=== PATIENT | female | born 1965 | race Caucasian/White ===

== ENCOUNTER 2021-09-20 12:16 | Inpatient (IN) ==
[2021-09-20] MEDS ORDERED: ALBUT/IPRATROP 3MG/0.5MG NEB 3 ML VIAL NEB STA (12:28)
[2021-09-20] MEDS ORDERED: methylPREDNISolone 125 MG/2 ML VIAL IV STA (12:28)
[2021-09-20 13:14] LABS: Appearance Urine Clear (Clear); Bilirubin Urine Negative (Negative); Blood Urine Negative (Negative); Color Urine Yellow; Glucose Urine UA Negative (Negative); Ketones Urine Negative (Negative); Leukocyte Esterase Urine Negative (Negative); Nitrite Urine Negative (Negative); Protein Urine Negative (Negative); Specific Gravity Urine 1.007 (1.000-1.030); Urobilinogen Urine Negative (Negative); pH Urine 7.5 (4.5-7.5)
[2021-09-20 13:27] LABS: Partial Thromboplastin Ratio 1.1; Partial Thromboplastin Time 29.4 Seconds (21.0-31.0); Prothrombin Time 10.7 Seconds (9.0-12.0)
--- NOTE | 2021-09-20 13:27 | Emergency Department Note ---
Impression & Plan Acute exacerbation of chronic obstructive pulmonary disease, Tobacco abuse, Bronchitis, Acute respiratory acidosis, Hypoxia ED Provider Note NAME: LUX VERAS AGE: 56 SEX: F : 1965 ARRIVES VIA: Walk-In INFORMANT: Patient, ED PROVIDER(S): Roge Nash DO CHIEF COMPLAINT: Shortness of breath HPI: The patient is a 56-year-old female who presented to the emergency department for an evaluation of difficulty breathing. The patient has a history of COPD. She is supposed to wear CPAP at night but she is not. She is not currently on antibiotics steroids or home oxygen. The patient states that she has been having problems over the course of the weekend with cough and difficulty breathing. She denies having any fever. She denies having any hemoptysis. She has had no chest pain or lower extremity swelling. She has been using her home medications without relief. She denies having any recent trauma. She has been compliant with her usual outpatient medications. The patient states her symptoms are moderate to severe. They worsen with any exertion. ROS: See above HPI for pertinent positives & negatives. A total of 10 systems reviewed and were otherwise negative. PAST MEDICAL HISTORY: See Below PAST SURGICAL HISTORY: See Below FAMILY HISTORY: See Below SOCIAL HISTORY: See Below HOME MEDICATIONS: See Below ALLERGIES: See Below VITALS: See Below PHYSICAL EXAMINATION: GENERAL: The patient is awake and alert. Patient is anxious appearing. EYES: The conjunctivae are clear. The pupils are round and reactive. EARS, NOSE, MOUTH AND THROAT: The nose is without any evidence of any deformity. NECK: The neck is nontender and supple. RESPIRATORY: Diminished breath sounds are noted throughout. Expiratory wheezes were noted both upper lung griggs. Conversational dyspnea is appreciated. CARDIOVASCULAR: Regular rate and rhythm noted there no murmurs rubs or gallops normal S1 normal S2. GASTROINTESTINAL: The abdomen is soft. Abdomen is nontender. MUSCULOSKELETAL/EXTREMITIES: There is no evidence of gross deformity full range of motion is noted in the hips and shoulders. SKIN: There is no obvious evidence of any rash. There are no petechiae, pallor or cyanosis noted. NEUROLOGIC: Patient is awake alert and oriented x3 MEDICAL DECISION MAKING: The patient is a 56-year-old female who presented to the emergency department for an evaluation of difficulty breathing. The patient was found to have hypoxia and a physical exam consistent with COPD. She was treated with bronchodilator therapy and IV antibiotics in the emergency department she was also given IV steroids. I discussed the patient's laboratory and radiographic studies with her. Because of her symptoms I also discussed her case with the on-call [facility] group. They have agreed to evaluate the patient in the emergency department for further management and disposition. Triage Nursing notes reviewed. Prior medical records reviewed Vital Signs: reviewed and remarkable for hypoxia. Differential diagnosis: Reactive airway disease, pneumonia, pneumothorax, COPD, CHF, infections, cardiac ischemia, pulmonary embolism, musculoskeletal, gastrointestinal, as well as other pathologies. ER treatment provided: See below Diagnostics interpreted by me: ECG: EKG was obtained in the emergency department. My interpretation is normal sinus rhythm at 69 bpm. There is no ectopy. There is no acute ST segment abnormalities noted. LVH was suggested by voltage criteria. This was compared to a tracing from October 21, 2003. No changes were noted. Cardiac Monitoring: An order was placed for continuous cardiac monitoring. The monitor shows a rate of 70 bpm with sinus rhythm. Laboratory studies: As stated above and show below. Imaging studies: See below Consultation(s): I discussed this case with Leonila who is on-call for the [facility]. Past Med/Surg History Medical History Bipolar disorder CAD (coronary artery disease) Chronic respiratory failure with hypercapnia COPD (chronic obstructive pulmonary disease) GERD (gastroesophageal reflux disease) HLD (hyperlipidemia) HTN (hypertension) Hypothyroidism BLAINE (obstructive sleep apnea) Pseudotumor cerebri T2DM (type 2 diabetes mellitus) TIA (transient ischemic attack) Tobacco abuse Tobacco use Surgical History History of History of cholecystectomy History of colonoscopy 2018 adenomatous polyps removed History of coronary artery stent placement History of esophagogastroduodenoscopy (EGD) 2018 normal History of lithotripsy History of tubal ligation Family History Father , 48 Myocardial infarction Mother , 58 Diabetes COPD (chronic obstructive pulmonary disease) Social History Smoking Status: Current every day smoker Tobacco Type: Cigarettes packs per day: 0.25; Years Smoked: 40; Cigarettes Per Day: 5; Second Hand Exposure: Yes; Tobacco Cessation Education Requested by Patient: No (Geovanny does not want to quit at this time.) Hx Alcohol Use: No Hx Substance Use: No Preferred Language: Guatemalan 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 Beliefs That Will Affect Care: None Current Living Situation: Family Feels Safe at Home: Yes Safety Concerns: Feels Safe At This Time Assistive Devices: Denture - Upper, Glasses and Walker Assistive Devices Comment: dentures present/ glasses are not Allergies Allergies Allergy/AdvReac Type Severity Reaction Status Date / Time ethinyl estradiol Allergy Mild RUNNY Verified 09/20/21 16:10 NOSE, ACHES, CONGESTION levonorgestrel Allergy Mild RUNNY Verified 09/20/21 16:10 NOSE, ACHES, CONGESTION strawberry Allergy Mild RASH Verified 09/20/21 16:10 bupropion Allergy Unknown memory loss Verified 09/20/21 16:10 latex Allergy Unknown rash Verified 09/20/21 16:10 [place] [facility] Allergy Mild RUNNY Uncoded 09/20/21 16:10 NOSE, ACHES, CONGESTION Home Meds Home Medications Medication Instructions Recorded Confirmed acetazolamide 250 mg tablet 1,000 mg PO BID 09/20/21 09/20/21 albuterol sulfate 90 mcg/actuation 2 puff INHALATION QID 09/20/21 09/20/21 aerosol inhaler amlodipine 5 mg tablet 5 mg PO QAM 09/20/21 09/20/21 aspirin 81 mg chewable tablet 81 mg PO DAILY 09/20/21 09/20/21 atorvastatin 40 mg tablet 40 mg PO QPM 09/20/21 09/20/21 cariprazine 3 mg capsule (Vraylar) 3 mg PO HS 09/20/21 09/20/21 clobetasol 0.05 % topical cream 1 applic TOPICAL BID 09/20/21 09/20/21 famotidine 10 mg tablet (Acid 10 mg PO BID 09/20/21 09/20/21 Medical Oncology Physician (famotidine)) fluticasone 250 mcg-salmeterol 50 1 inh INHALATION BID 09/20/21 09/20/21 mcg/dose blistr powdr for inhalation (Advair Diskus) gabapentin 100 mg capsule 100 mg PO TID 09/20/21 09/20/21 hydroxyzine pamoate 25 mg capsule 25 mg PO BID 09/20/21 09/20/21 levothyroxine 75 mcg tablet 75 mcg PO DAILYBB 09/20/21 09/20/21 lithium carbonate 300 mg 600 mg PO HS 09/20/21 09/20/21 tablet,extended release metformin 500 mg tablet 500 mg PO BIDM 09/20/21 09/20/21 metoprolol succinate 25 mg 25 mg PO DAILY 09/20/21 09/20/21 tablet,extended release 24 hr nitroglycerin 0.4 mg sublingual 0.4 mg SUBLINGUAL .PRN/UD 09/20/21 09/20/21 tablet nystatin 100,000 unit/gram topical 1 applic TOPICAL TID 09/20/21 09/20/21 powder omeprazole 20 mg capsule,delayed 20 mg PO QAM 09/20/21 09/20/21 release Results & Data (ED) Vital Signs Vital Signs - 24 hr 09/20/21 12:18 09/20/21 12:29 09/20/21 12:55 Temperature 36.8 C Temperature Source Temporal Artery Scan Pulse Rate 78 70 Pulse Rate [Apical] Pulse Rhythm Regular Pulse Strength Normal Respiratory Rate 22 19 Respiratory Effort / Characteristics Non-Labored Spontaneous Respiratory Depth Normal Respiratory Pattern Regular Blood Pressure 163/89 H Blood Pressure [Right Arm] Blood Pressure Mean 113 Blood Pressure Mean [Right Arm] Blood Pressure Position Sitting Blood Pressure Position [Right Arm] Pulse Oximetry 85 L 95 97 Oxygen Delivery Method Room Air Nasal Cannula Nasal Cannula Oxygen Flow Rate 3 3 Sepsis Recent Fever Within 48 Hours No Sepsis New/Unexplained Change in Mental Status No Sepsis Action Taken by Nursing No Action Required 09/20/21 13:01 09/20/21 15:00 Temperature 36.8 C Temperature Source Oral Pulse Rate Pulse Rate [Apical] 70 70 Pulse Rhythm Pulse Strength Respiratory Rate 19 18 Respiratory Effort / Characteristics Non-Labored Spontaneous Respiratory Depth Normal Respiratory Pattern Blood Pressure Blood Pressure [Right Arm] 151/108 H 127/56 L Blood Pressure Mean Blood Pressure Mean [Right Arm] 122 79 Blood Pressure Position Blood Pressure Position [Right Arm] Semi-fowlers Pulse Oximetry 91 93 Oxygen Delivery Method Nasal Cannula Nasal Cannula Oxygen Flow Rate 3 2 Sepsis Recent Fever Within 48 Hours Sepsis New/Unexplained Change in Mental Status Sepsis Action Taken by Longterm Medications Current Medication List: was personally reviewed by me Laboratory Data Attestation: I reviewed the patient's lab results. Result diagrams: 09/21/21 06:45 09/21/21 06:45 Lab Results 09/20/21 09/20/21 09/20/21 Range/Units 12:45 12:45 12:45 WBC 18.08 H (4.8-10.8) K/uL RBC 4.91 (4.2-5.4) M/uL Hgb 14.9 (12.0-16.0) g/dL Hct 49.8 H (37-47) % MCV 101.4 H (80-100) fL MCH 30.3 (25-34) pg MCHC 29.9 L (32-36) g/dL RDW Std Deviation 59.1 H (36.4-46.3) fL RDW Coeff of Bruno 15.7 H (11.5-14.5) % Plt Count 368 (130-400) K/uL MPV 10.3 (7.4-10.4) fL Absolute Nucleated RBC 0.03 H (0-0) K/uL Nucleated RBC % (auto) 0.2 % Neutrophils % (Manual) 88.4 % Lymphocytes % (Manual) 7.1 % Monocytes % (Manual) 0.9 % Eosinophils % (Manual) 1.8 % Metamyelocytes % (Man) 0.9 % Myelocytes % (Man) 0.9 % Neutrophils # (Manual) 15.98 H (1.4-6.5) K/uL Total Absolute Neuts 15.98 H (1.4-6.5) K/uL Lymphocytes # (Manual) 1.28 (1.2-3.4) K/uL Total Abs Lymphocytes 1.28 (1.2-3.4) K/uL Monocytes # (Manual) 0.16 (0.11-0.59) K/uL Eosinophils # (Manual) 0.33 (0-0.5) K/uL Metamyelocytes # (Man) 0.16 H (0-0) K/uL Myelocytes # (Manual) 0.16 H (0-0) K/uL PT 10.7 (9.0-12.0) Seconds INR 1.0 (0.9-1.1) APTT 29.4 (21.0-31.0) Seconds PTT Ratio 1.1 D-Dimer (0-500) ug/L FEU VBG pH (7.36-7.41) VBG pCO2 (38-50) mmHg VBG pO2 mmHg VBG HCO3 mmol/L VBG O2 Saturation % VBG Base Excess mEq/L Barometric Pressure mm/Hg Sodium (136-145) mmol/L Potassium (3.5-5.1) mmol/L Chloride (98-107) mmol/L Carbon Dioxide (21-32) mmol/L Anion Gap (3-11) BUN (6-23) mg/dl Creatinine (0.6-1.2) mg/dl Est Cr Clr Drug Dosing ml/min Est GFR ( Amer) ml/min Est GFR (Non-Af Amer) ml/min BUN/Creatinine Ratio (10-20) Glucose (70-99(Fasting)) mg/dl Calcium (8.5-10.1) mg/dl Magnesium (1.7-2.4) mg/dl Total Bilirubin (0.2-1.0) mg/dl AST (13-39) U/L ALT (7-52) U/L Alkaline Phosphatase (34-104) U/L Troponin I High Sens 8.7 (0-14) pg/ml Total Protein (6.0-8.3) gm/dl Albumin (3.4-5.0) gm/dl Globulin (2.5-4.0) gm/dl Albumin/Globulin Ratio (0.9-2) Procalcitonin (0-0.5) ng/ml Urine Color Urine Appearance (Clear) Urine pH (4.5-7.5) Ur Specific [place] (1.000-1.030) Urine Protein (Negative) Urine Glucose (UA) (Negative) Urine Ketones (Negative) Urine Blood (Negative) Urine Nitrite (Negative) Urine Bilirubin (Negative) Urine Urobilinogen (Negative) Ur Leukocyte Esterase (Negative) [place] (0.6-1.2) mmol/L Influ A Molecular Assay (Negative) Influ B Molecular Assay (Negative) 09/20/21 09/20/21 09/20/21 Range/Units 12:45 12:45 12:45 WBC (4.8-10.8) K/uL RBC (4.2-5.4) M/uL Hgb (12.0-16.0) g/dL Hct (37-47) % MCV (80-100) fL MCH (25-34) pg MCHC (32-36) g/dL RDW Std Deviation (36.4-46.3) fL RDW Coeff of Bruno (11.5-14.5) % Plt Count (130-400) K/uL MPV (7.4-10.4) fL Absolute Nucleated RBC (0-0) K/uL Nucleated RBC % (auto) % Neutrophils % (Manual) % Lymphocytes % (Manual) % Monocytes % (Manual) % Eosinophils % (Manual) % Metamyelocytes % (Man) % Myelocytes % (Man) % Neutrophils # (Manual) (1.4-6.5) K/uL Total Absolute Neuts (1.4-6.5) K/uL Lymphocytes # (Manual) (1.2-3.4) K/uL Total Abs Lymphocytes (1.2-3.4) K/uL Monocytes # (Manual) (0.11-0.59) K/uL Eosinophils # (Manual) (0-0.5) K/uL Metamyelocytes # (Man) (0-0) K/uL Myelocytes # (Manual) (0-0) K/uL PT (9.0-12.0) Seconds INR (0.9-1.1) APTT (21.0-31.0) Seconds PTT Ratio D-Dimer 410 (0-500) ug/L FEU VBG pH (7.36-7.41) VBG pCO2 (38-50) mmHg VBG pO2 mmHg VBG HCO3 mmol/L VBG O2 Saturation % VBG Base Excess mEq/L Barometric Pressure mm/Hg Sodium 141 (136-145) mmol/L Potassium 3.8 (3.5-5.1) mmol/L Chloride 107 (98-107) mmol/L Carbon Dioxide 28 (21-32) mmol/L Anion Gap 6 (3-11) BUN 13 (6-23) mg/dl Creatinine 0.71 (0.6-1.2) mg/dl Est Cr Clr Drug Dosing 120.7 ml/min Est GFR ( Amer) 110.4 ml/min Est GFR (Non-Af Amer) 95.2 ml/min BUN/Creatinine Ratio 18.3 (10-20) Glucose 138 H (70-99(Fasting)) mg/dl Calcium 9.1 (8.5-10.1) mg/dl Magnesium 2.1 (1.7-2.4) mg/dl Total Bilirubin 0.3 (0.2-1.0) mg/dl AST 7 L (13-39) U/L ALT 5 L (7-52) U/L Alkaline Phosphatase 126 H (34-104) U/L Troponin I High Sens (0-14) pg/ml Total Protein 7.6 (6.0-8.3) gm/dl Albumin 3.8 (3.4-5.0) gm/dl Globulin 3.8 (2.5-4.0) gm/dl Albumin/Globulin Ratio 1.0 (0.9-2) Procalcitonin (0-0.5) ng/ml Urine Color Yellow Urine Appearance Clear (Clear) Urine pH 7.5 (4.5-7.5) Ur Specific [place] 1.007 (1.000-1.030) Urine Protein Negative (Negative) Urine Glucose (UA) Negative (Negative) Urine Ketones Negative (Negative) Urine Blood Negative (Negative) Urine Nitrite Negative (Negative) Urine Bilirubin Negative (Negative) Urine Urobilinogen Negative (Negative) Ur Leukocyte Esterase Negative (Negative) [place] (0.6-1.2) mmol/L Influ A Molecular Assay (Negative) Influ B Molecular Assay (Negative) 09/20/21 09/20/21 09/20/21 Range/Units 13:25 13:49 13:49 WBC (4.8-10.8) K/uL RBC (4.2-5.4) M/uL Hgb (12.0-16.0) g/dL Hct (37-47) % MCV (80-100) fL MCH (25-34) pg MCHC (32-36) g/dL RDW Std Deviation (36.4-46.3) fL RDW Coeff of Bruno (11.5-14.5) % Plt Count (130-400) K/uL MPV (7.4-10.4) fL Absolute Nucleated RBC (0-0) K/uL Nucleated RBC % (auto) % Neutrophils % (Manual) % Lymphocytes % (Manual) % Monocytes % (Manual) % Eosinophils % (Manual) % Metamyelocytes % (Man) % Myelocytes % (Man) % Neutrophils # (Manual) (1.4-6.5) K/uL Total Absolute Neuts (1.4-6.5) K/uL Lymphocytes # (Manual) (1.2-3.4) K/uL Total Abs Lymphocytes (1.2-3.4) K/uL Monocytes # (Manual) (0.11-0.59) K/uL Eosinophils # (Manual) (0-0.5) K/uL Metamyelocytes # (Man) (0-0) K/uL Myelocytes # (Manual) (0-0) K/uL PT (9.0-12.0) Seconds INR (0.9-1.1) APTT (21.0-31.0) Seconds PTT Ratio D-Dimer (0-500) ug/L FEU VBG pH 7.25 L (7.36-7.41) VBG pCO2 67 H (38-50) mmHg VBG pO2 51 mmHg VBG HCO3 29 mmol/L VBG O2 Saturation 83.1 % VBG Base Excess -0.2 mEq/L Barometric Pressure 733.5 mm/Hg Sodium (136-145) mmol/L Potassium (3.5-5.1) mmol/L Chloride (98-107) mmol/L Carbon Dioxide (21-32) mmol/L Anion Gap (3-11) BUN (6-23) mg/dl Creatinine (0.6-1.2) mg/dl Est Cr Clr Drug Dosing ml/min Est GFR ( Amer) ml/min Est GFR (Non-Af Amer) ml/min BUN/Creatinine Ratio (10-20) Glucose (70-99(Fasting)) mg/dl Calcium (8.5-10.1) mg/dl Magnesium (1.7-2.4) mg/dl Total Bilirubin (0.2-1.0) mg/dl AST (13-39) U/L ALT (7-52) U/L Alkaline Phosphatase (34-104) U/L Troponin I High Sens (0-14) pg/ml Total Protein (6.0-8.3) gm/dl Albumin (3.4-5.0) gm/dl Globulin (2.5-4.0) gm/dl Albumin/Globulin Ratio (0.9-2) Procalcitonin (0-0.5) ng/ml Urine Color Urine Appearance (Clear) Urine pH (4.5-7.5) Ur Specific [place] (1.000-1.030) Urine Protein (Negative) Urine Glucose (UA) (Negative) Urine Ketones (Negative) Urine Blood (Negative) Urine Nitrite (Negative) Urine Bilirubin (Negative) Urine Urobilinogen (Negative) Ur Leukocyte Esterase (Negative) [place] 0.3 L (0.6-1.2) mmol/L Influ A Molecular Assay Negative (Negative) Influ B Molecular Assay Negative (Negative) 09/20/21 Range/Units 15:15 WBC (4.8-10.8) K/uL RBC (4.2-5.4) M/uL Hgb (12.0-16.0) g/dL Hct (37-47) % MCV (80-100) fL MCH (25-34) pg MCHC (32-36) g/dL RDW Std Deviation (36.4-46.3) fL RDW Coeff of Bruno (11.5-14.5) % Plt Count (130-400) K/uL MPV (7.4-10.4) fL Absolute Nucleated RBC (0-0) K/uL Nucleated RBC % (auto) % Neutrophils % (Manual) % Lymphocytes % (Manual) % Monocytes % (Manual) % Eosinophils % (Manual) % Metamyelocytes % (Man) % Myelocytes % (Man) % Neutrophils # (Manual) (1.4-6.5) K/uL Total Absolute Neuts (1.4-6.5) K/uL Lymphocytes # (Manual) (1.2-3.4) K/uL Total Abs Lymphocytes (1.2-3.4) K/uL Monocytes # (Manual) (0.11-0.59) K/uL Eosinophils # (Manual) (0-0.5) K/uL Metamyelocytes # (Man) (0-0) K/uL Myelocytes # (Manual) (0-0) K/uL PT (9.0-12.0) Seconds INR (0.9-1.1) APTT (21.0-31.0) Seconds PTT Ratio D-Dimer (0-500) ug/L FEU VBG pH (7.36-7.41) VBG pCO2 (38-50) mmHg VBG pO2 mmHg VBG HCO3 mmol/L VBG O2 Saturation % VBG Base Excess mEq/L Barometric Pressure mm/Hg Sodium (136-145) mmol/L Potassium (3.5-5.1) mmol/L Chloride (98-107) mmol/L Carbon Dioxide (21-32) mmol/L Anion Gap (3-11) BUN (6-23) mg/dl Creatinine (0.6-1.2) mg/dl Est Cr Clr Drug Dosing ml/min Est GFR ( Amer) ml/min Est GFR (Non-Af Amer) ml/min BUN/Creatinine Ratio (10-20) Glucose (70-99(Fasting)) mg/dl Calcium (8.5-10.1) mg/dl Magnesium (1.7-2.4) mg/dl Total Bilirubin (0.2-1.0) mg/dl AST (13-39) U/L ALT (7-52) U/L Alkaline Phosphatase (34-104) U/L Troponin I High Sens (0-14) pg/ml Total Protein (6.0-8.3) gm/dl Albumin (3.4-5.0) gm/dl Globulin (2.5-4.0) gm/dl Albumin/Globulin Ratio (0.9-2) Procalcitonin 0.12 (0-0.5) ng/ml Urine Color Urine Appearance (Clear) Urine pH (4.5-7.5) Ur Specific [place] (1.000-1.030) Urine Protein (Negative) Urine Glucose (UA) (Negative) Urine Ketones (Negative) Urine Blood (Negative) Urine Nitrite (Negative) Urine Bilirubin (Negative) Urine Urobilinogen (Negative) Ur Leukocyte Esterase (Negative) [place] (0.6-1.2) mmol/L Influ A Molecular Assay (Negative) Influ B Molecular Assay (Negative) Administered Medications Albuterol (Albut/Ipratrop 3mg/0.5mg Neb 3 Ml Vial) 3 ml NEB QIDR [facility]; Protocol Stop: 10/20/21 18:59 Last Admin: 09/21/21 07:09 Dose: 3 ml Documented by: [id number] Admin: 09/20/21 19:22 Dose: 3 ml Documented by: [id number] Amlodipine Besylate (Amlodipine Besylate 5 Mg Tab) 5 mg PO QAM KOFI Stop: 10/21/21 08:59 Last Admin: 09/21/21 07:44 Dose: 5 mg Documented by: [id number] Aspirin (Aspirin 81 Mg Ectab) 81 mg PO DAILY KOFI Stop: 10/21/21 08:59 Last Admin: 09/21/21 07:44 Dose: 81 mg Documented by: [id number] Atorvastatin Calcium (Atorvastatin 40 Mg Tab) 40 mg PO QPM KOFI Stop: 10/20/21 20:59 Last Admin: 09/20/21 21:24 Dose: 40 mg Documented by: [id number] Enoxaparin Sodium (Enoxaparin Inj 40 Mg/0.4 Ml Syr) 40 mg SQ Q12H KOFI Stop: 10/20/21 21:59 Last Admin: 09/20/21 21:21 Dose: Not Given Documented by: [id number] Famotidine (Famotidine 10 Mg Tablet) 10 mg PO BID KOFI Stop: 10/20/21 20:59 Last Admin: 09/21/21 07:43 Dose: 10 mg Documented by: [id number] Admin: 09/20/21 21:24 Dose: 10 mg Documented by: [id number] Fluticasone/Vilanterol (Fluticasone/Vilanterol 100/25mcg 14 Puffs/Inhaler) 1 puffs INH DAILY KOFI Stop: 10/21/21 08:59 Last Admin: 09/21/21 07:46 Dose: Not Given Documented by: [id number] Gabapentin (Gabapentin 100 Mg Cap) 100 mg PO TID KOFI Stop: 10/20/21 20:59 Last Admin: 09/21/21 07:45 Dose: 100 mg Documented by: [id number] Admin: 09/20/21 21:22 Dose: 100 mg Documented by: [id number] Insulin Aspart (Insulin Aspart Per Unit) 0 units SC Q6 KOFI Stop: 10/20/21 17:59 Last Admin: 09/21/21 06:07 Dose: Not Given Documented by: [id number] Admin: 09/21/21 00:09 Dose: Not Given Documented by: [id number] Admin: 09/20/21 18:28 Dose: Not Given Documented by: [id number] Cosigned by: [id number] Insulin Glargine (Insulin Glargine Solostar 100 Units/Ml 3 Ml Pen) 20 units SC BID KOFI Stop: 10/20/21 20:59 Last Admin: 09/21/21 07:46 Dose: Not Given Documented by: [id number] Admin: 09/20/21 21:27 Dose: Not Given Documented by: [id number] Levothyroxine Sodium (Levothyroxine Sodium 75 Mcg Tablet) 75 mcg PO DAILYBB [facility] Stop: 10/21/21 06:29 Last Admin: 09/21/21 07:43 Dose: 75 mcg Documented by: [id number] [place] Carbonate ([place] Carbonate Slow Rel 300 Mg Tab) 600 mg PO HS [facility] Stop: 10/20/21 20:59 Last Admin: 09/20/21 21:24 Dose: 600 mg Documented by: [id number] Metoprolol Succinate (Metoprolol Succ 25mg Ext Rel Tab) 25 mg PO DAILY [facility] Stop: 10/21/21 08:59 Last Admin: 09/21/21 07:43 Dose: 25 mg Documented by: [id number] Miscellaneous (Vrylar~Order Awaiting Action) 1 ea N/A QS [facility] Stop: 10/20/21 17:29 Last Admin: 09/21/21 07:45 Dose: Not Given Documented by: [id number] Admin: 09/21/21 00:10 Dose: Not Given Documented by: [id number] Admin: 09/20/21 18:03 Dose: Not Given Documented by: [id number] Miscellaneous (Clobetasol~Order Awaiting Action) 1 ea N/A QS [facility] Stop: 10/20/21 17:29 Last Admin: 09/21/21 07:45 Dose: Not Given Documented by: [id number] Admin: 09/21/21 00:09 Dose: Not Given Documented by: [id number] Admin: 09/20/21 18:03 Dose: Not Given Documented by: [id number] Pantoprazole Sodium (Pantoprazole 40 Mg Tab) 40 mg PO QAM [facility] Stop: 10/21/21 08:59 Last Admin: 09/21/21 07:44 Dose: 40 mg Documented by: [id number] Discontinued Medications Albuterol (Albut/Ipratrop 3mg/0.5mg Neb 3 Ml Vial) 3 ml NEB NOW STA; Protocol Stop: 09/20/21 12:29 Last Admin: 09/20/21 13:16 Dose: 3 ml Documented by: [id number] Ceftriaxone Sodium (Rocephin) 1,000 mg in 50 mls @ 100 mls/hr IV NOW STA Stop: 09/20/21 15:22 Last Infusion: 09/20/21 15:46 Dose: 0 mls/hr Documented by: [id number] Admin: 09/20/21 15:17 Dose: 100 mls/hr Documented by: [id number] Methylprednisolone 40 mg/ (Syringe) 0.64 mls @ 1.5 mls/min IV TID KOFI Stop: 10/21/21 06:59 Last Admin: 09/21/21 07:45 Dose: 1.5 mls/min Documented by: [id number] Levofloxacin (Levofloxacin 750 Mg Tab) 750 mg PO Q24H KOFI Stop: 09/27/21 16:59 Last Admin: 09/20/21 18:03 Dose: 750 mg Documented by: [id number] Methylprednisolone (Methylprednisolone 125 Mg/2 Ml Vial) 125 mg IV NOW STA Stop: 09/20/21 12:29 Last Admin: 09/20/21 13:16 Dose: 125 mg Documented by: [id number] Imaging Data Radiologist's Impression: Chest X-Ray 09/20/21 12:28 XR chest 1V portable CLINICAL HISTORY: Dyspnea COMPARISON STUDY: No previous studies for comparison. FINDINGS: Lung volumes are normal. Lungs are clear. There is no pneumothorax or pleural effusion. Cardiac size is at the upper limits of normal. Mediastinal contours are normal. There is no evidence for pulmonary edema. IMPRESSION: No acute cardiopulmonary findings. ACT 112: Negative or not required by law. Electronically signed by: Shawn Moran M.D. 09/20/2021 1:36 PM Discharge Plan Visit Data Chief Complaint: Respiratory Problems Stated Complaint: LOW 02 ED Provider: Roge Nash Discharge Problem: Acute exacerbation of chronic obstructive pulmonary disease, Tobacco abuse, Bronchitis, Acute respiratory acidosis, Hypoxia Patient Disposition: Admitted As Inpatient Discharge Instructions Interventions: ED Discharge Assessment Last Done: 09/20/21 16:35
[2021-09-20 13:29] LABS: Hematocrit (blood only) 49.8 % (37-47); Hemoglobin 14.9 g/dL (12.0-16.0); Mean Corpuscular Hemoglobin 30.3 pg (25-34); Mean Corpuscular Hgb Conc 29.9 g/dL (32-36); Mean Corpuscular Volume 101.4 fL (80-100); Mean Platelet Volume 10.3 fL (7.4-10.4); Nucleated RBC # (auto) 0.03 K/uL (0-0); Nucleated RBC % (auto) 0.2 %; Platelet Count 368 K/uL (130-400); RDW Coefficient of Variation 15.7 % (11.5-14.5); RDW Standard Deviation 59.1 fL (36.4-46.3); Red Blood Count 4.91 M/uL (4.2-5.4); White Blood Count 18.08 K/uL (4.8-10.8)
[2021-09-20 13:32] LABS: ALC (manual) 1.28 K/uL (1.2-3.4); ANC (manual) 15.98 K/uL (1.4-6.5); Eosinophils # (manual) 0.33 K/uL (0-0.5); Eosinophils % (manual) 1.8 %; Lymphocytes # (manual) 1.28 K/uL (1.2-3.4); Lymphocytes % (manual) 7.1 %; Metamyelocytes # (manual) 0.16 K/uL (0-0); Metamyelocytes % (manual) 0.9 %; Monocytes # (manual) 0.16 K/uL (0.11-0.59); Monocytes % (manual) 0.9 %; Myelocytes # (manual) 0.16 K/uL (0-0); Myelocytes % (manual) 0.9 %; Neutrophils # (manual) 15.98 K/uL (1.4-6.5); Neutrophils % (manual) 88.4 %
--- NOTE | 2021-09-20 13:37 | XRay Report ---
XR chest 1V portable CLINICAL HISTORY: Dyspnea COMPARISON STUDY: No previous studies for comparison. FINDINGS: Lung volumes are normal. Lungs are clear. There is no pneumothorax or pleural effusion. Car diac size is at the upper limits of normal. Mediastinal contours are normal. There is no evidence for pulmonary edema. IMPRESSION: No acute cardiopulmonary findings. ACT 112: Negative or not required by law. Electronically signed by: Shawn Moran M.D. 09/20/2021 1:36 PM
[2021-09-20 14:01] LABS: Albumin Level 3.8 gm/dl (3.4-5.0); BUN Creatinine Ratio 18.3 (10-20); Bilirubin,Total 0.3 mg/dl (0.2-1.0); Calcium 9.1 mg/dl (8.5-10.1); Creatinine Clr Calc Pharmacy 120.7 ml/min; Est GFR (African American) 110.4 ml/min; Est GFR (Non-African American) 95.2 ml/min; Globulin 3.8 gm/dl (2.5-4.0); Magnesium 2.1 mg/dl (1.7-2.4); Potassium 3.8 mmol/L (3.5-5.1); Total Protein 7.6 gm/dl (6.0-8.3)
[2021-09-20 14:06] LABS: Influenza A virus by PCR Negative (Negative); Influenza B virus by PCR Negative (Negative)
[2021-09-20 14:11] LABS: Base Excess VBG -0.2 mEq/L; Oxygen Saturation VBG 83.1 %; pH VBG 7.25 (7.36-7.41)
[2021-09-20] MEDS ORDERED: cefTRIAXone SODIUM 1,000 MG/50 ML BAG IV STA (14:53)
[2021-09-20 15:15] LABS: D Dimer 410 ug/L FEU (0-500)
--- NOTE | 2021-09-20 15:50 | Electrocardiogram Report ---
Test Reason : Blood Pressure : / mmHG Vent. Rate : 069 BPM Atrial Rate : 069 BPM P-R Int : 178 ms QRS Dur : 090 ms QT Int : 432 ms P-R-T Axes : 063 -34 019 degrees QTc Int : 462 ms Normal sinus rhythm Left axis deviation Minimal voltage criteria for LVH, may be normal variant Abnormal ECG When compared with ECG of 21-OCT-2003 23:33, QRS axis Shifted left Confirmed by Roge Bhatt ([id number]) on 09/20/2021 3:49:40 PM Referred By: Confirmed By:Roge Bhatt
--- NOTE | 2021-09-20 15:57 | History & Physical Report ---
Date of Service September 20, 2021 Assessment & Plan (1) Acute respiratory failure with hypoxia and hypercarbia: (2) Acute respiratory acidosis: (3) Acute exacerbation of chronic obstructive pulmonary disease: (4) CAD (coronary artery disease): (5) HTN (hypertension): (6) BLAINE (obstructive sleep apnea): (7) Bipolar disorder: (8) T2DM (type 2 diabetes mellitus): Plan: This is a 56-year-old female who has significant past medical history of chronic hypoxic respiratory failure with hypercapnia on 2 L of O2 with exertion, COPD, BLAINE unable to use CPAP due to lack of supplies, HTN, HLD, hypothyroidism, CAD, pseudotumor cerebri, TIA, GERD, bipolar disorder, tobacco abuse who presents to ED secondary to shortness of breath x1 day. Acute respiratory failure with hypoxia hypercarbia Acute respiratory acidosis Acute exacerbation of COPD BLAINE noncompliant with CPAP due to lack of supplies Admit to PCU BiPAP therapy initiated, repeat ABG later this evening Keep n.p.o. while on BiPAP therapy to avoid aspiration DuoNeb 4 times daily, incentive spirometry Levaquin 750 mg daily Solu-Medrol IV 40 mg daily starting on 09/21 CAD with history of coronary stent Continue ASA, statin, metoprolol No chest pain or shortness of breath HTN Blood pressure stable Continue amlodipine, metoprolol T2DM A1c 6.5 on 07/16/2021 Hold metformin Lantus/novolog per protocol Bipolar continue lithium and Vraylar mood stable Tobacco abuse Encourage smoking cessation Patient declines nicotine patch DVT prophylaxis: Lovenox twice daily Dispo: PCU PCP: Dr. Gordon FULL CODE Pt was seen and examined in collaboration with Dr. Martinez, please see addendum History of Present Illness Chief Complaint: Shortness of breath x1 day. Primary Care Provider: Shelton Gordon MD This is a 56-year-old female who has significant past medical history of chronic hypoxic respiratory failure with hypercapnia on 2 L of O2 with exertion, COPD, BLAINE unable to use CPAP due to lack of supplies, HTN, HLD, hypothyroidism, CAD, pseudotumor cerebri, TIA, GERD, bipolar disorder, tobacco abuse who presents to ED secondary to shortness of breath x1 day. Her symptoms started yesterday when she began to feel more shortness of breath at rest. She does have GRANT and a chronic cough at baseline. When checking her oxygen yesterday it was low. This morning when she woke up her oxygen was 55% and when she rechecked it later on it was 75%. She called her daughter to bring her to ER. She has history of COPD exacerbation in the past and states this feels similar. She also admits to further wheezing. She denies any sick contacts. She denies fever, chills, sweats, lightheadedness, dizziness, syncope, chest pain, hemoptysis, nausea, vomiting, abdominal pain, change in her bowel or urinary habits. In ED patient was hypoxic requiring 2 to 3 L of O2 to maintain normal oxygen supplementation. Lab work was notable for to BC 18.08, H&H 14.9 and 49.8, elevated metamyelocytes, respiratory acidosis with pH 7.25 and CO2 of 68. Her CMP was generally unremarkable except for hyperglycemia. Her urinalysis was negative and her lithium level was low at 0.3. SARS-CoV-2 and influenza A&B was negative. Chest x-ray was negative for acute abnormality. Allergies Allergy/AdvReac Type Severity Reaction Status Date / Time ethinyl estradiol Allergy Mild RUNNY Verified 09/20/21 16:10 NOSE, ACHES, CONGESTION levonorgestrel Allergy Mild RUNNY Verified 09/20/21 16:10 NOSE, ACHES, CONGESTION strawberry Allergy Mild RASH Verified 09/20/21 16:10 bupropion Allergy Unknown memory loss Verified 09/20/21 16:10 latex Allergy Unknown rash Verified 09/20/21 16:10 Echo Blue FCF Allergy Mild RUNNY Uncoded 09/20/21 16:10 NOSE, ACHES, CONGESTION Home Medications Medication Instructions Recorded Confirmed Type acetazolamide 250 mg tablet 1,000 mg PO BID 09/20/21 09/20/21 History albuterol sulfate 90 mcg/actuation 2 puff INHALATION QID 09/20/21 09/20/21 History aerosol inhaler amlodipine 5 mg tablet 5 mg PO QAM 09/20/21 09/20/21 History aspirin 81 mg chewable tablet 81 mg PO DAILY 09/20/21 09/20/21 History atorvastatin 40 mg tablet 40 mg PO QPM 09/20/21 09/20/21 History cariprazine 3 mg capsule (Vraylar) 3 mg PO HS 09/20/21 09/20/21 History clobetasol 0.05 % topical cream 1 applic TOPICAL BID 09/20/21 09/20/21 History famotidine 10 mg tablet (Acid 10 mg PO BID 09/20/21 09/20/21 History Motion Picture Printer (famotidine)) fluticasone 250 mcg-salmeterol 50 1 inh INHALATION BID 09/20/21 09/20/21 History mcg/dose blistr powdr for inhalation (Advair Diskus) gabapentin 100 mg capsule 100 mg PO TID 09/20/21 09/20/21 History hydroxyzine pamoate 25 mg capsule 25 mg PO BID 09/20/21 09/20/21 History levothyroxine 75 mcg tablet 75 mcg PO DAILYBB 09/20/21 09/20/21 History lithium carbonate 300 mg 600 mg PO HS 09/20/21 09/20/21 History tablet,extended release metformin 500 mg tablet 500 mg PO BIDM 09/20/21 09/20/21 History metoprolol succinate 25 mg 25 mg PO DAILY 09/20/21 09/20/21 History tablet,extended release 24 hr nitroglycerin 0.4 mg sublingual 0.4 mg SUBLINGUAL .PRN/UD 09/20/21 09/20/21 History tablet nystatin 100,000 unit/gram topical 1 applic TOPICAL TID 09/20/21 09/20/21 History powder omeprazole 20 mg capsule,delayed 20 mg PO QAM 09/20/21 09/20/21 History release Past Med/Surg History Medical History Bipolar disorder CAD (coronary artery disease) Chronic respiratory failure with hypercapnia COPD (chronic obstructive pulmonary disease) GERD (gastroesophageal reflux disease) HLD (hyperlipidemia) HTN (hypertension) Hypothyroidism BLAINE (obstructive sleep apnea) Pseudotumor cerebri T2DM (type 2 diabetes mellitus) TIA (transient ischemic attack) Tobacco abuse Tobacco use Surgical History History of History of cholecystectomy History of colonoscopy 2018 adenomatous polyps removed History of coronary artery stent placement History of esophagogastroduodenoscopy (EGD) 2018 normal History of lithotripsy History of tubal ligation Family History Father , 48 Myocardial infarction Mother , 58 Diabetes COPD (chronic obstructive pulmonary disease) Social History Smoking Status: Current every day smoker Tobacco Type: Cigarettes packs per day: 0.25; Years Smoked: 40; Cigarettes Per Day: 5; Second Hand Exposure: Yes; Tobacco Cessation Education Requested by Patient: No (Geovanny does not want to quit at this time.) Hx Alcohol Use: No Hx Substance Use: No Preferred Language: Swiss Communication Ability: Effective Brass Finisher Required: No Beliefs That Will Affect Care: None marital status: Single Current Living Situation: Family Feels Safe at Home: Yes Safety Concerns: Feels Safe At This Time Assistive Devices: Cane and Walker Assistive Devices Comment: dentures present/ glasses are not Review of Systems Review of Systems: All systems reviewed & are unremarkable except as noted in HPI & below Physical Exam Physical Exam: Constitutional: WD/WN, vitals as above, NAD, sitting up in bed, pleasant, conversing easily Head: Normocephalic, Atraumatic Eyes: PERRL, conjunctivae normal, anicteric sclerae ENMT: external ear and nose normal, oropharynx normal Neck: trachea midline, no thyromegaly normal visual inspection Respiratory: normal respiratory effort, coarse breath sounds throughout with bilateral expiratory wheezing, no rales or rhonchi. Normal insp/exp effort, no accessory muscle use Cardiovascular: RRR, no murmur, lower extremity nonpitting edema, no erythema, negative Homans' sign Vessels: no JVD or carotid bruit Chest: normal inspection of chest Abdomen: normal bowel sounds, soft, nontender, no hepatosplenomegaly Musculoskeletal: no cyanosis or clubbing, extremities motor strength 5/5 Skin: no rashes, warm and dry normal turgor Neurologic: PERRL, EOMI, accommodation nl, no face palsy, no dysarthria CN's II-XI intact bilaterally and moves all extremities Psychiatric: A+Ox3, euthymic affect Lymphatic: no cervical or axillary lymphadenopathy : deferred Results & Data Results & Data ([facility]) Vital Signs (Past 12 Hours) Vital Signs Temp Pulse Pulse Resp BP BP Pulse Ox 09/20/21 15:00 36.8 C 70 18 127/56 L 93 09/20/21 13:01 70 19 151/108 H 91 09/20/21 12:55 97 09/20/21 12:29 70 19 95 09/20/21 12:18 36.8 C 78 22 163/89 H 85 L Diagnostic Findings Chest X-Ray 09/20/21 12:28 XR chest 1V portable CLINICAL HISTORY: Dyspnea COMPARISON STUDY: No previous studies for comparison. FINDINGS: Lung volumes are normal. Lungs are clear. There is no pneumothorax or pleural effusion. Cardiac size is at the upper limits of normal. Mediastinal contours are normal. There is no evidence for pulmonary edema. IMPRESSION: No acute cardiopulmonary findings. ACT 112: Negative or not required by law. Electronically signed by: Shawn Moran M.D. 09/20/2021 1:36 PM Medications Administered Medication List Discontinued Medications Albuterol (Albut/Ipratrop 3mg/0.5mg Neb 3 Ml Vial) 3 ml NEB NOW STA; Protocol Stop: 09/20/21 12:29 Last Admin: 09/20/21 13:16 Dose: 3 ml Documented by: [id number] Ceftriaxone Sodium (Rocephin) 1,000 mg in 50 mls @ 100 mls/hr IV NOW STA Stop: 09/20/21 15:22 Last Infusion: 09/20/21 15:46 Dose: 0 mls/hr Documented by: [id number] Admin: 09/20/21 15:17 Dose: 100 mls/hr Documented by: [id number] Methylprednisolone (Methylprednisolone 125 Mg/2 Ml Vial) 125 mg IV NOW STA Stop: 09/20/21 12:29 Last Admin: 09/20/21 13:16 Dose: 125 mg Documented by: [id number] ECG Rate (beats per minute): 69 Rhythm: normal sinus Additional Comments: when compared to ecg in 209 qrs axis has shifted COVID-19 Results Results COVID-19 Adm Lab Results: RBC 4.64 M/uL (4.2-5.4) 09/21/21 WBC 14.90 K/uL (4.8-10.8) H 09/21/21 Hgb 13.8 g/dL (12.0-16.0) 09/21/21 Hct 46.2 % (37-47) 09/21/21 Plt Count 343 K/uL (130-400) 09/21/21 Neutrophils (%) (Auto) 84.6 % 09/21/21 Lymphocytes (%) (Auto) 10.3 % 09/21/21 Monocytes # (Auto) 0.67 K/uL (0.11-0.59) H 09/21/21 Eosinophils # (Auto) 0.00 K/uL (0-0.5) 09/21/21 Immature Granulocyte % (Auto) 0.5 % 09/21/21 Neutrophils # (Auto) 12.61 K/uL (1.4-6.5) H 09/21/21 Lymphocytes # (Auto) 1.54 K/uL (1.2-3.4) 09/21/21 Monocytes # (Auto) 0.67 K/uL (0.11-0.59) H 09/21/21 Eosinophils # (Auto) 0.00 K/uL (0-0.5) 09/21/21 Basophils # (Auto) 0.01 K/uL (0-0.2) 09/21/21 Immature Granulocyte # (Auto) 0.07 K/uL (0.00-0.02) H 09/21/21 ANC 15.98 K/uL (1.4-6.5) H 09/20/21 ALC 1.28 K/uL (1.2-3.4) 09/20/21 Neutrophils % (Manual) 88.4 % 09/20/21 Lymphocytes % (Manual) 7.1 % 09/20/21 Monocytes % (Manual) 0.9 % 09/20/21 Eosinophils % (Manual) 1.8 % 09/20/21 Metamyelocytes % (manual) 0.9 % 09/20/21 Myelocytes % (Manual) 0.9 % 09/20/21 Neutrophils # (Manual) 15.98 K/uL (1.4-6.5) H 09/20/21 Lymphocytes # (Manual) 1.28 K/uL (1.2-3.4) 09/20/21 Monocytes # (Manual) 0.16 K/uL (0.11-0.59) 09/20/21 Eosinophils # (Manual) 0.33 K/uL (0-0.5) 09/20/21 Metamyelocytes # (Manual) 0.16 K/uL (0-0) H 09/20/21 Myelocytes # (Manual) 0.16 K/uL (0-0) H 09/20/21 Na 139 mmol/L (136-145) 09/21/21 K 4.1 mmol/L (3.5-5.1) 09/21/21 Cl 106 mmol/L (98-107) 09/21/21 CO2 28 mmol/L (21-32) 09/21/21 Anion Gap 5 (3-11) 09/21/21 BUN 14 mg/dl (6-23) 09/21/21 Creatinine 0.60 mg/dl (0.6-1.2) 09/21/21 BUN/Creatinine Ratio 23.3 (10-20) H 09/21/21 Glucose Level 124 mg/dl (70-99(Fasting)) H 09/21/21 Ca 9.3 mg/dl (8.5-10.1) 09/21/21 Total Bilirubin 0.3 mg/dl (0.2-1.0) 09/21/21 AST/SGOT 6 U/L (13-39) L 09/21/21 ALT/SGPT 4 U/L (7-52) L 09/21/21 Alkaline Phosphatase 105 U/L (34-104) H 09/21/21 Total Protein 6.7 gm/dl (6.0-8.3) 09/21/21 Albumin 3.4 gm/dl (3.4-5.0) 09/21/21 Globulin 3.3 gm/dl (2.5-4.0) 09/21/21 Albumin/Globulin Ratio 1.0 (0.9-2) 09/21/21 Procalcitonin 0.12 ng/ml (0-0.5) 09/20/21 D-Dimer 410 ug/L FEU (0-500) 09/20/21 PTT 29.4 Seconds (21.0-31.0) 09/20/21 INR 1.0 (0.9-1.1) 09/20/21 SARS-CoV-2, RNA, NAAT NEGATIVE (NEGATIVE) 09/20/21 ABG pH 7.31 (7.35-7.45) L 09/21/21 ABG pCO2 57 mmHg (35-46) H 09/21/21 ABG pO2 67 mmHg (80-95) L 09/21/21 ABG HCO3 28 mmol/L (19-24) H 09/21/21 ABG O2 Saturation 93.4 % (90-95) 09/21/21 ABG Base Excess 0.7 mEq/L (-9-1.8) 09/21/21 Chest X-Ray 09/20/21 Code Status & VTE Plan Code Status FULL CODE VTE Prophylaxis Plan VTE Prophylaxis will be ordered: Yes Supervising Physician Co-Signing Physician Notes 56-year-old female with known history of COPD presents with 2 days of shortness of breath. Denies cough or changes in sputum, denies fevers or chills. Shortness of breath has been progressive since yesterday and she is now requiring oxygen which is not typical for her. Work-up in the ER reveals a white blood cell count of 18 with a left shift, hemoglobin 15 hematocrit 50, D- dimer negative. Arterial blood gas reveals a pH 7.25, PCO2 68, PO2 72. BMP is normal with no evidence of metabolic acidosis. Procalcitonin is negative at 0.12. Urinalysis shows no signs of infection. Flu and COVID screens are negative. Chest x-ray is clear. Blood cultures are pending and EKG reveals normal sinus rhythm with a rate of 69 and no evidence of ST changes to indicate ischemia. On physical exam she is not struggling to breathe, looking comfortable on 3 L nasal cannula. She is oxygenating in the low 90s. Pulmonary auscultation reveals wheezing and diminished breath sounds throughout all lung griggs. Cardiac assessment reveals S1/S2 with no evidence of murmurs gallops or rubs and a regular rate and rhythm. Abdomen is protuberant but soft, nontender and nondistended. Extremities are well perfused and warm with no evidence of edema. There is no evidence of cyanosis and no evidence of gross focal neurologic deficits. This is a 56-year-old female smoker with known COPD presenting with acute hypercarbic respiratory failure with respiratory acidosis and hypoxia. Agree with continued steroids started in the ER, antibiotics, scheduled DuoNebs. Will place on temporary BiPAP to help fix the acid-base disorder. Although chest x- ray is clear her D-dimer is negative so will not pursue a CTA looking for PE at this time. Monitor closely on PCU and consider repeat blood gas later this evening after a few hours on BiPAP. While patient is on BiPAP we will keep her n.p.o. to decrease her risk of aspiration from nausea or vomiting. DO Juan (1) Bipolar disorder Active/Remission status: currently active Current bipolar episode type: depressed Current episode severity: severe Psychotic features: without psychotic features Qualified Code(s): F31.4 - Bipolar disorder, current episode depressed, severe, without psychotic features
[2021-09-20 16:18] LABS: Base Excess ABG -0.1 mEq/L (-9-1.8); HCO3 ABG 29 mmol/L (19-24); Oxygen Saturation ABG 93.6 % (90-95); PCO2 ABG 68 mmHg (35-46); PO2 ABG 72 mmHg (80-95); pH ABG 7.25 (7.35-7.45)
[2021-09-20 16:28] LABS: Allen Test POS (Pos)
[2021-09-20] MEDS ORDERED: ALUMINUM/MAGNESIUM SUSP 30 ML UDC PO PRN (16:35)
[2021-09-20] MEDS ORDERED: MAGNESIUM HYDROXIDE SUSP 30 ML UDC PO PRN (16:35)
[2021-09-20] MEDS ORDERED: ONDANSETRON INJ 2 MG/ML 2 ML VIAL IV PRN (16:35)
[2021-09-20] MEDS ORDERED: POLYETHYLENE (MIRALAX) 17 GM PACK PO PRN (16:35)
[2021-09-20] MEDS ORDERED: ACETAMINOPHEN 325 MG TAB PO PRN (16:35)
[2021-09-20] MEDS ORDERED: CARBOHYDRATES FOR HYPOGLYCEMIA PO PRN (16:39)
[2021-09-20] MEDS ORDERED: GLUCAGON FOR INJ 1 MG VIAL SQ PRN (16:39)
[2021-09-20] MEDS ORDERED: DEXTROSE 50% 50 ML SYRINGE IV PRN (16:39)
[2021-09-20] MEDS ORDERED: GLUCOSE 10 TABS/TUBE PO PRN (16:39)
[2021-09-20] MEDS ORDERED: GLUCOSE 40% GEL 15 GM TUBE PO PRN (16:39)
--- NOTE | 2021-09-20 16:48 | Communication Note ---
Date of Service: September 20, 2021 56-year-old female with known history of COPD presents with 2 days of shortness of breath. Denies cough or changes in sputum, denies fevers or chills. Sh ortness of breath has been progressive since yesterday and she is now requiring oxygen which is not typical for her. Work-up in the ER reveals a white blood cell count of 18 with a left shift, hemoglobin 15 hematocrit 50, D-dimer negative. Arterial blood gas reveals a pH 7.25, PCO2 68, PO2 72. BMP is normal with no evidence of metabolic acidosis. Procalcitonin is negative at 0.12. Urinalysis shows no signs of infection. Flu and COVID screens are negative. Chest x-ray is clear. Blood cultures are pending and EKG reveals normal sinus rhythm with a rate of 69 and no evidence of ST changes to indicate ischemia. On physical exam she is not struggling to breathe, looking comfortable on 3 L nasal cannula. She is oxygenating in the low 90s. Pulmonary auscultation reveals wheezing and diminished breath sounds throughout all lung griggs. Cardiac assessment reveals S1/S2 with no evidence of murmurs gallops or rubs and a regular rate and rhythm. Abdomen is protuberant but soft, nontender and nondistended. Extremities are well perfused and warm with no evidence of edema. There is no evidence of cyanosis and no evidence of gross focal neurologic deficits. This is a 56-year-old female smoker with known COPD presenting with acute hypercarbic respiratory failure with respiratory acidosis and hypoxia. Agree with continued steroids started in the ER, antibiotics, scheduled DuoNebs. Will place on temporary BiPAP to help fix the acid-base disorder. Although chest x- ray is clear her D-dimer is negative so will not pursue a CTA looking for PE at this time. Monitor closely on PCU and consider repeat blood gas later this evening after a few hours on BiPAP. While patient is on BiPAP we will keep her n.p.o. to decrease her risk of aspiration from nausea or vomiting. DO Juan
[2021-09-20] MEDS ORDERED: levoFLOXacin 750 MG TAB PO SCH (17:00)
[2021-09-20] MEDS ORDERED: hydrOXYzine HCl 25 MG TAB PO PRN (17:00)
[2021-09-20] MEDS ORDERED: BENZONATATE 100 MG CAPSULE PO PRN (17:04)
[2021-09-20] MEDS: INSULIN ASPART PER UNIT SC SCH (18:28)
[2021-09-20] MEDS: ALBUT/IPRATROP 3MG/0.5MG NEB 3 ML VIAL NEB SCH (19:22)
[2021-09-20] MEDS: ENOXAPARIN INJ 40 MG/0.4 ML SYR SQ SCH (21:21)
[2021-09-20] MEDS: GABAPENTIN 100 MG CAP PO SCH (21:22)
[2021-09-20] MEDS: ATORVASTATIN 40 MG TAB PO SCH (21:24)
[2021-09-20] MEDS: LITHIUM CARBONATE SLOW REL 300 MG TAB PO SCH (21:24)
[2021-09-20] MEDS: FAMOTIDINE 10 MG TABLET PO SCH (21:24)
[2021-09-20] MEDS: INSULIN GLARGINE SOLOSTAR 100 UNITS/ML 3 ML PEN SC SCH (21:27)
[2021-09-21] MEDS: INSULIN ASPART PER UNIT SC SCH ×5 (00:09→23:16)
[2021-09-21 00:17] LABS: Base Excess ABG 0.7 mEq/L (-9-1.8); HCO3 ABG 28 mmol/L (19-24); Oxygen Saturation ABG 93.4 % (90-95); PCO2 ABG 57 mmHg (35-46); PO2 ABG 67 mmHg (80-95); pH ABG 7.31 (7.35-7.45)
[2021-09-21 00:22] LABS: Allen Test Pos (Pos)
[2021-09-21] MEDS ORDERED: methylPREDNISolone 40 MG in SYRINGE 0 ML IV SCH (07:00)
[2021-09-21 07:07] LABS: Basophils # (auto) 0.01 K/uL (0-0.2); Basophils % (auto) 0.1 %; Hematocrit (blood only) 46.2 % (37-47); Hemoglobin 13.8 g/dL (12.0-16.0); Immature Granulocytes # (auto) 0.07 K/uL (0.00-0.02); Immature Granulocytes % (auto) 0.5 %; Lymphocytes # (auto) 1.54 K/uL (1.2-3.4); Lymphocytes % (auto) 10.3 %; Mean Corpuscular Hemoglobin 29.7 pg (25-34); Mean Corpuscular Hgb Conc 29.9 g/dL (32-36); Mean Corpuscular Volume 99.6 fL (80-100); Mean Platelet Volume 9.9 fL (7.4-10.4); Monocytes # (auto) 0.67 K/uL (0.11-0.59); Monocytes % (auto) 4.5 %; Neutrophils # (auto) 12.61 K/uL (1.4-6.5); Neutrophils % (auto) 84.6 %; Platelet Count 343 K/uL (130-400); RDW Coefficient of Variation 15.4 % (11.5-14.5); RDW Standard Deviation 56.2 fL (36.4-46.3); Red Blood Count 4.64 M/uL (4.2-5.4)
[2021-09-21] MEDS: ALBUT/IPRATROP 3MG/0.5MG NEB 3 ML VIAL NEB SCH ×4 (07:09→19:51)
[2021-09-21 07:28] LABS: Albumin Level 3.4 gm/dl (3.4-5.0); BUN Creatinine Ratio 23.3 (10-20); Bilirubin,Total 0.3 mg/dl (0.2-1.0); Calcium 9.3 mg/dl (8.5-10.1); Creatinine Clr Calc Pharmacy 142.4 ml/min; Est GFR (African American) 118.1 ml/min; Est GFR (Non-African American) 101.9 ml/min; Globulin 3.3 gm/dl (2.5-4.0); Magnesium 2.1 mg/dl (1.7-2.4); Potassium 4.1 mmol/L (3.5-5.1); Total Protein 6.7 gm/dl (6.0-8.3)
[2021-09-21] MEDS: METOPROLOL SUCC 25MG EXT REL TAB PO SCH (07:43)
[2021-09-21] MEDS: LEVOTHYROXINE SODIUM 75 MCG TABLET PO SCH (07:43)
[2021-09-21] MEDS: FAMOTIDINE 10 MG TABLET PO SCH ×2 (07:43→21:27)
[2021-09-21] MEDS: ASPIRIN 81 MG ECTAB PO SCH (07:44)
[2021-09-21] MEDS: amLODIPine BESYLATE 5 MG TAB PO SCH (07:44)
[2021-09-21] MEDS: PANTOprazole 40 MG TAB PO SCH (07:44)
[2021-09-21] MEDS: GABAPENTIN 100 MG CAP PO SCH ×3 (07:45→21:26)
[2021-09-21] MEDS: FLUTICASONE/VILANTEROL 100/25MCG 14 PUFFS/INHALER INH SCH (07:46)
[2021-09-21] MEDS: INSULIN GLARGINE SOLOSTAR 100 UNITS/ML 3 ML PEN SC SCH ×2 (07:46→21:22)
[2021-09-21 08:03] LABS: Estimated Average Glucose 137 mg/dl; Hemoglobin A1C 6.4 % (4.5-5.6)
[2021-09-21] MEDS: levoFLOXacin 500 MG TAB PO SCH (10:23)
[2021-09-21] MEDS: ENOXAPARIN INJ 40 MG/0.4 ML SYR SQ SCH ×2 (10:23→21:22)
[2021-09-21] MEDS: methylPREDNISolone 40 MG in SYRINGE 0 ML IV SCH (16:06)
--- NOTE | 2021-09-21 16:43 | Hospitalist Progress Note ---
Date of Service September 21, 2021 Assessment & Plan (1) Acute respiratory failure with hypoxia and hypercarbia: (2) Acute respiratory acidosis: (3) Acute exacerbation of chronic obstructive pulmonary disease: (4) CAD (coronary artery disease): (5) HTN (hypertension): (6) BLAINE (obstructive sleep apnea): (7) Bipolar disorder: (8) T2DM (type 2 diabetes mellitus): Plan: Patient is a 56 yr female with H/O Chronic hypoxic respiratory failure with hypercapnia on 2 L of O2 with exertion, COPD, BLAINE unable to use CPAP due to lack of supplies, HTN, HLD, hypothyroidism, CAD, pseudotumor cerebri, TIA, GERD, bipolar disorder, tobacco abuse who presents to ED secondary to shortness of breath x1 day. Acute respiratory failure with hypoxia hypercarbia Acute respiratory acidosis Acute exacerbation of COPD BLAINE noncompliant with CPAP due to lack of supplies --CXR:No acute cardiopulmonary findings. Weaned off of BiPAP Aspiration precautions Continue nebs, Levaquin, steroids Wean off of supplemental oxygen as able Target oxygen saturations 88 to 92% CAD S/P stent Continue ASA, statin, metoprolol Denies chest pain HTN stable Continue amlodipine, metoprolol DM II A1c 6.5 on 07/16/2021 Hold metformin Lantus/novolog per protocol Bipolar continue lithium and Vraylar stable Tobacco abuse Call Center Support Consultant to quit smoking Declined nicotine patch DVT Px: Lovenox SQ Code Status FULL CODE Admission and Anticipated Discharge Date Admission Date: September 20, 2021 Subjective Patient is seen and examined at bedside Less cough, dyspnea today Denies any chest pain, dizziness, nausea, abdominal pain Currently off BiPAP On 4 L supplemental oxygen Review of Systems Review of Systems: All systems reviewed & are unremarkable except as noted in Subjective Physical Exam Physical Exam: Physical Exam: Vitals signs as noted above General Appearance:Morbidly Obese, no apparent distress Head: normocephalic, Atraumatic Eyes: normal inspection, EOMI Neck: supple, Trachea midline Respiratory/Chest: Decreased breath sounds, CTA, No accessory muscle use Cardiovascular: S1, S2, No murmur Abdomen/GI:Soft, Non tender, Bowel sounds present Extremities/Musculoskeletal:normal inspection, Trace edema Neurologic/Psych:AAOX3, grossly no focal neurological deficits Skin: normal color, warm Results & Data Results & Data ([facility]) Vital Signs (Past 12 Hours) Vital Signs Temp Pulse Pulse Resp BP Pulse Ox Pulse Ox 09/21/21 16:35 94 09/21/21 15:45 36.5 C 63 16 116/53 L 94 09/21/21 15:22 63 09/21/21 15:08 62 22 94 09/21/21 11:15 36.5 C 67 20 127/69 95 09/21/21 10:51 67 20 94 09/21/21 07:41 36.6 C 68 17 127/79 96 09/21/21 07:23 55 L 09/21/21 07:10 85 20 93 Laboratory Results Short CBC 09/21/21 Range/Units 06:45 WBC 14.90 H (4.8-10.8) K/uL Hgb 13.8 (12.0-16.0) g/dL Hct 46.2 (37-47) % Plt Count 343 (130-400) K/uL BMP 09/21/21 06:45 Sodium 139 Potassium 4.1 Chloride 106 Carbon Dioxide 28 BUN 14 Creatinine 0.60 Glucose 124 H Calcium 9.3 Liver Function 09/21/21 Range/Units 06:45 Total Bilirubin 0.3 (0.2-1.0) mg/dl AST 6 L (13-39) U/L ALT 4 L (7-52) U/L Alkaline Phosphatase 105 H (34-104) U/L Albumin 3.4 (3.4-5.0) gm/dl (1) Bipolar disorder Active/Remission status: currently active Current bipolar episode type: depressed Current episode severity: severe Psychotic features: without psychotic features Qualified Code(s): F31.4 - Bipolar disorder, current episode depressed, severe, without psychotic features
[2021-09-21] MEDS: ATORVASTATIN 40 MG TAB PO SCH (21:27)
[2021-09-21] MEDS: LITHIUM CARBONATE SLOW REL 300 MG TAB PO SCH (21:27)
[2021-09-22] MEDS: INSULIN ASPART PER UNIT SC SCH ×4 (05:27→23:25)
[2021-09-22] MEDS: LEVOTHYROXINE SODIUM 75 MCG TABLET PO SCH (05:31)
[2021-09-22] MEDS: methylPREDNISolone 40 MG in SYRINGE 0 ML IV SCH ×2 (05:31→16:41)
[2021-09-22] MEDS: ALBUT/IPRATROP 3MG/0.5MG NEB 3 ML VIAL NEB SCH ×4 (07:17→19:49)
[2021-09-22] MEDS: ASPIRIN 81 MG ECTAB PO SCH (07:46)
[2021-09-22] MEDS: GABAPENTIN 100 MG CAP PO SCH ×3 (07:46→20:26)
[2021-09-22] MEDS: PANTOprazole 40 MG TAB PO SCH (07:47)
[2021-09-22] MEDS: METOPROLOL SUCC 25MG EXT REL TAB PO SCH (07:47)
[2021-09-22] MEDS: amLODIPine BESYLATE 5 MG TAB PO SCH (07:47)
[2021-09-22] MEDS: FLUTICASONE/VILANTEROL 100/25MCG 14 PUFFS/INHALER INH SCH (07:48)
[2021-09-22] MEDS: FAMOTIDINE 10 MG TABLET PO SCH ×2 (07:48→20:26)
[2021-09-22] MEDS: INSULIN GLARGINE SOLOSTAR 100 UNITS/ML 3 ML PEN SC SCH ×2 (07:48→20:25)
[2021-09-22] MEDS: ENOXAPARIN INJ 40 MG/0.4 ML SYR SQ SCH ×2 (07:48→20:24)
[2021-09-22 08:18] LABS: BUN Creatinine Ratio 31.1 (10-20); Calcium 9.3 mg/dl (8.5-10.1); Creatinine Clr Calc Pharmacy 139.1 ml/min; Est GFR (African American) 117.5 ml/min; Est GFR (Non-African American) 101.3 ml/min; Magnesium 2.2 mg/dl (1.7-2.4); Potassium 4.3 mmol/L (3.5-5.1)
[2021-09-22 08:20] LABS: Hematocrit (blood only) 46.9 % (37-47); Mean Corpuscular Hemoglobin 29.1 pg (25-34); Mean Corpuscular Hgb Conc 29.9 g/dL (32-36); Mean Corpuscular Volume 97.5 fL (80-100); Mean Platelet Volume 10.1 fL (7.4-10.4); Platelet Count 310 K/uL (130-400); RDW Coefficient of Variation 15.3 % (11.5-14.5); RDW Standard Deviation 54.6 fL (36.4-46.3); Red Blood Count 4.81 M/uL (4.2-5.4); White Blood Count 16.65 K/uL (4.8-10.8)
[2021-09-22] MEDS: levoFLOXacin 500 MG TAB PO SCH (10:45)
[2021-09-22 14:42] LABS: Base Excess VBG 4.6 mEq/L; HCO3 VBG 32 mmol/L; Oxygen Saturation VBG 92.3 %; PCO2 VBG 61 mmHg (38-50); PO2 VBG 61 mmHg; pH VBG 7.34 (7.36-7.41)
--- NOTE | 2021-09-22 18:45 | Hospitalist Progress Note ---
Date of Service September 22, 2021 Assessment & Plan (1) Acute respiratory failure with hypoxia and hypercarbia: (2) Acute respiratory acidosis: (3) Acute exacerbation of chronic obstructive pulmonary disease: (4) CAD (coronary artery disease): (5) HTN (hypertension): (6) BLAINE (obstructive sleep apnea): (7) Bipolar disorder: (8) T2DM (type 2 diabetes mellitus): Plan: This is a 56-year-old female who has significant past medical history of chronic hypoxic respiratory failure with hypercapnia on 2 L of O2 with exertion, COPD, BLAINE unable to use CPAP due to lack of supplies, HTN, HLD, hypothyroidism, CAD, pseudotumor cerebri, TIA, GERD, bipolar disorder, tobacco abuse who presents to ED secondary to shortness of breath x1 day. Acute respiratory failure with hypoxia hypercarbia Acute respiratory acidosis Acute exacerbation of COPD BLAINE noncompliant with CPAP due to lack of supplies Admit to PCU BiPAP therapy initiated, repeat ABG later this evening Keep n.p.o. while on BiPAP therapy to avoid aspiration DuoNeb 4 times daily, incentive spirometry Levaquin 750 mg daily Solu-Medrol IV 40 mg daily starting on 09/21 CAD with history of coronary stent Continue ASA, statin, metoprolol No chest pain or shortness of breath HTN Blood pressure stable Continue amlodipine, metoprolol T2DM A1c 6.5 on 07/16/2021 Hold metformin Lantus/novolog per protocol Bipolar continue lithium and Vraylar mood stable Tobacco abuse Encourage smoking cessation Patient declines nicotine patch DVT prophylaxis: Lovenox twice daily Dispo: PCU PCP: Dr. Gordon FULL CODE Pt was seen and examined in collaboration with Dr. Martinez, please see addendum Admission and Anticipated Discharge Date Admission Date: September 20, 2021 Results & Data Results & Data ([facility]) Vital Signs (Past 12 Hours) Vital Signs Temp Pulse Pulse Resp BP Pulse Ox Pulse Ox 09/22/21 16:10 46 L 09/22/21 16:00 97 09/22/21 15:23 64 18 98 09/22/21 15:10 36.6 C 55 L 16 145/84 H 97 09/22/21 13:00 95 09/22/21 11:22 64 20 95 09/22/21 10:44 36.6 C 62 17 148/77 H 95 09/22/21 07:18 78 18 91 09/22/21 07:08 36.7 C 68 20 170/91 H 95 09/22/21 07:00 53 L (1) Bipolar disorder Active/Remission status: currently active Current bipolar episode type: depressed Current episode severity: severe Psychotic features: without psychotic features Qualified Code(s): F31.4 - Bipolar disorder, current episode depressed, severe, without psychotic features
[2021-09-22] MEDS: LITHIUM CARBONATE SLOW REL 300 MG TAB PO SCH (20:26)
[2021-09-22] MEDS: ATORVASTATIN 40 MG TAB PO SCH (20:26)
[2021-09-23] MEDS: INSULIN ASPART PER UNIT SC SCH ×3 (05:44→17:26)
[2021-09-23] MEDS: LEVOTHYROXINE SODIUM 75 MCG TABLET PO SCH (05:45)
[2021-09-23] MEDS: ALBUT/IPRATROP 3MG/0.5MG NEB 3 ML VIAL NEB SCH ×4 (07:21→19:23)
[2021-09-23] MEDS: amLODIPine BESYLATE 5 MG TAB PO SCH (08:06)
[2021-09-23] MEDS: FAMOTIDINE 10 MG TABLET PO SCH ×2 (08:07→20:29)
[2021-09-23] MEDS: FLUTICASONE/VILANTEROL 100/25MCG 14 PUFFS/INHALER INH SCH (08:07)
[2021-09-23] MEDS: GABAPENTIN 100 MG CAP PO SCH ×3 (08:07→20:29)
[2021-09-23] MEDS: ASPIRIN 81 MG ECTAB PO SCH (08:07)
[2021-09-23] MEDS: PANTOprazole 40 MG TAB PO SCH (08:08)
[2021-09-23] MEDS: METOPROLOL SUCC 25MG EXT REL TAB PO SCH (08:08)
[2021-09-23] MEDS: INSULIN GLARGINE SOLOSTAR 100 UNITS/ML 3 ML PEN SC SCH ×2 (08:08→20:18)
[2021-09-23] MEDS: predniSONE 20 MG TAB PO SCH (09:53)
[2021-09-23] MEDS: ENOXAPARIN INJ 40 MG/0.4 ML SYR SQ SCH ×2 (09:57→20:33)
[2021-09-23] MEDS: levoFLOXacin 500 MG TAB PO SCH (11:35)
--- NOTE | 2021-09-23 13:16 | Hospitalist Progress Note ---
Date of Service September 23, 2021 Assessment & Plan (1) Acute respiratory failure with hypoxia and hypercarbia: (2) Acute respiratory acidosis: (3) Acute exacerbation of chronic obstructive pulmonary disease: (4) CAD (coronary artery disease): (5) HTN (hypertension): (6) BLAINE (obstructive sleep apnea): (7) Bipolar disorder: (8) T2DM (type 2 diabetes mellitus): Plan: per Dr. Voss's notes with addendum: This is a 56-year-old female who has significant past medical history of chronic hypoxic respiratory failure with hypercapnia on 2 L of O2 with exertion, COPD, BLAINE unable to use CPAP due to lack of supplies, HTN, HLD, hypothyroidism, CAD, pseudotumor cerebri, TIA, GERD, bipolar disorder, tobacco abuse who presents to ED secondary to shortness of breath x1 day. Acute respiratory failure with hypoxia hypercarbia Acute respiratory acidosis Acute exacerbation of COPD BLAINE noncompliant with CPAP due to lack of supplies Admit to PCU BiPAP therapy initiated, repeat ABG later this evening Keep n.p.o. while on BiPAP therapy to avoid aspiration DuoNeb 4 times daily, incentive spirometry Levaquin 750 mg daily Solu-Medrol IV 40 mg daily starting on 09/21 09/23 continues to improve transition to Prednisone continue Levaquin, Nebs, inhaler 2 step tomorrow CAD with history of coronary stent Continue ASA, statin, metoprolol No chest pain or shortness of breath HTN stable Continue amlodipine, metoprolol T2DM A1c 6.5 on 07/16/2021 Hold metformin Lantus/novolog per protocol Bipolar continue lithium and Vraylar mood stable Tobacco abuse Encourage smoking cessation Patient declines nicotine patch DVT prophylaxis: Lovenox twice daily Dispo: PCU PCP: Dr. Gordon FULL CODE plan of care discussed with patient in detail and at length all questions answered she is understanding, agreeable, comfortable with the plan of care Admission and Anticipated Discharge Date Admission Date: September 20, 2021 Subjective ff up for COPD exacerbation, etc seen resting in bed, comfortable on 1.5 L NC states she continues to feel improved breathing improving less cough no chest pain, fever/chills no other symptoms Review of Systems Review of Systems: all noted and negative except for above Physical Exam Physical Exam: General- oriented x 3, not in distress, speaks in sentences with no effort or accessory muscle use Eyes- anicteric Neck- no JVD Lungs- diminished but clear breath sounds bilaterally, no rales/wheezes Heart- normal rate, regular rhythm; no murmurs Abdomen- normal bowel sounds, nondistended, soft, nontender Extremities- no pretibial edema, no calf tenderness Neuro- alert, oriented x 3; no gross focal neurologic deficits Skin- warm & dry Results & Data Results & Data ([facility]) Vital Signs (Past 12 Hours) Vital Signs Temp Pulse Pulse Resp BP Pulse Ox 09/23/21 11:12 68 18 97 09/23/21 11:06 36.6 C 52 L 19 141/62 H 95 09/23/21 07:21 67 18 98 09/23/21 06:12 60 09/23/21 04:56 36.6 C 64 20 160/89 H 99 09/23/21 02:22 54 L 23 92 all noted and reviewed including below (1) Bipolar disorder Active/Remission status: currently active Current bipolar episode type: depressed Current episode severity: severe Psychotic features: without psychotic features Qualified Code(s): F31.4 - Bipolar disorder, current episode depressed, severe, without psychotic features
[2021-09-23] MEDS: ATORVASTATIN 40 MG TAB PO SCH (20:29)
[2021-09-23] MEDS: LITHIUM CARBONATE SLOW REL 300 MG TAB PO SCH (20:29)
[2021-09-24] MEDS: INSULIN ASPART PER UNIT SC SCH ×3 (01:08→11:41)
[2021-09-24] MEDS: LEVOTHYROXINE SODIUM 75 MCG TABLET PO SCH (06:20)
[2021-09-24] MEDS: ALBUT/IPRATROP 3MG/0.5MG NEB 3 ML VIAL NEB SCH ×2 (07:26→10:07)
[2021-09-24] MEDS: amLODIPine BESYLATE 5 MG TAB PO SCH (08:25)
[2021-09-24] MEDS: ASPIRIN 81 MG ECTAB PO SCH (08:25)
[2021-09-24] MEDS: FAMOTIDINE 10 MG TABLET PO SCH (08:25)
[2021-09-24] MEDS: FLUTICASONE/VILANTEROL 100/25MCG 14 PUFFS/INHALER INH SCH (08:26)
[2021-09-24] MEDS: INSULIN GLARGINE SOLOSTAR 100 UNITS/ML 3 ML PEN SC SCH (08:26)
[2021-09-24] MEDS: GABAPENTIN 100 MG CAP PO SCH ×2 (08:26→13:01)
[2021-09-24] MEDS: METOPROLOL SUCC 25MG EXT REL TAB PO SCH (08:27)
[2021-09-24] MEDS: predniSONE 20 MG TAB PO SCH (08:28)
[2021-09-24] MEDS: ENOXAPARIN INJ 40 MG/0.4 ML SYR SQ SCH (09:34)
[2021-09-24] MEDS: PANTOprazole 40 MG TAB PO SCH (09:49)
[2021-09-24] MEDS: levoFLOXacin 500 MG TAB PO SCH (11:10)
--- NOTE | 2021-09-24 16:40 | Hospitalist Progress Note ---
Date of Service September 24, 2021 Assessment & Plan (1) Acute respiratory failure with hypoxia and hypercarbia: (2) Acute respiratory acidosis: (3) Acute exacerbation of chronic obstructive pulmonary disease: (4) CAD (coronary artery disease): (5) HTN (hypertension): (6) BLAINE (obstructive sleep apnea): (7) Bipolar disorder: (8) T2DM (type 2 diabetes mellitus): Plan: per Dr. Voss's notes with addendum: This is a 56-year-old female who has significant past medical history of chronic hypoxic respiratory failure with hypercapnia on 2 L of O2 with exertion, COPD, BLAINE unable to use CPAP due to lack of supplies, HTN, HLD, hypothyroidism, CAD, pseudotumor cerebri, TIA, GERD, bipolar disorder, tobacco abuse who presents to ED secondary to shortness of breath x1 day. Acute respiratory failure with hypoxia hypercarbia Acute respiratory acidosis Acute exacerbation of COPD BLAINE noncompliant with CPAP due to lack of supplies Admit to PCU BiPAP therapy initiated, repeat ABG later this evening Keep n.p.o. while on BiPAP therapy to avoid aspiration DuoNeb 4 times daily, incentive spirometry Levaquin 750 mg daily Solu-Medrol IV 40 mg daily starting on 09/21 09/24 transitioned to Prednisone improved overall discharge plan: Doxycycline x 2 more days to complete 7 days abx course Prednisone taper Nebs usual Advair 2 L of O2 at all times wean off accordingly on ff up with PCP CAD with history of coronary stent Continue ASA, statin, metoprolol No chest pain or shortness of breath HTN stable Continue amlodipine, metoprolol T2DM A1c 6.5 on 07/16/2021 continue metformin Bipolar continue lithium and Vraylar mood stable Tobacco abuse Encourage smoking cessation Patient declines nicotine patch DVT prophylaxis: Lovenox twice daily given Dispo: d/c home ff up with PCP in 1 week PCP: Dr. Gordon FULL CODE plan of care discussed with patient in detail and at length all questions answered she is understanding, agreeable, comfortable with the plan of care Admission and Anticipated Discharge Date Admission Date: September 20, 2021 Subjective ff up for COPD exacerbation, etc seen resting in bed, comfortable sitting up on 2 L NC states she feels fine overall breathing is better, minimal occasional cough no chest pain, dyspnea, palpitations, dizziness no other symptoms states she is ready and would like to be discharged today Review of Systems Review of Systems: all noted and negative except for above Physical Exam Physical Exam: General- oriented x 2, not in distress, speaks in sentences with no effort or accessory muscle use Eyes- anicteric Neck- no JVD Lungs- clear BS bilaterally, no rales/wheezes Heart- normal rate, regular rhythm; no murmurs Abdomen- normal bowel sounds, nondistended, soft, no tenderness Extremities- no pretibial edema, no calf tenderness Neuro- alert, oriented x 3; no gross focal neurologic deficits Skin- warm & dry Results & Data Results & Data ([facility]) Vital Signs (Past 12 Hours) Vital Signs Temp Pulse Pulse Pulse Pulse Pulse Pulse 09/24/21 13:19 36.8 C 84 09/24/21 12:49 36.8 C 84 09/24/21 10:41 51 L 09/24/21 10:08 96 H 09/24/21 10:04 99 H 102 H 93 H 91 H 09/24/21 08:11 36.8 C 74 09/24/21 07:26 78 09/24/21 05:42 36.8 C 61 Resp Resp Resp Resp Resp BP Pulse Ox 09/24/21 13:19 18 152/82 H 94 09/24/21 12:49 18 152/82 H 94 09/24/21 10:41 09/24/21 10:08 18 91 09/24/21 10:04 18 20 18 18 09/24/21 08:11 18 133/65 94 09/24/21 07:26 18 92 09/24/21 05:42 18 142/83 H 95 Pulse Ox Pulse Ox Pulse Ox Pulse Ox 09/24/21 13:19 09/24/21 12:49 09/24/21 10:41 09/24/21 10:08 09/24/21 10:04 94 86 L 90 91 09/24/21 08:11 09/24/21 07:26 09/24/21 05:42 all noted and reviewed including below (1) Bipolar disorder Active/Remission status: currently active Current bipolar episode type: depressed Current episode severity: severe Psychotic features: without psych otic features Qualified Code(s): F31.4 - Bipolar disorder, current episode depressed, severe, without psychotic features
--- NOTE | 2021-09-24 16:41 | Discharge Summary ---
Date of Service September 24, 2021 Admission HPI Per Admitting Provider This is a 56-year-old female who has significant past medical history of chronic hypoxic respiratory failure with hypercapnia on 2 L of O2 with exertion, COPD, BLAINE unable to use CPAP due to lack of supplies, HTN, HLD, hypothyroidism, CAD, pseudotumor cerebri, TIA, GERD, bipolar disorder, tobacco abuse who presents to ED secondary to shortness of breath x1 day. Her symptoms started yesterday when she began to feel more shortness of breath at rest. She does have GRANT and a chronic cough at baseline. When checking her oxygen yesterday it was low. This morning when she woke up her oxygen was 55% and when she rechecked it later on it was 75%. She called her daughter to bring her to ER. She has history of COPD exacerbation in the past and states this feels similar. She also admits to further wheezing. She denies any sick contacts. She denies fever, chills, sweats, lightheadedness, dizziness, syncope, chest pain, hemoptysis, nausea, vomiting, abdominal pain, change in her bowel or urinary habits. In ED patient was hypoxic requiring 2 to 3 L of O2 to maintain normal oxygen supplementation. Lab work was notable for to BC 18.08, H&H 14.9 and 49.8, elevated metamyelocytes, respiratory acidosis with pH 7.25 and CO2 of 68. Her CMP was generally unremarkable except for hyperglycemia. Her urinalysis was negative and her lithium level was low at 0.3. SARS-CoV-2 and influenza A&B was negative. Chest x-ray was negative for acute abnormality. Admission Exam Per Admitting Provider Constitutional: WD/WN, vitals as above, NAD, sitting up in bed, pleasant, conversing easily Head: Normocephalic, Atraumatic Eyes: PERRL, conjunctivae normal, anicteric sclerae ENMT: external ear and nose normal, oropharynx normal Neck: trachea midline, no thyromegaly normal visual inspection Respiratory: normal respiratory effort, coarse breath sounds throughout with bilateral expiratory wheezing, no rales or rhonchi. Normal insp/exp effort, no accessory muscle use Cardiovascular: RRR, no murmur, lower extremity nonpitting edema, no erythema, negative Homans' sign Vessels: no JVD or carotid bruit Chest: normal inspection of chest Abdomen: normal bowel sounds, soft, nontender, no hepatosplenomegaly Musculoskeletal: no cyanosis or clubbing, extremities motor strength 5/5 Skin: no rashes, warm and dry normal turgor Neurologic: PERRL, EOMI, accommodation nl, no face palsy, no dysarthria CN's II-XI intact bilaterally and moves all extremities Psychiatric: A+Ox3, euthymic affect Lymphatic: no cervical or axillary lymphadenopathy : deferred Principal Diagnosis COPD EXACERBATION LIKELY SECONDARY TO ACUTE BRONCHITIS Discharge Exam General- oriented x 2, not in distress, speaks in sentences with no effort or accessory muscle use Eyes- anicteric Neck- no JVD Lungs- clear BS bilaterally, no rales/wheezes Heart- normal rate, regular rhythm; no murmurs Abdomen- normal bowel sounds, nondistended, soft, no tenderness Extremities- no pretibial edema, no calf tenderness Neuro- alert, oriented x 3; no gross focal neurologic deficits Skin- warm & dry Discharge Data Allergies Allergy/AdvReac Type Severity Reaction Status Date / Time ethinyl estradiol Allergy Mild RUNNY Verified 09/20/21 16:10 NOSE, ACHES, CONGESTION levonorgestrel Allergy Mild RUNNY Verified 09/20/21 16:10 NOSE, ACHES, CONGESTION strawberry Allergy Mild RASH Verified 09/20/21 16:10 bupropion Allergy Unknown memory loss Verified 09/20/21 16:10 latex Allergy Unknown rash Verified 09/20/21 16:10 [place] [facility] Allergy Mild RUNNY Uncoded 09/20/21 16:10 NOSE, ACHES, CONGESTION Consultations 09/20/21 15:08 ED Decision to Admit Stat Procedures Performed XR chest 1V portable CLINICAL HISTORY: Dyspnea COMPARISON STUDY: No previous studies for comparison. FINDINGS: Lung volumes are normal. Lungs are clear. There is no pneumothorax or pleural effusion. Cardiac size is at the upper limits of normal. Mediastinal contours are normal. There is no evidence for pulmonary edema. IMPRESSION: No acute cardiopulmonary findings. ACT 112: Negative or not required by law. Electronically signed by: Shawn Moran M.D. 09/20/2021 1:36 PM Hospital Course (1) Acute respiratory failure with hypoxia and hypercarbia: (2) Acute respiratory acidosis: (3) Acute exacerbation of chronic obstructive pulmonary disease: (4) CAD (coronary artery disease): (5) HTN (hypertension): (6) BLAINE (obstructive sleep apnea): (7) Bipolar disorder: (8) T2DM (type 2 diabetes mellitus): per Dr. Voss's notes with addendum: This is a 56-year-old female who has significant past medical history of chronic hypoxic respiratory failure with hypercapnia on 2 L of O2 with exertion, COPD, BLAINE unable to use CPAP due to lack of supplies, HTN, HLD, hypothyroidism, CAD, pseudotumor cerebri, TIA, GERD, bipolar disorder, tobacco abuse who presents to ED secondary to shortness of breath x1 day. Acute respiratory failure with hypoxia hypercarbia Acute respiratory acidosis Acute exacerbation of COPD BLAINE noncompliant with CPAP due to lack of supplies BiPAP therapy initiateD DuoNeb 4 times daily, incentive spirometry Levaquin 750 mg daily Solu-Medrol IV 40 mg daily starting on 09/21 09/24 transitioned to Prednisone improved overall discharge plan: Doxycycline x 2 more days to complete 7 days abx course Prednisone taper Nebs usual Advair 2 L of O2 at all times wean off accordingly on ff up with PCP CAD with history of coronary stent Continue ASA, statin, metoprolol No chest pain or shortness of breath HTN stable Continue amlodipine, metoprolol T2DM A1c 6.5 on 07/16/2021 continue metformin Bipolar continue lithium and Vraylar mood stable Tobacco abuse Encourage smoking cessation Patient declines nicotine patch DVT prophylaxis: Lovenox twice daily given Dispo: d/c home ff up with PCP in 1 week PCP: Dr. Gordon FULL CODE plan of care discussed with patient in detail and at length all questions answered she is understanding, agreeable, comfortable with the plan of care Total Time Total Time Spent Total Time Spent (In Minutes): >30 MINUTES Discharge Plan Discharge Items Patient Disposition: Home - Self-Care Reason For Visit: COPD, EXAC, HYPOXIA Discharge Diagnosis: COPD EXACERBATION WITH HYPOXIA ACUTE BRONCHITIS Activity: As commented below Activity Comment: INCREASE ACTIVITY GRADUALLY TOLERATED Lifting: Wait until after follow-up appointment Sexual Activity: Wait until after follow-up appointment Driving/Machine Use: NO DRIVING UNTIL RE-EVALUATED AND ALLOWED BY PRIMARY CARE PHYSICIAN Non-emergency contact: Primary Care Provider Call non-emergency contact if: you have any medication questions, your symptoms worsen, your pain is not controlled, your pain is worsening, your pain is unusual for you, your pain is concerning for you and you have a fever Follow-up/Referrals: Alberto Molina DO [Physician] - 09/29/21 3:15 pm ([facility], located in [place]. Hospital follow up appointment, and also to become established as a new patient. This is the closest primary care office to your new location in [place].) Diet: Carb Consistent or DM2 and Heart Healthy Addtl Attending Provider Instructions: PLEASE REFER TO YOUR NEW MEDICATION LIST AND FOLLOW INSTRUCTIONS CAREFULLY. YOUR NEW MEDICATIONS INCLUDE: PREDNISONE TAPER 30MG DAILY X 2 DAYS, THEN 20MG DAILY X 2 DAYS, THEN 10MG DAILY X 2 DAYS, THEN STOP DOXYCYCLINE- ANTIBIOTIC ALBUTEROL NEBULES- NEEDED FOR SHORTNESS OF BREATH/WHEEZING ALWAYS USE 2 LITERS OF OXYGEN VIA NASAL CANNULA. PLEASE CALL YOUR PRIMARY CARE PHYSICIAN OR RETURN TO THE ER IF WITH WORSENING OF SYMPTOMS, INCLUDING SHORTNESS OF BREATH, COUGH, CHEST PAIN, FEVER/CHILLS. FOLLOW UP WITH PRIMARY CARE PHYSICIAN OUTLINED ABOVE. Pending Studies at Discharge: No Stand-Alone Forms: My [facility], Smoking Cessation Medications and DC Order Prescriptions: New ipratropium-albuterol 0.5 mg-3 mg(2.5 mg base)/3 mL Solution For Nebulization 3 ml NEB QIDR PRN (Reason: shortness of breath or wheezing) Qty: 90 RF: 1 doxycycline hyclate 100 mg capsule 100 mg PO BID 2 Days Qty: 4 RF: 0 prednisone 10 mg tablet 10 mg PO UD Qty: 12 RF: 0 Continued atorvastatin 40 mg tablet 40 mg PO QPM RF: 0 amlodipine 5 mg tablet 5 mg PO QAM RF: 0 levothyroxine 75 mcg tablet 75 mcg PO DAILYBB RF: 0 omeprazole 20 mg capsule,delayed release(DR/EC) 20 mg PO QAM RF: 0 metoprolol succinate 25 mg tablet extended release 24 hr 25 mg PO DAILY RF: 0 famotidine [Acid Health Aide (famotidine)] 10 mg tablet 10 mg PO BID RF: 0 nitroglycerin 0.4 mg tablet, sublingual 0.4 mg sublingual .PRN/UD RF: 0 aspirin 81 mg Tablet,Chewable 81 mg PO DAILY RF: 0 clobetasol 0.05 % cream 1 applic TOPICAL BID RF: 0 hydroxyzine pamoate 25 mg capsule 25 mg PO BID RF: 0 lithium carbonate 300 mg tablet extended release 600 mg PO HS RF: 0 acetazolamide 250 mg tablet 1,000 mg PO BID RF: 0 metformin 500 mg tablet 500 mg PO BIDM RF: 0 Vraylar 3 mg capsule 3 mg PO HS RF: 0 nystatin 100,000 unit/gram Powder 1 applic TOPICAL TID RF: 0 gabapentin 100 mg capsule 100 mg PO TID RF: 0 fluticasone propion-salmeterol [Advair Diskus] 250-50 mcg/dose Blister With Device 1 inh INHALATION BID RF: 0 Changed albuterol sulfate 90 mcg/actuation Hfa Aerosol Inhaler 2 puff INHALATION QID PRN (Reason: SHORTNESS OF BREATH/WHEEZING) Qty: 0 RF: 0 Discharge Orders: Discharge Order (Routine); Ordered 09/24/21 Ordered By: Cliff Nash/Other Patient Handouts: Managing Type 2 Diabetes Admission Data Admit Date/Time: 09/20/21 15:20 Attending Provider: Cliff [place] Admit Provider: Nicole Martinez Primary Care Provider: Shelton Gordon Other Providers: Nicole Martinez ; Alejandro Voss ; [facility] ; [facility] Other Interventions: Discharge Summary Assessment (RN) Last Done: 09/24/21 13:19
== END 2021-09-24 14:51 | disposition home or self-care (01) | DRG 190 ==
LOC: ED 12:16 → 2E 15:20 → SUATTDRO 15:20 → 2E 16:35

== ENCOUNTER 2022-03-21 17:09 | Inpatient (IN) ==
[2022-03-21] MEDS ORDERED: ALBUT/IPRATROP 3MG/0.5MG NEB 3 ML VIAL NEB STA (19:26)
[2022-03-21 19:36] LABS: Basophils # (auto) 0.04 K/uL (0-0.2); Basophils % (auto) 0.3 %; Eosinophils # (auto) 0.33 K/uL (0-0.50); Eosinophils % (auto) 2.5 %; Hematocrit (blood only) 48.1 % (34.1-44.9); Hemoglobin 14.4 g/dl (12.0-16.0); Immature Granulocytes # (auto) 0.07 K/uL (0.00-0.02); Immature Granulocytes % (auto) 0.5 %; Lymphocytes # (auto) 2.68 K/uL (1.2-3.4); Lymphocytes % (auto) 20.6 %; Mean Corpuscular Hemoglobin 30.1 pg (25.0-34.0); Mean Corpuscular Hgb Conc 29.9 g/dL (32.0-36.0); Mean Corpuscular Volume 100.4 fL (80.0-100.0); Mean Platelet Volume 10.1 fL (9.4-12.3); Monocytes # (auto) 0.73 K/uL (0.24-0.82); Monocytes % (auto) 5.6 %; Neutrophils # (auto) 9.14 K/uL (1.4-6.5); Neutrophils % (auto) 70.5 %; Platelet Count 292 K/uL (130-400); RDW Coefficient of Variation 14.5 % (11.5-14.5); RDW Standard Deviation 53.9 fL (36.4-46.3); Red Blood Count 4.79 M/uL (3.93-5.22); White Blood Count 12.99 K/ul (4.8-10.8)
[2022-03-21 19:53] LABS: Influenza A virus by PCR Negative (Neg); Influenza B virus by PCR Negative (Neg); RSV by PCR Negative (Neg)
[2022-03-21 20:01] LABS: Troponin I High Sensitivity 4.2 pg/ml (0-14)
[2022-03-21 20:08] LABS: Albumin Level 3.6 gm/dl (3.4-5.0); BUN Creatinine Ratio 15.9 (10-20); Bilirubin Direct 0.1 mg/dl (0-0.2); Bilirubin,Total 0.4 mg/dl (0.2-1.0); Calcium 9.6 mg/dl (8.5-10.1); Creatinine Clr Calc Pharmacy 118.1 ml/min; Est GFR (Non-African American) 96.6 ml/min; Magnesium 2.1 mg/dl (1.7-2.4); Potassium 3.5 mmol/L (3.5-5.1); Total Protein 7.3 gm/dl (6.0-8.3)
--- NOTE | 2022-03-21 20:16 | Emergency Department Note ---
Impression & Plan Acute dyspnea, Acute respiratory failure with hypoxia and hypercarbia ED Provider Note HISTORY OF PRESENT ILLNESS: Patient is a 57-year-old female presenting with shortness of breath and cough. Patient states that she and her family tested positive for COVID 14 days ago. She states that over the last week she has had a significant decline in her respiratory status. She normally wears 2 L nasal cannula at nighttime only. Reports that in the last week, she has been having significant more short of breath and a cough productive of a green-yellow phlegm. Reports intermittent fevers. Denies any DVT or PE history. She is on an 81 mg of aspirin daily. Denies any abdominal pain, nausea or vomiting. Denies any significant chest pain with the shortness of breath. Patient reports that she has been using her rescue inhaler more frequently over the last few days ROS: Constitutional: No fever, chills, or weakness Skin: No rash or diaphoresis HENT: No headaches or congestion Eyes: No vision changes Cardio: No chest pain, palpitations or leg swelling Respiratory: +cough; +shortness of breath GI: No nausea, vomiting, diarrhea, constipation : No dysuria, polyuria MSK: No joint or back pain Neuro: No loss of sensation, confusion, focal deficits, numbness, tingling Psychiatric: No mood changes PHYSICAL EXAM: Constitutional: Patient appears in no acute distress. HENT: Head: Normocephalic and atraumatic. Eyes: EOMI, PERRL Mouth/Throat: Mucous membranes moist. Neck: Trachea midline. Neck supple. Cardiovascular: RRR, No murmurs, rubs or gallops. Intact distal pulses. Pulmonary/Chest: Diffuse wheezes in bilateral lung griggs. No significant increased work of breathing. On 2L NC. Abdominal: BS +. Abdomen soft, no tenderness, rebound or guarding. Back: No midline spinal tenderness, no paraspinal tenderness, no CVA tenderness. Musculoskeletal: No edema, tenderness or deformity noted. Skin: Warm and dry. No rash, erythema, pallor or cyanosis Psychiatric: Appropriate mood and affect for situation. Neurological: Alert and keenly responsive. CN II-XII grossly intact, moving all extremities equally and fully. MDM: - Vitals signs showed hypoxia. - On arrival to the ER, patient noted to be significantly hypoxic. She was brought back to an ER examination bay and placed on 2L NC with improvement in oxygenation. Patient reports feeling improved on NC. - ABG showed respiratory acidosis. Patient transitioned to BiPAP. - EKG negative for acute ischemic changes. - Laboratory workup showed leukocytosis (WBC 12.99); normal troponin; stable electrolytes; normal lactate; normal procalcitonin - COVID positive. - CXR negative for acute pathology. - CT PE obtained given hypoxia. Showed no PE. - Hospitalist, Dr. Hernandez, consulted for admission - Repeat ABGs show worsening acidosis. Patient's BiPAP settings were adjusted. To be admitted to ICU for close monitoring. - Patient admitted to [facility] for further evaluation and management. ASSESSMENT AND PLAN: Diagnosis: dyspnea; acute hypoxic and hypercarbic respiratory failure; COVID-19 infection Plan: admit Past Med/Surg History Medical History Bipolar disorder CAD (coronary artery disease) Chronic respiratory failure with hypercapnia COPD (chronic obstructive pulmonary disease) GERD (gastroesophageal reflux disease) HLD (hyperlipidemia) HTN (hypertension) Hypothyroidism BLAINE (obstructive sleep apnea) Pseudotumor cerebri T2DM (type 2 diabetes mellitus) TIA (transient ischemic attack) Tobacco abuse Tobacco use Surgical History History of History of cholecystectomy History of colonoscopy 2018 adenomatous polyps removed History of coronary artery stent placement History of esophagogastroduodenoscopy (EGD) 2018 normal History of lithotripsy History of tubal ligation Family History Father Myocardial infarction Mother Diabetes COPD (chronic obstructive pulmonary disease) Sister Ovarian cancer Denies family history of Prostate cancer Breast cancer Colorectal cancer Social History (Updated 12/31/21 @ 11:28 by Era Izquierdo LPN) Smoking Status: Current every day smoker Tobacco Type: Cigarettes Age Started Using Tobacco: 9; packs per day: 0.25; Years Smoked: 40; Cigarettes Per Day: 3; Second Hand Exposure: No; Hx Alcohol Use: No Hx Substance Use: No Preferred Language: Afghan Communication Ability: Effective Domestic Freight Forwarder Required: No Beliefs That Will Affect Care: None marital status: Single Current Living Situation: Family current occupational status: disabled How many Children do You have: 2 Feels Safe at Home: Yes Childhood Exposure to Second-Hand Smoke: Yes caffeine: Yes Dental Care, Regularly: No Physical Activity Frequency: Daily Seatbelt Use: sometimes Sunscreen Use: Yes (sometimes) Assistive Devices: Cane and Walker Allergies Allergies Allergy/AdvReac Type Severity Reaction Status Date / Time ethinyl estradiol Allergy Mild RUNNY Verified 03/21/22 22:21 NOSE, ACHES, CONGESTION levonorgestrel Allergy Mild RUNNY Verified 03/21/22 22:21 NOSE, ACHES, CONGESTION strawberry Allergy Mild RASH Verified 03/21/22 22:21 bupropion Allergy Unknown memory loss Verified 03/21/22 22:21 latex Allergy Unknown rash Verified 03/21/22 22:21 [place] [employer] [facility] Allergy Mild RUNNY Uncoded 03/21/22 22:21 NOSE, ACHES, CONGESTION Home Meds Home Medications Medication Instructions Recorded Confirmed aspirin 81 mg chewable tablet 81 mg PO DAILY 09/20/21 12/31/21 Previous Rx's Medication Instructions Recorded ipratropium 0.5 mg-albuterol 3 mg 3 ml NEB QIDR PRN shortness of 09/24/21 (2.5 mg base)/3 mL nebulization breath or wheezing #90 mL soln acetazolamide 250 mg tablet 1,000 mg PO BID 30 days #240 tabs 12/31/21 albuterol sulfate 90 mcg/actuation 2 puff inhalation QID PRN 12/31/21 aerosol inhaler SHORTNESS OF BREATH/WHEEZING #8.5 grams atorvastatin 40 mg tablet 40 mg PO QPM #90 tabs 12/31/21 cariprazine 3 mg capsule (Vraylar) 3 mg PO HS #90 caps 12/31/21 clobetasol 0.05 % topical cream 1 applic topical BID #45 grams 12/31/21 famotidine 10 mg tablet (Acid 10 mg PO BID #180 tabs 12/31/21 Senior [employer] Methods Specialist (famotidine)) fluticasone 250 mcg-salmeterol 50 1 inh inhalation BID #180 ea 12/31/21 mcg/dose blistr powdr for inhalation (Advair Diskus) gabapentin 100 mg capsule 100 mg PO TID #270 caps 12/31/21 hydroxyzine pamoate 25 mg capsule 25 mg PO BID #180 caps 12/31/21 levothyroxine 75 mcg tablet 75 mcg PO DAILYBB #90 tabs 08/05/22 lithium carbonate 300 mg 600 mg PO HS 90 days #180 tabs 12/31/21 tablet,extended release metoprolol succinate 25 mg 25 mg PO DAILY #90 tabs 12/31/21 tablet,extended release 24 hr nitroglycerin 0.4 mg sublingual 0.4 mg sublingual .PRN/UD #30 tabs 12/31/21 tablet nystatin 100,000 unit/gram topical 1 applic topical TID #60 grams 12/31/21 powder omeprazole 20 mg capsule,delayed 20 mg PO QAM #90 caps 12/31/21 release amlodipine 5 mg tablet 5 mg PO HS #90 tabs 01/03/22 blood-glucose meter #1 ea 01/03/22 Results & Data (ED) Vital Signs Vital Signs - 24 hr 03/21/22 18:08 03/21/22 19:57 03/21/22 20:00 Temperature 36.9 C Temperature Source Temporal Artery Scan Pulse Rate 65 69 Respiratory Rate 20 20 Respiratory Effort / Characteristics Short of Breath Respiratory Depth Respiratory Pattern Blood Pressure 162/85 H 130/48 L Blood Pressure Mean 110 75 Blood Pressure Position Sitting Pulse Oximetry 84 L 99 99 Oxygen Delivery Method Room Air Nasal Cannula Nasal Cannula Oxygen Flow Rate 4 2 Fraction of Inspired Oxygen Sepsis Recent Fever Within 48 Hours No Sepsis New/Unexplained Change in Mental Status N/A Sepsis Action Taken by Nursing No Action Required 03/21/22 19:45 03/21/22 21:00 03/21/22 22:00 Temperature Temperature Source Pulse Rate 63 58 L 63 Respiratory Rate 25 H 20 20 Respiratory Effort / Characteristics Spontaneous Accessory Muscle Use Respiratory Depth Normal Respiratory Pattern Tachypnea Blood Pressure 135/59 L 125/70 Blood Pressure Mean 84 88 Blood Pressure Position Pulse Oximetry 97 98 96 Oxygen Delivery Method Oxygen Flow Rate Fraction of Inspired Oxygen 40 Sepsis Recent Fever Within 48 Hours Sepsis New/Unexplained Change in Mental Status Sepsis Action Taken by Nursing 03/21/22 22:30 03/21/22 22:20 Temperature Temperature Source Pulse Rate 61 Respiratory Rate 20 21 Respiratory Effort / Characteristics Respiratory Depth Respiratory Pattern Blood Pressure 142/77 H Blood Pressure Mean 98 Blood Pressure Position Pulse Oximetry 97 Oxygen Delivery Method Oxygen Flow Rate Fraction of Inspired Oxygen 40 Sepsis Recent Fever Within 48 Hours Sepsis New/Unexplained Change in Mental Status Sepsis Action Taken by Nursing Laboratory Data Result diagrams: 03/21/22 19:15 03/21/22 19:15 Lab Results 03/21/22 03/21/22 03/21/22 Range/Units 19:05 19:15 19:15 WBC 12.99 H (4.8-10.8) K/ul RBC 4.79 (3.93-5.22) M/uL Hgb 14.4 (12.0-16.0) g/dl Hct 48.1 H (34.1-44.9) % MCV 100.4 H (80.0-100.0) fL MCH 30.1 (25.0-34.0) pg MCHC 29.9 L (32.0-36.0) g/dL RDW Std Deviation 53.9 H (36.4-46.3) fL RDW Coeff of Bruno 14.5 (11.5-14.5) % Plt Count 292 (130-400) K/uL MPV 10.1 (9.4-12.3) fL Immature Gran % (Auto) 0.5 % Neut % (Auto) 70.5 % Lymph % (Auto) 20.6 % [place] % (Auto) 5.6 % Eos % (Auto) 2.5 % Baso % (Auto) 0.3 % Neut # (Auto) 9.14 H (1.4-6.5) K/uL Lymph # (Auto) 2.68 (1.2-3.4) K/uL [place] # (Auto) 0.73 (0.24-0.82) K/uL Eos # (Auto) 0.33 (0-0.50) K/uL Baso # (Auto) 0.04 (0-0.2) K/uL Immature Gran # (Auto) 0.07 H (0.00-0.02) K/uL POC pH (7.35-7.45) POC pCO2 (35-46) mmHg POC pO2 (80-95) mmHg POC HCO3 (19-24) jrodin/L POC Total CO2 (24-31) mmol/L POC Base Excess (-9-1.8) jordin/L POC ABG O2 Sat (90-95) % Sodium 142 (136-145) mmol/L Potassium 3.5 (3.5-5.1) mmol/L Chloride 106 (98-107) mmol/L Carbon Dioxide 32 (21-32) mmol/L Anion Gap 4 (3-11) BUN 11 (6-23) mg/dl Creatinine 0.69 (0.6-1.2) mg/dl Est Cr Clr Drug Dosing 118.1 ml/min Est GFR ( Amer) 112.0 ml/min Est GFR (Non-Af Amer) 96.6 ml/min BUN/Creatinine Ratio 15.9 (10-20) Glucose 121 H (70-99(Fasting)) mg/dl Lactate (0.4-2.0) mmol/L Calcium 9.6 (8.5-10.1) mg/dl Magnesium 2.1 (1.7-2.4) mg/dl Total Bilirubin 0.4 (0.2-1.0) mg/dl Direct Bilirubin 0.1 (0-0.2) mg/dl AST 8 L (13-39) U/L ALT 6 L (7-52) U/L Alkaline Phosphatase 116 H (34-104) U/L Troponin I High Sens 4.2 (0-14) pg/ml Total Protein 7.3 (6.0-8.3) gm/dl Albumin 3.6 (3.4-5.0) gm/dl Procalcitonin (0-0.5) ng/ml Urine Color Urine Appearance (Clear) Urine pH (4.5-7.5) Ur Specific [place] (1.000-1.030) Urine Protein (Negative) Urine Glucose (UA) (Negative) Urine Ketones (Negative) Urine Blood (Negative) Urine Nitrite (Negative) Urine Bilirubin (Negative) Urine Urobilinogen (Negative) Ur Leukocyte Esterase (Negative) SARS-CoV-2 (PCR) POSITIVE A* (Negative) Influenza Type A (PCR) Negative (Neg) Influenza Type B (PCR) Negative (Neg) RSV (RT-PCR) Negative (Neg) 03/21/22 03/21/22 03/21/22 Range/Units 19:15 19:20 19:32 WBC (4.8-10.8) K/ul RBC (3.93-5.22) M/uL Hgb (12.0-16.0) g/dl Hct (34.1-44.9) % MCV (80.0-100.0) fL MCH (25.0-34.0) pg MCHC (32.0-36.0) g/dL RDW Std Deviation (36.4-46.3) fL RDW Coeff of Bruno (11.5-14.5) % Plt Count (130-400) K/uL MPV (9.4-12.3) fL Immature Gran % (Auto) % Neut % (Auto) % Lymph % (Auto) % [place] % (Auto) % Eos % (Auto) % Baso % (Auto) % Neut # (Auto) (1.4-6.5) K/uL Lymph # (Auto) (1.2-3.4) K/uL [place] # (Auto) (0.24-0.82) K/uL Eos # (Auto) (0-0.50) K/uL Baso # (Auto) (0-0.2) K/uL Immature Gran # (Auto) (0.00-0.02) K/uL POC pH (7.35-7.45) POC pCO2 (35-46) mmHg POC pO2 (80-95) mmHg POC HCO3 (19-24) joridn/L POC Total CO2 (24-31) mmol/L POC Base Excess (-9-1.8) jordin/L POC ABG O2 Sat (90-95) % Sodium (136-145) mmol/L Potassium (3.5-5.1) mmol/L Chloride (98-107) mmol/L Carbon Dioxide (21-32) mmol/L Anion Gap (3-11) BUN (6-23) mg/dl Creatinine (0.6-1.2) mg/dl Est Cr Clr Drug Dosing ml/min Est GFR ( Amer) ml/min Est GFR (Non-Af Amer) ml/min BUN/Creatinine Ratio (10-20) Glucose (70-99(Fasting)) mg/dl Lactate 0.7 (0.4-2.0) mmol/L Calcium (8.5-10.1) mg/dl Magnesium (1.7-2.4) mg/dl Total Bilirubin (0.2-1.0) mg/dl Direct Bilirubin (0-0.2) mg/dl AST (13-39) U/L ALT (7-52) U/L Alkaline Phosphatase (34-104) U/L Troponin I High Sens (0-14) pg/ml Total Protein (6.0-8.3) gm/dl Albumin (3.4-5.0) gm/dl Procalcitonin < 0.05 (0-0.5) ng/ml Urine Color Yellow Urine Appearance Clear (Clear) Urine pH 7.0 (4.5-7.5) Ur Specific [place] 1.013 (1.000-1.030) Urine Protein Negative (Negative) Urine Glucose (UA) Negative (Negative) Urine Ketones Negative (Negative) Urine Blood Negative (Negative) Urine Nitrite Negative (Negative) Urine Bilirubin Negative (Negative) Urine Urobilinogen Negative (Negative) Ur Leukocyte Esterase Negative (Negative) SARS-CoV-2 (PCR) (Negative) Influenza Type A (PCR) (Neg) Influenza Type B (PCR) (Neg) RSV (RT-PCR) (Neg) 03/21/22 03/21/22 03/21/22 Range/Units 20:26 21:30 22:15 WBC (4.8-10.8) K/ul RBC (3.93-5.22) M/uL Hgb (12.0-16.0) g/dl Hct (34.1-44.9) % MCV (80.0-100.0) fL MCH (25.0-34.0) pg MCHC (32.0-36.0) g/dL RDW Std Deviation (36.4-46.3) fL RDW Coeff of Bruno (11.5-14.5) % Plt Count (130-400) K/uL MPV (9.4-12.3) fL Immature Gran % (Auto) % Neut % (Auto) % Lymph % (Auto) % [place] % (Auto) % Eos % (Auto) % Baso % (Auto) % Neut # (Auto) (1.4-6.5) K/uL Lymph # (Auto) (1.2-3.4) K/uL [place] # (Auto) (0.24-0.82) K/uL Eos # (Auto) (0-0.50) K/uL Baso # (Auto) (0-0.2) K/uL Immature Gran # (Auto) (0.00-0.02) K/uL POC pH 7.22 L 7.22 L 7.19 L* (7.35-7.45) POC pCO2 70 H 70 H 78 H (35-46) mmHg POC pO2 64 L 107 H 87 (80-95) mmHg POC HCO3 29 H 29 H 30 H (19-24) jordin/L POC Total CO2 31 31 33 H (24-31) mmol/L POC Base Excess 1.0 1.0 2.0 H (-9-1.8) jordin/L POC ABG O2 Sat 86.0 L 97.0 H 93.0 (90-95) % Sodium (136-145) mmol/L Potassium (3.5-5.1) mmol/L Chloride (98-107) mmol/L Carbon Dioxide (21-32) mmol/L Anion Gap (3-11) BUN (6-23) mg/dl Creatinine (0.6-1.2) mg/dl Est Cr Clr Drug Dosing ml/min Est GFR ( Amer) ml/min Est GFR (Non-Af Amer) ml/min BUN/Creatinine Ratio (10-20) Glucose (70-99(Fasting)) mg/dl Lactate (0.4-2.0) mmol/L Calcium (8.5-10.1) mg/dl Magnesium (1.7-2.4) mg/dl Total Bilirubin (0.2-1.0) mg/dl Direct Bilirubin (0-0.2) mg/dl AST (13-39) U/L ALT (7-52) U/L Alkaline Phosphatase (34-104) U/L Troponin I High Sens (0-14) pg/ml Total Protein (6.0-8.3) gm/dl Albumin (3.4-5.0) gm/dl Procalcitonin (0-0.5) ng/ml Urine Color Urine Appearance (Clear) Urine pH (4.5-7.5) Ur Specific [place]ot (1.000-1.030) Urine Protein (Negative) Urine Glucose (UA) (Negative) Urine Ketones (Negative) Urine Blood (Negative) Urine Nitrite (Negative) Urine Bilirubin (Negative) Urine Urobilinogen (Negative) Ur Leukocyte Esterase (Negative) SARS-CoV-2 (PCR) (Negative) Influenza Type A (PCR) (Neg) Influenza Type B (PCR) (Neg) RSV (RT-PCR) (Neg) Administered Medications Discontinued Medications Albuterol (Albut/Ipratrop 3mg/0.5mg Neb 3 Ml Vial) 3 ml NEB NOW STA; Protocol Stop: 03/21/22 19:27 Last Admin: 03/21/22 19:52 Dose: 3 ml Documented By: ANA Imaging Data Radiologist's Impression: Chest X-Ray 03/21/22 18:18 XR chest 1V portable CLINICAL HISTORY: Sepsis COMPARISON STUDY: Chest radiograph September 20, 2021. FINDINGS: Lung volumes are normal. Minimal left basilar opacity is present. There is no pneumothorax or pleural effusion. Cardiac size is normal. M ediastinal contours are normal. There is no evidence for pulmonary edema. IMPRESSION: Minimal left basilar opacity. This likely reflects atelectasis or epicardial fat pad. However, a small focus of pneumonia could appear similar. ACT 112: Negative or not required by law. Electronically signed by: Shawn Moran M.D. 03/21/2022 8:47 PM Chest CTA 03/21/22 19:53 CT ANGIOGRAPHY OF THE CHEST, PULMONARY EMBOLUS PROTOCOL CLINICAL HISTORY: Hypoxia, cough and chest pain. Evaluate for pulmonary embolus. COMPARISON STUDY: Chest radiograph September 20, 2021 and March 21, 2022. TECHNIQUE: Following IV administration of 112 mL of Optiray, helical axial images of the chest were obtained utilizing the pulmonary embolus protocol. Maximal intensity projections and sagittal and coronal reformats were viewed on an independent 3D workstation. IV contrast was administered without complication. Automated exposure control was utilized for the study. A dose lowering technique was utilized adhering to the principles of ALARA. CT DOSE: 569.48 mGycm FINDINGS: No pulmonary emboli are identified although the segmental and subsegmental pulmonary arteries are suboptimally assessed due to respiratory motion. There is no thoracic aortic dissection. Size of the heart is normal. There is no pericardial effusion. No enlarged thoracic lymph nodes are present. There is no consolidation to suggest pneumonia. There is no pneumothorax or pleural effusion. Central airways are patent. No acute fracture or suspicious lesion is identified within the visualized bony thorax. IMPRESSION: 1. No pulmonary emboli identified although segmental and subsegmental pulmonary arteries suboptimally assessed due to respiratory motion. 2. No consolidation to suggest pneumonia. ACT 112: Negative or not required by law. Electronically signed by: Shawn Moran M.D. 03/21/2022 9:47 PM Discharge Plan Visit Data Chief Complaint: Flu Like Symptoms Stated Complaint: BAD COUGH, CHEST PAIN,HEADACHE ED Provider: Loulou Navarro Discharge Problem: Acute dyspnea, Acute respiratory failure with hypoxia and hypercarbia Patient Disposition: Admitted As Inpatient Forms Stand Alone Forms: [facility] Prescriptions Prescriptions: No Action (DME) blood-glucose meter Kit See Rx Instructions .Route Qty: 1 0RF Rx Instructions: AC and HS and prn amlodipine 5 mg tablet 5 mg PO HS Qty: 90 3RF acetazolamide 250 mg tablet 1,000 mg PO BID 30 Days Qty: 240 5RF albuterol sulfate 90 mcg/actuation HFA aerosol inhaler 2 puff INHALATION QID PRN (Reason: SHORTNESS OF BREATH/WHEEZING) Qty: 8.5 5RF atorvastatin 40 mg tablet 40 mg PO QPM Qty: 90 3RF Vraylar 3 mg capsule 3 mg PO HS Qty: 90 1RF clobetasol 0.05 % cream 1 applic TOPICAL BID Qty: 45 3RF Rx Instructions: APPLY TO RIGHT HAND TWICE DAILY famotidine [Acid Senior [employer] Specialist (famotidine)] 10 mg tablet 10 mg PO BID Qty: 180 3RF fluticasone propion-salmeterol [Advair Diskus] 250-50 mcg/dose blister with device 1 inh INHALATION BID Qty: 180 3RF gabapentin 100 mg capsule 100 mg PO TID Qty: 270 3RF hydroxyzine pamoate 25 mg capsule 25 mg PO BID Qty: 180 3RF levothyroxine 75 mcg tablet 75 mcg PO DAILYBB Qty: 90 3RF lithium carbonate 300 mg tablet extended release 600 mg PO HS 90 Days Qty: 180 3RF metoprolol succinate 25 mg tablet extended release 24 hr 25 mg PO DAILY Qty: 90 3RF nitroglycerin 0.4 mg tablet, sublingual 0.4 mg sublingual .PRN/UD Qty: 30 5RF Rx Instructions: NEEDED FOR CHEST PAIN : ONE TABLET UNDER THE TONGUE EVERY 5 MINUTES UP TO THREE DOSES. nystatin 100,000 unit/gram powder 1 applic TOPICAL TID Qty: 60 5RF Rx Instructions: APPLY TO SKIN FOLDS omeprazole 20 mg capsule,delayed release(DR/EC) 20 mg PO QAM Qty: 90 3RF aspirin 81 mg Tablet,Chewable 81 mg PO DAILY ipratropium-albuterol 0.5 mg-3 mg(2.5 mg base)/3 mL Solution For Nebulization 3 ml NEB QIDR PRN (Reason: shortness of breath or wheezing) Qty: 90 1RF Referrals Referrals: Alberto Molina DO [Primary Care Provider] -
[2022-03-21 20:21] LABS: Appearance Urine Clear (Clear); Bilirubin Urine Negative (Negative); Blood Urine Negative (Negative); Color Urine Yellow; Glucose Urine UA Negative (Negative); Ketones Urine Negative (Negative); Leukocyte Esterase Urine Negative (Negative); Nitrite Urine Negative (Negative); Protein Urine Negative (Negative); Specific Gravity Urine 1.013 (1.000-1.030); Urobilinogen Urine Negative (Negative)
[2022-03-21 20:40] LABS: iSTAT Arterial Blood Gas HCO3 29 meg/L (19-24); iSTAT Arterial Blood Gas pCO2 70 mmHg (35-46); iSTAT Arterial Blood Gas pH 7.22 (7.35-7.45); iSTAT Arterial Blood Gas pO2 64 mmHg (80-95); iSTAT Carbon Dioxide 31 mmol/L (24-31)
--- NOTE | 2022-03-21 20:48 | XRay Report ---
XR chest 1V portable CLINICAL HISTORY: Sepsis COMPARISON STUDY: Chest radiograph September 20, 2021. FINDINGS: Lung volumes are normal. Minimal left basilar opacity is present. There is no pneumothorax or pleural effusion. Cardiac size is normal. Mediastinal contours are normal. There is no evidence fo r pulmonary edema. IMPRESSION: Minimal left basilar opacity. This likely reflects atelectasis or epicardial fat pad. Ho wever, a small focus of pneumonia could appear similar. ACT 112: Negative or not required by law. Electronically signed by: Shawn Moran M.D. 03/21/2022 8:47 PM
[2022-03-21] MEDS ORDERED: OPTIRAY 320 500ml IV ONE (20:52)
[2022-03-21 21:25] LABS: SARS CoV2 RNA(COVID-19) InHosp POSITIVE (Negative)
[2022-03-21 21:44] LABS: iSTAT Arterial Blood Gas HCO3 29 meg/L (19-24); iSTAT Arterial Blood Gas pCO2 70 mmHg (35-46); iSTAT Arterial Blood Gas pH 7.22 (7.35-7.45); iSTAT Arterial Blood Gas pO2 107 mmHg (80-95); iSTAT Carbon Dioxide 31 mmol/L (24-31)
--- NOTE | 2022-03-21 21:50 | CT Scan Report ---
CT ANGIOGRAPHY OF THE CHEST, PULMONARY EMBOLUS PROTOCOL CLINICAL HISTORY: Hypoxia, cough and chest pain. Evaluate for pulmonary embolus. COMPARISON STUDY: Chest radiograph September 20, 2021 and March 21, 2022. TECHNIQUE: Following IV administration of 112 mL of Optiray, helical axial images of the chest were o btained utilizing the pulmonary embolus protocol. Maximal intensity projections and sagittal and cor onal reformats were viewed on an independent 3D workstation. IV contrast was administered without co mplication. Automated exposure control was utilized for the study. A dose lowering technique was ut ilized adhering to the principles of ALARA. CT DOSE: 569.48 mGycm FINDINGS: No pulmonary emboli are identified although the segmental and subsegmental pulmonary arter ies are suboptimally assessed due to respiratory motion. There is no thoracic aortic dissection. Size of the heart is normal. There is no pericardial effusion. No enlarged thoracic lymph nodes are prese nt. There is no consolidation to suggest pneumonia. There is no pneumothorax or pleural effusion. Delmi tral airways are patent. No acute fracture or suspicious lesion is identified within the visualized b gregorio thorax. IMPRESSION: 1. No pulmonary emboli identified although segmental and subsegmental pulmonary arteries suboptimally assessed due to respiratory motion. 2. No consolidation to suggest pneumonia. ACT 112: Negative or not required by law. Electronically signed by: Shawn Moran M.D. 03/21/2022 9:47 PM
[2022-03-21 22:41] LABS: iSTAT Arterial Blood Gas HCO3 30 meg/L (19-24); iSTAT Arterial Blood Gas pCO2 78 mmHg (35-46); iSTAT Arterial Blood Gas pH 7.19 (7.35-7.45); iSTAT Arterial Blood Gas pO2 87 mmHg (80-95); iSTAT Carbon Dioxide 33 mmol/L (24-31)
[2022-03-21] MEDS ORDERED: ALBUTEROL 0.083% NEBU SOLN 3 ML VIAL NEB STA (23:11)
[2022-03-21] MEDS ORDERED: ALBUTEROL 0.083% NEBU SOLN 3 ML VIAL ONE (23:18)
--- NOTE | 2022-03-21 23:39 | History & Physical Report ---
Date of Service March 21, 2022 Assessment & Plan (1) Acute on chronic respiratory failure with hypoxia and hypercapnia: Plan: Likely combination of COPD exacerbation, COVID-19 infection and secondary bacterial pneumonia Due to persistent worsening of arterial blood gas with increasing respiratory acidosis, patient was intubated in the emergency department and then admitted to the ICU (2) Admitted to intensive care unit: Plan: Consult loft worker Dr. Smith and loft worker staff (3) COVID-19: Plan: Placed on dexamethasone 10 mg IV today, then 6 mg IV daily Not a candidate for remdesivir due to time of infection (4) Secondary bacterial pneumonia: Plan: Patient had production of yellowish-green sputum on the day of admission. Placed on ceftriaxone 2 g IV daily and azithromycin 5 mg IV daily Duonebs every 4 hours while awake and every 2 hours when necessary. (5) Pseudotumor cerebri: Plan: On acetazolamide. If remains intubated for extended interval, convert oral to IV (6) BLAINE on CPAP: Plan: Intubated (7) T2DM (type 2 diabetes mellitus): Plan: Placed on ICU hyperglycemic protocol (8) Tobacco abuse: (9) Hypothyroidism: (10) CAD (coronary artery disease): (11) HLD (hyperlipidemia): (12) HTN (hypertension): (13) Bipolar disorder: Plan: Medications on hold while intubated (14) COPD (chronic obstructive pulmonary disease): History of Present Illness Chief Complaint: The patient presented to the emergency department with worsening shortness of breath and cough over the past week, and in particular over the past 24 hours began to have worsening of her symptoms along with yellowish sputum production. She had been exposed to her daughter who had COVID-19 infection about 14 days ago. She denies any other sick exposures. Primary Care Provider: Alberto Molina DO The patient is a 57-year-old female with a past medical history including pseudotumor cerebri, psoriasis, BLAINE on CPAP, vitamin D deficiency, respiratory acidosis, diabetes mellitus type 2, acute respiratory failure with hypoxia and hypercarbia,Tobacco abuse, hypothyroidism, CAD, hyperlipidemia, hypertension, COPD, BLAINE on CPAP and bipolar disorder. Patient presents to the emergency department with the development of yellowish sputum today, a worsening of shortness of breath and dyspnea on exertion symptoms that began over the previous week. Significant abnormal laboratories: WBC 12.99, potassium 3.5, glucose 121. COVID-19 positive Chest x-ray and CT angiography of chest were negative. Arterial blood gas on BiPAP: pH 7.19, PCO2 78, PO2 87 ABG continued to worsened despite being on BiPAP, and decision was made to intubate patient for her planned admission to the ICU. This intubation was performed by emergency department physician Dr. Navarro. The patient was then transferred to the ICU for ongoing care with consult to loft worker and ICU team Allergies Allergy/AdvReac Type Severity Reaction Status Date / Time ethinyl estradiol Allergy Mild RUNNY Verified 03/21/22 22:21 NOSE, ACHES, CONGESTION levonorgestrel Allergy Mild RUNNY Verified 03/21/22 22:21 NOSE, ACHES, CONGESTION strawberry Allergy Mild RASH Verified 03/21/22 22:21 bupropion Allergy Unknown memory loss Verified 03/21/22 22:21 latex Allergy Unknown rash Verified 03/21/22 22:21 [place] [facility] Allergy Mild RUNNY Uncoded 03/21/22 22:21 NOSE, ACHES, CONGESTION Home Medications Medication Instructions Recorded Confirmed Type aspirin 81 mg chewable tablet 81 mg PO DAILY 09/20/21 03/21/22 History acetazolamide 250 mg tablet 1,000 mg PO BID 30 days #240 tabs 12/31/21 03/21/22 Rx albuterol sulfate 90 mcg/actuation 2 puff inhalation QID PRN 12/31/21 03/21/22 Rx aerosol inhaler SHORTNESS OF BREATH/WHEEZING #8.5 grams atorvastatin 40 mg tablet 40 mg PO QPM #90 tabs 12/31/21 03/21/22 Rx clobetasol 0.05 % topical cream 1 applic topical BID #45 grams 12/31/21 03/21/22 Rx famotidine 10 mg tablet (Acid 10 mg PO BID #180 tabs 12/31/21 03/21/22 Rx Spar [employer] (famotidine)) fluticasone 250 mcg-salmeterol 50 1 inh inhalation BID #180 ea 12/31/21 03/21/22 Rx mcg/dose blistr powdr for inhalation (Advair Diskus) gabapentin 100 mg capsule 100 mg PO TID #270 caps 12/31/21 03/21/22 Rx hydroxyzine pamoate 25 mg capsule 25 mg PO BID #180 caps 12/31/21 03/21/22 Rx levothyroxine 75 mcg tablet 75 mcg PO DAILYBB #90 tabs 12/31/21 03/21/22 Rx lithium carbonate 300 mg 600 mg PO HS 90 days #180 tabs 12/31/21 03/21/22 Rx tablet,extended release metoprolol succinate 25 mg 25 mg PO DAILY #90 tabs 12/31/21 03/21/22 Rx tablet,extended release 24 hr nitroglycerin 0.4 mg sublingual 0.4 mg sublingual .PRN/UD #30 tabs 12/31/21 03/21/22 Rx tablet nystatin 100,000 unit/gram topical 1 applic topical TID #60 grams 12/31/21 03/21/22 Rx powder omeprazole 20 mg capsule,delayed 20 mg PO QAM #90 caps 12/31/21 03/21/22 Rx release amlodipine 5 mg tablet 5 mg PO HS #90 tabs 01/03/22 03/21/22 Rx blood-glucose meter #1 ea 01/03/22 Rx cariprazine 3 mg capsule (Vraylar) 3 mg PO HS 03/21/22 03/21/22 History Past Med/Surg History Medical History Bipolar disorder CAD (coronary artery disease) Chronic respiratory failure with hypercapnia COPD (chronic obstructive pulmonary disease) GERD (gastroesophageal reflux disease) HLD (hyperlipidemia) HTN (hypertension) Hypothyroidism BLAINE (obstructive sleep apnea) Pseudotumor cerebri T2DM (type 2 diabetes mellitus) TIA (transient ischemic attack) Tobacco abuse Tobacco use Surgical History History of History of cholecystectomy History of colonoscopy 2018 adenomatous polyps removed History of coronary artery stent placement History of esophagogastroduodenoscopy (EGD) 2018 normal History of lithotripsy History of tubal ligation Family History Father Myocardial infarction Mother Diabetes COPD (chronic obstructive pulmonary disease) Sister Ovarian cancer Denies family history of Prostate cancer Breast cancer Colorectal cancer Social History (Updated 12/31/21 @ 11:28 by Era Izquierdo LPN) Smoking Status: Current every day smoker Tobacco Type: Cigarettes Age Started Using Tobacco: 9; packs per day: 0.25; Years Smoked: 40; Cigarettes Per Day: 3; Second Hand Exposure: No; Hx Alcohol Use: No Hx Substance Use: No Preferred Language: Uzbek Communication Ability: Effective Associate Pathologist Required: No Beliefs That Will Affect Care: None marital status: Single Current Living Situation: Family current occupational status: disabled How many Children do You have: 2 Feels Safe at Home: Yes Childhood Exposure to Second-Hand Smoke: Yes caffeine: Yes Dental Care, Regularly: No Physical Activity Frequency: Daily Seatbelt Use: sometimes Sunscreen Use: Yes (sometimes) Assistive Devices: Cane and Walker Review of Systems Review of Systems: The patient denies chest pain, palpitations, lower extremity swelling, sore throat, fevers, chills, sweats, nausea, vomiting, diarrhea , constipation, abdominal pain, pelvic pain, blood in urine or stool, dysuria, urinary frequency or urgency, lightheadedness, dizziness, headache, memory loss, loss of consciousness, rash, abnormal bruising or bleeding, imbalance, focal or generalized weakness, numbness or tingling in arms or legs, generalized arthralgias or myalgias, back or neck pain, or night sweats. The review of systems is otherwise negative other than for that already noted above, and at least 10 systems have been reviewed. Physical Exam Physical Exam: The patient is awake, alert and oriented 3, well developed and well nourished, normocephalic and atraumatic, lying in bed and in mild acute respiratory distress on BiPAP HEENT--PERRL, EOMI, mucous membranes and oropharynx dry. Neck--supple. No JVD. No bruits. Thyroid normal, trachea midline, no adenopathy. Heart--normal S1 and S2. No murmurs, rubs or gallops. Lungs--coarse bilaterally. mild respiratory distress,. No accessory muscle use. Abdomen--normal bowel sounds and soft. Nontender. Nondistended, no hernias or masses, no organomegaly. Extremities--no cyanosis or clubbing. No edema. There are good distal pulses b/l. Dermatologic--normal skin turgor, normal color, no abnormal lymph nodes, no rash. Neurologic--cranial nerves II through XII grossly intact. Rheumatologic--normal range of motion. Psychiatric--normal affect. Results & Data Results & Data ([facility]) Vital Signs (Past 12 Hours) Vital Signs Temp Pulse Resp BP Pulse Ox O2 Del Method O2 Flow Rate 03/21/22 22:20 21 03/21/22 22:30 61 20 142/77 H 97 03/21/22 22:00 63 20 125/70 96 03/21/22 21:00 58 L 20 135/59 L 98 03/21/22 19:45 63 25 H 97 03/21/22 20:00 69 20 130/48 L 99 Nasal Cannula 2 03/21/22 19:57 99 Nasal Cannula 4 03/21/22 18:08 36.9 C 65 20 162/85 H 84 L Room Air FiO2 03/21/22 22:20 40 03/21/22 22:30 03/21/22 22:00 03/21/22 21:00 03/21/22 19:45 40 03/21/22 20:00 03/21/22 19:57 03/21/22 18:08 Laboratory Results Laboratory Results WBC 12.99 K/ul (4.8-10.8) H 03/21/22 19:15 RBC 4.79 M/uL (3.93-5.22) 03/21/22 19:15 Hgb 14.4 g/dl (12.0-16.0) 03/21/22 19:15 POC Hgb 14.6 g/dl (12.0-16.0) 03/22/22 01:57 Hct 48.1 % (34.1-44.9) H 03/21/22 19:15 POC Hct 43 % (37-47) 03/22/22 01:57 MCV 100.4 fL (80.0-100.0) H 03/21/22 19:15 MCH 30.1 pg (25.0-34.0) 03/21/22 19:15 MCHC 29.9 g/dL (32.0-36.0) L 03/21/22 19:15 RDW Std Deviation 53.9 fL (36.4-46.3) H 03/21/22 19:15 RDW Coeff of Bruno 14.5 % (11.5-14.5) 03/21/22 19:15 Plt Count 292 K/uL (130-400) 03/21/22 19:15 MPV 10.1 fL (9.4-12.3) 03/21/22 19:15 Immature Gran % (Auto) 0.5 % 03/21/22 19:15 Neut % (Auto) 70.5 % 03/21/22 19:15 Lymph % (Auto) 20.6 % 03/21/22 19:15 [place] % (Auto) 5.6 % 03/21/22 19:15 Eos % (Auto) 2.5 % 03/21/22 19:15 Baso % (Auto) 0.3 % 03/21/22 19:15 Neut # (Auto) 9.14 K/uL (1.4-6.5) H 03/21/22 19:15 Lymph # (Auto) 2.68 K/uL (1.2-3.4) 03/21/22 19:15 [place] # (Auto) 0.73 K/uL (0.24-0.82) 03/21/22 19:15 Eos # (Auto) 0.33 K/uL (0-0.50) 03/21/22 19:15 Baso # (Auto) 0.04 K/uL (0-0.2) 03/21/22 19:15 Immature Gran # (Auto) 0.07 K/uL (0.00-0.02) H 03/21/22 19:15 Sample Site R Radial 03/22/22 01:57 POC pH 7.29 (7.35-7.45) L 03/22/22 01:57 POC pCO2 61 mmHg (35-46) H 03/22/22 01:57 POC pO2 83 mmHg (80-95) 03/22/22 01:57 POC HCO3 29 jordin/L (19-24) H 03/22/22 01:57 POC Total CO2 31 mmol/L (24-31) 03/22/22 01:57 POC Base Excess 3.0 jordin/L (-9-1.8) H 03/22/22 01:57 ABG pH (Temp Correct) 7.288 (7.35-7.45) L 03/22/22 01:57 ABG pCO2 (Temp Corrct 61 mmHg (35-46) H 03/22/22 01:57 POC ABG pO2 at Pt Temp 83 03/22/22 01:57 POC ABG O2 Sat 94.0 % (90-95) 03/22/22 01:57 Ivan Test Pass 03/22/22 01:57 O2 Delivery Device Ventilator 03/22/22 01:57 POC O2 Rate 26 03/22/22 01:57 Minute Ventilation 8.6 03/22/22 01:57 POC FiO2 50 % 03/22/22 01:57 Tidal Volume 330 03/22/22 01:57 PEEP 8 03/22/22 01:57 POC Sodium 142 mmol/L (135-144) 03/22/22 01:57 Sodium 142 mmol/L (136-145) 03/21/22 19:15 POC Potassium 3.6 mmol/L (3.3-5.0) 03/22/22 01:57 Potassium 3.5 mmol/L (3.5-5.1) 03/21/22 19:15 Chloride 106 mmol/L (98-107) 03/21/22 19:15 Carbon Dioxide 32 mmol/L (21-32) 03/21/22 19:15 Anion Gap 4 (3-11) 03/21/22 19:15 BUN 11 mg/dl (6-23) 03/21/22 19:15 Creatinine 0.69 mg/dl (0.6-1.2) 03/21/22 19:15 Est Cr Clr Drug Dosing 118.1 ml/min 03/21/22 19:15 Est GFR ( Amer) 112.0 ml/min 03/21/22 19:15 Est GFR (Non-Af Amer) 96.6 ml/min 03/21/22 19:15 BUN/Creatinine Ratio 15.9 (10-20) 03/21/22 19:15 Glucose 121 mg/dl (70-99(Fasting)) H 03/21/22 19:15 Lactate 0.7 mmol/L (0.4-2.0) 03/21/22 19:32 Calcium 9.6 mg/dl (8.5-10.1) 03/21/22 19:15 Magnesium 2.1 mg/dl (1.7-2.4) 03/21/22 19:15 Total Bilirubin 0.4 mg/dl (0.2-1.0) 03/21/22 19:15 Direct Bilirubin 0.1 mg/dl (0-0.2) 03/21/22 19:15 AST 8 U/L (13-39) L 03/21/22 19:15 ALT 6 U/L (7-52) L 03/21/22 19:15 Alkaline Phosphatase 116 U/L (34-104) H 03/21/22 19:15 Troponin I High Sens 4.2 pg/ml (0-14) 03/21/22 19:15 Total Protein 7.3 gm/dl (6.0-8.3) 03/21/22 19:15 Albumin 3.6 gm/dl (3.4-5.0) 03/21/22 19:15 Procalcitonin < 0.05 ng/ml (0-0.5) 03/21/22 19:15 Urine Color Yellow 03/21/22 19:20 Urine Appearance Clear (Clear) 03/21/22 19:20 Urine pH 7.0 (4.5-7.5) 03/21/22 19:20 Ur Specific [place] 1.013 (1.000-1.030) 03/21/22 19:20 Urine Protein Negative (Negative) 03/21/22 19:20 Urine Glucose (UA) Negative (Negative) 03/21/22 19:20 Urine Ketones Negative (Negative) 03/21/22 19:20 Urine Blood Negative (Negative) 03/21/22 19:20 Urine Nitrite Negative (Negative) 03/21/22 19:20 Urine Bilirubin Negative (Negative) 03/21/22 19:20 Urine Urobilinogen Negative (Negative) 03/21/22 19:20 Ur Leukocyte Esterase Negative (Negative) 03/21/22 19:20 SARS-CoV-2 (PCR) POSITIVE (Negative) A* 03/21/22 19:05 Influenza Type A (PCR) Negative (Neg) 03/21/22 19:05 Influenza Type B (PCR) Negative (Neg) 03/21/22 19:05 RSV (RT-PCR) Negative (Neg) 03/21/22 19:05 Impressions Chest CTA 03/21/22 19:53 CT ANGIOGRAPHY OF THE CHEST, PULMONARY EMBOLUS PROTOCOL CLINICAL HISTORY: Hypoxia, cough and chest pain. Evaluate for pulmonary embolus. COMPARISON STUDY: Chest radiograph September 20, 2021 and March 21, 2022. TECHNIQUE: Following IV administration of 112 mL of Optiray, helical axial images of the chest were obtained utilizing the pulmonary embolus protocol. Maximal intensity projections and sagittal and coronal reformats were viewed on an independent 3D workstation. IV contrast was administered without complicati on. Automated exposure control was utilized for the study. A dose lowering technique was utilized adhering to the principles of ALARA. CT DOSE: 569.48 mGycm FINDINGS: No pulmonary emboli are identified although the segmental and subsegmental pulmonary arteries are suboptimally assessed due to respiratory motion. There is no thoracic aortic dissection. Size of the heart is normal. There is no pericardial effusion. No enlarged thoracic lymph nodes are present. There is no consolidation to suggest pneumonia. There is no pneumothorax or pleural effusion. Central airways are patent. No acute fracture or suspicious lesion is identified within the visualized bony thorax. IMPRESSION: 1. No pulmonary emboli identified although segmental and subsegmental pulmonary arteries suboptimally assessed due to respiratory motion. 2. No consolidation to suggest pneumonia. ACT 112: Negative or not required by law. Electronically signed by: Shawn Moran M.D. 03/21/2022 9:47 PM Code Status & VTE Plan Code Status full code VTE Prophylaxis Plan VTE Prophylaxis will be ordered: Yes PG Care Time/CCT Total # of Minutes Spent Total Time Spent with Patient: Total time spent is greater than 50% in coordination of care (as documented) at patient's floor/unit and/or counseling patient: Coding Level of Care Code 12906 Initial Inpt Care Lvl 3 Diagnoses Acute on chronic respiratory failure with hypoxia and hypercapnia J96.21; J96.22 Admitted to intensive care unit Z78.9 COVID-19 U07.1 Secondary bacterial pneumonia J15.9 Pseudotumor cerebri G93.2 BLAINE on CPAP G47.33; Z99.89 T2DM (type 2 diabetes mellitus) E11.9 Tobacco abuse Z72.0 Hypothyroidism E03.9 CAD (coronary artery disease) I25.10 HLD (hyperlipidemia) E78.5 HTN (hypertension) I10 Bipolar disorder F31.4 Active/Remission status: currently active Current bipolar episode type: depressed Current episode severity: severe Psychotic features: without psychotic features COPD (chronic obstructive pulmonary disease) J44.9 (1) Bipolar disorder Active/Remission status: currently active Current bipolar episode type: depressed Current episode severity: severe Psychotic features: without psychot ic features Qualified Code(s): F31.4 - Bipolar disorder, current episode depressed, severe, without psychotic features
[2022-03-22] MEDS ORDERED: RAPID SEQUENCE INDUCTION BAG ONE (00:37)
[2022-03-22] MEDS ORDERED: PROPOFOL IV EMULSION 10 MG/ML 100 ML VIAL IV ONE (00:55)
[2022-03-22] MEDS: propofoL 1,000 MG/100 ML VIAL IV SCH ×4 (01:05→08:44)
[2022-03-22] MEDS ORDERED: STAT IV Infusion **Titration per Protocol STA (01:07)
[2022-03-22] MEDS ORDERED: PROPOFOL BOLUS FROM BAG IV PRN (01:09)
[2022-03-22] MEDS: PROPOFOL BOLUS FROM BAG IV PRN ×2 (01:10→01:21)
--- NOTE | 2022-03-22 01:27 | Critical Care Consultation ---
Date of Consultation March 22, 2022 Assessment & Plan (1) Acute respiratory failure with hypoxia and hypercarbia: Reason Critically Ill: 57-year-old female with past medical history significant for severe COPD presents to the ICU following COPD exacerbation and positive COVID-19, failed BiPAP trial and required intubation now mechanically ventilated. Neuro - Sedation: Propofol Bipolar disordercontinue home meds Cardiac - HTN/CAD/HLDcurrently hemodynamically stable. -Continue statin, ASA, MTP. Holding amlodipine for now -Troponin unremarkable -Continuous monitor on telemetry Respiratory - Acute respiratory failure with hypercapnia and hypoxiapatient with history of severe COPD. Normally follows with [facility] pulmonology. Patient does wear CPAP at night and home oxygen intermittently. -Patient was maintaining oxygen saturations on 2 L nasal cannula but respiratory acidosis continued to worsen despite BiPAP and nebs. Was ultimately intubated -Current vent settings 26/350/5/40 percent, post intubation ABG shows improvement in acidosis. Repeat ABG this a.m. -Follow-up morning chest x-ray -CTA negative for PEs, unremarkable for evidence of pneumonia or infiltrates -Patient did receive 1 dose dexamethasone in the ED after having positive COVID-19 test. Question whether this is active infection contributing to COPD exacerbation. Will transition to IV Solu-Medrol -Continue with scheduled DuoNeb -Continuous end-tidal CO2 and pulse ox. Wean vent as tolerated GI - N.p.o. Pantoprazole RENAL/LYTES - Creatinine within normal limits, monitor routine BMPs and replete electrolytes as indicated Normosol at 80 mL/h, maintenance fluids - Foleystrict I's and O's ENDO - DM type II?No medications on home med list. Hemoglobin A1c 6.4. Currently euglycemic. ICU hyperglycemic protocol HEME - H&H stable, monitor routine CBCs ID - No clear indication for infectious process. CT and chest x-ray unremarkable. No leukocytosis or fevers and Pro-Eh within normal limits We will continue with empiric azithromycin and ceftriaxone given respiratory failure and cannot rule out community-acquired bacterial pneumonia at this time COVID-19 positiveas stated above imaging unremarkable. LDH and CRP pending. Patient did get 1 dose of dexamethasone in the ED LINES/IV ACCESS - Peripheral IVs, ET tube DVT PROPHYLAXIS - SCDs I have personally spent 45 minutes of critical care time in the direct management of this patient. This is a life/limb threatening event. This includes time spent evaluating patient, direct bedside care, chart review, placing orders, interpretation of diagnostic studies, discussion with consultants, patient, and family members, as well as other required patient management activities. This time is exclusive of all separately billable procedures, and teaching time and separate from and in addition to any other critical care service time. Thank you for allowing us to participate in the care of this patient. Please refer to my attending physician's documentation for any further recommendations. (2) Acute exacerbation of chronic obstructive pulmonary disease: (3) T2DM (type 2 diabetes mellitus): (4) Psoriasis: (5) Hypothyroidism: (6) CAD (coronary artery disease): (7) HLD (hyperlipidemia): (8) HTN (hypertension): (9) COVID-19: Supervising Physician Co-Signing Physician Notes Dr. Corrigan was resident physician during care of patient. I separately evaluated patient for corea portions of the history and the exam. I was present during the critical portion of medical decision making, and I discussed the case with the resident. I generally agree with the findings and plan. Patient on minimal vent settings, RSBI 41 greater than 1 L VC nif -40 stable to proceed with extubation. History of Present Illness Attending Physician: Kayden Aranda MD History of Present Illness Patient is a 57-year-old female with past medical history of severe COPD, HTN, HLD, CAD, cigarette smoker, DM type II, bipolar disorder, neuropathy, GERD, hypothyroid, TIA who presented to the emergency department earlier this evening with shortness of breath and cough. Patient states that she and her family tested positive for COVID-19 2 weeks ago and that over the last week she has become increasingly short of breath and more hypoxic. Patient reports more frequent use of home oxygen which she normally just wears at night but she has had significantly more shortness of breath and cough with productive sputum and occasional fever. In the emergency department she was found to be hypoxic and ABG revealed hypercapnia. She went for CTA chest which was negative for PE. She was placed on BiPAP and given DuoNeb which showed worsening respiratory acidosis. She was given an hour-long neb at that point and BiPAP settings were increased, however she continued to show worsening respiratory acidosis on her next ABG and decision was made to intubate. Patient was intubated in the ED and now transferred to ICU for further management at this time. Allergies Allergy/AdvReac Type Severity Reaction Status Date / Time ethinyl estradiol Allergy Mild RUNNY Verified 03/21/22 22:21 NOSE, ACHES, CONGESTION levonorgestrel Allergy Mild RUNNY Verified 03/21/22 22:21 NOSE, ACHES, CONGESTION strawberry Allergy Mild RASH Verified 03/21/22 22:21 bupropion Allergy Unknown memory loss Verified 03/21/22 22:21 latex Allergy Unknown rash Verified 03/21/22 22:21 blue dye Allergy Verified 03/22/22 10:43 [place] [facility] Allergy Mild RUNNY Uncoded 03/21/22 22:21 NOSE, ACHES, CONGESTION Home Medications Medication Instructions Recorded Confirmed Type aspirin 81 mg chewable tablet 81 mg PO DAILY 09/20/21 03/21/22 History acetazolamide 250 mg tablet 1,000 mg PO BID 30 days #240 tabs 12/31/21 03/21/22 Rx albuterol sulfate 90 mcg/actuation 2 puff inhalation QID PRN 12/31/21 03/21/22 Rx aerosol inhaler SHORTNESS OF BREATH/WHEEZING #8.5 grams atorvastatin 40 mg tablet 40 mg PO QPM #90 tabs 12/31/21 03/21/22 Rx clobetasol 0.05 % topical cream 1 applic topical BID #45 grams 12/31/21 03/21/22 Rx famotidine 10 mg tablet (Acid 10 mg PO BID #180 tabs 12/31/21 03/21/22 Rx Gasoline Pump Installer (famotidine)) fluticasone 250 mcg-salmeterol 50 1 inh inhalation BID #180 ea 12/31/21 03/21/22 Rx mcg/dose blistr powdr for inhalation (Advair Diskus) gabapentin 100 mg capsule 100 mg PO TID #270 caps 12/31/21 03/21/22 Rx hydroxyzine pamoate 25 mg capsule 25 mg PO BID #180 caps 12/31/21 03/21/22 Rx levothyroxine 75 mcg tablet 75 mcg PO DAILYBB #90 tabs 12/31/21 03/21/22 Rx lithium carbonate 300 mg 600 mg PO HS 90 days #180 tabs 12/31/21 03/21/22 Rx tablet,extended release metoprolol succinate 25 mg 25 mg PO DAILY #90 tabs 12/31/21 03/21/22 Rx tablet,extended release 24 hr nitroglycerin 0.4 mg sublingual 0.4 mg sublingual .PRN/UD #30 tabs 12/31/21 03/21/22 Rx tablet nystatin 100,000 unit/gram topical 1 applic topical TID #60 grams 12/31/21 03/21/22 Rx powder omeprazole 20 mg capsule,delayed 20 mg PO QAM #90 caps 12/31/21 03/21/22 Rx release amlodipine 5 mg tablet 5 mg PO HS #90 tabs 01/03/22 03/21/22 Rx blood-glucose meter #1 ea 01/03/22 Rx cariprazine 3 mg capsule (Vraylar) 3 mg PO HS 03/21/22 03/21/22 History Patient History Medical History Bipolar disorder CAD (coronary artery disease) Chronic respiratory failure with hypercapnia COPD (chronic obstructive pulmonary disease) GERD (gastroesophageal reflux disease) HLD (hyperlipidemia) HTN (hypertension) Hypothyroidism BLAINE (obstructive sleep apnea) Pseudotumor cerebri T2DM (type 2 diabetes mellitus) TIA (transient ischemic attack) Tobacco abuse Tobacco use Surgical History History of History of cholecystectomy History of colonoscopy 2018 adenomatous polyps removed History of coronary artery stent placement History of esophagogastroduodenoscopy (EGD) 2018 normal History of lithotripsy History of tubal ligation Family History Father Myocardial infarction Mother Diabetes COPD (chronic obstructive pulmonary disease) Sister Ovarian cancer Denies family history of Prostate cancer Breast cancer Colorectal cancer Social History Smoking Status: Current every day smoker Tobacco Type: Cigarettes Age Started Using Tobacco: 9; packs per day: 0.25; Years Smoked: 40; Cigarettes Per Day: 3; Second Hand Exposure: No; Hx Alcohol Use: No Hx Substance Use: No Preferred Language: [place] Communication Ability: Effective Geriatric Physical Therapist Required: No Beliefs That Will Affect Care: None marital status: Single Current Living Situation: Family current occupational status: disabled How many Children do You have: 2 Feels Safe at Home: Yes Childhood Exposure to Second-Hand Smoke: Yes caffeine: Yes Dental Care, Regularly: No Physical Activity Frequency: Daily Seatbelt Use: sometimes Sunscreen Use: Yes (sometimes) Assistive Devices: Cane and Walker Review of Systems Review of Systems: Unobtainable due to cognitive status and Unobtainable due to endotracheal tube Physical Exam Constitutional: + obese and + mechanically ventilated Eyes: PERRL, conjunctivae normal, anicteric sclerae ENMT: external ear and nose normal, oropharynx normal Neck: trachea midline, no thyromegaly Respiratory: Symmetrical chest wall movement, mechanically ventilated, ET tube 7.5 cm 22 cm at the lip, bilateral breath sounds with rhonchi Cardiovascular: RRR, no murmur, no edema Vessels: no JVD Extremities: no edema Gastrointestinal (Abdomen): Abdomen obese, soft, nontender, bowel sounds auscultated all 4 quadrants Skin: no rashes, warm and dry Neurologic: Sedated, PERRLA Psychiatric: Unable to assess Genitourinary: Indwelling Lira catheter Results & Data Results & Data ([facility]) Vital Signs (Past 12 Hours) Vital Signs Temp Pulse Resp BP Pulse Ox O2 Del Method O2 Flow Rate 03/22/22 00:15 50 L 99 03/22/22 00:00 61 97 03/22/22 00:00 160/92 H 03/21/22 23:45 60 99 03/21/22 23:31 54 L 99 03/21/22 23:31 139/74 03/21/22 23:30 61 98 03/21/22 23:15 52 L 97 03/21/22 23:00 87 13 97 03/21/22 23:00 165/88 H 03/21/22 22:45 68 16 95 03/21/22 22:20 21 03/21/22 22:30 61 20 142/77 H 97 03/21/22 22:00 63 20 125/70 96 03/21/22 21:00 58 L 20 135/59 L 98 03/21/22 19:45 63 25 H 97 03/21/22 20:00 69 20 130/48 L 99 Nasal Cannula 2 03/21/22 19:57 99 Nasal Cannula 4 03/21/22 18:08 36.9 C 65 20 162/85 H 84 L Room Air FiO2 03/22/22 00:15 03/22/22 00:00 03/22/22 00:00 03/21/22 23:45 03/21/22 23:31 03/21/22 23:31 03/21/22 23:30 03/21/22 23:15 03/21/22 23:00 03/21/22 23:00 03/21/22 22:45 03/21/22 22:20 40 03/21/22 22:30 03/21/22 22:00 03/21/22 21:00 03/21/22 19:45 40 03/21/22 20:00 03/21/22 19:57 03/21/22 18:08 Coding Level of Care Code Critical Care 1st 30-74 mins Diagnoses Acute respiratory failure with hypoxia and hypercarbia J96.01; J96.02 Acute exacerbation of chronic obstructive pulmonary disease J44.1 T2DM (type 2 diabetes mellitus) E11.9 Psoriasis L40.9 Hypothyroidism E03.9 CAD (coronary artery disease) I25.10 HLD (hyperlipidemia) E78.5 HTN (hypertension) I10 COVID-19 U07.1
[2022-03-22] MEDS ORDERED: ICU PROTOCOL FOR HYPERGLYCEMIA PRN (01:50)
[2022-03-22] MEDS ORDERED: dexAMETHasone 10 MG in SYRINGE 0 ML IV ONE (02:10)
[2022-03-22 02:11] LABS: iSTAT Allen Test Pass; iSTAT Art Bld Gas pCO2 Correct 61 mmHg (35-46); iSTAT Art Bld Gas pH Corrected 7.288 (7.35-7.45); iSTAT Arterial Blood Gas HCO3 29 meg/L (19-24); iSTAT Arterial Blood Gas pCO2 61 mmHg (35-46); iSTAT Arterial Blood Gas pH 7.29 (7.35-7.45); iSTAT Arterial Blood Gas pO2 83 mmHg (80-95); iSTAT Arterial Blood Gas pO2 C 83; iSTAT Carbon Dioxide 31 mmol/L (24-31); iSTAT FiO2 50 %; iSTAT Hematocrit 43 % (37-47); iSTAT Hemoglobin 14.6 g/dl (12.0-16.0); iSTAT Potassium 3.6 mmol/L (3.3-5.0); iSTAT Site R Radial; iSTAT Sodium 142 mmol/L (135-144)
[2022-03-22] MEDS: NORMOSOL-R 1,000 ML IV SCH ×2 (02:30→14:59)
[2022-03-22] MEDS ORDERED: cefTRIAXone SODIUM 2,000 MG in DEXTROSE 5% 50 ML IV SCH (03:00)
--- NOTE | 2022-03-22 03:47 | Billing Data ---
Date of Service March 22, 2022 Coding Level of Care Code Critical Care 1st - mins
[2022-03-22] MEDS: AZITHROMYCIN 500 MG in DEXTROSE 5% 250 ML IV SCH (04:09)
[2022-03-22 05:20] LABS: iSTAT Allen Test Pass; iSTAT Art Bld Gas pCO2 Correct 45 mmHg (35-46); iSTAT Art Bld Gas pH Corrected 7.391 (7.35-7.45); iSTAT Arterial Blood Gas HCO3 27 meg/L (19-24); iSTAT Arterial Blood Gas pCO2 45 mmHg (35-46); iSTAT Arterial Blood Gas pO2 83 mmHg (80-95); iSTAT Arterial Blood Gas pO2 C 86; iSTAT Carbon Dioxide 29 mmol/L (24-31); iSTAT FiO2 40 %; iSTAT Hematocrit 38 % (37-47); iSTAT Hemoglobin 12.9 g/dl (12.0-16.0); iSTAT Potassium 3.4 mmol/L (3.3-5.0); iSTAT Site L Radial; iSTAT Sodium 139 mmol/L (135-144)
[2022-03-22] MEDS: acetaZOLAMIDE 250 MG TAB PO SCH ×3 (06:54→17:21)
[2022-03-22] MEDS: LEVOTHYROXINE SODIUM 75 MCG TABLET PO SCH (06:54)
[2022-03-22 06:56] LABS: Albumin Globulin Ratio 1.1 (0.9-2); Albumin Level 3.5 gm/dl (3.4-5.0); BUN Creatinine Ratio 15.3 (10-20); Bilirubin,Total 0.4 mg/dl (0.2-1.0); C Reactive Protein 2.09 mg/dl (0-0.5); Calcium 9.4 mg/dl (8.5-10.1); Creatinine Clr Calc Pharmacy 113.1 ml/min; Est GFR (African American) 107.7 ml/min; Globulin 3.1 gm/dl (2.5-4.0); Magnesium 2.1 mg/dl (1.7-2.4); Phosphorus 3.2 mg/dl (2.5-4.9); Potassium 4.2 mmol/L (3.5-5.1); Total Protein 6.6 gm/dl (6.0-8.3)
[2022-03-22 07:09] LABS: Basophils # (auto) 0.03 K/uL (0-0.2); Basophils % (auto) 0.3 %; Eosinophils # (auto) 0.21 K/uL (0-0.50); Eosinophils % (auto) 1.8 %; Hematocrit (blood only) 43.5 % (34.1-44.9); Hemoglobin 13.4 g/dl (12.0-16.0); Immature Granulocytes # (auto) 0.05 K/uL (0.00-0.02); Immature Granulocytes % (auto) 0.4 %; Lymphocytes # (auto) 1.85 K/uL (1.2-3.4); Mean Corpuscular Hgb Conc 30.8 g/dL (32.0-36.0); Mean Corpuscular Volume 97.5 fL (80.0-100.0); Mean Platelet Volume 10.9 fL (9.4-12.3); Monocytes # (auto) 0.74 K/uL (0.24-0.82); Monocytes % (auto) 6.2 %; Neutrophils # (auto) 9.01 K/uL (1.4-6.5); Platelet Count 264 K/uL (130-400); Platelet Estimate Normal (Normal); RDW Coefficient of Variation 14.4 % (11.5-14.5); RDW Standard Deviation 51.8 fL (36.4-46.3); Red Blood Count 4.46 M/uL (3.93-5.22); White Blood Count 11.89 K/ul (4.8-10.8)
[2022-03-22 07:20] LABS: Lymphocytes % (auto) 15.6 %; Neutrophils % (auto) 75.7 %
--- NOTE | 2022-03-22 07:24 | XRay Report ---
SINGLE VIEW CHEST CLINICAL HISTORY: Respiratory failure. Intubation. FINDINGS: An AP, portable, upright chest radiograph is compared to chest x-ray and chest CT dated . The examination is degraded by portable technique and patient rotation. An endotracheal tube has been placed. The tip projects over the right mainstem bronchus. The cardiomediastinal silhouette is unremarkable. The lungs and pleural spaces are clear noting mild bibasilar atelectasis. No pneumo thorax is seen. The skeletal structures are osteopenic. The bony thorax is grossly intact. IMPRESSION: 1. An endotracheal tube has been placed. The tip projects over the right mainstem bronchus. A subsequ ent chest x-ray shows that this has been repositioned. 2. The lungs are clear. ACT 112: Negative or not required by law. Electronically signed by: Rony Novak M.D. 03/22/2022 7:23 AM
[2022-03-22] MEDS: ALBUT/IPRATROP 3MG/0.5MG NEB 3 ML VIAL INH SCH ×4 (07:36→19:35)
--- NOTE | 2022-03-22 08:04 | XRay Report ---
SINGLE VIEW CHEST CLINICAL HISTORY: Respiratory failure. Enteric tube placement. FINDINGS: 2 AP, portable, upright chest radiographs are compared to study performed earlier the same day 03/22/2022. The examination is degraded by portable technique and patient rotation. An endotrache al tube has been repositioned. The tip now projects 5 cm above the keshav. An enteric tube has been p laced. The tip projects below the diaphragm over the mid to distal stomach. The cardiomediastinal alejo houette is unremarkable. The lungs and pleural spaces are clear. No pneumothorax is seen. The bony th orax is grossly intact. Cholecystectomy clips are noted. IMPRESSION: 1. Lines and tubes as above. 2. The lungs are clear. ACT 112: Negative or not required by law. Electronically signed by: Rony Novak M.D. 03/22/2022 8:03 AM
[2022-03-22] MEDS: methylPREDNISolone 60 MG in SYRINGE 0 ML IV SCH ×2 (08:45→17:20)
[2022-03-22] MEDS: ASPIRIN 81 MG CHEW PO SCH (08:45)
[2022-03-22] MEDS: FAMOTIDINE 10 MG TABLET PO SCH ×2 (08:46→21:22)
[2022-03-22] MEDS: GABAPENTIN 100 MG CAP PO SCH ×3 (08:47→21:22)
[2022-03-22] MEDS: LANSOPRAZOLE 30 MG SOLTAB PO SCH (08:48)
[2022-03-22] MEDS: hydrOXYzine HCl 25 MG TAB PO SCH ×2 (08:48→21:21)
[2022-03-22] MEDS ORDERED: METOPROLOL SUCC 25MG EXT REL TAB PO SCH (09:00)
[2022-03-22] MEDS ORDERED: dexAMETHasone 6 MG in SYRINGE 0 ML IV SCH (09:00)
[2022-03-22] MEDS ORDERED: PEPTAMEN INTENSE VHP 1.0 CAL 1,000 ML BAG OG SCH (11:15)
[2022-03-22] MEDS ORDERED: TUBE FEEDING WATER FLUSH OG SCH (11:15)
[2022-03-22] MEDS: ENOXAPARIN INJ 40 MG/0.4 ML SYR SQ SCH ×2 (11:56→12:00)
[2022-03-22] MEDS ORDERED: ETOMIDATE 2 MG/ML 20 ML VIAL IV ONE (13:23)
[2022-03-22] MEDS ORDERED: SUCCINYLCHOLINE CHLORIDE 20 MG/ML 10 ML VIAL IV ONE (13:23)
--- NOTE | 2022-03-22 16:19 | Critical Care Progress Note ---
Date of Service March 22, 2022 Assessment & Plan (1) Acute on chronic respiratory failure with hypoxia and hypercapnia: Plan: Reason Critically Ill: 57-year-old female here with a PMHx significant for type 2 diabetes, BLAINE, hypothyroidism, hypertension, hyperlipidemia, who presented with progressing shortness of breath and cough, who was admitted for acute on chronic respiratory failure/COPD in the setting of COVID-19 pneumonia. Neuro - [facility] ICU: NEGATIVE Sedation: Propofol Analgesia: -Pseudotumor cerebri: Continue acetazolamide -BPD: Continue lithium Cardiac -hyperlipidemia/CAD * Atorvastatin Respiratory -COVID-19 pneumonia/secondary bacterial pneumonia/COPD exacerbation * IV methylprednisolone, azithromycin * Attempt trial of extubation later today as patient is requiring minimal ventilatory support. GI * N.p.o. Will advance diet if patient tolerates extubation. Patient is on tube feeds. Please see communication order regarding administering p.o. meds. * Famotidine, lansoprazole RENAL/LYTES - * No significant electrolyte derangement. * Replace lytes as needed. - * No concerns at this time. ENDO -T2DM/hypothyroidism * ICU glycemic protocol * Continue home levothyroxine HEME - * Stable H&H. * Will monitor for any drops in the setting of Heparin gtt ID -pneumonia * IV methylprednisolone, azithromycin. Patient is not a candidate for remdesivir due to timing/course of infection. * Monitor fever curve. LINES/IV ACCESS - PIVs intact. DVT PROPHYLAXIS - * Heparin gtt. Thank you for allowing us to be part of this patient's care. Please refer to Dr. Smith's documentation for any further recommendations. (2) COVID-19: (3) Pseudotumor cerebri: (4) T2DM (type 2 diabetes mellitus): (5) Hypothyroidism: (6) CAD (coronary artery disease): (7) HLD (hyperlipidemia): (8) HTN (hypertension): (9) COPD (chronic obstructive pulmonary disease): (10) BLAINE (obstructive sleep apnea): (11) Bipolar disorder: Admission and Anticipated Discharge Date Admission Date: March 21, 2022 Supervising Physician Co-Signing Physician Notes Dr. Corrigan was resident physician during care of patient. I separately evaluated patient for corea portions of the history and the exam. I was present during the critical portion of medical decision making, and I discussed the case with the resident. I generally agree with the findings and plan. Patient on minimal vent settings, RSBI 41 greater than 1 L VC nif -40 stable to proceed with extubation. Subjective No acute events overnight. Pt sedated on ventilation. Notably bradycardic overnight. He denies acute concerns when awakening. Review of Systems Review of Systems: All systems reviewed & are unremarkable except as noted in HPI & below Physical Exam Physical Exam: General: On mechanical ventilation. In NAD. HEENT: Normocephalic, atraumatic. PERRLA. Nares patent. Moist mucosal membranes. Neck: Supple. No lymphadenopathy. Normal ROM. CV: Regular rate and rhythm. Normal S1 and S2. No murmurs gallops or rubs. Respiratory: Normal respiratory effort. Lungs clear to auscultation bilaterally. No crackles, rhonchi, or wheezes. Abdomen: Soft, large but nondistended abdomen. No bruits heard on auscultation. No tenderness to deep palpation. Extremities: Capillary refill <2 sec. 2+ dp equal bilaterally. No pedal edema. Neuro: Under sedation. Unable to assess. Results & Data Results & Data ([facility]) Vital Signs (Past 12 Hours) Vital Signs Temp Pulse Pulse Resp BP BP Pulse Ox 03/22/22 07:35 50 L 23 100 03/22/22 06:00 37.4 C 44 L 22 102/56 L 100 03/22/22 05:00 37.4 C 53 L 26 H 93/60 L 100 03/22/22 04:00 37.3 C 55 L 26 H 99/65 L 99 03/22/22 03:00 37.2 C 75 26 H 115/63 97 03/22/22 02:00 36.8 C 67 26 H 109/76 91 03/22/22 01:35 77 18 162/99 H 03/22/22 01:35 03/22/22 01:35 37.4 C 80 17 162/99 H 100 03/22/22 04:00 03/22/22 01:50 03/22/22 01:50 53 L 03/22/22 05:10 22 03/22/22 03:44 56 L 26 H 99 03/22/22 02:00 69 29 H 96 03/22/22 00:15 50 L 99 03/22/22 00:00 61 97 03/22/22 00:00 160/92 H 03/21/22 23:45 60 99 03/21/22 23:31 54 L 99 03/21/22 23:31 139/74 03/21/22 23:30 61 98 03/21/22 23:15 52 L 97 03/21/22 23:00 87 13 97 03/21/22 23:00 165/88 H 03/21/22 22:45 68 16 95 03/21/22 22:20 21 03/21/22 22:30 61 20 142/77 H 97 03/21/22 22:00 63 20 125/70 96 03/21/22 21:00 58 L 20 135/59 L 98 O2 Del Method FiO2 03/22/22 07:35 40 03/22/22 06:00 03/22/22 05:00 03/22/22 04:00 03/22/22 03:00 03/22/22 02:00 03/22/22 01:35 03/22/22 01:35 Mechanical Vent 40 03/22/22 01:35 Mechanical Vent 03/22/22 04:00 40 03/22/22 01:50 40 03/22/22 01:50 03/22/22 05:10 40 03/22/22 03:44 40 03/22/22 02:00 50 03/22/22 00:15 03/22/22 00:00 03/22/22 00:00 03/21/22 23:45 03/21/22 23:31 03/21/22 23:31 03/21/22 23:30 03/21/22 23:15 03/21/22 23:00 03/21/22 23:00 03/21/22 22:45 03/21/22 22:20 40 03/21/22 22:30 03/21/22 22:00 03/21/22 21:00 Resident Activity Tracking Resident Involvement: Resident Care Provided Care Provided: Adult Hospital Medicine (1) Bipolar disorder Active/Remission status: currently active Current bipolar episode type: depressed Current episode severity: severe Psychotic features: without psy chotic features Qualified Code(s): F31.4 - Bipolar disorder, current episode depressed, severe, without psychotic features
[2022-03-22] MEDS ORDERED: LITHIUM CARBONATE SLOW REL 300 MG TAB PO SCH (21:00)
[2022-03-22] MEDS ORDERED: amLODIPine BESYLATE 5 MG TAB PO SCH (21:00)
[2022-03-22] MEDS: LITHIUM CARBONATE 300 MG TAB PO SCH (21:21)
[2022-03-22] MEDS: ATORVASTATIN 40 MG TAB PO SCH (21:23)
--- NOTE | 2022-03-22 22:00 | Hospitalist Progress Note ---
Date of Service March 22, 2022 Assessment & Plan (1) Acute on chronic respiratory failure with hypoxia and hypercapnia: Plan: Likely combination of COPD exacerbation, COVID-19 infection and secondary bacterial pneumonia Due to persistent worsening of arterial blood gas with increasing respiratory acidosis, patient was intubated in the emergency department and then admitted to the ICU Patient remains intubated during time of rounding Will try to wean off on 03/22, will continue azithromycin ordered ceftriaxone dexamethasone (2) Admitted to intensive care unit: Plan: Consult aluminum boats assembler Dr. Smith and aluminum boats assembler staff (3) COVID-19: Plan: Placed on dexamethasone 10 mg IV today, then 6 mg IV daily Not a candidate for remdesivir due to time of infection (4) Secondary bacterial pneumonia: Plan: Patient had production of yellowish-green sputum on the day of admission. Placed on ceftriaxone 2 g IV daily and azithromycin 5 mg IV daily Duonebs every 4 hours while awake and every 2 hours when necessary. (5) Pseudotumor cerebri: Plan: On acetazolamide. If remains intubated for extended interval, convert oral to IV (6) BLAINE on CPAP: Plan: Intubated (7) T2DM (type 2 diabetes mellitus): Plan: Placed on ICU hyperglycemic protocol (8) Tobacco abuse: (9) Hypothyroidism: (10) CAD (coronary artery disease): (11) HLD (hyperlipidemia): (12) HTN (hypertension): (13) Bipolar disorder: Plan: Medications on hold while intubated (14) COPD (chronic obstructive pulmonary disease): Admission and Anticipated Discharge Date Admission Date: March 21, 2022 Subjective Patient is intubated. Review of Systems Review of Systems: Unobtainable due to endotracheal tube Physical Exam Physical Exam: The patient is sedated and intubated HEENT--PERRL, EOMI, mucous membranes and oropharynx dry. Neck--supple. No JVD. No bruits. Thyroid normal, trachea midline, no adenopathy. Heart--normal S1 and S2. No murmurs, rubs or gallops. Lungs--coarse bilaterally. mild respiratory distress,. No accessory muscle use. Abdomen--normal bowel sounds and soft. Nontender. Nondistended, no hernias or masses, no organomegaly. Extremities--no cyanosis or clubbing. No edema. There are good distal pulses b/l. Dermatologic--normal skin turgor, normal color, no abnormal lymph nodes, no rash. Neurologic--cranial nerves II through XII grossly intact. Rheumatologic--normal range of motion. Psychiatric--normal affect. Results & Data Results & Data ([facility]) Vital Signs (Past 12 Hours) Vital Signs Temp Pulse Pulse Resp BP Pulse Ox O2 Del Method 03/22/22 21:01 37.3 C 64 19 92 03/22/22 21:01 146/66 H 03/22/22 20:01 37.4 C 72 20 97 03/22/22 20:01 134/61 03/22/22 19:01 37.3 C 76 17 93 03/22/22 19:01 125/58 L 03/22/22 20:00 Nasal Cannula 03/22/22 19:38 67 16 94 Nasal Cannula 03/22/22 18:01 130/58 L 03/22/22 18:01 37.3 C 67 18 95 Nasal Cannula 03/22/22 18:00 37.3 C 67 15 95 03/22/22 17:01 37.5 C 75 16 93 03/22/22 17:01 142/74 H 03/22/22 17:00 37.5 C 81 19 91 Nasal Cannula 03/22/22 16:01 37.5 C 75 19 94 03/22/22 16:01 132/75 03/22/22 16:00 37.5 C 77 20 93 03/22/22 15:27 64 18 93 Nasal Cannula 03/22/22 15:30 37.4 C 54 L 13 95 Nasal Cannula 03/22/22 15:00 37.5 C 65 17 91 03/22/22 14:31 37.6 C H 74 18 94 03/22/22 14:31 129/67 03/22/22 14:30 37.6 C H 78 22 94 03/22/22 14:01 37.6 C H 65 18 96 03/22/22 14:01 134/55 L 03/22/22 14:00 37.6 C H 65 17 94 Nasal Cannula 03/22/22 13:31 37.5 C 72 20 96 03/22/22 13:31 136/69 03/22/22 13:30 37.5 C 71 20 96 03/22/22 13:01 37.4 C 79 24 93 Nasal Cannula 03/22/22 13:01 135/77 03/22/22 13:00 37.4 C 77 17 93 03/22/22 12:45 37.4 C 75 21 96 03/22/22 12:31 37.3 C 90 21 93 03/22/22 12:31 143/60 H 03/22/22 12:30 37.3 C 85 22 91 03/22/22 12:15 37.2 C 90 95 03/22/22 12:01 37.2 C 81 20 98 03/22/22 12:01 137/76 03/22/22 12:00 37.2 C 77 19 97 03/22/22 11:45 37.3 C 83 21 95 03/22/22 11:31 133/58 L 03/22/22 11:31 37.4 C 70 21 93 03/22/22 11:30 37.4 C 66 31 H 93 03/22/22 11:15 37.5 C 55 L 22 91 03/22/22 11:01 106/54 L 03/22/22 11:01 37.5 C 54 L 22 91 03/22/22 11:00 37.5 C 51 L 22 90 03/22/22 10:45 37.4 C 51 L 22 94 03/22/22 10:31 37.4 C 55 L 22 96 03/22/22 10:31 105/57 L 03/22/22 10:30 37.4 C 55 L 22 97 03/22/22 10:15 37.4 C 61 22 93 03/22/22 10:01 37.4 C 63 22 95 03/22/22 10:01 108/57 L 03/22/22 10:00 37.4 C 65 22 95 03/22/22 11:37 67 23 94 O2 Flow Rate FiO2 03/22/22 21:01 03/22/22 21:01 03/22/22 20:01 03/22/22 20:01 03/22/22 19:01 03/22/22 19:01 03/22/22 20:00 3 03/22/22 19:38 3 03/22/22 18:01 03/22/22 18:01 3 03/22/22 18:00 03/22/22 17:01 03/22/22 17:01 03/22/22 17:00 3 03/22/22 16:01 03/22/22 16:01 03/22/22 16:00 03/22/22 15:27 3 03/22/22 15:30 3 03/22/22 15:00 03/22/22 14:31 03/22/22 14:31 03/22/22 14:30 03/22/22 14:01 03/22/22 14:01 03/22/22 14:00 3 03/22/22 13:31 03/22/22 13:31 03/22/22 13:30 03/22/22 13:01 3 03/22/22 13:01 03/22/22 13:00 03/22/22 12:45 03/22/22 12:31 03/22/22 12:31 03/22/22 12:30 03/22/22 12:15 03/22/22 12:01 03/22/22 12:01 03/22/22 12:00 03/22/22 11:45 03/22/22 11:31 03/22/22 11:31 03/22/22 11:30 03/22/22 11:15 03/22/22 11:01 03/22/22 11:01 03/22/22 11:00 03/22/22 10:45 03/22/22 10:31 03/22/22 10:31 03/22/22 10:30 03/22/22 10:15 03/22/22 10:01 03/22/22 10:01 03/22/22 10:00 03/22/22 11:37 35 PG Care Time/CCT Total # of Minutes Spent Total Time Spent with Patient: Total time spent is greater than 50% in coordination of care (as documented) at patient's floor/unit and/or counseling patient: Coding Level of Care Code 21146 Subseq Hosp Care Lvl 3 Diagnoses Acute on chronic respiratory failure with hypoxia and hypercapnia J96.21; J96.22 Admitted to intensive care unit Z78.9 COVID-19 U07.1 Secondary bacterial pneumonia J15.9 Pseudotumor cerebri G93.2 BLAINE on CPAP G47.33; Z99.89 T2DM (type 2 diabetes mellitus) E11.9 Tobacco abuse Z72.0 Hypothyroidism E03.9 CAD (coronary artery disease) I25.10 HLD (hyperlipidemia) E78.5 HTN (hypertension) I10 Bipolar disorder F31.4 Active/Remission status: currently active Current bipolar episode type: depressed Current episode severity: severe Psychotic features: without psychotic features COPD (chronic obstructive pulmonary disease) J44.9 (1) Bipolar disorder Active/Remission status: currently active Current bipolar episode type: depressed Current episode severity: severe Psychotic features: without psychotic features Qualified Code(s): F31.4 - Bipolar disorder, current episode depressed, severe, without psychotic features
[2022-03-23] MEDS: methylPREDNISolone 60 MG in SYRINGE 0 ML IV SCH ×2 (00:23→08:55)
[2022-03-23] MEDS: NORMOSOL-R 1,000 ML IV SCH ×2 (03:33→16:22)
[2022-03-23 05:56] LABS: Hematocrit (blood only) 42.6 % (34.1-44.9); Mean Corpuscular Hemoglobin 29.6 pg (25.0-34.0); Mean Corpuscular Hgb Conc 30.5 g/dL (32.0-36.0); Mean Platelet Volume 10.2 fL (9.4-12.3); Platelet Count 266 K/uL (130-400); RDW Coefficient of Variation 14.2 % (11.5-14.5); RDW Standard Deviation 50.9 fL (36.4-46.3); Red Blood Count 4.39 M/uL (3.93-5.22); White Blood Count 15.65 K/ul (4.8-10.8)
--- NOTE | 2022-03-23 05:56 | Electrocardiogram Report ---
Test Reason : Blood Pressure : / mmHG Vent. Rate : 060 BPM Atrial Rate : 060 BPM P-R Int : 194 ms QRS Dur : 100 ms QT Int : 448 ms P-R-T Axes : 071 -29 032 degrees QTc Int : 448 ms Normal sinus rhythm Normal ECG When compared with ECG of 20-SEP-2021 13:01, No significant change was found Confirmed by Dean Medina ([id number]) on 03/23/2022 5:56:08 AM Referred By: REFERRED SELF Confirmed By:Dean Medina
[2022-03-23] MEDS: LEVOTHYROXINE SODIUM 75 MCG TABLET PO SCH (06:07)
[2022-03-23 06:20] LABS: Basophils # (auto) 0.01 K/uL (0-0.2); Basophils % (auto) 0.1 %; Immature Granulocytes # (auto) 0.11 K/uL (0.00-0.02); Immature Granulocytes % (auto) 0.7 %; Lymphocytes # (auto) 0.84 K/uL (1.2-3.4); Lymphocytes % (auto) 5.4 %; Monocytes # (auto) 0.17 K/uL (0.24-0.82); Monocytes % (auto) 1.1 %; Neutrophils # (auto) 14.52 K/uL (1.4-6.5); Neutrophils % (auto) 92.7 %; RBC Morphology Unremarkable
[2022-03-23 06:31] LABS: Albumin Globulin Ratio 1.1 (0.9-2); Albumin Level 3.4 gm/dl (3.4-5.0); BUN Creatinine Ratio 18.3 (10-20); Bilirubin,Total 0.4 mg/dl (0.2-1.0); Calcium 9.1 mg/dl (8.5-10.1); Est GFR (African American) 117.3 ml/min; Est GFR (Non-African American) 101.2 ml/min; Magnesium 2.2 mg/dl (1.7-2.4); Phosphorus 3.3 mg/dl (2.5-4.9); Potassium 3.9 mmol/L (3.5-5.1); Total Protein 6.4 gm/dl (6.0-8.3)
--- NOTE | 2022-03-23 07:48 | Critical Care Progress Note ---
Date of Service March 23, 2022 Assessment & Plan (1) Acute on chronic respiratory failure with hypoxia and hypercapnia: Plan: Reason Critically Ill: 57-year-old female here with a PMHx significant for type 2 diabetes, BLAINE, hypothyroidism, hypertension, hyperlipidemia, who presented with progressing shortness of breath and cough, who was admitted for acute on chronic respiratory failure/COPD in the setting of COVID-19 pneumonia. Now extubated, stable and awaiting downgrade to medical unit without telemetry. CAM ICU: NEGATIVE Sedation: Propofol Analgesia: Neuro -Pseudotumor cerebri: Home acetazolamide -BPD: Home lithium Cardiac Hyperlipidemia/CAD * Home atorvastatin, metoprolol Respiratory -COVID-19 pneumonia/secondary bacterial pneumonia/COPD exacerbation: Resolved. Patient tolerated extubation well and continues to do so. Now awaiting downgrade to medicine unit without telemetry. * IV methylprednisolone, azithromycin. Methylprednisolone to be converted to prednisone taper (40 mg, 30 mg, 20 mg, 3 times daily respectively) x3 days. GI * N.p.o. Will advance diet if patient tolerates extubation. Patient is on tube feeds. Please see communication order regarding administering p.o. meds. * Famotidine, lansoprazole RENAL/LYTES * No significant electrolyte derangement. * Replace lytes as needed. * No concerns at this time. ENDO T2DM/hypothyroidism * ICU glycemic protocol * Continue home levothyroxine HEME - * Stable H&H. * Will monitor for any drops in the setting of Heparin gtt ID Pneumonia * IV methylprednisolone, azithromycin. Patient is not a candidate for remdesivir due to timing/course of infection. * Monitor fever curve. LINES/IV ACCESS PIVs intact. DVT PROPHYLAXIS * Heparin gtt. Thank you for allowing us to be part of this patient's care. Please refer to Dr. Smith's documentation for any further recommendations. (2) COVID-19: (3) Pseudotumor cerebri: (4) T2DM (type 2 diabetes mellitus): (5) Hypothyroidism: (6) CAD (coronary artery disease): (7) HLD (hyperlipidemia): (8) HTN (hypertension): (9) COPD (chronic obstructive pulmonary disease): (10) BLAINE (obstructive sleep apnea): (11) Bipolar disorder: Admission and Anticipated Discharge Date Admission Date: March 21, 2022 Supervising Physician Co-Signing Physician Notes Dr. Corrigan was resident physician during care of patient. I separately evaluated patient for corea portions of the history and the exam. I was present d uring the critical portion of medical decision making, and I discussed the case with the resident. I generally agree with the findings and plan. Successfully liberated from ventilator. Zithromax for COPD exacerbation. Convert from Solu-Medrol to prednisone oral taper. Stable for downgrade out of ICU. Subjective No acute events overnight. Patient remains extubated, which he continues to tolerate well. He denies shortness of breath or pain. Review of Systems Review of Systems: All systems reviewed & are unremarkable except as noted in HPI & below Physical Exam Physical Exam: General: On mechanical ventilation. In NAD. HEENT: Normocephalic, atraumatic. PERRLA. Nares patent. Moist mucosal membranes. Neck: Supple. No lymphadenopathy. Normal ROM. CV: Regular rate and rhythm. Normal S1 and S2. No murmurs gallops or rubs. Respiratory: Normal respiratory effort. Lungs clear to auscultation bilaterally. No crackles, rhonchi, or wheezes. Abdomen: Soft, large but nondistended abdomen. No bruits heard on auscultation. No tenderness to deep palpation. Extremities: Capillary refill <2 sec. 2+ dp equal bilaterally. No pedal edema. Neuro: Under sedation. Unable to assess. Results & Data Results & Data ([facility]) Vital Signs (Past 12 Hours) Vital Signs Temp Pulse Resp BP Pulse Ox O2 Del Method O2 Flow Rate 03/23/22 05:01 37.1 C 58 L 16 94 03/23/22 05:01 120/69 03/23/22 04:01 37.1 C 47 L 17 94 03/23/22 04:01 123/59 L 03/23/22 03:01 37.2 C 62 17 94 03/23/22 03:01 128/54 L 03/23/22 02:01 129/79 03/23/22 02:01 37.2 C 66 17 93 03/23/22 01:01 37.2 C 54 L 18 95 03/23/22 01:01 136/64 03/23/22 01:50 65 03/23/22 00:01 37.2 C 58 L 21 94 03/23/22 00:01 137/71 03/22/22 23:01 125/57 L 03/22/22 23:01 37.3 C 52 L 19 94 03/22/22 22:01 138/66 03/22/22 22:01 37.2 C 63 18 93 03/22/22 21:01 37.3 C 64 19 92 03/22/22 21:01 146/66 H 03/22/22 20:01 37.4 C 72 20 97 03/22/22 20:01 134/61 03/22/22 20:00 Nasal Cannula 3 Resident Activity Tracking Resident Involvement: Resident Care Provided Care Provided: Adult Hospital Medicine (1) Bipolar disorder Active/Remission status: currently active Current bipolar episode type: depressed Current episode severity: severe Psychotic features: without psychotic features Qualified Code(s): F31.4 - Bipolar disorder, current episode depressed, severe, without psychotic features
[2022-03-23] MEDS ORDERED: Flu Vaccine (Fluarix) 0.5mL SYR (Standard Dose) IM ONE (08:00)
[2022-03-23] MEDS: ALBUT/IPRATROP 3MG/0.5MG NEB 3 ML VIAL INH SCH ×3 (08:17→15:20)
[2022-03-23] MEDS: LITHIUM CARBONATE 300 MG TAB PO SCH ×2 (08:55→21:35)
[2022-03-23] MEDS: GABAPENTIN 100 MG CAP PO SCH ×3 (08:55→21:36)
[2022-03-23] MEDS: CEROVITE ADV FORMULA TAB PO SCH (08:55)
[2022-03-23] MEDS: METOPROLOL SUCC 25MG EXT REL TAB PO SCH (08:56)
[2022-03-23] MEDS: acetaZOLAMIDE 250 MG TAB PO SCH ×2 (08:56→17:48)
[2022-03-23] MEDS: LANSOPRAZOLE 30 MG SOLTAB PO SCH (08:56)
[2022-03-23] MEDS: AZITHROMYCIN 500 MG in DEXTROSE 5% 250 ML IV SCH (08:56)
[2022-03-23] MEDS: ASPIRIN 81 MG CHEW PO SCH (08:56)
[2022-03-23] MEDS: FAMOTIDINE 10 MG TABLET PO SCH ×2 (08:56→21:37)
[2022-03-23] MEDS: hydrOXYzine HCl 25 MG TAB PO SCH ×2 (08:56→21:37)
[2022-03-23] MEDS ORDERED: METOPROLOL TARTRATE 25 MG TAB PO SCH (09:00)
[2022-03-23] MEDS ORDERED: MULTI VIT W/MINERALS LIQUID 15 ML UDP NG SCH (09:00)
--- NOTE | 2022-03-23 09:32 | Billing Data ---
Date of Service March 23, 2022 Coding Level of Care Code 76300 Subseq Hosp Care Lvl 3
[2022-03-23] MEDS: predniSONE 20 MG TAB PO SCH (12:17)
[2022-03-23] MEDS: ENOXAPARIN INJ 40 MG/0.4 ML SYR SQ SCH (12:19)
[2022-03-23] MEDS ORDERED: ALBUT/IPRATROP 3MG/0.5MG NEB 3 ML VIAL NEB PRN (15:18)
--- NOTE | 2022-03-23 16:17 | Hospitalist Progress Note ---
Date of Service March 23, 2022 Assessment & Plan (1) Acute on chronic respiratory failure with hypoxia and hypercapnia: Plan: Likely combination of COPD exacerbation, COVID-19 infection and secondary bacterial pneumonia Clinically improving after extubation Patient currently on nasal canula oxygen Will waen as tiolerated Continue Duonebs scheduled and PRN, steroids, Azithromycin (2) COVID-19: Plan: Placed on dexamethasone 10 mg IV today, then 6 mg IV daily Not a candidate for remdesivir due to time of infection (3) Secondary bacterial pneumonia: Plan: Patient had production of yellowish-green sputum on the day of admission. Placed on ceftriaxone 2 g IV daily and azithromycin 5 mg IV daily Duonebs every 4 hours while awake and every 2 hours when necessary. (4) T2DM (type 2 diabetes mellitus): Plan: Placed on hyperglycemic protocol (5) Pseudotumor cerebri: Plan: On acetazolamide, continue (6) BLAINE on CPAP: (7) Tobacco abuse: (8) Admitted to intensive care unit: Plan: Downgraded (9) Hypothyroidism: (10) CAD (coronary artery disease): (11) HLD (hyperlipidemia): (12) HTN (hypertension): (13) Bipolar disorder: Plan: Medications on hold while intubated (14) COPD (chronic obstructive pulmonary disease): Plan continue hospitalization Admission and Anticipated Discharge Date Admission Date: March 21, 2022 Subjective patient seen and examined, has been extubated, currently on nasal oxygen, says SOB is better Review of Systems Review of Systems: All systems reviewed are negative, apart from the ones contained in the history. Physical Exam Physical Exam: The patient is awake, alert and oriented 3, well developed and well nourished, normocephalic and atraumatic, lying in bed and in no acute distress. HEENT--PERRL, EOMI, mucous membranes and oropharynx mildly dry Neck--supple. No JVD. No bruits. Thyroid normal, trachea midline, no adenopathy. Heart--normal S1 and S2. No murmurs, rubs or gallops. Lungs--reduced air entry on ausculataion Abdomen--normal bowel sounds and soft. Mild epigastric and left sided abdominal pain Extremities--no cyanosis or clubbing. No edema. Dermatologic--normal skin turgor, normal color, no abnormal lymph nodes, no rash. Neurologic--cranial nerves II through XII grossly intact. Rheumatologic--normal range of motion. Psychiatric--normal affect. Results & Data Results & Data ([facility]) Vital Signs (Past 12 Hours) Vital Signs Temp Pulse Pulse Resp BP BP Pulse Ox 03/23/22 11:32 61 03/23/22 11:14 03/23/22 11:07 62 18 95 03/23/22 10:54 98.6 F 62 18 132/65 95 03/23/22 10:00 97.9 F 61 19 125/58 L 96 03/23/22 09:01 125/57 L 03/23/22 09:01 98.2 F 54 L 16 94 03/23/22 09:00 98.2 F 62 19 03/23/22 08:01 98.4 F 42 L 15 94 03/23/22 08:01 128/53 L 03/23/22 08:00 98.4 F 60 21 03/23/22 07:01 98.6 F 49 L 18 95 03/23/22 07:01 144/66 H 03/23/22 07:00 98.4 F 54 L 19 94 03/23/22 06:01 98.4 F 59 L 18 94 03/23/22 06:01 134/60 03/23/22 06:00 98.4 F 59 L 14 94 03/23/22 09:00 03/23/22 08:17 60 16 95 03/23/22 05:01 98.8 F 58 L 16 94 03/23/22 05:01 120/69 O2 Del Method O2 Flow Rate 03/23/22 11:32 03/23/22 11:14 Nasal Cannula 3 03/23/22 11:07 Nasal Cannula 3 03/23/22 10:54 Nasal Cannula 3 03/23/22 10:00 Nasal Cannula 3 03/23/22 09:01 03/23/22 09:01 03/23/22 09:00 03/23/22 08:01 03/23/22 08:01 03/23/22 08:00 03/23/22 07:01 03/23/22 07:01 03/23/22 07:00 03/23/22 06:01 03/23/22 06:01 03/23/22 06:00 03/23/22 09:00 Nasal Cannula 3 03/23/22 08:17 Nasal Cannula 3 03/23/22 05:01 03/23/22 05:01 PG Care Time/CCT Total # of Minutes Spent Total Time Spent with Patient: Total time spent is greater than 50% in coordination of care (as documented) at patient's floor/unit and/or counseling patient: Coding Level of Care Code 53033 Subseq Hosp Care Lvl 2 Diagnoses Acute on chronic respiratory failure with hypoxia and hypercapnia J96.21; J96.22 COVID-19 U07.1 Secondary bacterial pneumonia J15.9 T2DM (type 2 diabetes mellitus) E11.9 Pseudotumor cerebri G93.2 BLAINE on CPAP G47.33; Z99.89 Tobacco abuse Z72.0 Admitted to intensive care unit Z78.9 Hypothyroidism E03.9 CAD (coronary artery disease) I25.10 HLD (hyperlipidemia) E78.5 HTN (hypertension) I10 Bipolar disorder F31.4 Active/Remission status: currently active Current bipolar episode type: depressed Current episode severity: severe Psychotic features: without psychotic features COPD (chronic obstructive pulmonary disease) J44.9 Time Spent (min) 35 (1) Bipolar disorder Active/Remission status: currently active Current bipolar episode type: depressed Current episode severity: severe Psychotic features: without psychotic features Qualified Code(s): F31.4 - Bipolar disorder, current episode depressed, severe, without psychotic features
[2022-03-23] MEDS: ATORVASTATIN 40 MG TAB PO SCH (21:35)
[2022-03-24] MEDS: NORMOSOL-R 1,000 ML IV SCH ×2 (04:24→17:18)
[2022-03-24] MEDS: LEVOTHYROXINE SODIUM 75 MCG TABLET PO SCH (05:36)
[2022-03-24 08:07] LABS: Basophils # (auto) 0.02 K/uL (0-0.2); Basophils % (auto) 0.1 %; Hematocrit (blood only) 41.2 % (34.1-44.9); Hemoglobin 12.9 g/dl (12.0-16.0); Immature Granulocytes # (auto) 0.08 K/uL (0.00-0.02); Immature Granulocytes % (auto) 0.5 %; Lymphocytes # (auto) 1.98 K/uL (1.2-3.4); Mean Corpuscular Hemoglobin 30.4 pg (25.0-34.0); Mean Corpuscular Hgb Conc 31.3 g/dL (32.0-36.0); Mean Corpuscular Volume 97.2 fL (80.0-100.0); Mean Platelet Volume 10.2 fL (9.4-12.3); Monocytes # (auto) 0.96 K/uL (0.24-0.82); Monocytes % (auto) 5.8 %; Neutrophils % (auto) 81.6 %; Platelet Count 245 K/uL (130-400); RDW Coefficient of Variation 14.3 % (11.5-14.5); RDW Standard Deviation 51.3 fL (36.4-46.3); Red Blood Count 4.24 M/uL (3.93-5.22); White Blood Count 16.54 K/ul (4.8-10.8)
[2022-03-24 08:41] LABS: Albumin Level 3.1 gm/dl (3.4-5.0); BUN Creatinine Ratio 33.8 (10-20); Bilirubin,Total 0.3 mg/dl (0.2-1.0); Calcium 9.1 mg/dl (8.5-10.1); Creatinine Clr Calc Pharmacy 126.5 ml/min; Est GFR (African American) 114.2 ml/min; Est GFR (Non-African American) 98.6 ml/min; Magnesium 2.3 mg/dl (1.7-2.4); Phosphorus 2.9 mg/dl (2.5-4.9); Potassium 3.8 mmol/L (3.5-5.1); Total Protein 6.1 gm/dl (6.0-8.3)
[2022-03-24] MEDS: acetaZOLAMIDE 250 MG TAB PO SCH ×2 (09:14→17:18)
[2022-03-24] MEDS: GABAPENTIN 100 MG CAP PO SCH ×3 (09:15→21:34)
[2022-03-24] MEDS: FAMOTIDINE 10 MG TABLET PO SCH ×2 (09:15→21:33)
[2022-03-24] MEDS: ASPIRIN 81 MG CHEW PO SCH (09:15)
[2022-03-24] MEDS: hydrOXYzine HCl 25 MG TAB PO SCH ×2 (09:16→21:32)
[2022-03-24] MEDS: LANSOPRAZOLE 30 MG SOLTAB PO SCH (09:18)
[2022-03-24] MEDS: LITHIUM CARBONATE 300 MG TAB PO SCH ×2 (09:18→21:34)
[2022-03-24] MEDS: CEROVITE ADV FORMULA TAB PO SCH (09:21)
[2022-03-24] MEDS: METOPROLOL SUCC 25MG EXT REL TAB PO SCH (09:21)
[2022-03-24] MEDS: predniSONE 20 MG TAB PO SCH (09:21)
[2022-03-24] MEDS: AZITHROMYCIN 500 MG in DEXTROSE 5% 250 ML IV SCH (09:22)
[2022-03-24] MEDS: ENOXAPARIN INJ 40 MG/0.4 ML SYR SQ SCH (13:18)
--- NOTE | 2022-03-24 14:16 | Hospitalist Progress Note ---
Date of Service March 24, 2022 Assessment & Plan (1) Acute on chronic respiratory failure with hypoxia and hypercapnia: Plan: Likely combination of COPD exacerbation, COVID-19 infection and secondary bacterial pneumonia Clinically much improved Patient currently on nasal canula oxygen Will wean as tolerated Continue Duonebs scheduled and PRN, steroids taper, Azithromycin Incentive spirometry PT/OT (2) COVID-19: Plan: Placed on dexamethasone 10 mg IV today, then 6 mg IV daily, currently on steroid taper Not a candidate for remdesivir due to time of infection (3) Secondary bacterial pneumonia: Plan: Patient had production of yellowish-green sputum on the day of admission. Placed on ceftriaxone 2 g IV daily and azithromycin 5 mg IV daily initially currently on Azithromycin Duonebs every 4 hours while awake and every 2 hours when necessary. (4) T2DM (type 2 diabetes mellitus): Plan: Placed on hyperglycemic protocol (5) Pseudotumor cerebri: Plan: On acetazolamide, continue (6) BLAINE on CPAP: (7) Tobacco abuse: (8) Admitted to intensive care unit: Plan: Downgraded (9) Hypothyroidism: (10) CAD (coronary artery disease): (11) HLD (hyperlipidemia): (12) HTN (hypertension): (13) Bipolar disorder: Plan: Medications on hold while intubated (14) COPD (chronic obstructive pulmonary disease): Plan continue hospitalization, patient may need SNF. Awaiting PT/OT assessment Admission and Anticipated Discharge Date Admission Date: March 21, 2022 Subjective patient seen and examined, feels overall better, SOB is better Review of Systems Review of Systems: All systems reviewed are negative, apart from the ones contained in the history. Physical Exam Physical Exam: The patient is awake, alert and oriented 3, well developed and well nourished, normocephalic and atraumatic, lying in bed and in no acute distress. HEENT--PERRL, EOMI, mucous membranes and oropharynx mildly dry Neck--supple. No JVD. No bruits. Thyroid normal, trachea midline, no adenopathy. Heart--normal S1 and S2. No murmurs, rubs or gallops. Lungs--reduced air entry on ausculataion Abdomen--normal bowel sounds and soft. Mild epigastric and left sided abdominal pain Extremities--no cyanosis or clubbing. No edema. Dermatologic--normal skin turgor, normal color, no abnormal lymph nodes, no rash. Neurologic--cranial nerves II through XII grossly intact. Rheumatologic--normal range of motion. Psychiatric--normal affect. Results & Data Results & Data ([facility]) Vital Signs (Past 12 Hours) Vital Signs Temp Pulse Resp BP Pulse Ox O2 Del Method O2 Flow Rate 03/24/22 08:00 Nasal Cannula 03/24/22 11:10 97.7 F 57 L 18 124/76 97 Nasal Cannula 3 03/24/22 08:08 97.7 F 56 L 18 131/69 95 03/24/22 03:00 97.9 F 58 L 18 121/69 95 Nasal Cannula 3 PG Care Time/CCT Total # of Minutes Spent Total Time Spent with Patient: Total time spent is greater than 50% in coordination of care (as documented) at patient's floor/unit and/or counseling patient: Coding Level of Care Code 60873 Subseq Hosp Care Lvl 2 Diagnoses Acute on chronic respiratory failure with hypoxia and hypercapnia J96.21; J96.22 COVID-19 U07.1 Secondary bacterial pneumonia J15.9 T2DM (type 2 diabetes mellitus) E11.9 Pseudotumor cerebri G93.2 BLAINE on CPAP G47.33; Z99.89 Tobacco abuse Z72.0 Admitted to intensive care unit Z78.9 Hypothyroidism E03.9 CAD (coronary artery disease) I25.10 HLD (hyperlipidemia) E78.5 HTN (hypertension) I10 Bipolar disorder F31.4 Active/Remission status: currently active Current bipolar episode type: depressed Current episode severity: severe Psychotic features: without psychotic features COPD (chronic obstructive pulmonary disease) J44.9 Time Spent (min) 35 (1) Bipolar disorder Active/Remission status: currently active Current bipolar episode type: depressed Current episode severity: severe Psychotic features: without psychotic features Qualified Code(s): F31.4 - Bipolar disorder, current episode depressed, severe, without psychotic features
[2022-03-24] MEDS: ATORVASTATIN 40 MG TAB PO SCH (21:32)
[2022-03-24] MEDS ORDERED: POLYETHYLENE (MIRALAX) 17 GM PACK PO ONE (23:28)
[2022-03-24] MEDS ORDERED: bisacodyL 10 MG SUPP PR STA (23:29)
[2022-03-25] MEDS: NORMOSOL-R 1,000 ML IV SCH (06:04)
[2022-03-25] MEDS: LEVOTHYROXINE SODIUM 75 MCG TABLET PO SCH (06:05)
[2022-03-25 07:43] LABS: Hematocrit (blood only) 42.4 % (34.1-44.9); Mean Corpuscular Hemoglobin 29.8 pg (25.0-34.0); Mean Corpuscular Hgb Conc 30.7 g/dL (32.0-36.0); Mean Corpuscular Volume 97.2 fL (80.0-100.0); Mean Platelet Volume 10.2 fL (9.4-12.3); Platelet Count 244 K/uL (130-400); RDW Coefficient of Variation 14.3 % (11.5-14.5); Red Blood Count 4.36 M/uL (3.93-5.22); White Blood Count 13.77 K/ul (4.8-10.8)
[2022-03-25 08:05] LABS: BUN Creatinine Ratio 29.7 (10-20); Calcium 8.5 mg/dl (8.5-10.1); Creatinine Clr Calc Pharmacy 110.1 ml/min; Est GFR (African American) 104.2 ml/min; Est GFR (Non-African American) 89.9 ml/min; Potassium 3.4 mmol/L (3.5-5.1)
[2022-03-25] MEDS: acetaZOLAMIDE 250 MG TAB PO SCH ×2 (09:37→17:39)
[2022-03-25] MEDS: CEROVITE ADV FORMULA TAB PO SCH (09:38)
[2022-03-25] MEDS: ASPIRIN 81 MG CHEW PO SCH (09:38)
[2022-03-25] MEDS: METOPROLOL SUCC 25MG EXT REL TAB PO SCH (09:39)
[2022-03-25] MEDS: FAMOTIDINE 10 MG TABLET PO SCH ×2 (09:39→20:01)
[2022-03-25] MEDS: hydrOXYzine HCl 25 MG TAB PO SCH ×2 (09:40→20:00)
[2022-03-25] MEDS: GABAPENTIN 100 MG CAP PO SCH ×3 (09:40→20:00)
[2022-03-25] MEDS: POLYETHYLENE (MIRALAX) 17 GM PACK PO SCH ×2 (09:41→20:03)
[2022-03-25] MEDS: LITHIUM CARBONATE 300 MG TAB PO SCH ×2 (09:41→20:02)
[2022-03-25] MEDS: predniSONE 20 MG TAB PO SCH (09:42)
[2022-03-25] MEDS: LANSOPRAZOLE 30 MG SOLTAB PO SCH (10:40)
[2022-03-25] MEDS: ENOXAPARIN INJ 40 MG/0.4 ML SYR SQ SCH (11:59)
--- NOTE | 2022-03-25 15:12 | Hospitalist Progress Note ---
Date of Service March 25, 2022 Assessment & Plan (1) Acute on chronic respiratory failure with hypoxia and hypercapnia: Plan: Likely combination of COPD exacerbation, COVID-19 infection, secondary bacterial pneumonia was ruled out with negative procalcitonin Clinically much improved Patient currently on nasal canula oxygen Will wean as tolerated Continue Duonebs scheduled and PRN, steroids taper Incentive spirometry PT/OT (2) COVID-19: Plan: Placed on dexamethasone 10 mg IV today, then 6 mg IV daily, currently on steroid taper Not a candidate for remdesivir due to time of infection (3) Secondary bacterial pneumonia: Plan: Patient had production of yellowish-green sputum on the day of admission. Placed on ceftriaxone 2 g IV daily and azithromycin 5 mg IV daily initially However, due to normal procalcitonin, antibiotics were discontinued (4) T2DM (type 2 diabetes mellitus): Plan: Placed on hyperglycemic protocol (5) Pseudotumor cerebri: Plan: On acetazolamide, continue (6) BLAINE on CPAP: (7) Tobacco abuse: (8) Admitted to intensive care unit: Plan: Downgraded (9) Hypothyroidism: (10) CAD (coronary artery disease): (11) HLD (hyperlipidemia): (12) HTN (hypertension): (13) Bipolar disorder: Plan: Medications on hold while intubated (14) COPD (chronic obstructive pulmonary disease): Plan continue hospitalization, patient may need SNF. Awaiting PT/OT assessment Admission and Anticipated Discharge Date Admission Date: March 21, 2022 Subjective patient seen and examined, feels overall better, SOB is better Review of Systems Review of Systems: All systems reviewed are negative, apart from the ones contained in the history. Physical Exam Physical Exam: The patient is awake, alert and oriented 3, well developed and well nourished, normocephalic and atraumatic, lying in bed and in no acute distress. HEENT--PERRL, EOMI, mucous membranes and oropharynx mildly dry Neck--supple. No JVD. No bruits. Thyroid normal, trachea midline, no adenopathy. Heart--normal S1 and S2. No murmurs, rubs or gallops. Lungs--reduced air entry on ausculataion Abdomen--normal bowel sounds and soft. Mild epigastric and left sided abdominal pain Extremities--no cyanosis or clubbing. No edema. Dermatologic--normal skin turgor, normal color, no abnormal lymph nodes, no rash. Neurologic--cranial nerves II through XII grossly intact. Rheumatologic--normal range of motion. Psychiatric--normal affect. Results & Data Results & Data ([facility]) Vital Signs (Past 12 Hours) Vital Signs Temp Pulse Resp BP Pulse Ox Pulse Ox Pulse Ox 03/25/22 11:22 96 96 03/25/22 08:00 03/25/22 11:48 97.5 F L 59 L 20 98/52 L 96 03/25/22 08:21 97.7 F 55 L 18 115/72 96 O2 Del Method O2 Flow Rate O2 Flow Rate O2 Flow Rate 03/25/22 11:22 3 3 03/25/22 08:00 Nasal Cannula 3 03/25/22 11:48 Nasal Cannula 3 03/25/22 08:21 Room Air PG Care Time/CCT Total # of Minutes Spent Total Time Spent with Patient: Total time spent is greater than 50% in coordination of care (as documented) at patient's floor/unit and/or counseling patient: Coding Level of Care Code 39346 Subseq Hosp Care Lvl 2 Diagnoses Acute on chronic respiratory failure with hypoxia and hypercapnia J96.21; J96.22 COVID-19 U07.1 Secondary bacterial pneumonia J15.9 T2DM (type 2 diabetes mellitus) E11.9 Pseudotumor cerebri G93.2 BLAINE on CPAP G47.33; Z99.89 Tobacco abuse Z72.0 Admitted to intensive care unit Z78.9 Hypothyroidism E03.9 CAD (coronary artery disease) I25.10 HLD (hyperlipidemia) E78.5 HTN (hypertension) I10 Bipolar disorder F31.4 Active/Remission status: currently active Current bipolar episode type: depressed Current episode severity: severe Psychotic features: without psychotic features COPD (chronic obstructive pulmonary disease) J44.9 Time Spent (min) 35 (1) Bipolar disorder Active/Remission status: currently active Current bipolar episode type: depressed Current episode severity: severe Psychotic features: without psychotic features Qualified Code(s): F31.4 - Bipolar disorder, current episode depressed, severe, without psychotic features
[2022-03-25] MEDS: ATORVASTATIN 40 MG TAB PO SCH (20:03)
[2022-03-26] MEDS: LEVOTHYROXINE SODIUM 75 MCG TABLET PO SCH (06:29)
[2022-03-26 07:42] LABS: Hematocrit (blood only) 42.7 % (34.1-44.9); Hemoglobin 13.3 g/dl (12.0-16.0); Mean Corpuscular Hemoglobin 29.6 pg (25.0-34.0); Mean Corpuscular Hgb Conc 31.1 g/dL (32.0-36.0); Mean Corpuscular Volume 94.9 fL (80.0-100.0); Mean Platelet Volume 10.2 fL (9.4-12.3); Platelet Count 223 K/uL (130-400); RDW Coefficient of Variation 14.1 % (11.5-14.5); RDW Standard Deviation 49.7 fL (36.4-46.3)
[2022-03-26 08:10] LABS: C Reactive Protein 1.19 mg/dl (0-0.5); Calcium 8.9 mg/dl (8.5-10.1); Creatinine Clr Calc Pharmacy 117.8 ml/min; Est GFR (Non-African American) 96.6 ml/min; Potassium 3.7 mmol/L (3.5-5.1)
[2022-03-26] MEDS: METOPROLOL SUCC 25MG EXT REL TAB PO SCH (08:20)
[2022-03-26] MEDS: ASPIRIN 81 MG CHEW PO SCH (08:20)
[2022-03-26] MEDS: LANSOPRAZOLE 30 MG SOLTAB PO SCH (08:20)
[2022-03-26] MEDS: LITHIUM CARBONATE 300 MG TAB PO SCH (08:21)
[2022-03-26] MEDS: FAMOTIDINE 10 MG TABLET PO SCH (08:21)
[2022-03-26] MEDS: hydrOXYzine HCl 25 MG TAB PO SCH (08:21)
[2022-03-26] MEDS: acetaZOLAMIDE 250 MG TAB PO SCH (08:21)
[2022-03-26] MEDS: GABAPENTIN 100 MG CAP PO SCH ×2 (08:21→14:16)
[2022-03-26] MEDS: CEROVITE ADV FORMULA TAB PO SCH (08:22)
[2022-03-26] MEDS: POLYETHYLENE (MIRALAX) 17 GM PACK PO SCH (08:23)
[2022-03-26] MEDS ORDERED: predniSONE 10 MG TABLET PO SCH (09:00)
[2022-03-26] MEDS: ENOXAPARIN INJ 40 MG/0.4 ML SYR SQ SCH (11:42)
--- NOTE | 2022-03-26 14:47 | Discharge Summary ---
Date of Service March 26, 2022 Admission HPI Per Admitting Provider The patient is a 57-year-old female with a past medical history including pseudotumor cerebri, psoriasis, BLAINE on CPAP, vitamin D deficiency, respiratory acidosis, diabetes mellitus type 2, acute respiratory failure with hypoxia and hypercarbia,Tobacco abuse, hypothyroidism, CAD, hyperlipidemia, hypertension, COPD, BLAINE on CPAP and bipolar disorder. Patient presents to the emergency department with the development of yellowish sputum today, a worsening of shortness of breath and dyspnea on exertion symptoms that began over the previous week. Significant abnormal laboratories: WBC 12.99, potassium 3.5, glucose 121. COVID-19 positive Chest x-ray and CT angiography of chest were negative. Arterial blood gas on BiPAP: pH 7.19, PCO2 78, PO2 87 ABG continued to worsened despite being on BiPAP, and decision was made to intubate patient for her planned admission to the ICU. This intubation was performed by emergency department physician Dr. Navarro. The patient was then transferred to the ICU for ongoing care with consult to wholesale account executive and ICU team Principal Diagnosis Acute on chronic hypoxic respiratory failure with hypoxia and hypercapnia Discharge Exam The patient is awake, alert and oriented 3, well developed and well nourished, normocephalic and atraumatic, lying in bed and in no acute distress. HEENT--PERRL, EOMI, mucous membranes and oropharynx mildly dry Neck--supple. No JVD. No bruits. Thyroid normal, trachea midline, no adenopathy. Heart--normal S1 and S2. No murmurs, rubs or gallops. Lungs--reduced air entry on ausculataion Abdomen--normal bowel sounds and soft. Mild epigastric and left sided abdominal pain Extremities--no cyanosis or clubbing. No edema. Dermatologic--normal skin turgor, normal color, no abnormal lymph nodes, no rash. Neurologic--cranial nerves II through XII grossly intact. Rheumatologic--normal range of motion. Psychiatric--normal affect. Discharge Data Allergies Allergy/AdvReac Type Severity Reaction Status Date / Time ethinyl estradiol Allergy Mild RUNNY Verified 03/21/22 22:21 NOSE, ACHES, CONGESTION levonorgestrel Allergy Mild RUNNY Verified 03/21/22 22:21 NOSE, ACHES, CONGESTION strawberry Allergy Mild RASH Verified 03/21/22 22:21 bupropion Allergy Unknown memory loss Verified 03/21/22 22:21 latex Allergy Unknown rash Verified 03/21/22 22:21 blue dye Allergy Verified 03/22/22 10:43 [place] [facility] Allergy Mild RUNNY Uncoded 03/21/22 22:21 NOSE, ACHES, CONGESTION Ordered Studies 03/21/22 19:53 CT angio chest PE protocol Stat Hospital Course (1) Acute on chronic respiratory failure with hypoxia and hypercapnia: Likely combination of COPD exacerbation, COVID-19 infection, secondary bacterial pneumonia was ruled out with negative procalcitonin Clinically much improved Patient currently on nasal canula oxygen Will wean as tolerated Continue Duonebs scheduled and PRN, steroids taper Incentive spirometry PT/OT (2) COVID-19: Placed on dexamethasone 10 mg IV today, then 6 mg IV daily, currently on steroid taper Not a candidate for remdesivir due to time of infection (3) Secondary bacterial pneumonia: Patient had production of yellowish-green sputum on the day of admission. Placed on ceftriaxone 2 g IV daily and azithromycin 5 mg IV daily initially However, due to normal procalcitonin, antibiotics were discontinued (4) T2DM (type 2 diabetes mellitus): Placed on hyperglycemic protocol (5) Pseudotumor cerebri: On acetazolamide, continue (6) BLAINE on CPAP: (7) Tobacco abuse: (8) Admitted to intensive care unit: Downgraded (9) Hypothyroidism: (10) CAD (coronary artery disease): (11) HLD (hyperlipidemia): (12) HTN (hypertension): (13) Bipolar disorder: Medications on hold while intubated (14) COPD (chronic obstructive pulmonary disease): Plan d/c home with home health, home PT Total Time Total Time Spent Total Time Spent (In Minutes): 35 Discharge Plan Discharge Items Patient Disposition: Home - Home Health Services Reason For Visit: ACUTE ON CHRONIC RESP FAIL W/ HYPOXIA, HYPERCAPNEA Discharge Diagnosis: acute on chronic respiratory failure with hypoxia Activity: Resume your previous activity Non-emergency contact: Primary Care Provider and Guest Associate Call non-emergency contact if: you have any medication questions Follow-up/Referrals: Alberto Molina DO [Primary Care Provider] - Diet: Regular Addtl Attending Provider Instructions: please make appointment to follow up with your manager estate Pending Studies at Discharge: No Stand-Alone Forms: My [facility], Smoking Cessation Medications and DC Order Prescriptions: New prednisone 10 mg Tablet 30 mg PO DAILY 2 Days Qty: 6 0RF prednisone 10 mg Tablet 10 mg PO DAILY 1 Days Qty: 1 0RF prednisone 20 mg Tablet 20 mg PO DAILY 3 Days Qty: 3 0RF Continued (DME) blood-glucose meter Kit See Rx Instructions .Route Qty: 1 0RF Rx Instructions: AC and HS and prn amlodipine 5 mg tablet 5 mg PO HS Qty: 90 3RF acetazolamide 250 mg tablet 1,000 mg PO BID 30 Days Qty: 240 5RF albuterol sulfate 90 mcg/actuation HFA aerosol inhaler 2 puff INHALATION QID PRN (Reason: SHORTNESS OF BREATH/WHEEZING) Qty: 8.5 5RF atorvastatin 40 mg tablet 40 mg PO QPM Qty: 90 3RF clobetasol 0.05 % cream 1 applic TOPICAL BID Qty: 45 3RF Rx Instructions: APPLY TO RIGHT HAND TWICE DAILY famotidine [Acid Coat Agent (famotidine)] 10 mg tablet 10 mg PO BID Qty: 180 3RF fluticasone propion-salmeterol [Advair Diskus] 250-50 mcg/dose blister with device 1 inh INHALATION BID Qty: 180 3RF gabapentin 100 mg capsule 100 mg PO TID Qty: 270 3RF hydroxyzine pamoate 25 mg capsule 25 mg PO BID Qty: 180 3RF levothyroxine 75 mcg tablet 75 mcg PO DAILYBB Qty: 90 3RF lithium carbonate 300 mg tablet extended release 600 mg PO HS 90 Days Qty: 180 3RF metoprolol succinate 25 mg tablet extended release 24 hr 25 mg PO DAILY Qty: 90 3RF nitroglycerin 0.4 mg tablet, sublingual 0.4 mg sublingual .PRN/UD Qty: 30 5RF Rx Instructions: NEEDED FOR CHEST PAIN : ONE TABLET UNDER THE TONGUE EVERY 5 MINUTES UP TO THREE DOSES. nystatin 100,000 unit/gram powder 1 applic TOPICAL TID Qty: 60 5RF Rx Instructions: APPLY TO SKIN FOLDS omeprazole 20 mg capsule,delayed release(DR/EC) 20 mg PO QAM Qty: 90 3RF aspirin 81 mg Tablet,Chewable 81 mg PO DAILY Vraylar 3 mg Capsule 3 mg PO HS Discharge Orders: Discharge Order (Routine); Ordered 03/26/22 Ordered By: Dhaval Schwarz Admission Data Admit Date/Time: 03/21/22 23:39 Attending Provider: Dhaval Schwarz Admit Provider: Kayden Aranda Primary Care Provider: Alberto Molina Other Providers: [facility],Home Care Coding Level of Care Code D/C DAY MANAGEMENT >30 MINS Diagnoses Acute on chronic respiratory failure with hypoxia and hypercapnia J96.21; J96.22 COVID-19 U07.1 Secondary bacterial pneumonia J15.9 T2DM (type 2 diabetes mellitus) E11.9 Pseudotumor cerebri G93.2 BLAINE on CPAP G47.33; Z99.89 Tobacco abuse Z72.0 Admitted to intensive care unit Z78.9 Hypothyroidism E03.9 CAD (coronary artery disease) I25.10 HLD (hyperlipidemia) E78.5 HTN (hypertension) I10 Bipolar disorder F31.4 Active/Remission status: currently active Current bipolar episode type: depressed Current episode severity: severe Psychotic features: without psychotic features COPD (chronic obstructive pulmonary disease) J44.9 Time Spent (min) 35
[2022-03-29] MEDS ORDERED: predniSONE 20 MG TAB PO SCH (09:00)
[2022-04-01] MEDS ORDERED: predniSONE 10 MG TABLET PO SCH (09:00)
== END 2022-03-26 16:10 | disposition home health service (06) | DRG 208 ==
LOC: ED 17:09 → SUATTDRO 23:39 → 1E 23:39 → 2S 03-23 10:57

== ENCOUNTER 2023-01-14 03:59 | Observation (INO) ==
[2023-01-14] MEDS ORDERED: NITROGLYCERIN 2% OINTMENT 30GM TUBE EXT STA (04:19)
[2023-01-14] MEDS ORDERED: MoRPHine SULFATE 4 MG/ML 1 ML CARP\\VIAL IV STA (04:19)
--- NOTE | 2023-01-14 04:51 | Emergency Department Note ---
Impression & Plan Chest pain, CAD (coronary artery disease), Hypoxia, COPD (chronic obstructive pulmonary disease) ED Provider Note INFORMANT: Patient ED PROVIDER(S): Byron Mendez MD CHIEF COMPLAINT: Chest pain PLAN: Disposition: Admitted Condition: Good Outpatient prescription management: none Referral: None MEDICAL DECISION MAKING: Chronic conditions and history affecting care: CAD, hypertension, COPD, [place] Patient presented to emergency department with chest pain. Pain did improve with nitroglycerin. Chest x-ray was unremarkable. Patient was off her nightly oxygen and was 83% on room air. She responded well to supplemental nasal cannula oxygen. Patient had Nitropaste applied. Patient CBC shows a mild leukocytosis but this seems to be chronic for her on record review. Her chemistry panel was unremarkable. First cardiac troponin was negative. Given the patient's history further management in the hospital will be necessary. CT imaging was ordered and is pending at this time. Consultation was made with Dr. Kayden Aranda of the [facility] service. Patient was evaluated in the ER for further management. Discussed with corporate traffic manager After review of the information above and other included data, I feel the patient requires admission. Triage Nursing notes reviewed and agree them. Vital Signs: reviewed and remarkable for hypoxia Prior /Outside records reviewed: Primary care record reviewed. Differential diagnosis: Cardiac ischemia, aortic dissection, pulmonary embolism, pneumothorax, pneumonia, pericarditis, myocarditis, esophageal rupture, GERD, cholecystitis, pancreatitis, musculoskeletal, as well as other pathologies. Diagnostics, as interpreted by me: ECG: Twelve-lead ECG reveals normal sinus rhythm at 91 bpm. Left axis deviation. Moderate voltage good here for LVH. No ST elevation or depression. No TWI. Cardiac Monitoring: Cardiac monitoring ordered by me: The patient was placed on continuous cardiac monitoring and observed. It revealed a normal sinus rhythm at 82 beats per minute without ectopy or evidence of dysrhythmia. Medical decision rules: Patient is moderate risk by HEART SCORE. Imaging studies: Chest x-ray. Findings: A chest x-ray was performed and revealed no pneumothorax, effusion, infiltrate, pulmonary edema, free air under the diaphragm, or wide mediastinum. Impression: No acute disease. HPI: The patient is a 57year old female who presents to the Emergency Room with complaints of chest pain. This started this evening and is midsternal. There was some pain in the right chest and down the right arm as well. The patient also notes the following associated symptoms, mild shortness of breath and diaphoresis. EMS was summoned. The patient has been given aspirin and 3 nitroglycerin relieving factors. Current pain is rated as 4/10. Patient notes pain was a 10 out of 10. On EMS arrival pain was a 7. She was given the aspirin and nitroglycerin and pain decreased to a 4. Patient states this feels like prior [place]. Patient notes she has home O2 use at night. She was not wearing her oxygen tonight. Nursing noted her room air saturation was 83%. Pt denies LOC, headache, fevers, chills, visual changes, neck pain, nausea, vomiting, abdominal pain, back pain, melena, hematochezia, urinary symptoms, numbness, weakness, lymphadenopathy, rash, or other complaints. PAST MEDICAL HISTORY: See Below, CAD, COPD, BLAINE, diabetes PAST SURGICAL HISTORY: See Below, SOCIAL HISTORY: See Below, smoker HOME MEDICATIONS: See Below ALLERGIES: See Below VITALS: See Below PHYSICAL EXAMINATION: GENERAL: Awake, alert, nontoxic-appearing, in no distress HENT: Normocephalic, atraumatic. Oropharynx unremarkable. EYES: Normal conjunctiva. Sclera non-icteric. NECK: Inspection normal. Non-tender. Supple. No nuchal rigidity. FROM. No masses. RESPIRATORY: Clear to auscultation. No wheezes. No rales. Normal respiratory effort. CARDIAC: Normal rate. Normal rhythm. No murmurs. No rubs. Extremities warm and well perfused. Pulses equal. No JVD. GI: Soft, non-distended. No tenderness to palpation. No rebound or guarding. No masses. RECTAL: Deferred. MUSCULOSKELETAL: Atraumatic. Chest examination reveals no tenderness. The back is symmetrical on inspection without obvious abnormality. There is no CVA tenderness to palpation. No joint edema. LOWER EXTREMITIES: Calves are equal size bilaterally and non-tender. 1+ bilater al edema. No discoloration. NEURO: Normal sensorium. No sensory or motor deficits noted. SKIN: No rash or jaundice noted. Past Med/Surg History Medical History (Updated 01/14/23 @ 04:50 by Byron Mendez MD) Acute on chronic respiratory failure with hypoxia and hypercapnia COVID-19 GERD (gastroesophageal reflux disease) Influenza Pseudotumor cerebri TIA (transient ischemic attack) Surgical History History of History of cholecystectomy History of colonoscopy 2018 adenomatous polyps removed History of coronary artery stent placement History of esophagogastroduodenoscopy (EGD) 2018 normal History of lithotripsy History of tubal ligation Family History Father Myocardial infarction Mother Diabetes COPD (chronic obstructive pulmonary disease) Sister Ovarian cancer Denies family history of Prostate cancer Breast cancer Colorectal cancer Social History Smoking Status: Current every day smoker Tobacco Type: Cigarettes Age Started Using Tobacco: 9; packs per day: 0.25; Cigarettes Per Day: 3; Second Hand Exposure: No; Do You Dip or Chew Tobacco: No; Hx Alcohol Use: No Hx Substance Use: No Preferred Language: Slovak Communication Ability: Effective Kier Boiler Required: No Beliefs That Will Affect Care: None marital status: Single Current Living Situation: Family current occupational status: disabled How many Children do You have: 2 Feels Safe at Home: Yes Childhood Exposure to Second-Hand Smoke: Yes Diet: regular caffeine: Yes Dental Care, Regularly: No Physical Activity Frequency: Daily Seatbelt Use: sometimes Sunscreen Use: Yes (sometimes) Assistive Devices: Cane, CPAP, Nebulizer, Oxygen - at Night and Wheelchair Allergies Allergies Allergy/AdvReac Type Severity Reaction Status Date / Time ethinyl estradiol Allergy Mild RUNNY Verified 08/11/22 12:27 NOSE, ACHES, CONGESTION levonorgestrel Allergy Mild RUNNY Verified 08/11/22 12:27 NOSE, ACHES, CONGESTION strawberry Allergy Mild RASH Verified 08/11/22 12:27 bupropion Allergy Unknown memory loss Verified 08/11/22 12:27 latex Allergy Unknown rash Verified 08/11/22 12:27 blue dye Allergy Verified 08/11/22 12:27 Sage Blue [facility] Allergy Mild RUNNY Uncoded 08/11/22 12:27 NOSE, ACHES, CONGESTION Home Meds Home Medications Medication Instructions Recorded Confirmed aspirin 81 mg chewable tablet 81 mg PO DAILY 09/20/21 08/11/22 guaifenesin 100 mg/5 mL oral liquid 200 mg PO Q4H PRN 06/17/22 08/11/22 Previous Rx's Medication Instructions Recorded albuterol sulfate 90 mcg/actuation 2 puff inhalation QID PRN 12/31/21 aerosol inhaler SHORTNESS OF BREATH/WHEEZING #8.5 grams clobetasol 0.05 % topical cream 1 applic topical BID #45 grams 12/31/21 fluticasone 250 mcg-salmeterol 50 1 inh inhalation BID #180 ea 12/31/21 mcg/dose blistr powdr for inhalation (Advair Diskus) nitroglycerin 0.4 mg sublingual 0.4 mg sublingual .PRN/UD #30 tabs 12/31/21 tablet nystatin 100,000 unit/gram topical 1 applic topical TID #60 grams 12/31/21 powder blood-glucose meter #1 ea 01/03/22 albuterol sulfate 2.5 mg/3 mL 2.5 mg (3 mL) inhalation Q4H PRN 03/29/22 (0.083 %) solution for nebulization shortness of breath or wheezing #180 mL benzonatate 200 mg capsule 200 mg PO TID PRN cough #60 caps 04/08/22 cariprazine 3 mg capsule (Vraylar) 3 mg PO HS #30 caps 08/04/22 amoxicillin 875 mg-potassium 1 tab PO BID #14 tabs 08/11/22 clavulanate 125 mg tablet acetazolamide 250 mg tablet 1,000 mg PO BID 30 days #240 tabs 12/23/22 atorvastatin 40 mg tablet 40 mg PO QPM #90 tabs 12/23/22 famotidine 10 mg tablet (Acid 10 mg PO BID #180 tabs 12/23/22 Cooker Chip (famotidine)) gabapentin 100 mg capsule 100 mg PO TID #270 caps 12/23/22 hydroxyzine pamoate 25 mg capsule 25 mg PO BID #180 caps 12/23/22 levothyroxine 75 mcg tablet 75 mcg PO DAILYBB #90 tabs 12/23/22 lithium carbonate 300 mg 600 mg PO HS 90 days #180 tabs 12/23/22 tablet,extended release metoprolol succinate 25 mg 25 mg PO DAILY #90 tabs 12/23/22 tablet,extended release 24 hr omeprazole 20 mg capsule,delayed 20 mg PO QAM #90 caps 12/23/22 release amlodipine 5 mg tablet 5 mg PO HS #90 tabs 01/11/23 Results & Data (ED) Vital Signs Vital Signs - 24 hr 01/14/23 03:56 01/14/23 04:06 01/14/23 04:06 Temperature 36.6 C 36.5 C Temperature Source Axillary Oral Pulse Rate 95 H Pulse Rate [Apical] 96 H Pulse Rate from SpO2 Sensor Pulse Rhythm Regular Pulse Strength Normal Respiratory Rate 24 20 Respiratory Effort / Characteristics Non-Labored Spontaneous Non-Labored Spontaneous Respiratory Depth Normal Normal Respiratory Pattern Regular Blood Pressure 136/83 Blood Pressure [Right Arm] 136/83 Blood Pressure Mean 100 Blood Pressure Mean [Right Arm] 100 Blood Pressure Position Semi-fowlers Pulse Oximetry 83 L 83 L Oxygen Delivery Method Room Air Room Air Nasal Cannula Oxygen Flow Rate Sepsis Recent Fever Within 48 Hours No Sepsis New/Unexplained Change in Mental Status No Sepsis Action Taken by Nursing No Action Required 01/14/23 03:56 01/14/23 04:20 01/14/23 04:16 Temperature Temperature Source Pulse Rate 96 H Pulse Rate [Apical] Pulse Rate from SpO2 Sensor 91 H Pulse Rhythm Pulse Strength Respiratory Rate 15 Respiratory Effort / Characteristics Respiratory Depth Respiratory Pattern Blood Pressure Blood Pressure [Right Arm] Blood Pressure Mean Blood Pressure Mean [Right Arm] Blood Pressure Position Pulse Oximetry 94 94 Oxygen Delivery Method Room Air Nasal Cannula Nasal Cannula Oxygen Flow Rate 83 6 6 Sepsis Recent Fever Within 48 Hours Sepsis New/Unexplained Change in Mental Status Sepsis Action Taken by Nursing 01/14/23 04:19 01/14/23 04:30 01/14/23 05:00 Temperature Temperature Source Pulse Rate 90 89 78 Pulse Rate [Apical] Pulse Rate from SpO2 Sensor 89 77 Pulse Rhythm Pulse Strength Respiratory Rate 16 19 Respiratory Effort / Characteristics Respiratory Depth Respiratory Pattern Blood Pressure 161/79 H 144/74 H Blood Pressure [Right Arm] Blood Pressure Mean 106 97 Blood Pressure Mean [Right Arm] Blood Pressure Position Pulse Oximetry 93 97 Oxygen Delivery Method Nasal Cannula Nasal Cannula Oxygen Flow Rate 6 6 Sepsis Recent Fever Within 48 Hours Sepsis New/Unexplained Change in Mental Status Sepsis Action Taken by Nursing 01/14/23 05:30 01/14/23 05:56 01/14/23 06:00 Temperature Temperature Source Pulse Rate 73 72 Pulse Rate [Apical] Pulse Rate from SpO2 Sensor 73 73 Pulse Rhythm Pulse Strength Respiratory Rate 17 16 Respiratory Effort / Characteristics Non-Labored Respiratory Depth Normal Respiratory Pattern Regular Blood Pressure 137/71 128/68 Blood Pressure [Right Arm] Blood Pressure Mean 93 88 Blood Pressure Mean [Right Arm] Blood Pressure Position Pulse Oximetry 97 96 Oxygen Delivery Method Nasal Cannula Nasal Cannula Nasal Cannula Oxygen Flow Rate 6 4 4 Sepsis Recent Fever Within 48 Hours Sepsis New/Unexplained Change in Mental Status Sepsis Action Taken by Nursing Laboratory Data 01/14/23 03:10 01/14/23 05:50 Lab Results 01/14/23 01/14/23 01/14/23 Range/Units 03:10 03:10 03:10 WBC 12.80 H (4.8-10.8) K/ul RBC 5.11 (4.20-5.40) M/uL Hgb 15.2 (12.0-16.0) g/dl Hct 51.5 H (37.0-47.0) % MCV 100.8 H (80.0-100.0) fL MCH 29.7 (25.0-34.0) pg MCHC 29.5 L (32.0-36.0) g/dL RDW Std Deviation 52.4 H (36.4-46.3) fL RDW Coeff of Bruno 14.2 (11.5-14.5) % Plt Count 320 (130-400) K/uL MPV 10.2 (9.4-12.4) fL Immature Gran % (Auto) 0.7 % Neut % (Auto) 70.6 % Lymph % (Auto) 21.8 % [place] % (Auto) 4.0 % Eos % (Auto) 2.5 % Baso % (Auto) 0.4 % Neut # (Auto) 9.04 H (1.40-6.50) K/uL Lymph # (Auto) 2.79 (1.2-3.4) K/uL [place] # (Auto) 0.51 (0.11-0.59) K/uL Eos # (Auto) 0.32 (0-0.50) K/uL Baso # (Auto) 0.05 (0-0.2) K/uL Immature Gran # (Auto) 0.09 (0.01-0.20) K/uL Absolute Nucleated RBC 0.02 (0-0.12) K/uL Nucleated RBC % (auto) 0.2 % PT 10.4 (9.0-12.0) Seconds INR 0.9 (0.9-1.1) APTT 30.1 (21.0-31.0) Seconds PTT Ratio 1.1 Sodium 140 (136-145) mmol/L Potassium TNP Chloride 103 (98-107) mmol/L Carbon Dioxide 30 (21-32) mmol/L Anion Gap 7 (3-11) BUN 13 (6-23) mg/dl Creatinine 0.70 (0.6-1.2) mg/dl Est Cr Clr Drug Dosing 120.8 ml/min Est GFR ( Amer) 111.5 ml/min Est GFR (Non-Af Amer) 96.2 ml/min BUN/Creatinine Ratio 18.6 (10-20) Glucose 192 H (70-99(Fasting)) mg/dl Calcium 8.8 (8.6-10.3) mg/dl Total Bilirubin 0.3 (0.2-1.0) mg/dl AST TNP ALT 7 (7-52) U/L Alkaline Phosphatase 123 H (34-104) U/L Troponin I High Sens 10.8 (0-14) pg/ml Total Protein 7.0 (6.0-8.3) gm/dl Albumin 3.6 (3.4-5.0) gm/dl Globulin 3.4 (2.5-4.0) gm/dl Albumin/Globulin Ratio 1.1 (0.9-2) Lipase 42 (11-82) U/L 01/14/23 Range/Units 05:50 WBC (4.8-10.8) K/ul RBC (4.20-5.40) M/uL Hgb (12.0-16.0) g/dl Hct (37.0-47.0) % MCV (80.0-100.0) fL MCH (25.0-34.0) pg MCHC (32.0-36.0) g/dL RDW Std Deviation (36.4-46.3) fL RDW Coeff of Bruno (11.5-14.5) % Plt Count (130-400) K/uL MPV (9.4-12.4) fL Immature Gran % (Auto) % Neut % (Auto) % Lymph % (Auto) % [place] % (Auto) % Eos % (Auto) % Baso % (Auto) % Neut # (Auto) (1.40-6.50) K/uL Lymph # (Auto) (1.2-3.4) K/uL [place] # (Auto) (0.11-0.59) K/uL Eos # (Auto) (0-0.50) K/uL Baso # (Auto) (0-0.2) K/uL Immature Gran # (Auto) (0.01-0.20) K/uL Absolute Nucleated RBC (0-0.12) K/uL Nucleated RBC % (auto) % PT (9.0-12.0) Seconds INR (0.9-1.1) APTT (21.0-31.0) Seconds PTT Ratio Sodium (136-145) mmol/L Potassium 3.9 Chloride (98-107) mmol/L Carbon Dioxide (21-32) mmol/L Anion Gap (3-11) BUN (6-23) mg/dl Creatinine (0.6-1.2) mg/dl Est Cr Clr Drug Dosing ml/min Est GFR ( Amer) ml/min Est GFR (Non-Af Amer) ml/min BUN/Creatinine Ratio (10-20) Glucose (70-99(Fasting)) mg/dl Calcium (8.6-10.3) mg/dl Total Bilirubin (0.2-1.0) mg/dl AST 18 ALT (7-52) U/L Alkaline Phosphatase (34-104) U/L Troponin I High Sens (0-14) pg/ml Total Protein (6.0-8.3) gm/dl Albumin (3.4-5.0) gm/dl Globulin (2.5-4.0) gm/dl Albumin/Globulin Ratio (0.9-2) Lipase (11-82) U/L Administered Medications Discontinued Medications Ioversol (Ioversol 350 Mg 125ml Prefilled Syringe) 118 ml IV ONCE ONE Stop: 01/14/23 06:37 Last Admin: 01/14/23 06:36 Dose: 118 ml Documented By: KSF Morphine Sulfate (Morphine Sulfate 4 Mg/Ml 1 Ml Carp\Vial) 2 mg IV NOW STA Stop: 01/14/23 04:20 Last Admin: 01/14/23 04:31 Dose: 2 mg Documented By: SAB Nitroglycerin (Nitroglycerin 2% Ointment 30gm Tube) 0.5 inch EXT NOW STA Stop: 01/14/23 04:20 Last Admin: 01/14/23 04:31 Dose: 0.5 inch Documented By: SJ Discharge Plan Visit Data Chief Complaint: Chest Pain Stated Complaint: CHEST PAIN ED Provider: Byron Mendez Discharge Problem: Chest pain, CAD (coronary artery disease), Hypoxia, COPD (chronic obstructive pulmonary disease) Forms Stand Alone Forms: [facility] [employer] Prescriptions Prescriptions: No Action (DME) blood-glucose meter Kit See Rx Instructions .Route Qty: 1 0RF Rx Instructions: AC and HS and prn benzonatate 200 mg capsule 200 mg PO TID PRN (Reason: cough) Qty: 60 5RF Vraylar 3 mg capsule 3 mg PO HS Qty: 30 5RF atorvastatin 40 mg tablet 40 mg PO QPM Qty: 90 3RF famotidine [Acid Cooker Chip (famotidine)] 10 mg tablet 10 mg PO BID Qty: 180 3RF gabapentin 100 mg capsule 100 mg PO TID Qty: 270 3RF hydroxyzine pamoate 25 mg capsule 25 mg PO BID Qty: 180 3RF omeprazole 20 mg capsule,delayed release(DR/EC) 20 mg PO QAM Qty: 90 3RF metoprolol succinate 25 mg tablet extended release 24 hr 25 mg PO DAILY Qty: 90 3RF levothyroxine 75 mcg tablet 75 mcg PO DAILYBB Qty: 90 3RF lithium carbonate 300 mg tablet extended release 600 mg PO HS 90 Days Qty: 180 3RF acetazolamide 250 mg tablet 1,000 mg PO BID 30 Days Qty: 240 5RF amlodipine 5 mg tablet 5 mg PO HS Qty: 90 3RF guaifenesin 100 mg/5 mL liquid 200 mg PO Q4H PRN albuterol sulfate 90 mcg/actuation HFA aerosol inhaler 2 puff INHALATION QID PRN (Reason: SHORTNESS OF BREATH/WHEEZING) Qty: 8.5 5RF clobetasol 0.05 % cream 1 applic TOPICAL BID Qty: 45 3RF Rx Instructions: APPLY TO RIGHT HAND TWICE DAILY fluticasone propion-salmeterol [Advair Diskus] 250-50 mcg/dose blister with device 1 inh INHALATION BID Qty: 180 3RF nitroglycerin 0.4 mg tablet, sublingual 0.4 mg sublingual .PRN/UD Qty: 30 5RF Rx Instructions: NEEDED FOR CHEST PAIN : ONE TABLET UNDER THE TONGUE EVERY 5 MINUTES UP TO THREE DOSES. nystatin 100,000 unit/gram powder 1 applic TOPICAL TID Qty: 60 5RF Rx Instructions: APPLY TO SKIN FOLDS albuterol sulfate 2.5 mg /3 mL (0.083 %) solution for nebulization 2.5 mg inhalation Q4H PRN (Reason: shortness of breath or wheezing) Qty: 180 11RF amoxicillin-pot clavulanate 875-125 mg tablet 1 tab PO BID Qty: 14 0RF aspirin 81 mg Tablet,Chewable 81 mg PO DAILY Referrals Referrals: Alberto Molina DO [Primary Care Provider] -
[2023-01-14 05:26] LABS: Basophils # (auto) 0.05 K/uL (0-0.2); Basophils % (auto) 0.4 %; Eosinophils # (auto) 0.32 K/uL (0-0.50); Eosinophils % (auto) 2.5 %; Hematocrit (blood only) 51.5 % (37.0-47.0); Hemoglobin 15.2 g/dl (12.0-16.0); Immature Granulocytes # (auto) 0.09 K/uL (0.01-0.20); Immature Granulocytes % (auto) 0.7 %; Lymphocytes # (auto) 2.79 K/uL (1.2-3.4); Lymphocytes % (auto) 21.8 %; Mean Corpuscular Hemoglobin 29.7 pg (25.0-34.0); Mean Corpuscular Hgb Conc 29.5 g/dL (32.0-36.0); Mean Corpuscular Volume 100.8 fL (80.0-100.0); Mean Platelet Volume 10.2 fL (9.4-12.4); Monocytes # (auto) 0.51 K/uL (0.11-0.59); Neutrophils # (auto) 9.04 K/uL (1.40-6.50); Neutrophils % (auto) 70.6 %; Nucleated RBC # (auto) 0.02 K/uL (0-0.12); Nucleated RBC % (auto) 0.2 %; Platelet Count 320 K/uL (130-400); RDW Coefficient of Variation 14.2 % (11.5-14.5); RDW Standard Deviation 52.4 fL (36.4-46.3); Red Blood Count 5.11 M/uL (4.20-5.40)
[2023-01-14 05:40] LABS: Alanine Aminotransferase 7 U/L (7-52); Albumin Globulin Ratio 1.1 (0.9-2); Albumin Level 3.6 gm/dl (3.4-5.0); Alkaline Phosphatase 123 U/L (34-104); Anion Gap 7 (3-11); BUN Creatinine Ratio 18.6 (10-20); Bilirubin,Total 0.3 mg/dl (0.2-1.0); Blood Urea Nitrogen 13 mg/dl (6-23); Calcium 8.8 mg/dl (8.6-10.3); Carbon Dioxide 30 mmol/L (21-32); Chloride 103 mmol/L (98-107); Creatinine Clr Calc Pharmacy 120.8 ml/min; Est GFR (African American) 111.5 ml/min; Est GFR (Non-African American) 96.2 ml/min; Globulin 3.4 gm/dl (2.5-4.0); Glucose 192 mg/dl (70-99(Fasting)); Lipase 42 U/L (11-82); Sodium 140 mmol/L (136-145); Troponin I High Sensitivity 10.8 pg/ml (0-14)
[2023-01-14 05:59] LABS: INR 0.9 (0.9-1.1); Partial Thromboplastin Ratio 1.1; Partial Thromboplastin Time 30.1 Seconds (21.0-31.0); Prothrombin Time 10.4 Seconds (9.0-12.0)
[2023-01-14 06:31] LABS: Potassium 3.9 mmol/L (3.5-5.1)
[2023-01-14] MEDS ORDERED: IOVERSOL 350 MG 125mL Prefilled Syringe IV ONE (06:36)
--- NOTE | 2023-01-14 07:24 | History & Physical Report ---
Date of Service January 14, 2023 Assessment & Plan (1) Chest pain: Plan: Pt presented with CP, no relief with nitro, reportedly was off oxygen and Hypoxic, no changes on ECG, CXR and normal labs. will trend troponin, check echo, reinforce compliance, will give GI cocktail as this may be reflux given her late meal, patient remains on PPI for history of GERD reportedly had endoscopy in the past without evidence of ulcer or significant reflux issues aspirin, atorvastatin, metoprolol, amlodipine (2) COPD (chronic obstructive pulmonary disease): Plan: continue LABA/Steroid Patient is expiratory wheezes in the emergency department patient recently began smoking. Patient given DuoNeb urgently and then as needed (3) T2DM (type 2 diabetes mellitus): Plan: check aic, not typically on meds (4) Bipolar disorder: Plan: continue lithium and cariprazine History of Present Illness Primary Care Provider: Alberto Molina, 57 F presents with chest pain, not relieved after 3 SL nitro, normal Hstroponin and no acute changes on ECG. SHe has a history of Chronic respiratory failure on chornic oxygen, BLAINE not compliant with CPAP. She did have FLU and Covid June 20. she has history of CAD with Stent, DM, Bipolar. pain is not reproducible CP is unrelieved, she has exp wheezing, did have funnel cake before bed and took her medicines late and went back to bed. Did restart smoking about 2 months ago, currently with pain but does not appear to be in distress Allergies Allergy/AdvReac Type Severity Reaction Status Date / Time ethinyl estradiol Allergy Mild RUNNY Verified 01/14/23 08:15 NOSE, ACHES, CONGESTION levonorgestrel Allergy Mild RUNNY Verified 01/14/23 08:15 NOSE, ACHES, CONGESTION strawberry Allergy Mild RASH Verified 01/14/23 08:15 bupropion Allergy Unknown memory loss Verified 01/14/23 08:15 latex Allergy Unknown rash Verified 01/14/23 08:15 blue dye Allergy Verified 01/14/23 08:15 [place] Blue FCF Allergy Mild RUNNY Uncoded 01/14/23 08:15 NOSE, ACHES, CONGESTION Home Medications Medication Instructions Recorded Confirmed Type aspirin 81 mg chewable tablet 81 mg PO QAM 09/20/21 01/14/23 History albuterol sulfate 90 mcg/actuation 2 puff inhalation QID PRN 12/31/21 01/14/23 Rx aerosol inhaler SHORTNESS OF BREATH/WHEEZING #8.5 grams clobetasol 0.05 % topical cream 1 applic topical BID #45 grams 12/31/21 01/14/23 Rx fluticasone 250 mcg-salmeterol 50 1 inh inhalation BID #180 ea 12/31/21 01/14/23 Rx mcg/dose blistr powdr for inhalation (Advair Diskus) nitroglycerin 0.4 mg sublingual 0.4 mg sublingual .PRN/UD #30 tabs 12/31/21 01/14/23 Rx tablet nystatin 100,000 unit/gram topical 1 applic topical TID #60 grams 12/31/21 01/14/23 Rx powder blood-glucose meter #1 ea 01/03/22 08/11/22 Rx albuterol sulfate 2.5 mg/3 mL 2.5 mg (3 mL) inhalation Q4H PRN 03/29/22 01/14/23 Rx (0.083 %) solution for nebulization shortness of breath or wheezing #180 mL benzonatate 200 mg capsule 200 mg PO TID PRN cough #60 caps 04/08/22 01/14/23 Rx guaifenesin 100 mg/5 mL oral liquid 200 mg PO Q4H PRN CHEST CONGESTION 06/17/22 01/14/23 History cariprazine 3 mg capsule (Vraylar) 3 mg PO HS #30 caps 08/04/22 01/14/23 Rx acetazolamide 250 mg tablet 1,000 mg PO BID 30 days #240 tabs 12/23/22 01/14/23 Rx atorvastatin 40 mg tablet 40 mg PO QPM #90 tabs 12/23/22 01/14/23 Rx famotidine 10 mg tablet (Acid 10 mg PO BID #180 tabs 12/23/22 01/14/23 Rx [employer]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 (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)) gabapentin 100 mg capsule 100 mg PO TID #270 caps 12/23/22 01/14/23 Rx hydroxyzine pamoate 25 mg capsule 25 mg PO BID #180 caps 12/23/22 01/14/23 Rx levothyroxine 75 mcg tablet 75 mcg PO DAILYBB #90 tabs 12/23/22 01/14/23 Rx lithium carbonate 300 mg 600 mg PO HS 90 days #180 tabs 12/23/22 01/14/23 Rx tablet,extended release metoprolol succinate 25 mg 25 mg PO DAILY #90 tabs 12/23/22 01/14/23 Rx tablet,extended release 24 hr omeprazole 20 mg capsule,delayed 20 mg PO QAM #90 caps 12/23/22 01/14/23 Rx release amlodipine 5 mg tablet 5 mg PO HS #90 tabs 01/11/23 01/14/23 Rx Past Med/Surg History Medical History (Updated 01/14/23 @ 04:50 by Byron Mendez MD) Acute on chronic respiratory failure with hypoxia and hypercapnia COVID-19 GERD (gastroesophageal reflux disease) Influenza Pseudotumor cerebri TIA (transient ischemic attack) Surgical History History of History of cholecystectomy History of colonoscopy 2018 adenomatous polyps removed History of coronary artery stent placement History of esophagogastroduodenoscopy (EGD) 2018 normal History of lithotripsy History of tubal ligation Family History Father Myocardial infarction Mother Diabetes COPD (chronic obstructive pulmonary disease) Sister Ovarian cancer Denies family history of Prostate cancer Breast cancer Colorectal cancer Social History Smoking Status: Current every day smoker Tobacco Type: Cigarettes Age Started Using Tobacco: 9; packs per day: 0.25; Cigarettes Per Day: 3; Second Hand Exposure: No; Do You Dip or Chew Tobacco: No; Hx Alcohol Use: No Hx Substance Use: No Preferred Language: Divehi Communication Ability: Effective Whipped Topping Mixer Required: No Beliefs That Will Affect Care: None marital status: Single Current Living Situation: Family current occupational status: disabled How many Children do You have: 2 Feels Safe at Home: Yes Childhood Exposure to Second-Hand Smoke: Yes Diet: regular caffeine: Yes Dental Care, Regularly: No Physical Activity Frequency: Daily Seatbelt Use: sometimes Sunscreen Use: Yes (sometimes) Assistive Devices: Cane, CPAP, Nebulizer, Oxygen - at Night and Wheelchair Review of Systems Review of Systems: Mild distress and fatigue no headache, no visual changes no speech or swallowing issues Pleuritic chest pain unrelieved no sensation of pressure or squeezing no shortness of breath, patient is expiratory wheezes no abdominal pain, nausea or vomiting, diarrhea or constipation no dysuria, hematuria or frequency no focal joint pain or swelling no back pain, CVA tenderness or radicular pain no bruising, bleeding or rashes no focal signs of weakness or numbness or altered sensation no complaints of anxiety or depression.. Physical Exam Physical Exam: The patient appeared well nourished and normally developed. Her BMI is 50 Vital signs as documented. Slightly hypertensive Head exam is normocephalic atraumatic Neck is without JVD, thyromegaly, or carotid bruits. Lungs are expiratory wheezes and prolonged expiratory phase of respiration Cardiac exam, Rhythm is regular.. No murmurs, rubs or gallops. No reproducible chest wall pain to exam Abdominal exam reveals normal bowel sounds, soft non tender, no masses Extremities are nonedematous and both pedal pulses are present Neurologic exam is alert and oriented, no focal loss of strength or sensation Skin is without bruises or rashes Psychologically is without concerns for anxiety or depression.. Results & Data Results & Data Vital Signs (Past 12 Hours) Vital Signs Temp Pulse Pulse Resp BP BP Pulse Ox 01/14/23 07:00 71 18 144/71 H 98 01/14/23 06:44 83 16 93 01/14/23 06:40 88 15 89 L 01/14/23 06:39 90 26 H 88 L 01/14/23 06:36 88 18 149/68 H 91 01/14/23 06:00 72 16 128/68 96 01/14/23 05:56 01/14/23 05:30 73 17 137/71 97 01/14/23 05:00 78 19 144/74 H 97 01/14/23 04:30 89 16 161/79 H 93 01/14/23 04:19 90 01/14/23 04:16 96 H 15 94 01/14/23 04:20 94 01/14/23 03:56 01/14/23 04:06 01/14/23 04:06 97.7 F 95 H 20 136/83 83 L 01/14/23 03:56 98 F 96 H 24 136/83 83 L O2 Del Method O2 Flow Rate 01/14/23 07:00 Nasal Cannula 6 01/14/23 06:44 Nasal Cannula 6 01/14/23 06:40 Nasal Cannula 4 01/14/23 06:39 Nasal Cannula 4 01/14/23 06:36 Nasal Cannula 4 01/14/23 06:00 Nasal Cannula 4 01/14/23 05:56 Nasal Cannula 4 01/14/23 05:30 Nasal Cannula 6 01/14/23 05:00 Nasal Cannula 6 01/14/23 04:30 Nasal Cannula 6 01/14/23 04:19 01/14/23 04:16 Nasal Cannula 6 01/14/23 04:20 Nasal Cannula 6 01/14/23 03:56 Room Air 83 01/14/23 04:06 Nasal Cannula 01/14/23 04:06 Room Air 01/14/23 03:56 Room Air Laboratory Results Reviewed CBC reviewed chemistry reviewed troponin Diagnostic Findings Reviewed chest x-ray and CT angiography of chest ECG Additional Comments: NSR no acute changes Code Status & VTE Plan VTE Prophylaxis Plan VTE Prophylaxis will be ordered: Yes PG Care Time/CCT Total # of Minutes Spent Total Time Spent with Patient: Total time spent is greater than 50% in coordination of care (as documented) at patient's floor/unit and/or counseling patient: Coding Level of Care Code 08518 INT INP/OBS CARE 2MIN Diagnoses Chest pain R07.9 COPD (chronic obstructive pulmonary disease) J44.9 T2DM (type 2 diabetes mellitus) E11.9 Bipolar disorder F31.4 Active/Remission status: currently active Current bipolar episode type: depressed Current episode severity: severe Psychotic features: without psychotic features (4) Bipolar disorder Active/Remission status: currently active Current bipolar episode type: depressed Current episode severity: severe Psychotic features: without psychotic features Qualified Code(s): F31.4 - Bipolar disorder, current episode depressed, severe, without psychotic features
--- NOTE | 2023-01-14 07:29 | CT Scan Report ---
CT angio chest PE protocol CT DOSE: 834.28 mGy.cm HISTORY: 57 years-old Female with chest pain, hypoxia. Acute chest pain with hypoxia TECHNIQUE: Multiple CTA images of the chest were obtained after the intravenous administration of 118 ml Optiray. Coronal and sagittal MIPS were obtained from the axial data set and were submitted for review. All measurements were obtained according to NASCET criteria. A dose lowering technique was u tilized adhering to the principles of ALARA. COMPARISON: 03/21/2022 FINDINGS: CTA: Heart is mildly enlarged. No pericardial effusion. Moderate coronary artery calcifications. No thorac ic aortic aneurysm or dissection. No pulmonary emboli identified. CT CHEST: Unremarkable thyroid. Nonspecific borderline enlarged mediastinal and hilar lymph nodes measuring up to 10 mm, similar to prior. No pneumothorax, pleural effusion or overt pulmonary edema. Mild dependen t subsegmental bibasilar consolidation with bronchial wall thickening. No suspicious pulmonary nodule s or masses. Central airways are patent. No acute process in the imaged upper abdomen. Unremarkable s oft tissues. No acute fracture. IMPRESSION: 1. No pulmonary emboli identified. 2. Mild dependent bibasilar opacities suggestive of atelectasis. 3. Mild mediastinal and hilar lymphadenopathy, likely benign. ACT 112: Negative or not required by law. The above report was generated using voice recognition software. It may contain grammatical, syntax o r spelling errors. Electronically signed by: Marcio Hurt M.D. 01/14/2023 7:27 AM
--- NOTE | 2023-01-14 07:52 | XRay Report ---
XR chest 1V portable HISTORY: 57 years-old Female Chest pain, nonspecific COMPARISON: CTA chest of same day TECHNIQUE: AP view of the chest FINDINGS: Cardiac mediastinal and hilar silhouettes are within normal limits. No pneumothorax, pleural effusion , airspace consolidation or overt pulmonary edema. Degenerative changes of the shoulders and spine. IMPRESSION: No acute process. ACT 112: Negative or not required by law. The above report was generated using voice recognition software. It may contain grammatical, syntax o r spelling errors. Electronically signed by: Marcio Hurt M.D. 01/14/2023 7:51 AM
[2023-01-14] MEDS ORDERED: ALBUT/IPRATROP 3MG/0.5MG NEB 3 ML VIAL NEB PRN (09:03)
[2023-01-14] MEDS ORDERED: ALBUT/IPRATROP 3MG/0.5MG NEB 3 ML VIAL NEB STA (09:03)
[2023-01-14] MEDS ORDERED: POLYETHYLENE (MIRALAX) 17 GM PACK PO PRN (09:03)
[2023-01-14] MEDS ORDERED: ACETAMINOPHEN 325 MG TAB PO PRN (09:03)
[2023-01-14] MEDS ORDERED: ALBUTEROL HFA 8 GM INHALER INH PRN (09:03)
[2023-01-14] MEDS ORDERED: ALUMINUM/MAGNESIUM SUSP 30 ML UDC PO STA (09:03)
[2023-01-14] MEDS ORDERED: ONDANSETRON INJ 2 MG/ML 2 ML VIAL IV PRN (09:03)
[2023-01-14 09:40] LABS: Appearance Urine Clear (Clear); Bilirubin Urine Negative (Negative); Blood Urine Negative (Negative); Color Urine Yellow; Glucose Urine UA Negative (Negative); Ketones Urine Negative (Negative); Leukocyte Esterase Urine Negative (Negative); Nitrite Urine Negative (Negative); Protein Urine Negative (Negative); Specific Gravity Urine 1.045 (1.000-1.030); Urobilinogen Urine Negative (Negative)
[2023-01-14] MEDS: FLUTICASONE/VILANTEROL 100/25MCG 14 PUFFS/INHALER INH SCH (10:30)
[2023-01-14] MEDS: acetaZOLAMIDE 250 MG TAB PO SCH ×2 (10:31→21:57)
[2023-01-14] MEDS: ASPIRIN 81 MG CHEW PO SCH (10:31)
[2023-01-14] MEDS: FAMOTIDINE 10 MG TABLET PO SCH ×2 (10:31→21:56)
[2023-01-14] MEDS: METOPROLOL SUCC 25MG EXT REL TAB PO SCH (10:31)
[2023-01-14] MEDS: hydrOXYzine HCl 25 MG TAB PO SCH ×2 (10:31→21:55)
[2023-01-14] MEDS: GABAPENTIN 100 MG CAP PO SCH ×3 (10:31→21:56)
[2023-01-14] MEDS: PANTOprazole 40 MG TAB PO SCH (10:31)
--- NOTE | 2023-01-14 15:55 | XCELERA ---
[id number]
[2023-01-14] MEDS ORDERED: ATORVASTATIN 40 MG TAB PO SCH (21:00)
[2023-01-14] MEDS ORDERED: LITHIUM CARBONATE SLOW REL 300 MG TAB PO SCH (21:00)
[2023-01-14] MEDS ORDERED: amLODIPine BESYLATE 5 MG TAB PO SCH (21:00)
[2023-01-15] MEDS ORDERED: LEVOTHYROXINE SODIUM 75 MCG TABLET PO SCH (06:30)
[2023-01-15 07:23] LABS: Hematocrit (blood only) 47.6 % (37.0-47.0); Hemoglobin 13.9 g/dl (12.0-16.0); Mean Corpuscular Hemoglobin 30.1 pg (25.0-34.0); Mean Corpuscular Hgb Conc 29.2 g/dL (32.0-36.0); Mean Platelet Volume 9.7 fL (9.4-12.4); Platelet Count 269 K/uL (130-400); RDW Coefficient of Variation 14.1 % (11.5-14.5); RDW Standard Deviation 53.5 fL (36.4-46.3); Red Blood Count 4.62 M/uL (4.20-5.40); White Blood Count 11.68 K/ul (4.8-10.8)
[2023-01-15 07:29] LABS: BUN Creatinine Ratio 16.4 (10-20); Calcium 9.2 mg/dl (8.6-10.3); Creatinine Clr Calc Pharmacy 117.1 ml/min; Est GFR (African American) 113.1 ml/min; Est GFR (Non-African American) 97.6 ml/min; Magnesium 2.1 mg/dl (1.7-2.4); Potassium 4.1 mmol/L (3.5-5.1)
[2023-01-15] MEDS: FLUTICASONE/VILANTEROL 100/25MCG 14 PUFFS/INHALER INH SCH (08:53)
[2023-01-15] MEDS: GABAPENTIN 100 MG CAP PO SCH ×2 (08:53→13:24)
[2023-01-15] MEDS: acetaZOLAMIDE 250 MG TAB PO SCH (08:53)
[2023-01-15] MEDS: hydrOXYzine HCl 25 MG TAB PO SCH (08:54)
[2023-01-15] MEDS: METOPROLOL SUCC 25MG EXT REL TAB PO SCH (08:54)
[2023-01-15] MEDS: PANTOprazole 40 MG TAB PO SCH (08:54)
[2023-01-15] MEDS: ASPIRIN 81 MG CHEW PO SCH (08:54)
[2023-01-15] MEDS: FAMOTIDINE 10 MG TABLET PO SCH (08:54)
[2023-01-15] MEDS ORDERED: ALPRAZolam 0.25 MG TABLET PO ONE (12:09)
--- NOTE | 2023-01-15 17:14 | Discharge Summary ---
Date of Service January 15, 2023 Admission HPI Per Admitting Provider 57 F presents with chest pain, not relieved after 3 SL nitro, normal Hstroponin and no acute changes on ECG. SHe has a history of Chronic respiratory failure on chornic oxygen, BLAINE not compliant with CPAP. She did have FLU and Covid June 20. she has history of CAD with Stent, DM, Bipolar. pain is not reproducible CP is unrelieved, she has exp wheezing, did have funnel cake before bed and took her medicines late and went back to bed. Did restart smoking about 2 months ago, currently with pain but does not appear to be in distress Principal Diagnosis atypical chest pain abnormal twitching Discharge Exam patient does have intermittent twitching of her head this seems to be able to be extinguished when distracted remainder of her neurological exam is intact her card exam is distant but regular lungs are diminished but clear extremities are with trace to 1+ edema Discharge Data Allergies Allergy/AdvReac Type Severity Reaction Status Date / Time ethinyl estradiol Allergy Mild RUNNY Verified 01/14/23 08:15 NOSE, ACHES, CONGESTION levonorgestrel Allergy Mild RUNNY Verified 01/14/23 08:15 NOSE, ACHES, CONGESTION strawberry Allergy Mild RASH Verified 01/14/23 08:15 bupropion Allergy Unknown memory loss Verified 01/14/23 08:15 latex Allergy Unknown rash Verified 01/14/23 08:15 blue dye Allergy Verified 01/14/23 08:15 [place] Blue FCF Allergy Mild RUNNY Uncoded 01/14/23 08:15 NOSE, ACHES, CONGESTION Consultations 01/14/23 06:17 ED Decision to Admit Stat Ordered Studies 01/14/23 06:07 CT for pulmonary embolism PE [CT angio chest PE protocol] Stat Hospital Course (1) Chest pain: Pt presented with CP, no relief with nitro, reportedly was off oxygen and Hypoxic, no changes on ECG, CXR and normal labs. negative trend of troponin, echo reveals normal left systolic function mild concentric LVH left ventricular wall motion normal grade 1 diastolic dysfunction reinforce compliance, with lifestyle modification to treat her risk factors such as obesity diabetes and compliance with CPAP more probable is that her late meal of a final cake which is likely a high fat load exacerbated some gastric reflux and possible esophageal spasm aspirin, atorvastatin, metoprolol, amlodipine (2) COPD (chronic obstructive pulmonary disease): continue LABA/Steroid Patient is expiratory wheezes in the emergency department patient recently began smoking. Patient given DuoNeb urgently and then as needed (3) T2DM (type 2 diabetes mellitus): check aic, not typically on meds (4) Bipolar disorder: continue lithium and cariprazine patient complained of some twitching. Take cariprazine does have some side effects that may be associate with this however the patient is on many medications that affect her RECORD CHANGER and it was recommended that she talks with her primary care or prescriber of these medications do a medication reconciliation see if any can be deleted or reduced Total Time Total Time Spent Total Time Spent (In Minutes): it required greater than 30 minutes to prepare this patient for discharge Discharge Plan Discharge Items Patient Disposition: Home - Self-Care Reason For Visit: CHEST PAIN Discharge Diagnosis: non cardiac chest pain Activity: Resume your previous activity Non-emergency contact: Primary Care Provider Call non-emergency contact if: your symptoms worsen Follow-up/Referrals: Alberto Molina DO [Primary Care Provider] - 01/23/23 12:00 pm Diet: Carb Consistent or DM2 Addtl Attending Provider Instructions: It is GOOD NEWS that you have all normal cardiac testing It is unfortunate that you are experiencing some twitching, this maybe associated with some of your medications such as the cariprazine, but you are also on other medications that affect your nerves and brain such as [place], gabapentin, hydroxyzine, guaifenesin, and benzonatate. Your primary care may review these and can consider a pharmacy consult to help reduce drug to drug interactions to try to limit or reduce any side affects Pending Studies at Discharge: No Stand-Alone Forms: My [facility], Smoking Cessation Medications and DC Order Prescriptions: Continued (DME) blood-glucose meter Kit See Rx Instructions .Route Qty: 1 0RF Rx Instructions: AC and HS and prn Vraylar 3 mg capsule 3 mg PO HS Qty: 30 5RF atorvastatin 40 mg tablet 40 mg PO QPM Qty: 90 3RF famotidine [Acid Clinic Physician (famotidine)] 10 mg tablet 10 mg PO BID Qty: 180 3RF gabapentin 100 mg capsule 100 mg PO TID Qty: 270 3RF hydroxyzine pamoate 25 mg capsule 25 mg PO BID Qty: 180 3RF omeprazole 20 mg capsule,delayed release(DR/EC) 20 mg PO QAM Qty: 90 3RF metoprolol succinate 25 mg tablet extended release 24 hr 25 mg PO DAILY Qty: 90 3RF levothyroxine 75 mcg tablet 75 mcg PO DAILYBB Qty: 90 3RF lithium carbonate 300 mg tablet extended release 600 mg PO HS 90 Days Qty: 180 3RF acetazolamide 250 mg tablet 1,000 mg PO BID 30 Days Qty: 240 5RF amlodipine 5 mg tablet 5 mg PO HS Qty: 90 3RF albuterol sulfate 90 mcg/actuation HFA aerosol inhaler 2 puff INHALATION QID PRN (Reason: SHORTNESS OF BREATH/WHEEZING) Qty: 8.5 5RF clobetasol 0.05 % cream 1 applic TOPICAL BID Qty: 45 3RF Rx Instructions: APPLY TO RIGHT HAND TWICE DAILY fluticasone propion-salmeterol [Advair Diskus] 250-50 mcg/dose blister with device 1 inh INHALATION BID Qty: 180 3RF nitroglycerin 0.4 mg tablet, sublingual 0.4 mg sublingual .PRN/UD Qty: 30 5RF Rx Instructions: NEEDED FOR CHEST PAIN : ONE TABLET UNDER THE TONGUE EVERY 5 MINUTES UP TO THREE DOSES. nystatin 100,000 unit/gram powder 1 applic TOPICAL TID Qty: 60 5RF Rx Instructions: APPLY TO SKIN FOLDS albuterol sulfate 2.5 mg /3 mL (0.083 %) solution for nebulization 2.5 mg inhalation Q4H PRN (Reason: shortness of breath or wheezing) Qty: 180 11RF aspirin 81 mg Tablet,Chewable 81 mg PO QAM Discontinued benzonatate 200 mg capsule 200 mg PO TID PRN (Reason: cough) Qty: 60 5RF guaifenesin 100 mg/5 mL liquid 200 mg PO Q4H PRN (Reason: CHEST CONGESTION) Discharge Orders: Discharge Order (Routine); Ordered 01/15/23 Ordered By: Justus Miller Admission Data Admit Date/Time: 01/14/23 07:16 Attending Provider: Jusuts Miller Admit Provider: Justus Miller Primary Care Provider: Alberto Molina Other Providers: Kayden Aranda Other Interventions: Discharge Summary Assessment (RN) Last Done: 01/15/23 16:06 Coding Level of Care Code 86626 INP/OBS DISCH >30 MIN Diagnoses Chest pain R07.9 COPD (chronic obstructive pulmonary disease) J44.9 T2DM (type 2 diabetes mellitus) E11.9 Bipolar disorder F31.4 Active/Remission status: currently active Current bipolar episode type: depressed Current episode severity: severe Psychotic features: without psychotic features
--- NOTE | 2023-01-16 09:02 | Electrocardiogram Report ---
Test Reason : Blood Pressure : / mmHG Vent. Rate : 091 BPM Atrial Rate : 091 BPM P-R Int : 178 ms QRS Dur : 086 ms QT Int : 362 ms P-R-T Axes : 079 -54 066 degrees QTc Int : 445 ms Normal sinus rhythm Left axis deviation Moderate voltage criteria for LVH, may be normal variant ( R in aVL , Rohan product ) Abnormal ECG When compared with ECG of 21-MAR-2022 19:05, Vent. rate has increased BY 31 BPM Inverted T waves have replaced nonspecific T wave abnormality in Lateral leads Confirmed by Joe Arnold ([id number]) on 01/16/2023 9:02:29 AM Referred By: REFERRED SELF Confirmed By:Joe Arnold
== END 2023-01-15 16:22 | disposition home or self-care (01) ==
LOC: 2N 03:59 → ED 03:59 → 2N 08:45

== ENCOUNTER 2024-02-01 11:45 | Observation (INO) ==
--- NOTE | 2024-02-01 12:26 | Emergency Department Note ---
Impression & Plan Acute exacerbation of chronic obstructive pulmonary disease ED Provider Note NAME: LUX VERAS AGE: 58 SEX: F : 1965 ARRIVES VIA: Walk-In INFORMANT: Patient, ED PROVIDER(S): Merissa Robison MD CHIEF COMPLAINT: Shortness of breath HPI: This is a 58-year-old female presenting for shortness of breath. Patient notes that over the past few days she has had increasing shortness of breath. She notes that she has exertional dyspnea. She has have COPD and continues to smoke. She notes a new cough. She reports no fevers, chest pain, pleurisy. She notes occasional wheezing. She notes no sick contacts. No significant leg swelling. ROS: See above HPI for pertinent positives & negatives. A total of 10 systems reviewed and were otherwise negative. PAST MEDICAL HISTORY: See Below PAST SURGICAL HISTORY: See Below FAMILY HISTORY: See Below SOCIAL HISTORY: See Below HOME MEDICATIONS: See Below ALLERGIES: See Below VITALS: See Below PHYSICAL EXAMINATION: General: resting comfortably in no acute distress Head: Normocephalic and atraumatic Eyes: Normal inspection, extraocular muscles intact Ear, nose, throat: Normal external exam Neck: Normal range of motion Respiratory: Faint wheezes upper lobes with rhonchi at the bases Cardiovascular: Regular rate/rhythm, no murmur GI: soft, nontender, no guarding or rebound Extremities: nontender, moves all extremities Neuro: The patient awake and alert, appropriately conversive, no focal deficits, symmetric faces Skin: Warm, dry, and intact MEDICAL DECISION MAKING: This is a 58-year-old female presenting for shortness of breath. Patient is have COPD, consider COPD exacerbation, pneumonia, ACS, PE, upper respiratory infection. -Vital signs are reviewed showing hypoxia to 88%. Patient is now on 2 L nasal cannula. Patient does note she wears oxygen at night but has been wearing this more often during the day as well. -Chest Xray independently interpreted by me showing no pneumothorax, focal opacity, or pleural effusions. -Blood work reveals mild leukocytosis of 13.30, otherwise electrodes within normal limits. Urinalysis revealed no signs of UTI -Patient is have some slight wheezing on exam, this likely could represent COPD observation. Will give albuterol here. Will admit for further COPD management. Will give IV methylprednisolone 125. -Discussed care with Dr. Calzada, hospitalist for admission Differential diagnosis: ACS, PE, COPD, pneumonia, upper respiratory infection ER treatment provided: See below Independent History obtained from: Daughter Diagnostics interpreted by me: ECG: ECG independently interpreted by me with sinus bradycardia, rate of 59, left axis deviation, normal MI, normal QRS, normal QTc, no ST segment elevations consistent with STEMI criteria Cardiac Monitoring: An order was placed for continuous cardiac monitoring. The monitor shows a rate of 66 with sinus rhythm. Laboratory studies: As stated above and show below. Imaging studies: See below. Past Med/Surg History Problem List (Updated 02/01/24 @ 19:13 by Merissa Robison MD) Acute exacerbation of chronic obstructive pulmonary disease (Acute) Acute conjunctivitis, right eye Ambulatory dysfunction Hypertrophic toenail Fall Right knee pain Chest pain (Acute) Hypoxia (Acute) Psoriasis Pseudotumor cerebri BLAINE on CPAP Vitamin D deficiency Bronchitis (Acute) Tobacco abuse (Acute) Hypothyroidism CAD (coronary artery disease) (Acute) HLD (hyperlipidemia) HTN (hypertension) Chronic respiratory failure with hypercapnia COPD (chronic obstructive pulmonary disease) (Acute) Bipolar disorder (Acute) Medical History Acute respiratory acidosis T2DM (type 2 diabetes mellitus) Acute exacerbation of chronic obstructive pulmonary disease BLAINE (obstructive sleep apnea) Influenza Acute on chronic respiratory failure with hypoxia and hypercapnia COVID-19 GERD (gastroesophageal reflux disease) TIA (transient ischemic attack) Surgical History History of lithotripsy History of cholecystectomy History of tubal ligation History of esophagogastroduodenoscopy (EGD) 2018 normal History of colonoscopy 2018 adenomatous polyps removed History of History of coronary artery stent placement Family History Father , 48 Myocardial infarction Mother , 58 Diabetes COPD (chronic obstructive pulmonary disease) Sister Ovarian cancer Denies family history of Prostate cancer Breast cancer Colorectal cancer Social History Smoking Status: Current every day smoker Tobacco Type: Cigarettes Age Started Using Tobacco: 9; packs per day: 0.25; Cigarettes Per Day: 7; Second Hand Exposure: No; Do You Dip or Chew Tobacco: No; Tobacco Cessation Education Requested by Patient: No Hx Alcohol Use: No Hx Substance Use: No Preferred Language: Surinamese Communication Ability: Effective Visual Impairment: Limited Hearing Ability: Normal Miter Sawyer Required: No Beliefs That Will Affect Care: None marital status: Single Current Living Situation: Family current occupational status: disabled How many Children do You have: 2 Feels Safe at Home: Yes Safety Concerns: Feels Safe At This Time Childhood Exposure to Second-Hand Smoke: Yes Diet: regular caffeine: Yes during the past year weight has: remained stable Dental Care, Regularly: No Physical Activity Frequency: Daily Seatbelt Use: sometimes Sunscreen Use: Yes (sometimes) Do you think of yourself as: straight/heterosexual Sexual Activity: has been sexually active, but not for at least 12 months Gender Identity: Female Assistive Devices: Denture - Upper, Glasses, Hospital Bed and Oxygen - Continuous Allergies Allergies Allergy/AdvReac Type Severity Reaction Status Date / Time ethinyl estradiol Allergy Mild RUNNY Verified 02/01/24 18:01 NOSE, ACHES, CONGESTION levonorgestrel Allergy Mild RUNNY Verified 02/01/24 18:01 NOSE, ACHES, CONGESTION strawberry Allergy Mild RASH Verified 01/09/24 11:18 bupropion Allergy Unknown memory loss Verified 01/09/24 11:18 latex Allergy Unknown rash Verified 01/09/24 11:18 blue dye Allergy Verified 01/09/24 11:18 [place] [facility] Allergy Mild RUNNY Uncoded 01/09/24 11:18 NOSE, ACHES, CONGESTION Home Meds Home Medications Medication Instructions Recorded Confirmed aspirin 81 mg chewable tablet 81 mg PO QAM 09/20/21 02/01/24 clobetasol 0.05 % topical cream 1 applic topical BID 07/21/23 02/01/24 Previous Rx's Medication Instructions Recorded nystatin 100,000 unit/gram topical 1 applic topical TID #60 grams 12/31/21 powder blood-glucose meter #1 ea 01/03/22 hydroxyzine pamoate 25 mg capsule 25 mg PO BID #180 caps 12/23/22 lithium carbonate 300 mg 600 mg (2 x 300 mg) PO HS 90 days 12/23/22 tablet,extended release #180 tabs nitroglycerin 0.4 mg sublingual 0.4 mg sublingual .PRN/UD #30 tabs 01/23/23 tablet meloxicam 15 mg tablet 15 mg PO DAILY #30 tabs 03/07/23 humidifiers #1 ea 03/20/23 albuterol sulfate 2.5 mg/3 mL 2.5 mg (3 mL) inhalation Q4H PRN 06/01/23 (0.083 %) solution for nebulization shortness of breath or wheezing #180 mL albuterol sulfate 90 mcg/actuation 2 puff inhalation QID PRN 06/22/23 aerosol inhaler SHORTNESS OF BREATH/WHEEZING #8.5 grams levothyroxine 88 mcg tablet 88 mcg PO DAILY #90 tabs 06/22/23 fluticasone fur. 100 mcg-umeclid 1 inh inhalation DAILY #28 ea 06/26/23 62.5 mcg-vilant 25 mcg inhalat.powder (Trelegy Ellipta) betamethasone valerate 0.1 % 1 applic topical DAILY #45 grams 08/03/23 topical ointment ketoconazole 2 % shampoo 1 applic topical .COMPLEX #120 mL 08/16/23 cariprazine 3 mg capsule (Vraylar) 3 mg PO HS #30 caps 08/24/23 acetazolamide 250 mg tablet 1,000 mg (4 x 250 mg) PO BID 30 12/22/23 days #240 tabs amlodipine 5 mg tablet 5 mg PO HS #90 tabs 12/22/23 atorvastatin 40 mg tablet 40 mg PO QPM #90 tabs 12/22/23 famotidine 10 mg tablet (Acid 10 mg PO BID #180 tabs 12/22/23 Conservation Science Officer (famotidine)) gabapentin 100 mg capsule 100 mg PO TID #270 caps 12/22/23 metoprolol succinate 25 mg 25 mg PO DAILY #90 tabs 12/22/23 tablet,extended release 24 hr omeprazole 20 mg capsule,delayed 20 mg PO QAM #90 caps 12/22/23 release Hospital Bed Home[facility] (Hospital #1 ea 01/11/24 Bed) Results & Data (ED) Vital Signs Vital Signs - 24 hr 02/01/24 11:47 02/01/24 12:11 02/01/24 12:28 Temperature 36.3 C L Temperature Source Skin Pulse Rate 66 Pulse Rate [Right Finger] Pulse Rhythm Regular Pulse Strength Normal Respiratory Rate 22 Respiratory Effort / Characteristics Non-Labored Non-Labored Spontaneous Respiratory Depth Normal Respiratory Pattern Regular Blood Pressure 132/68 Blood Pressure [Left Arm] Blood Pressure Mean 89 Blood Pressure Mean [Left Arm] Blood Pressure Position [Left Arm] Pulse Oximetry 88 L 96 Oxygen Delivery Method Room Air Room Air Nasal Cannula Oxygen Flow Rate 1 Sepsis Recent Fever Within 48 Hours No Sepsis New/Unexplained Change in Mental Status No Sepsis Action Taken by Nursing No Action Required Oxygen Flow Rate - Titration Pulse Oximetry Post Tiitration 02/01/24 12:32 02/01/24 12:33 02/01/24 13:10 Temperature Temperature Source Pulse Rate 60 59 L Pulse Rate [Right Finger] 60 Pulse Rhythm Pulse Strength Respiratory Rate 22 22 Respiratory Effort / Characteristics Non-Labored Spontaneous Respiratory Depth Respiratory Pattern Blood Pressure Blood Pressure [Left Arm] 168/89 H Blood Pressure Mean Blood Pressure Mean [Left Arm] 115 Blood Pressure Position [Left Arm] Lying Pulse Oximetry 95 95 Oxygen Delivery Method Nasal Cannula Nasal Cannula Oxygen Flow Rate 1 1 Sepsis Recent Fever Within 48 Hours Sepsis New/Unexplained Change in Mental Status Sepsis Action Taken by Nursing Oxygen Flow Rate - Titration Pulse Oximetry Post Tiitration 02/01/24 14:09 02/01/24 14:09 Temperature Temperature Source Pulse Rate Pulse Rate [Right Finger] 67 Pulse Rhythm Pulse Strength Respiratory Rate 18 Respiratory Effort / Characteristics Non-Labored Spontaneous Respiratory Depth Respiratory Pattern Blood Pressure Blood Pressure [Left Arm] 120/71 Blood Pressure Mean Blood Pressure Mean [Left Arm] 87 Blood Pressure Position [Left Arm] Lying Pulse Oximetry 87 L 96 Oxygen Delivery Method Nasal Cannula Nasal Cannula Oxygen Flow Rate 0 3 Sepsis Recent Fever Within 48 Hours Sepsis New/Unexplained Change in Mental Status Sepsis Action Taken by Nursing Oxygen Flow Rate - Titration 3 Pulse Oximetry Post Tiitration 97 Laboratory Data 02/01/24 12:24 02/01/24 12:24 Lab Results 02/01/24 Range/Units 12:24 WBC 13.30 H (4.8-10.8) K/ul RBC 4.95 (4.20-5.40) M/uL Hgb 14.5 (12.0-16.0) g/dl Hct 49.5 H (37.0-47.0) % MCV 100.0 (80.0-100.0) fL MCH 29.3 (25.0-34.0) pg MCHC 29.3 L (32.0-36.0) g/dL RDW Std Deviation 51.6 H (36.4-46.3) fL RDW Coeff of Bruno 14.3 (11.5-14.5) % Plt Count 270 (130-400) K/uL MPV 10.0 (9.4-12.4) fL Immature Gran % (Auto) 0.4 % Neut % (Auto) 79.7 % Lymph % (Auto) 14.7 % [place] % (Auto) 4.1 % Eos % (Auto) 1.1 % Neut # (Auto) 10.60 H (1.40-6.50) K/uL Lymph # (Auto) 1.95 (1.20-3.40) K/uL [place] # (Auto) 0.55 (0.11-0.59) K/uL Eos # (Auto) 0.15 (0.00-0.50) K/uL Immature Gran # (Auto) 0.05 (0.01-0.20) K/uL Sodium 140 (136-145) mmol/L Potassium 3.8 (3.5-5.1) mmol/L Chloride 103 (98-107) mmol/L Carbon Dioxide 33 H (21-32) mmol/L Anion Gap 4 (3-11) BUN 10 (6-23) mg/dl Creatinine 0.75 (0.6-1.2) mg/dl Est Cr Clr Drug Dosing Not Reportable Est GFR ( Amer) 101.8 ml/min Est GFR (Non-Af Amer) 87.9 ml/min BUN/Creatinine Ratio 13.3 (10-20) Glucose 140 H (70-99(Fasting)) mg/dl Calcium 9.5 (8.6-10.3) mg/dl Total Bilirubin 0.4 (0.2-1.0) mg/dl AST 8 L (13-39) U/L ALT 7 (7-52) U/L Alkaline Phosphatase 127 H (34-104) U/L Troponin I High Sens 3.2 (0-14) pg/ml B-Natriuretic Peptide 30 (0-100) pg/ml Total Protein 7.4 (6.0-8.3) gm/dl Albumin 4.1 (3.4-5.0) gm/dl Globulin 3.3 (2.5-4.0) gm/dl Albumin/Globulin Ratio 1.2 (0.9-2) Procalcitonin < 0.02 (0-0.5) ng/ml Adenovirus (PCR) Not Detected (NotDetected) B. pertussis DNA (PCR) Not Detected (NotDetected) B.parapertussis DNA PCR Not Detected (NotDetected) C. pneumoniae DNA (PCR) Not Detected (NotDetected) Coronavirus OC43 (PCR) Not Detected (NotDetected) Coronavirus HKU1 (PCR) Not Detected (NotDetected) Coronavirus 229E (PCR) Not Detected (NotDetected) SARS-CoV-2 (PCR) Not Detected (NotDetected) Coronavirus NL63 (PCR) Not Detected (NotDetected) Human Metapneumovir PCR Not Detected (NotDetected) Influenza Type A (PCR) Not Detected (NotDetected) Influenza Type B (PCR) Not Detected (NotDetected) M. pneumoniae (PCR) Not Detected (NotDetected) Parainfluenza 1 (PCR) Not Detected (NotDetected) Parainfluenza 2 (PCR) Not Detected (NotDetected) Parainfluenza 3 (PCR) Not Detected (NotDetected) Parainfluenza 4 (PCR) Not Detected (NotDetected) RSV (PCR) Not Detected (NotDetected) Entero/Rhino (PCR) Not Detected (NotDetected) Administered Medications Discontinued Medications Albuterol (Albut/Ipratrop 3mg/0.5mg Neb 3 Ml Vial) 3 ml NEB NOW STA; Protocol Stop: 02/01/24 13:34 Last Admin: 02/01/24 13:41 Dose: 3 ml Documented By: MARISEL Azithromycin (Azithromycin 250 Mg Tab) 500 mg PO NOW ONE Stop: 02/01/24 14:57 Last Admin: 02/01/24 15:02 Dose: 500 mg Documented By: ZENOBIA Methylprednisolone (Methylprednisolone 125 Mg/2 Ml Vial) 125 mg IV NOW STA Stop: 02/01/24 13:34 Last Admin: 02/01/24 13:41 Dose: 125 mg Documented By: MARISEL Imaging Data Radiologist's Impression: Chest X-Ray 02/01/24 11:55 XR chest 1V portable CLINICAL HISTORY: Dyspnea TECHNIQUE: Single frontal radiograph of the chest was obtained. Comparison: Comparison is made to chest radiograph 01/14/2023 FINDINGS: No lines and tubes are seen. The cardiomediastinal silhouette is normal. The lungs are clear. No evidence of pleural effusion or pneumothorax. IMPRESSION: No acute abnormalities and in particular no radiographic evidence of pneumonia. ACT 112: Negative or not required by law. Electronically signed by: Edgar Thompson M.D. 02/01/2024 12:55 PM Discharge Plan Visit Data Chief Complaint: Shortness of Breath/Dyspnea ED Provider: Merissa Robison Discharge Problem: Acute exacerbation of chronic obstructive pulmonary disease Patient Disposition: Admitted As Inpatient Discharge Instructions Interventions: ED Discharge Assessment Last Done: 02/01/24 16:44
[2024-02-01 12:49] LABS: Appearance Urine Clear (Clear); Bilirubin Urine Negative (Negative); Blood Urine Negative (Negative); Color Urine Yellow; Glucose Urine UA Negative (Negative); Ketones Urine Negative (Negative); Leukocyte Esterase Urine Negative (Negative); Nitrite Urine Negative (Negative); Protein Urine Negative (Negative); Specific Gravity Urine 1.007 (1.000-1.030); Urobilinogen Urine Negative (Negative)
--- NOTE | 2024-02-01 12:57 | XRay Report ---
XR chest 1V portable CLINICAL HISTORY: Dyspnea TECHNIQUE: Single frontal radiograph of the chest was obtained. Comparison: Comparison is made to chest radiograph 01/14/2023 FINDINGS: No lines and tubes are seen. The cardiomediastinal silhouette is normal. The lungs are clear. No evid ence of pleural effusion or pneumothorax. IMPRESSION: No acute abnormalities and in particular no radiographic evidence of pneumonia. ACT 112: Negative or not required by law. Electronically signed by: Edgar Thompson M.D. 02/01/2024 12:55 PM
[2024-02-01 13:04] LABS: Albumin Level 4.1 gm/dl (3.4-5.0); Anion Gap 4 (3-11); Bilirubin,Total 0.4 mg/dl (0.2-1.0); Calcium 9.5 mg/dl (8.6-10.3); Carbon Dioxide 33 mmol/L (21-32); Chloride 103 mmol/L (98-107); Potassium 3.8 mmol/L (3.5-5.1); Sodium 140 mmol/L (136-145)
[2024-02-01 13:10] LABS: Alanine Aminotransferase 7 U/L (7-52); Albumin Globulin Ratio 1.2 (0.9-2); Alkaline Phosphatase 127 U/L (34-104); Aspartate Aminotransferase 8 U/L (13-39); BUN Creatinine Ratio 13.3 (10-20); Blood Urea Nitrogen 10 mg/dl (6-23); Est GFR (African American) 101.8 ml/min; Est GFR (Non-African American) 87.9 ml/min; Globulin 3.3 gm/dl (2.5-4.0); Glucose 140 mg/dl (70-99(Fasting)); Total Protein 7.4 gm/dl (6.0-8.3)
[2024-02-01 13:14] LABS: Troponin I High Sensitivity 3.2 pg/ml (0-14)
[2024-02-01 13:33] LABS: Adenovirus PCR Not Detected (NotDetected); Bordetella parapertussis PCR Not Detected (NotDetected); Bordetella pertussis PCR Not Detected (NotDetected); Chlamydia pneumoniae PCR Not Detected (NotDetected); Coronavirus 229E PCR Not Detected (NotDetected); Coronavirus CoV-2 (COVID19)PCR Not Detected (NotDetected); Coronavirus HKU1 PCR Not Detected (NotDetected); Coronavirus NL63 PCR Not Detected (NotDetected); Coronavirus OC43PCR Not Detected (NotDetected); Human Metapneumovirus PCR Not Detected (NotDetected); Influenza A PCR Not Detected (NotDetected); Influenza B PCR Not Detected (NotDetected); Mycoplasma pneumoniae PCR Not Detected (NotDetected); Parainfluenza Virus 1 PCR Not Detected (NotDetected); Parainfluenza Virus 2 PCR Not Detected (NotDetected); Parainfluenza Virus 3 PCR Not Detected (NotDetected); Parainfluenza Virus 4 PCR Not Detected (NotDetected); Respiratory Syncytial VirusPCR Not Detected (NotDetected); Rhinovirus/Enterovirus PCR Not Detected (NotDetected)
[2024-02-01] MEDS: methylPREDNISolone 125 MG/2 ML VIAL IV STA (13:41)
[2024-02-01] MEDS: ALBUT/IPRATROP 3MG/0.5MG NEB 3 ML VIAL NEB STA (13:41)
[2024-02-01 14:02] LABS: Hematocrit (blood only) 49.5 % (37.0-47.0); Hemoglobin 14.5 g/dl (12.0-16.0); Mean Corpuscular Hemoglobin 29.3 pg (25.0-34.0); Mean Corpuscular Hgb Conc 29.3 g/dL (32.0-36.0); Platelet Count 270 K/uL (130-400); RDW Coefficient of Variation 14.3 % (11.5-14.5); RDW Standard Deviation 51.6 fL (36.4-46.3); Red Blood Count 4.95 M/uL (4.20-5.40)
[2024-02-01 14:09] LABS: Eosinophils % (auto) 1.1 %; Immature Granulocytes % (auto) 0.4 %; Lymphocytes % (auto) 14.7 %; Monocytes % (auto) 4.1 %; Neutrophils % (auto) 79.7 %
[2024-02-01 14:10] LABS: Eosinophils # (auto) 0.15 K/uL (0.00-0.50); Immature Granulocytes # (auto) 0.05 K/uL (0.01-0.20); Lymphocytes # (auto) 1.95 K/uL (1.20-3.40); Monocytes # (auto) 0.55 K/uL (0.11-0.59)
--- NOTE | 2024-02-01 14:23 | History & Physical Report ---
Date of Service February 01, 2024 Assessment & Plan (1) Acute exacerbation of chronic obstructive pulmonary disease: Plan: - Worsening shortness of breath, cough, and dizziness for the past 3 days - likely due to increase in cigarette use; previously 7-8/day to now 10-15/day - patient not on daily inhaler at home - Hypoxic on admission, currently stable on 3L nasal cannula - Duoneb and 125 mg IV solu-medrol given in ED - CXR negative - troponin and BNP WNL - EKG on admission showed sinus bradycardia - Viral panel negative - WBC 13.3 on admission - Azithromycin 500 mg p.o. x 3 days, budesonide nebulizer BID, Scheduled DuoNebs, IV solu-medrol 40 mg daily ordered - procal and sputum culture ordered (2) CAD (coronary artery disease): Plan: - history of DC with stent placement in 2018 - continue home aspirin and statin (3) BLAINE on CPAP: Plan: - patient has history of BLAINE with prescribed CPAP for past few years - patient has not consistently used CPAP at home - ordered as needed (4) Hypothyroidism: Plan: - patient has not been taking home levothyroxine due to it not being in her med pack - TSH pending (5) Hypoxia: Plan VTE ppx: SCDs Diet: Heart healthy Code status: FULL CODE Chronic stable diagnoses: HTN - stable, continue home amlodipine and metoprolol Bipolar disorder - continue home Vraylar and lithium Pseudotumor cerebri - continue home acetazolamide Neuropathy - continue home gabapentin DMT2 - recent A1C 5.9%, patient denies history of, on no home medications Admit: Med surg Admission and Anticipated Discharge Date Admission Date: 02/01/24 History of Present Illness Chief Complaint: Shortness of breath Primary Care Provider: Alberto Molina DO Patient is a 58-year-old female with a past medical history of COPD, hypertension, hyperlipidemia, bipolar disorder, coronary artery disease, DC with stent placement in 2018, hypothyroidism, pseudotumor cerebri, and neuropathy. She presents today with worsening shortness of breath, dizziness, and dry cough. She stated that the shortness of breath is all of the time and not situational. She has been using 2 L of oxygen via nasal cannula for 30-minute increments off and on over the past 2 days due to ongoing shortness of breath. The dizziness occurs when both sitting and standing. She denies sputum production. She stated that she has smoked for the past 49 years, she previously only smoked 7 to 8 cigarettes a day and recently increased her tobacco use to 10 to 15 cigarettes a day, due to having visitors who also smoked. She stated that she has not used her Trelegy inhaler since it was prescribed in May because she does not like the way that it tastes. She also has not been using her albuterol inhaler due to the prescription running out. Her appetite has been stable, she has tried to lose weight recently. On examination patient was on 1 L of oxygen via nasal cannula. Patient stated that she is doing better and denies current shortness of breath. She has a history of BLAINE with CPAP use. She reports she does not use her cpap because she doesn't like how it fits. She has and prescribed to use CPAP for a few years now but has not consistently used it. She uses alcohol socially. She denies a past medical history of cancer, clotting disorders, CHF, DM, and edema. She denies lightheadedness, vision changes, rhinorrhea, sore throat, chest pain, active shortness of breath, abdominal pain, nausea, diarrhea, constipation, dysuria, numbness, tingling, edema. She wishes to be full code at this time. Allergies Allergy/AdvReac Type Severity Reaction Status Date / Time ethinyl estradiol Allergy Mild RUNNY Verified 02/01/24 18:01 NOSE, ACHES, CONGESTION levonorgestrel Allergy Mild RUNNY Verified 02/01/24 18:01 NOSE, ACHES, CONGESTION strawberry Allergy Mild RASH Verified 01/09/24 11:18 bupropion Allergy Unknown memory loss Verified 01/09/24 11:18 latex Allergy Unknown rash Verified 01/09/24 11:18 blue dye Allergy runny Verified 02/01/24 19:17 nose, aches, congestion Home Medications Medication Instructions Recorded Confirmed Type aspirin 81 mg chewable tablet 81 mg PO QAM 09/20/21 02/01/24 History nystatin 100,000 unit/gram topical 1 applic topical TID #60 grams 12/31/21 02/01/24 Rx powder blood-glucose meter #1 ea 01/03/22 02/01/24 Rx hydroxyzine pamoate 25 mg capsule 25 mg PO BID #180 caps 12/23/22 02/01/24 Rx lithium carbonate 300 mg 600 mg (2 x 300 mg) PO HS 90 days 12/23/22 02/01/24 Rx tablet,extended release #180 tabs nitroglycerin 0.4 mg sublingual 0.4 mg sublingual .PRN/UD #30 tabs 01/23/23 02/01/24 Rx tablet meloxicam 15 mg tablet 15 mg PO DAILY #30 tabs 03/07/23 02/01/24 Rx humidifiers #1 ea 03/20/23 02/01/24 Rx albuterol sulfate 2.5 mg/3 mL 2.5 mg (3 mL) inhalation Q4H PRN 06/01/23 02/01/24 Rx (0.083 %) solution for nebulization shortness of breath or wheezing #180 mL albuterol sulfate 90 mcg/actuation 2 puff inhalation QID PRN 06/22/23 02/01/24 Rx aerosol inhaler SHORTNESS OF BREATH/WHEEZING #8.5 grams levothyroxine 88 mcg tablet 88 mcg PO DAILY #90 tabs 06/22/23 02/01/24 Rx fluticasone fur. 100 mcg-umeclid 1 inh inhalation DAILY #28 ea 06/26/23 02/01/24 Rx 62.5 mcg-vilant 25 mcg inhalat.powder (Trelegy Ellipta) clobetasol 0.05 % topical cream 1 applic topical BID 07/21/23 02/01/24 History betamethasone valerate 0.1 % 1 applic topical DAILY #45 grams 08/03/23 02/01/24 Rx topical ointment ketoconazole 2 % shampoo 1 applic topical .COMPLEX #120 mL 08/16/23 02/01/24 Rx cariprazine 3 mg capsule (Vraylar) 3 mg PO HS #30 caps 08/24/23 02/01/24 Rx acetazolamide 250 mg tablet 1,000 mg (4 x 250 mg) PO BID 30 12/22/23 02/01/24 Rx days #240 tabs amlodipine 5 mg tablet 5 mg PO HS #90 tabs 12/22/23 02/01/24 Rx atorvastatin 40 mg tablet 40 mg PO QPM #90 tabs 12/22/23 02/01/24 Rx famotidine 10 mg tablet (Acid 10 mg PO BID #180 tabs 12/22/23 02/01/24 Rx Presidential Support Specialist (famotidine)) gabapentin 100 mg capsule 100 mg PO TID #270 caps 12/22/23 02/01/24 Rx metoprolol succinate 25 mg 25 mg PO DAILY #90 tabs 12/22/23 02/01/24 Rx tablet,extended release 24 hr omeprazole 20 mg capsule,delayed 20 mg PO QAM #90 caps 12/22/23 02/01/24 Rx release Hospital [facility] Home[facility] (Hospital [facility]1 ea 01/11/24 02/01/24 Rx Bed) Past Med/Surg History Problem List (Updated 02/01/24 @ 19:13 by Merissa Robison MD) Acute exacerbation of chronic obstructive pulmonary disease (Acute) Acute conjunctivitis, right eye Ambulatory dysfunction Hypertrophic toenail Fall Right knee pain Chest pain (Acute) Hypoxia (Acute) Psoriasis Pseudotumor cerebri BLAINE on CPAP Vitamin D deficiency Bronchitis (Acute) Tobacco abuse (Acute) Hypothyroidism CAD (coronary artery disease) (Acute) HLD (hyperlipidemia) HTN (hypertension) Chronic respiratory failure with hypercapnia COPD (chronic obstructive pulmonary disease) (Acute) Bipolar disorder (Acute) Medical History Acute respiratory acidosis T2DM (type 2 diabetes mellitus) Acute exacerbation of chronic obstructive pulmonary disease BLAINE (obstructive sleep apnea) Influenza Acute on chronic respiratory failure with hypoxia and hypercapnia COVID-19 GERD (gastroesophageal reflux disease) TIA (transient ischemic attack) Surgical History History of lithotripsy History of cholecystectomy History of tubal ligation History of esophagogastroduodenoscopy (EGD) 2018 normal History of colonoscopy 2018 adenomatous polyps removed History of History of coronary artery stent placement Family History Father , 48 Myocardial infarction Mother , 58 Diabetes COPD (chronic obstructive pulmonary disease) Sister Ovarian cancer Denies family history of Prostate cancer Breast cancer Colorectal cancer Social History Smoking Status: Current every day smoker Tobacco Type: Cigarettes Age Started Using Tobacco: 9; packs per day: 0.25; Cigarettes Per Day: 7; Second Hand Exposure: No; Do You Dip or Chew Tobacco: No; Tobacco Cessation Education Requested by Patient: No Hx Alcohol Use: No Hx Substance Use: No Preferred Language: B[place]udian Communication Ability: Effective Visual Impairment: Limited Hearing Ability: Normal 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 Station 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: No Beliefs That Will Affect Care: None marital status: Single Current Living Situation: Family current occupational status: disabled How many Children do You have: 2 Feels Safe at Home: Yes Safety Concerns: Feels Safe At This Time Childhood Exposure to Second-Hand Smoke: Yes Diet: regular caffeine: Yes during the past year weight has: remained stable Dental Care, Regularly: No Physical Activity Frequency: Daily Seatbelt Use: sometimes Sunscreen Use: Yes (sometimes) Do you think of yourself as: straight/heterosexual Sexual Activity: has been sexually active, but not for at least 12 months Gender Identity: Female Assistive Devices: Denture - Upper, Glasses, Hospital Bed and Oxygen - Continuous Review of Systems Review of Systems: See HPI Physical Exam Physical Exam: The patient is awake, alert and oriented 3, obese, normocephalic and atraumatic, in no acute distress. Non-toxic appearing. HEENT- EOMI, mucous membranes moist. Hearing grossly intact. Heart-normal S1 and S2. No murmurs, rubs or gallops. Lungs- decreased bilaterally, no respiratory distress, no accessory muscle use. No crackles or wheezes noted. Abdomen-normal bowel sounds and soft. No ascites noted. Non-tender. Extremities- no clubbing, cyanosis, or edema. Psychiatric-normal affect. Results & Data Results & Data Vital Signs (Past 12 Hours) Vital Signs Temp Pulse Pulse Resp BP BP Pulse Ox 02/01/24 14:09 67 18 120/71 96 02/01/24 14:09 87 L 02/01/24 13:10 59 L 02/01/24 12:33 60 22 168/89 H 95 02/01/24 12:32 60 22 95 02/01/24 12:28 96 02/01/24 12:11 02/01/24 11:47 36.3 C L 66 22 132/68 88 L O2 Del Method O2 Flow Rate 02/01/24 14:09 Nasal Cannula 3 02/01/24 14:09 Nasal Cannula 0 02/01/24 13:10 02/01/24 12:33 Nasal Cannula 1 02/01/24 12:32 Nasal Cannula 1 02/01/24 12:28 Nasal Cannula 1 02/01/24 12:11 Room Air 02/01/24 11:47 Room Air Laboratory Results Abnormal lab results 02/01/24 02/01/24 Range/Units 12:24 Unknown WBC 13.30 H (4.8-10.8) K/ul Hct 49.5 H (37.0-47.0) % MCHC 29.3 L (32.0-36.0) g/dL RDW Std Deviation 51.6 H (36.4-46.3) fL Neut # (Auto) 10.60 H (1.40-6.50) K/uL Carbon Dioxide 33 H (21-32) mmol/L Glucose 140 H (70-99(Fasting)) mg/dl AST 8 L (13-39) U/L Alkaline Phosphatase 127 H (34-104) U/L Urine pH 8.0 H (4.5-7.5) Code Status & VTE Plan Code Status Full Code VTE Prophylaxis Plan VTE Prophylaxis will be ordered: Yes Supervising Physician Co-Signing Physician Notes I personally saw and examined the patient. I independently reviewed the labs, EKG, imaging, problem list, medication list, past medical history and family history. I verified all corea points and agree with Elizabeth Hardin PA-C with the following exceptions and/or additions: 58 year old female with known COPD not taking her prescribed routine Trelegy Ellipta presents to the ER with shortness of breath progressively worse since she started smoking again over the weekend. O/E HS RRR, no murmurs, Chest expiratory wheezing throughout, no crackles, Abdo SNT A/P COPD exacerbation - Solu-medrol 40mg IV daily (likely only needs a short course), duonebs, formoterol/budesonide nebs BID, azithromycin 500mg PO daily for 3 days. However main treatment is stop smoking and getting her back on a daily preventative inhaler Hypoxia - no respiratory distress, aim O2 sats > 88% Leucocytosis - this is chronically elevated with neutrophilia in diff. suspect related to her smoking/obesity but appears currently at her baseline PG Care Time/CCT Total # of Minutes Spent Total Time Spent with Patient: Total time spent is greater than 50% in coordination of care (as documented) at patient's floor/unit and/or counseling patient: Coding Level of Care Code None Diagnoses Acute exacerbation of chronic obstructive pulmonary disease J44.1 CAD (coronary artery disease) I25.10 BLAINE on CPAP G47.33; Z99.89 Hypothyroidism E03.9 Hypoxia R09.02
[2024-02-01] MEDS: AZITHROMYCIN 250 MG TAB PO ONE (15:02)
--- NOTE | 2024-02-01 15:43 | Electrocardiogram Report ---
Test Reason : Blood Pressure : */* mmHG Vent. Rate : 59 BPM Atrial Rate : 59 BPM P-R Int : 174 ms QRS Dur : 98 ms QT Int : 452 ms P-R-T Axes : 59 -44 54 degrees QTcB Int : 447 ms Sinus bradycardia Left axis deviation Moderate voltage criteria for LVH, may be normal variant Poor R wave progression, consider anterior WI vs. lead placement vs. LVH Abnormal ECG When compared with ECG of 14-Jan-2023 04:03, Vent. rate has decreased by 32 bpm Confirmed by Bjorn Green ([id number]) on 02/01/2024 3:42:38 PM Referred By: REFERRED SELF Confirmed By: Bjorn Green
[2024-02-01] MEDS: ALBUT/IPRATROP 3MG/0.5MG NEB 3 ML VIAL NEB SCH (19:34)
[2024-02-01] MEDS: BUDESONIDE 0.5 MG/2 ML VIAL (PULMICORT) NEB SCH (19:34)
[2024-02-01] MEDS: acetaZOLAMIDE 250 MG TAB PO SCH (20:22)
[2024-02-01] MEDS: FAMOTIDINE 10 MG TABLET PO SCH (20:22)
[2024-02-01] MEDS: ATORVASTATIN 40 MG TAB PO SCH (20:23)
[2024-02-01] MEDS: LITHIUM CARBONATE SLOW REL 300 MG TAB PO SCH (20:23)
[2024-02-01] MEDS: hydrOXYzine HCl 25 MG TAB PO SCH (20:24)
[2024-02-01] MEDS: GABAPENTIN 100 MG CAP PO SCH (20:24)
[2024-02-01] MEDS: amLODIPine BESYLATE 5 MG TAB PO SCH (20:24)
[2024-02-02] MEDS: LEVOTHYROXINE SODIUM 88 MCG TABLET PO SCH (05:34)
--- NOTE | 2024-02-02 07:00 | Billing Data ---
Date of Service February 01, 2024 Coding Level of Care Code 81047 INT INP/OBS CARE
[2024-02-02] MEDS: FORMOTEROL 20 MCG/2 ML VIAL NEB SCH (07:27)
--- NOTE | 2024-02-02 07:46 | Hospitalist Progress Note ---
Date of Service February 02, 2024 Assessment & Plan (1) Acute exacerbation of chronic obstructive pulmonary disease: Plan: Worsening shortness of breath, cough, and dizziness for the past 3 days - likely due to increase in cigarette use; previously 7-8/day to now 10-15/day. Not on any daily inhaler at home (although apparently to be on Trelegy Ellipta but NOT taking) Also NOT been using her CPAP at night as supposed to be using due to not liking her mask PCP note from August "Recommend use of OTC allergy antihistamine such as Zyrtec/Claritin/Rita and encouraged hydration with good supportive care. Continue with Trelegy and albuterol as needed" Hypoxic at 87% on room air on admission, improvement with 3L NC supplementation WBC 13k on admission. Procal <0.02 CXR negative for acute pneumonia/pulmonary congestion. Trop/BNP wnl. EKG w/ sinus kelly on admission Viral panel negative s/p Duoneb and Solu-medrol 125mg IV in ER Continues on Solu-medrol 40mg IV daily - INCREASE to 40mg Q8H per supervising provider Budesonide BID, formoterol BID. Continue Azithromycin 500mg PO x 3 days Duoneb q6h scheduled Mag checked, wnl Added mucinex BID Continue pulmonary toilet with incentive spirometer, flutter valve -- asked nursing to provide to patient as DID NOT have in room with patient Continue supplemental O2 to maintain sats, plan for 2 step prior to discharge Consideration for zyrtec daily however is on hydroxyzine TID and will monitor - was prior rec by PCP appt in August SHOULD CONTINUE TO ENCOURAGE SMOKING CESSATION WELL COMPLIANCE W TRELEGY INHALER/ALBUTEROL HFA PRN HAS BOTH AT HOME BUT NOT BEE USING Noting frequent w/ elevated ALP as well. Prior CT chest imaging w/ hilar lymphadenopathy. Ca appears normal. Check Vit D for completeness, consider JOSELITO level w/ AM labs Patient hopeful for discharge today but w/ ongoing O2 needs/wheezing discussed will monitor with adjustments and hopefully able to discharge 9/ 2step prior to dc planned (2) CAD (coronary artery disease): Plan: History of [place] with stent placement in 2018 Continue BB, aspirin, statin. EKG on admission w/ sinus kelly but rates in 70s today. Trop neg. Denies CP - monitor for any issues HTN - stable, continue home amlodipine and metoprolol DMT2 - recent A1C 5.9%, patient denies history of, on no home medications will add BSG checks AC/HS and add sliding scale insulin if needed w/ increased IV steroids (3) BLAINE on CPAP: Plan: Patient has history of BLAINE with prescribed CPAP for past few years however reported issues w/ mask and has nasal pillows but head piece not fitting uses [employer] -- asked CM to see about having them refit w/ mask Changed CPAP prn to HS and will have RT call to place for tonight (4) Hypothyroidism: Plan: TSH 1.7, noting patient has not been taking recently due to not being in her med pack. Continue current dose synthroid and will plan to have refill of rx at dc if needed. Will check T4 w/ AM labs for completeness (5) Hypoxia: Plan: Improved w/ supplemental O2. 2nd to smoking/not using her inhalers as prescribed Tx as outlined above, supplemental O2 to maintain sats and titrate off as able Plan for 2 step at dc, smoking cessation encouraged Plan VTE ppx: SCDs for now, ambulation encouraged Chronic stable diagnoses: Bipolar disorder - continue home Vraylar and lithium lithium level pending Pseudotumor cerebri - continue home acetazolamide Neuropathy - continue home gabapentin , check B12 w/ AM labs Dispo: continued inpatient stay but hopefully able to dc in AM on prednisone taper/azithromycin and resumption of home inhalers. smoking cessation to be continued to be encouraged Admission and Anticipated Discharge Date Admission Date: February 01, 2024 Supervising Physician Co-Signing Physician Notes The patient was not seen by me. The chart was reviewed. Case discussed with MIKE Coelho. Agree with assessment and plan Subjective Eval this morning. Feels a little better today, wanting to go home. Was on room air but desat and placed back on NC, currently on 1L. Remains diminished with some wheezing and discussed increased IV steroids and asked nursing to provide incentive spirometer/flutter valve. She has been smoking more cigarettes, cessation encouraged. She does have trelegy inhaler at home but reports she had been forgetting to use this but also does have rescue albuterol inhaler which hasn't been using either. CPAP at night but mask not fitting. Has had multiple changes and currently now w/ nasal pillows but head strap not fitting. [facility] - will see if CM can notify to see if able to come refit w/ new strap for improved compliance but otherwise is/has been using 2L at night. Does not have O2 during the day and will need 2 step prior to dc if adamant about going home today. No fever/chills or sputum production reported. Questions/concerns addressed and patient is hopeful to dc on prednisone taper/resume home inhlaers and azithromycin. Physical Exam Physical Exam: General: 58yo female, appears older than stated age, sitting up in bed, NAD but hopeful to go home today, remains on NC HEENT: head atraumatic, normocephalic, mmm, trachea midline, +facial hair Resp: diminished in the bases with expiratory wheezing, no rales, on 2L, no tachypnea, +cough (nonproductive reported) CV: RRR, no significant m/r/g, no pitting edema/calf tenderness GI: +BS, soft/NT MSK/Neuro: nonfocal, not confused Psych: AOx3, cooperative with exam Results & Data Results & Data Vital Signs (Past 12 Hours) Vital Signs Temp Pulse Resp BP Pulse Ox O2 Del Method O2 Flow Rate 02/02/24 06:59 68 18 98 Nasal Cannula 3 02/02/24 01:19 61 18 95 Nasal Cannula 3 02/01/24 20:15 Nasal Cannula 3 02/01/24 20:05 36.4 C L 67 16 114/67 92 Nasal Cannula 4 Laboratory Results 02/02/24 02/02/24 02/01/24 Range/Units 10:47 09:18 Unknown WBC 15.07 H (4.8-10.8) K/ul RBC 4.86 (4.20-5.40) M/uL Hgb 14.3 (12.0-16.0) g/dl Hct 48.8 H (37.0-47.0) % MCV 100.4 H (80.0-100.0) fL MCH 29.4 (25.0-34.0) pg MCHC 29.3 L (32.0-36.0) g/dL RDW Std Deviation 51.1 H (36.4-46.3) fL RDW Coeff of [place] 13.7 (11.5-14.5) % Plt Count 245 (130-400) K/uL MPV 9.7 (9.4-12.4) fL Immature Gran % (Auto) % Neut % (Auto) % Lymph % (Auto) % [place] % (Auto) % Eos % (Auto) % Neut # (Auto) (1.40-6.50) K/uL Lymph # (Auto) (1.20-3.40) K/uL [place] # (Auto) (0.11-0.59) K/uL Eos # (Auto) (0.00-0.50) K/uL Immature Gran # (Auto) (0.01-0.20) K/uL Sodium 139 (136-145) mmol/L Potassium 4.0 (3.5-5.1) mmol/L Chloride 105 (98-107) mmol/L Carbon Dioxide 30 (21-32) mmol/L Anion Gap 4 (3-11) BUN 16 (6-23) mg/dl Creatinine 0.70 (0.6-1.2) mg/dl Est Cr Clr Drug Dosing 108.5 Est GFR ( Amer) 110.7 ml/min Est GFR (Non-Af Amer) 95.5 ml/min BUN/Creatinine Ratio 22.9 H (10-20) Glucose 170 H (70-99(Fasting)) mg/dl Calcium 9.4 (8.6-10.3) mg/dl Magnesium 2.1 (1.7-2.4) mg/dl Total Bilirubin (0.2-1.0) mg/dl AST (13-39) U/L ALT (7-52) U/L Alkaline Phosphatase (34-104) U/L Troponin I High Sens (0-14) pg/ml B-Natriuretic Peptide (0-100) pg/ml Total Protein (6.0-8.3) gm/dl Albumin (3.4-5.0) gm/dl Globulin (2.5-4.0) gm/dl Albumin/Globulin Ratio (0.9-2) 25-OH Vitamin D Total Pending Procalcitonin (0-0.5) ng/ml TSH 1.727 (0.300-4.500) uIu/ml Urine Color Yellow Urine Appearance Clear (Clear) Urine pH 8.0 H (4.5-7.5) Ur Specific [place] 1.007 (1.000-1.030) Urine Protein Negative (Negative) Urine Glucose (UA) Negative (Negative) Urine Ketones Negative (Negative) Urine Blood Negative (Negative) Urine Nitrite Negative (Negative) Urine Bilirubin Negative (Negative) Urine Urobilinogen Negative (Negative) Ur Leukocyte Esterase Negative (Negative) [place] 0.7 (0.6-1.2) mmol/L Adenovirus (PCR) (NotDetected) B. pertussis DNA (PCR) (NotDetected) B.parapertussis DNA PCR (NotDetected) C. pneumoniae DNA (PCR) (NotDetected) Coronavirus OC43 (PCR) (NotDetected) Coronavirus HKU1 (PCR) (NotDetected) Coronavirus 229E (PCR) (NotDetected) SARS-CoV-2 (PCR) (NotDetected) Coronavirus NL63 (PCR) (NotDetected) Human Metapneumovir PCR (NotDetected) Influenza Type A (PCR) (NotDetected) Influenza Type B (PCR) (NotDetected) M. pneumoniae (PCR) (NotDetected) Parainfluenza 1 (PCR) (NotDetected) Parainfluenza 2 (PCR) (NotDetected) Parainfluenza 3 (PCR) (NotDetected) Parainfluenza 4 (PCR) (NotDetected) RSV (PCR) (NotDetected) Entero/Rhino (PCR) (NotDetected) 02/01/24 Range/Units 12:24 WBC 13.30 H (4.8-10.8) K/ul RBC 4.95 (4.20-5.40) M/uL Hgb 14.5 (12.0-16.0) g/dl Hct 49.5 H (37.0-47.0) % MCV 100.0 (80.0-100.0) fL MCH 29.3 (25.0-34.0) pg MCHC 29.3 L (32.0-36.0) g/dL RDW Std Deviation 51.6 H (36.4-46.3) fL RDW Coeff of Bruno 14.3 (11.5-14.5) % Plt Count 270 (130-400) K/uL MPV 10.0 (9.4-12.4) fL Immature Gran % (Auto) 0.4 % Neut % (Auto) 79.7 % Lymph % (Auto) 14.7 % [place] % (Auto) 4.1 % Eos % (Auto) 1.1 % Neut # (Auto) 10.60 H (1.40-6.50) K/uL Lymph # (Auto) 1.95 (1.20-3.40) K/uL [place] # (Auto) 0.55 (0.11-0.59) K/uL Eos # (Auto) 0.15 (0.00-0.50) K/uL Immature Gran # (Auto) 0.05 (0.01-0.20) K/uL Sodium 140 (136-145) mmol/L Potassium 3.8 (3.5-5.1) mmol/L Chloride 103 (98-107) mmol/L Carbon Dioxide 33 H (21-32) mmol/L Anion Gap 4 (3-11) BUN 10 (6-23) mg/dl Creatinine 0.75 (0.6-1.2) mg/dl Est Cr Clr Drug Dosing Not Reportable Est GFR ( Amer) 101.8 ml/min Est GFR (Non-Af Amer) 87.9 ml/min BUN/Creatinine Ratio 13.3 (10-20) Glucose 140 H (70-99(Fasting)) mg/dl Calcium 9.5 (8.6-10.3) mg/dl Magnesium (1.7-2.4) mg/dl Total Bilirubin 0.4 (0.2-1.0) mg/dl AST 8 L (13-39) U/L ALT 7 (7-52) U/L Alkaline Phosphatase 127 H (34-104) U/L Troponin I High Sens 3.2 (0-14) pg/ml B-Natriuretic Peptide 30 (0-100) pg/ml Total Protein 7.4 (6.0-8.3) gm/dl Albumin 4.1 (3.4-5.0) gm/dl Globulin 3.3 (2.5-4.0) gm/dl Albumin/Globulin Ratio 1.2 (0.9-2) 25-OH Vitamin D Total Procalcitonin < 0.02 (0-0.5) ng/ml TSH (0.300-4.500) uIu/ml Urine Color Urine Appearance (Clear) Urine pH (4.5-7.5) Ur Specific [place] (1.000-1.030) Urine Protein (Negative) Urine Glucose (UA) (Negative) Urine Ketones (Negative) Urine Blood (Negative) Urine Nitrite (Negative) Urine Bilirubin (Negative) Urine Urobilinogen (Negative) Ur Leukocyte Esterase (Negative) [place] (0.6-1.2) mmol/L Adenovirus (PCR) Not Detected (NotDetected) B. pertussis DNA (PCR) Not Detected (NotDetected) B.parapertussis DNA PCR Not Detected (NotDetected) C. pneumoniae DNA (PCR) Not Detected (NotDetected) Coronavirus OC43 (PCR) Not Detected (NotDetected) Coronavirus HKU1 (PCR) Not Detected (NotDetected) Coronavirus 229E (PCR) Not Detected (NotDetected) SARS-CoV-2 (PCR) Not Detected (NotDetected) Coronavirus NL63 (PCR) Not Detected (NotDetected) Human Metapneumovir PCR Not Detected (NotDetected) Influenza Type A (PCR) Not Detected (NotDetected) Influenza Type B (PCR) Not Detected (NotDetected) M. pneumoniae (PCR) Not Detected (NotDetected) Parainfluenza 1 (PCR) Not Detected (NotDetected) Parainfluenza 2 (PCR) Not Detected (NotDetected) Parainfluenza 3 (PCR) Not Detected (NotDetected) Parainfluenza 4 (PCR) Not Detected (NotDetected) RSV (PCR) Not Detected (NotDetected) Entero/Rhino (PCR) Not Detected (NotDetected) Diagnostic Findings Chest X-Ray 02/01/24 11:55 XR chest 1V portable CLINICAL HISTORY: Dyspnea TECHNIQUE: Single frontal radiograph of the chest was obtained. Comparison: Comparison is made to chest radiograph 01/14/2023 FINDINGS: No lines and tubes are seen. The cardiomediastinal silhouette is normal. The lungs are clear. No evidence of pleural effusion or pneumothorax. IMPRESSION: No acute abnormalities and in particular no radiographic evidence of pneumonia. ACT 112: Negative or not required by law. Electronically signed by: Edgar Thompson M.D. 02/01/2024 12:55 PM PG Care Time/CCT Total # of Minutes Spent Total Time Spent with Patient: Total time spent is greater than 50% in coordination of care (as documented) at patient's floor/unit and/or counseling patient: Coding Level of Care Code 71802 SUB INP/OBS CARE 3/50MIN Diagnoses Acute exacerbation of chronic obstructive pulmonary disease J44.1 CAD (coronary artery disease) I25.10 BLAINE on CPAP G47.33; Z99.89 Hypothyroidism E03.9 Hypoxia R09.02
[2024-02-02] MEDS ORDERED: methylPREDNISolone 40 MG in SYRINGE 0 ML IV SCH (09:00)
[2024-02-02] MEDS: ASPIRIN 81 MG CHEW PO SCH (09:17)
[2024-02-02] MEDS: guaiFENesin 600 MG TABCR PO SCH (09:18)
[2024-02-02] MEDS: AZITHROMYCIN 250 MG TAB PO SCH (09:18)
[2024-02-02] MEDS: PANTOprazole 40 MG TAB PO SCH (09:18)
[2024-02-02] MEDS: METOPROLOL SUCC 25MG EXT REL TAB PO SCH (09:19)
[2024-02-02] MEDS: methylPREDNISolone 40 MG in SYRINGE 0 ML IV SCH (09:20)
[2024-02-02 09:54] LABS: Hematocrit (blood only) 48.8 % (37.0-47.0); Hemoglobin 14.3 g/dl (12.0-16.0); Mean Corpuscular Hemoglobin 29.4 pg (25.0-34.0); Mean Corpuscular Hgb Conc 29.3 g/dL (32.0-36.0); Mean Corpuscular Volume 100.4 fL (80.0-100.0); Mean Platelet Volume 9.7 fL (9.4-12.4); Platelet Count 245 K/uL (130-400); RDW Coefficient of Variation 13.7 % (11.5-14.5); RDW Standard Deviation 51.1 fL (36.4-46.3); Red Blood Count 4.86 M/uL (4.20-5.40); White Blood Count 15.07 K/ul (4.8-10.8)
[2024-02-02 10:08] LABS: BUN Creatinine Ratio 22.9 (10-20); Calcium 9.4 mg/dl (8.6-10.3); Creatinine Clr Calc Pharmacy 108.5 ml/min; Est GFR (African American) 110.7 ml/min; Est GFR (Non-African American) 95.5 ml/min; Magnesium 2.1 mg/dl (1.7-2.4)
[2024-02-02] MEDS ORDERED: GLUCAGON FOR INJ 1 MG VIAL SQ PRN (11:47)
[2024-02-02] MEDS ORDERED: DEXTROSE 50% 50 ML SYRINGE IV PRN (11:47)
[2024-02-02] MEDS ORDERED: GLUCOSE 40% GEL 15 GM TUBE PO PRN (11:47)
[2024-02-02] MEDS ORDERED: CARBOHYDRATES FOR HYPOGLYCEMIA PO PRN (11:47)
[2024-02-02] MEDS ORDERED: GLUCOSE 10 TAB/TUBE PO PRN (11:47)
[2024-02-02] MEDS: INSULIN ASPART PER UNIT CHARGE SC SCH (17:23)
[2024-02-02] MEDS: CARIPRAZINE HCL 3 MG CAP PO SCH (19:55)
[2024-02-03 06:35] LABS: Hemoglobin 14.5 g/dl (12.0-16.0); Mean Corpuscular Hemoglobin 29.8 pg (25.0-34.0); Mean Corpuscular Hgb Conc 30.2 g/dL (32.0-36.0); Mean Corpuscular Volume 98.8 fL (80.0-100.0); Mean Platelet Volume 9.6 fL (9.4-12.4); Platelet Count 281 K/uL (130-400); RDW Coefficient of Variation 13.6 % (11.5-14.5); RDW Standard Deviation 49.1 fL (36.4-46.3); Red Blood Count 4.86 M/uL (4.20-5.40); White Blood Count 17.01 K/ul (4.8-10.8)
[2024-02-03 06:53] LABS: Albumin Globulin Ratio 1.2 (0.9-2); Albumin Level 3.6 gm/dl (3.4-5.0); BUN Creatinine Ratio 28.2 (10-20); Bilirubin,Total 0.3 mg/dl (0.2-1.0); Calcium 9.4 mg/dl (8.6-10.3); Creatinine Clr Calc Pharmacy 89.4 ml/min; Est GFR (African American) 87.5 ml/min; Est GFR (Non-African American) 75.5 ml/min; Globulin 2.9 gm/dl (2.5-4.0); Potassium 4.4 mmol/L (3.5-5.1); Total Protein 6.5 gm/dl (6.0-8.3)
[2024-02-03 07:10] LABS: T4 Free Thyroxine 0.66 ng/dl (0.61-1.60)
[2024-02-03 07:15] LABS: Folate (Folic Acid),Ser orPlas 5.24 ng/ml (>5.38)
[2024-02-03 07:53] VITALS: BP 121/78; TEMP 97.7
--- NOTE | 2024-02-03 08:01 | Hospitalist Progress Note ---
Date of Service February 03, 2024 Assessment & Plan (1) Acute exacerbation of chronic obstructive pulmonary disease: Plan: Worsening shortness of breath, cough, and dizziness for the past 3 days - likely due to increase in cigarette use; previously 7-8/day to now 10-15/day. Not on any daily inhaler at home (although apparently to be on Trelegy Ellipta but NOT taking) Also NOT been using her CPAP at night as supposed to be using due to not liking her mask PCP note from August "Recommend use of OTC allergy antihistamine such as Zyrtec/Claritin/Rita and encouraged hydration with good supportive care. Continue with Trelegy and albuterol as needed" Hypoxic at 87% on room air on admission, improvement with 3L NC supplementation WBC 13k on admission. Procal <0.02 CXR negative for acute pneumonia/pulmonary congestion. Trop/BNP wnl. EKG w/ sinus kelly on admission Viral panel negative s/p Duoneb and Solu-medrol 125mg IV in ER Continues on Solu-medrol 40mg IV daily - INCREASE to 40mg Q8H per supervising provider Budesonide BID, formoterol BID. Continue Azithromycin 500mg PO x 3 days Duoneb q6h scheduled Mag checked, wnl Added mucinex BID Continue pulmonary toilet with incentive spirometer, flutter valve -- asked nursing to provide to patient as DID NOT have in room with patient Continue supplemental O2 to maintain sats, plan for 2 step prior to discharge Consideration for zyrtec daily however is on hydroxyzine TID and will monitor - was prior rec by PCP appt in August SHOULD CONTINUE TO ENCOURAGE SMOKING CESSATION WELL COMPLIANCE W TRELEGY INHALER/ALBUTEROL HFA PRN HAS BOTH AT HOME BUT NOT BEE USING Noting frequent w/ elevated ALP as well. Prior CT chest imaging w/ hilar lymphadenopathy. Ca appears normal. Check Vit D for completeness, consider JOSELITO level w/ AM labs Patient hopeful for discharge today but w/ ongoing O2 needs/wheezing discussed will monitor with adjustments and hopefully able to discharge / 2step prior to dc planned Evaluated this morning, ambulating in the room, on 1L NC. Reports not titrated off this morning but feeling much better. No sputum production but no further wheezing. Discussed will try titrating but getting 2 step. She has concentrator at home but not portable and can be arranged. Not able to tolerate CPAP last night but encouraged calling [facility] once home to see if able to address/alternative straps to keep in place. No fever/chills. Discussed avoiding smoking, pollo as oxygen flammable and when wearing can cause fire/explosion (she notes someone she knew had that happen). Family can transport when discharge in place, they are currently ubering for the game/etc and will be in the area. Did send new rx for her synth[facility] which [facility] her preference and who gets it to her the fastest. Also discussed B12/folate and vitamin D replacement which will be continued at [place]. Question/concerns addressed at this time. (2) CAD (coronary artery disease): Plan: History of [place] with stent placement in 2018 Continue BB, aspirin, statin. EKG on admission w/ sinus kelly but rates in 70s today. Trop neg. Denies CP - monitor for any issues HTN - stable, continue home amlodipine and metoprolol DMT2 - recent A1C 5.9%, patient denies history of, on no home medications will add BSG checks AC/HS and add sliding scale insulin if needed w/ increased IV steroids (3) BLAINE on CPAP: Plan: Patient has history of BLAINE with prescribed CPAP for past few years however reported issues w/ mask and has nasal pillows but head piece not fitting uses [facility] -- asked CM to see about having them refit w/ mask Changed CPAP prn to HS and will have RT call to place for tonight (4) Hypothyroidism: Plan: TSH 1.7, noting patient has not been taking recently due to not being in her med pack. Continue current dose synthroid and will plan to have refill of rx at [place] if needed. Will check T4 w/ AM labs for completeness (5) Hypoxia: Plan: Improved w/ supplemental O2. 2nd to smoking/not using her inhalers as prescribed Tx as outlined above, supplemental O2 to maintain sats and titrate off as able Plan for 2 step at [place], smoking cessation encouraged (6) Folate deficiency: Plan: checked w/ MCV >100 LOW, replacement started/should continue on at discharge (7) B12 deficiency: Plan: checked w/ MCV as above. LOW normal 216. Start PO supplementation 1000mcg daily/continue at discharge Plan VTE ppx: SCDs for now, ambulation encouraged Chronic stable diagnoses: Bipolar disorder - continue home Vraylar and lithium lithium level pending Pseudotumor cerebri - continue home acetazolamide Neuropathy - continue home gabapentin , check B12 w/ AM labs Dispo: continued inpatient stay but hopefully able to dc in AM on prednisone taper/azithromycin and resumption of home inhalers. smoking cessation to be continued to be encouraged Admission and Anticipated Discharge Date Admission Date: February 01, 2024 Subjective Evaluated this morning, ambulating in the room, on 1L NC. Reports not titrated off this morning but feeling much better. No sputum production but no further wheezing. Discussed will try titrating but getting 2 step. She has concentrator at home but not portable and can be arranged. Not able to tolerate CPAP last night but encouraged calling [facility] once home to see if able to address/alternative straps to keep in place. No fever/chills. Discussed avoiding smoking, pollo as oxygen flammable and when wearing can cause fire/explosion (she notes someone she knew had that happen). Family can transport when discharge in place, they are currently ubering for the game/etc and will be in the area. Did send new rx for her synthroid [facility] which [facility] her preference and who gets it to her the fastest. Also discussed B12/folate and vitamin D replacement which will be continued at dc. Question/concerns addressed at this time. Results & Data Results & Data Vital Signs (Past 12 Hours) Vital Signs Temp Pulse Pulse Resp BP Pulse Ox O2 Del Method 02/03/24 07:52 36.5 C 61 16 121/78 91 Nasal Cannula 02/03/24 07:10 59 L 18 97 Nasal Cannula 02/02/24 22:46 65 19 92 O2 Flow Rate 02/03/24 07:52 2 02/03/24 07:10 2 02/02/24 22:46 3 PG Care Time/CCT Total # of Minutes Spent Total Time Spent with Patient: Total time spent is greater than 50% in coordination of care (as documented) at patient's floor/unit and/or counseling patient: Coding Diagnoses Acute exacerbation of chronic obstructive pulmonary disease J44.1 CAD (coronary artery disease) I25.10 BLAINE on CPAP G47.33; Z99.89 Hypothyroidism E03.9 Hypoxia R09.02 Folate deficiency E53.8 B12 deficiency E53.8
[2024-02-03 08:07] LABS: Estimated Average Glucose 131 mg/dl; Hemoglobin A1C 6.2 % (4.5-5.6)
[2024-02-03] MEDS: CHOLECALCIFEROL 25 MCG (1000 UNITS) TAB PO SCH (08:19)
[2024-02-03] MEDS: FOLIC ACID 1 MG TAB PO SCH (10:08)
[2024-02-03] MEDS: CYANOCOBALAMIN (B-12) 500 MCG TABLET PO SCH (10:08)
[2024-02-03] MEDS: predniSONE 20 MG TAB PO SCH (11:53)
[2024-02-03 13:14] VITALS: PULSE 78; RESP 16; O2SAT 91
--- NOTE | 2024-02-03 14:02 | Discharge Summary ---
Discharge Summary Date of Service February 03, 2024 Principal Dx & Hospital Course #1 = Principal Diagnosis (1) Acute exacerbation of chronic obstructive pulmonary disease: Worsening shortness of breath, cough, and dizziness for the past 3 days. Acute on chronic COPD/bronchitis in setting of increased cigarette smoking/noncompliance w/ home meds Multifactorial -- increased tobacco use from 7-8 cigarettes daily to 10-15/day in addition to NOT using her daily trelegy inhaler or albuterol HFA despite reporting having these inhalers at home and further evaluation prior to discharge discovering patient IS SUPPOSED TO BE WEARING OXYGEN w/ activity but has not been doing so as well as noncompliance w/ CPAP HS due to not being able to tolerate mask due to ill fitting straps (recently got nasal pillows). PCP noting also in August recs for OTC antihistamine with zyrtec/claritin/john and continue daily inhalers however patient also has not been doing that Was hypoxic on room air to 87% , improved with 3L NC supplementation CXR w/o acute process/pulm congestion. Trop/BNP wnl and EKG w/ sinus kelly. Viral panel NEGATIVE. Procal neg <0.02. No fever/increased sputum production. Given 125mg IV solumedrol in ER and placed on q8h IV while inpatient as well as Azithromycin (completed 500mg PO x 3 days) and budesonide/formoterol nebulizers and pulmonary toilet with incentive spirometer and flutter valve with mucinex to help w/ mucus clearance. Improvement/resolution in wheezing on subsequent exam and patient wanting to go home. Switched to prednisone and planning to complete taper 40mg x 2 days, 30mg x 2 days, 20mg x 2 days then 10mg x 2 days then stop. Completed Azithromycin while inpatient, no need for abx at dc Continued pulmonary toilet with incentive spirometer, flutter valve -- asked nursing to provide to patient as DID NOT have in room with patient Consideration for zyrtec daily in follow up however is on hydroxyzine TID and can f/u discussion with PCP 2step completed prior to dc w/ requirement of 2L w/ activity but stable on room air at rest * RX provided to case management to deliver as patient reported concentrator at home due to 2L at night HOWEVER ONCE ARRANGING FOR TANK TO BE DELIVERED DISCUSSED TANK AND SHE DOES HAVE CYLINDERS AT HOME AND IS SUPPOSED TO HAVE BEEN USING OXYGEN WITH ACTIVITY HOWEVER HAS NOT BEEN USING. At discharge: * ENCOURAGED COMPLIANCE W TRELEGY INHALER DAILY, ALBUTEROL HFA PRN - patient reports HAS BOTH/not been using/no need for new rx at oh reported * CONTINUED SMOKING CESSATION ENCOURAGED. OTC mucinex encouraged * [facility] NEW STRAP[facility]MASK FOR HER CPAP. CM did call/leave voicemail 02/01 but encouraged patient to call today during encounter 02/02 for follow up. * ENCOURAGED COMPLIANCE WITH OXYGEN THERAPY WITH ACTIVITY (also educated to NOT SMOKE WITH THIS ON- patient denies smoking inside the house) Nutritional deficiencies w/ low normal B12/folate/Vit D addressed and ordered replacement while inpatient and sent rx to be continued to her pharmacy who does her pill packs to be delivered on Monday/Monday. Of note, chronic elevations of ALP and prior CT chest imaging w/ hilar lymphadenopathy. Ca appeared normal but with Low Vit D and replacement ordered. JOSELITO level was sent w/ labs and can f/u with PCP and ref to specialist if abnormal Also sent new rx for Synthroid refill as reports being out of this. Outpatient follow up with PCP --- can consider ref to pulm for addition of additional inhalers/neb treatments in future but first encourage compliance w/ her medications as rx which she has NOT been taking. Did call pharmacy to provide her prednisone dose for tomorrow as [facility] closed after 1pm today and closed on sundays/patient doesn't drive. (2) CAD (coronary artery disease): History of [place] with stent placement in 2018 Continue BB, aspirin, statin. EKG on admission w/ sinus kelly but rates in 70s today. Trop neg. Denied CP HTN Chronic/stable and continued home norvasc/metoprolol DMT2 - recent A1C 5.9%, patient denies history of, on no home medications and repeat A1c to 6.2 and was declining insulin at times despite being told only while on IV steroids - recommend having follow up with PCP and likely benefit from addition of metformin. could have increased elevations from her vryalar as used/needed for underlying bipolar. f/u pcp to start tx/discussion (3) BLAINE on CPAP: Patient has history of BLAINE with prescribed CPAP for past few years however reported issues w/ mask and has nasal pillows but head piece not fitting uses [facility] -- asked CM to see about having them refit w/ mask and they left voicemail however as above encouraged patient to call at discharge as was not able to tolerate inpatient and should be using (4) Hypothyroidism: TSH 1.7 w/ normal T4/T3 but ran out in pill packs. Was continued on admission and new rx for refill sent at discharge (5) Hypoxia: Improved w/ supplemental O2 -- 2nd to increased tobacco use/noncompliance AND ALSO TO BE USING O2 W ACTIVITY ABOVE PER FURTHER DISCUSSION 2step completed, redemonstrated needing 2L w/ activity. Stable on room air at rest. Family traveling/uber delivery for football holiday and unable to go home to get take/bring back but nursing to take to car with o2/place at rest and daughter to bring tank out when getting patient out of the car and ENCOURAGED COMPLIANCE WITH OXYGEN THERAPY WITH ACTIVTY PRIOR TO BE DOING (6) Folate deficiency: checked w/ MCV >100 LOW 5.2, replacement started/continued on at discharge (7) B12 deficiency: checked w/ MCV as above. LOW normal 216. Started PO supplementation 1000mcg daily/continued at discharge Plan Chronic stable diagnoses: Bipolar disorder - continue lithium. lithium level acceptable. resumed/continued home vraylar 3mg HS Pseudotumor cerebri - continued home acetazolamide Neuropathy - continued home gabapentin , B12 checked/low normal and replacement as above Dc on 2L w/ activity as outlined, prednisone taper and continued encouragement to have compliance with trelegy/albuterol inhalers and continued encouragement to cut back/quit smoking recommended Family coming to [facility] for transport home. Notes For Next Care Provider Patient did endorse having had her inhalers at home but forgetting to use them -- stressed importance of daily use for maintenance and to continue her trelegy DAILY and her albuterol HFA as needed May need to consider nebulized medications if having ongoing issues/consideration for pulm ref as outpatient. No ABG/VBG on admission however did have elevated pCO2 int he past and may benefit from BiPAP over CPAP but hasn't really even been able to tolerate the CPAP at present due to ill fitting mask. Please make sure she at least attempts to call [facility] in follow up for new strap/change mask for compliance. Patient reported having oxygen tanks at home but not taking with her as supposed to have been doing and suspect may do the same again but did stress importance and again encouraged compliance Would do further screening for etoh use given low normal B12/folate deficiency and provide support as needed/counseling. JOSELITO level pending given prior hilar lymphadenopathy on CT chest imaging Continue to discuss about OTC antihistamine/zyrtec if agreeable but may need to adjust the vistaril to not cause adverse side effects Medication Changes From Visit Prednisone taper Vitamin D replacement Vitamin B12 replacement Folic acid replacement Continue prior Trelegy/albuterol HFA O2 - 2L with activity Admission HPI Per Admitting Provider Patient is a 58-year-old female with a past medical history of COPD, hypertension, hyperlipidemia, bipolar disorder, coronary artery disease, WA with stent placement in 2018, hypothyroidism, pseudotumor cerebri, and neuropathy. She presents today with worsening shortness of breath, dizziness, and dry cough. She stated that the shortness of breath is all of the time and not situational. She has been using 2 L of oxygen via nasal cannula for 30-minute increments off and on over the past 2 days due to ongoing shortness of breath. The dizziness occurs when both sitting and standing. She denies sputum production. She stated that she has smoked for the past 49 years, she previously only smoked 7 to 8 cigarettes a day and recently increased her tobacco use to 10 to 15 cigarettes a day, due to having visitors who also smoked. She stated that she has not used her Trelegy inhaler since it was prescribed in May because she does not like the way that it tastes. She also has not been using her albuterol inhaler due to the prescription running out. Her appetite has been stable, she has tried to lose weight recently. On examination patient was on 1 L of oxygen via nasal cannula. Patient stated that she is doing better and denies current shortness of breath. She has a history of BLAINE with CPAP use. She reports she does not use her cpap because she doesn't like how it fits. She has and prescribed to use CPAP for a few years now but has not consistently used it. She uses alcohol socially. She denies a past medical history of cancer, clotting disorders, CHF, DM, and edema. She denies lightheadedness, vision changes, rhinorrhea, sore throat, chest pain, active shortness of breath, abdominal pain, nausea, diarrhea, const ipation, dysuria, numbness, tingling, edema. She wishes to be full code at this time. Admission Exam Per Admitting Provider The patient is awake, alert and oriented 3, obese, normocephalic and atraumatic, in no acute distress. Non-toxic appearing. HEENT- EOMI, mucous membranes moist. Hearing grossly intact. Heart-normal S1 and S2. No murmurs, rubs or gallops. Lungs- decreased bilaterally, no respiratory distress, no accessory muscle use. No crackles or wheezes noted. Abdomen-normal bowel sounds and soft. No ascites noted. Non-tender. Extremities- no clubbing, cyanosis, or edema. Psychiatric-normal affect. Discharge Exam General: 58yo female, appears older than stated age, ambulating around the room, reports feeling better/wanting to go, on room air at rest (oxygen via NC w/ ambulation) Head atrauamtic, normocephalic, mmm, trachea midline Resp: diminished in the bases, almost complete resolution in wheezing, no rales/cough, on room air at rest CV: RRR, no significant m/r/g, no pitting edema/calf tenderness GI: +BS, soft/NT MSK/Neuro: following commands as asked, no focal loss of strength, CN intact grossly, no facial droop/slurred speech Psych: AOx3, cooperative with exam Discharge Plan Discharge Items Patient Disposition: Home - Self-Care Reason For Visit: COPD EXACERBATION Discharge Diagnosis: COPD Exacerbation Goals: You have been hospitalized for an acute medical problem. During your stay at [facility], we have made an effort to correct the problem that brought you to the hospital while keeping you as comfortable as possible. Medications were used to bring your condition under control and your discharge instructions will include directions for any medications you should take after leaving the hospital. Please make sure you see your Primary Care Provider as part of your follow up plan. Activity: As commented below Non-emergency contact: Primary Care Provider Call non-emergency contact if: you have any medication questions, your symptoms worsen, your pain is not controlled, your pain is concerning for you and you have a fever Follow-up/Referrals: Alberto Molina DO [Primary Care Provider] - 02/06/24 12:00 pm Diet: Carb Consistent or DM2 and Heart Healthy Addtl Attending Provider Instructions: You have been hospitalized for shortness of breath and low oxygen levels. Viral panel was obtained and NEGATIVE. Chest xray was negative for pneumonia and you were treated with IV steroids and nebulizer treatments along with Azithromycin which is an antibiotic for atypical coverage as it is suspected this is likely a COPD exacerbation/bronchitis from increased smoking and not using your trelegy inhaler/CPAP at night as supposed to along with possible environmental/allergies. At discharge, it is STRONGLY recommended to cut back on smoking/quit, and you should be using your TRELEGY INHALER EVERY DAY ONCE A DAY and utilize the albuterol inhaler every 4-6 hours for the next couple of days and then can decrease this back to as needed. Case management called and left voicemail for [facility] about your mask for your CPAP but you should also follow up and call to see if they can provide a newer head strap for comfort and ability to continue to use this for improvement in symptoms. Please continue prednisone steroid taper at discharge as ordered and azithromycin for another day. You should continue Mucinex twice daily to help clear mucus and prevent congestion. We did a test with respiratory therapy at discharge to monitor your oxygen levels with activity and this showed YOU SHOULD BE WEARING 2 LITERS OF OXYGEN WITH ACTIVITY ( PREVIOUSLY HAVE BEEN SUPPOSED TO BE DOING WELL) but do not need any at rest. PLEASE CONTINUE TO USE when up/walking/moving around to prevent dropping saturations and leading to complications/issues. Your vitamin D level was checked as frequently this is low with COPD patients and yours WAS LOW. Replacement has been started and you should continue once daily at discharge and follow up with primary care for repeat levels in 2-3 months as outpatient. We also checked B12 level which was normal but on the low end and started replacement which has been continued and your folate was LOW and we started replacement which has also been continued. I sent a renewed prescription for your Synthroid as well. Please follow up with primary care in the next 7-10 days to monitor your progress after hospitalization. Please return to the ER with any fevers/chills, increased shortness of breath, increased sputum production or for any other symptoms concerning for you. It has been a pleasure being a part of the medical team providing for you while you have been in the hospital. Take care! Pending Studies at Discharge: Yes Studies:: JOSELITO level Stand-Alone Forms: [facility] [employer], Smoking Cessation Medications and DC Order Prescriptions: New cholecalciferol (vitamin D3) 25 mcg (1,000 unit) Capsule 25 mcg PO QAM Qty: 30 0RF folic acid 800 mcg tablet 800 mcg PO DAILY Qty: 30 0RF cyanocobalamin (vitamin B-12) 1,000 mcg capsule 1,000 mcg PO DAILY Qty: 30 0RF prednisone 20 mg tablet See Rx Instructions .ROUTE .COMPLEX Qty: 10 0RF Rx Instructions: please take 40mg by mouth for 2 days, then decrease to 30mg for two days, then 20mg for 2 days, then 10mg (1/2 tablet) for 2 days. (DME) Oxygen Home Liters Per Minute See Rx Instructions .ROUTE Qty: 1 0RF Rx Instructions: As directed Continued hydroxyzine pamoate 25 mg capsule 25 mg PO BID Qty: 180 3RF lithium carbonate 300 mg tablet extended release 600 mg PO HS 90 Days Qty: 180 3RF betamethasone valerate 0.1 % ointment 1 applic topical DAILY Qty: 45 0RF Rx Instructions: Apply to right palm once a day at night for 3 to 4 weeks omeprazole 20 mg capsule,delayed release(DR/EC) 20 mg PO QAM Qty: 90 3RF atorvastatin 40 mg tablet 40 mg PO QPM Qty: 90 3RF metoprolol succinate 25 mg tablet extended release 24 hr 25 mg PO DAILY Qty: 90 3RF famotidine [Acid [employer] (famotidine)] 10 mg tablet 10 mg PO BID Qty: 180 3RF gabapentin 100 mg capsule 100 mg PO TID Qty: 270 3RF amlodipine 5 mg tablet 5 mg PO HS Qty: 90 3RF acetazolamide 250 mg tablet 1,000 mg PO BID 30 Days Qty: 240 5RF nitroglycerin 0.4 mg tablet, sublingual 0.4 mg sublingual .PRN/UD Qty: 30 5RF Rx Instructions: NEEDED FOR CHEST PAIN : ONE TABLET UNDER THE TONGUE EVERY 5 MINUTES UP TO THREE DOSES. meloxicam 15 mg tablet 15 mg PO DAILY Qty: 30 3RF albuterol sulfate 2.5 mg /3 mL (0.083 %) solution for nebulization 2.5 mg inhalation Q4H PRN (Reason: shortness of breath or wheezing) Qty: 180 11RF clobetasol 0.05 % cream 1 applic TOPICAL BID Rx Instructions: APPLY TO RIGHT HAND TWICE DAILY nystatin 100,000 unit/gram powder 1 applic TOPICAL TID Qty: 60 5RF Rx Instructions: APPLY TO SKIN FOLDS albuterol sulfate 90 mcg/actuation HFA aerosol inhaler 2 puff INHALATION QID PRN (Reason: SHORTNESS OF BREATH/WHEEZING) Qty: 8.5 5RF Trelegy Ellipta 100-62.5-25 mcg blister with device 1 inh inhalation DAILY Qty: 28 2RF Vraylar 3 mg capsule 3 mg PO HS Qty: 30 0RF Rx Instructions: Filled by psych ketoconazole 2 % shampoo 1 applic topical .COMPLEX Qty: 120 2RF Rx Instructions: 1 applic topically wash scalp 2-3 times weekly. Let sit for 3-5 minutes prior to rinsing. aspirin 81 mg Tablet,Chewable 81 mg PO QAM levothyroxine 88 mcg tablet 88 mcg PO DAILY Qty: 90 3RF No Action (DME) blood-glucose meter Kit See Rx Instructions .Route Qty: 1 0RF Rx Instructions: AC and HS and prn (DME) [facility] See Rx Instructions .Route Qty: 1 0RF Rx Instructions: Semi-electric hospital bed with mattress and side rails. As directed (DME) humidifiers [facility] See Rx Instructions .Route Qty: 1 0RF Rx Instructions: humidified oxygen. prn Discharge Orders: Discharge Order (Routine); Ordered 02/03/24 Ordered By: Dianna Davis Admission Data Admit Date/Time: 02/01/24 14:55 Attending Provider: Fadi Fraser Admit Provider: Colby Calzada Primary Care Provider: Alberto Molina Other Interventions: Discharge Summary Assessment (RN) Last Done: 02/03/24 14:01 Hospital Stay Data Pending Results Patient Have Any Pending Studies at Discharge: Yes Discharge Instructions Given to Patient (Per Discharging Provider) You have been hospitalized for shortness of breath and low oxygen levels. Viral panel was obtained and NEGATIVE. Chest xray was negative for pneumonia and you were treated with IV steroids and nebulizer treatments along with Azithromycin which is an antibiotic for atypical coverage as it is suspected this is likely a COPD exacerbation/bronchitis from increased smoking and not using your trelegy inhaler/CPAP at night as supposed to along with possible environmental/allergies. At discharge, it is STRONGLY recommended to cut back on smoking/quit, and you should be using your TRELEGY INHALER EVERY DAY ONCE A DAY and utilize the albuterol inhaler every 4-6 hours for the next couple of days and then can decrease this back to as needed. Case management called and left voicemail for [facility] about your mask for your CPAP but you should also follow up and call to see if they can provide a newer head strap for comfort and ability to continue to use this for improvement in symptoms. Please continue prednisone steroid taper at discharge as ordered and azithromycin for another day. You should continue Mucinex twice daily to help clear mucus and prevent congestion. We did a test with respiratory therapy at discharge to monitor your oxygen levels with activity and this showed YOU SHOULD BE WEARING 2 LITERS OF OXYGEN WITH ACTIVITY ( PREVIOUSLY HAVE BEEN SUPPOSED TO BE DOING WELL) but do not need any at rest. PLEASE CONTINUE TO USE when up/walking/moving around to preve nt dropping saturations and leading to complications/issues. Your vitamin D level was checked as frequently this is low with COPD patients and yours WAS LOW. Replacement has been started and you should continue once daily at discharge and follow up with primary care for repeat levels in 2-3 months as outpatient. We also checked B12 level which was normal but on the low end and started replacement which has been continued and your folate was LOW and we started replacement which has also been continued. I sent a renewed prescription for your Synthroid as well. Please follow up with primary care in the next 7-10 days to monitor your progress after hospitalization. Please return to the ER with any fevers/chills, increased shortness of breath, increased sputum production or for any other symptoms concerning for you. It has been a pleasure being a part of the medical team providing for you while you have been in the hospital. Take care! Supervising Physician Co-Signing Physician Notes The patient was not seen by me. The chart was reviewed. Case discussed with MIKE Coelho. Agree with assessment and plan Total Time Total Time Spent Total Time Spent (In Minutes): 60 Coding Level of Care Code 57856 INP/OBS DISCH >30 MIN Diagnoses Acute exacerbation of chronic obstructive pulmonary disease J44.1 CAD (coronary artery disease) I25.10 BLAINE on CPAP G47.33; Z99.89 Hypothyroidism E03.9 Hypoxia R09.02 Folate deficiency E53.8 B12 deficiency E53.8
[2024-02-04] MEDS ORDERED: predniSONE 20 MG TAB PO SCH (09:00)
== END 2024-02-03 15:58 | disposition home or self-care (01) | DRG 191 ==
LOC: ED 11:45 → SUATTDRO 14:55 → 3E 14:55 → INTOOBSV 14:55 → 3E 16:44

== ENCOUNTER 2024-05-09 15:16 | Observation (INO) ==
--- NOTE | 2024-05-09 15:35 | Emergency Department Note ---
Impression & Plan Hypoxia Admission ED Provider Note HPI: History obtained from patient. The patient is a 59-year-old female with history of COPD, on nasal cannula oxygen at night only, who presents the emergency department with a chief complaint of shortness of breath. Patient states she has felt short of breath since yesterday. Patient states she is still actively smoking about 3 cigarettes a day. On arrival here to the ER the patient is hemodynamically stable on 4 L nasal cannula oxygen. She is saturating at 94%. Patient does not exhibit any increased work of breathing. Per EMS report the patient was hypoxic at 85% in the field and was placed on nasal cannula oxygen with good improvement. Patient denies any chest pain. ROS: - Per HPI Differential Diagnosis: COPD exacerbation, pneumonia, acute bronchitis, ACS, pulmonary edema/CHF exacerbation, amongst other potential pathologies. *Outpatient medications and allergy history reviewed. PE: General: Alert HEENT: Normocephalic, trachea midline Eyes: Extraocular eye movement is intact, no scleral erythema Pulmonary: Diminished bilateral breath sounds with expiratory wheezing bilaterally and throughout Cardio: Regular rate and rhythm GI: Abdomen is soft to palpation : No suprapubic tenderness MSK: No evidence of trauma or malformation of the extremities, no edema Skin: No evidence of rash Neuro: Alert, no focal deficits Psychiatric: Cooperative INDEPENDENT INTERPRETATIONS: threat monitoring analyst: (As interpreted by myself): - An order was placed for continuous cardiac monitoring - Patient was noted to be in sinus rhythm with a rate of 58 EKG: (As interpreted by myself): Rate: 55 Rhythm: Sinus bradycardia Intervals: Within normal limits ST changes: No ST elevation Time: 1526 Chest x-ray: (As interpreted by myself): No focal infiltrate Interventions provided in ED: -Due to breathing treatment, IV Solu-Medrol Medical Decision Making: IV was established and lab work obtained, patient was placed on satellite project site monitor, patient's hypoxia improved with 2 L nasal cannula oxygen. Lab work shows no leukocytosis, hemoglobin is normal, platelet count is normal, venous blood gas shows evidence of hypercarbic respiratory failure with a venous pH of 7.23 and a pCO2 of 76. Patient was given DuoNeb breathing treatment and IV Solu-Medrol here in the ED. CMP does not show any evidence of any critical findings. Troponin is negative, BNP is negative, viral panel testing is positive for coronavirus OC 43. I suspect the patient symptoms are secondary to COPD exacerbation from underlying viral illness. I discussed the patient's presentation with the on-call hospitalist, Dr. Calzada, and given her hypercarbic respiratory failure with hypoxia she will be admitted to the hospitalist service for further care. Patient was placed for admission in stable condition. Consultants/Discussions held with other healthcare providers: -Hospitalist, Dr. Calzada * CRITICAL CARE TIME: ( 43 ) minutes -Stabilization of patient with COPD exacerbation with hypoxia with oxygen saturations at 85% on room air requiring breathing treatments, nasal cannula oxygen, and IV steroids for correction. Interpretation of diagnostic studies. Discussion with other healthcare providers and arrangement of admission. Diagnosis: 1. Hypoxia, acute 2. COPD exacerbation, acute 3. Viral upper respiratory infection/coronavirus OC 43 infection, acute Disposition: Admission Jasmeet Sweet DO Emergency Medicine Past Med/Surg History Problem List (Updated 05/09/24 @ 17:22 by Jasmeet Sweet DO) Hypoxia (Acute) Incontinence Prediabetes B12 deficiency Folate deficiency Acute exacerbation of chronic obstructive pulmonary disease (Acute) Ambulatory dysfunction Hypertrophic toenail Fall Right knee pain Chest pain (Acute) Hypoxia (Acute) Psoriasis Pseudotumor cerebri BLAINE on CPAP Vitamin D deficiency Bronchitis (Acute) Tobacco abuse (Acute) Hypothyroidism CAD (coronary artery disease) (Acute) HLD (hyperlipidemia) HTN (hypertension) Chronic respiratory failure with hypercapnia COPD (chronic obstructive pulmonary disease) (Acute) Bipolar disorder (Acute) Medical History Acute respiratory acidosis T2DM (type 2 diabetes mellitus) Acute exacerbation of chronic obstructive pulmonary disease BLAINE (obstructive sleep apnea) Influenza Acute on chronic respiratory failure with hypoxia and hypercapnia COVID-19 GERD (gastroesophageal reflux disease) TIA (transient ischemic attack) Surgical History History of lithotripsy History of cholecystectomy History of tubal ligation History of esophagogastroduodenoscopy (EGD) 2018 normal History of colonoscopy 2018 adenomatous polyps removed History of History of coronary artery stent placement Family History Father , 48 Myocardial infarction Mother , 58 Diabetes COPD (chronic obstructive pulmonary disease) Sister Ovarian cancer Denies family history of Prostate cancer Breast cancer Colorectal cancer Social History Smoking Status: Current every day smoker Tobacco Type: Cigarettes Age Started Using Tobacco: 9; packs per day: 0.25; Cigarettes Per Day: 7; Second Hand Exposure: No; Do You Dip or Chew Tobacco: No; Hx Alcohol Use: No Hx Substance Use: No Preferred Language: Libyan Communication Ability: Effective Visual Impairment: Limited Hearing Ability: Normal Damage Assessor Required: No Beliefs That Will Affect Care: None marital status: Single Current Living Situation: Family current occupational status: disabled How many Children do You have: 2 Feels Safe at Home: Yes Childhood Exposure to Second-Hand Smoke: Yes Diet: regular caffeine: Yes during the past year weight has: remained stable Dental Care, Regularly: No Physical Activity Frequency: Daily Seatbelt Use: sometimes Sunscreen Use: Yes (sometimes) Do you think of yourself as: straight/heterosexual Sexual Activity: has been sexually active, but not for at least 12 months Gender Identity: Female Assistive Devices: CPAP and Walker Allergies Allergies Allergy/AdvReac Type Severity Reaction Status Date / Time ethinyl estradiol Allergy Mild RUNNY Verified 05/09/24 16:40 NOSE, ACHES, CONGESTION levonorgestrel Allergy Mild RUNNY Verified 05/09/24 16:40 NOSE, ACHES, CONGESTION strawberry Allergy Mild RASH Verified 05/09/24 16:40 bupropion Allergy Unknown memory loss Verified 05/09/24 16:40 latex Allergy Unknown rash Verified 05/09/24 16:40 blue dye Allergy runny Verified 05/09/24 16:40 nose, aches, congestion Home Meds Home Medications Medication Instructions Recorded Confirmed aspirin 81 mg chewable tablet 81 mg PO QAM 09/20/21 05/09/24 clobetasol 0.05 % topical cream 1 applic topical BID 07/21/23 05/09/24 ketoconazole 2 % shampoo 1 applic topical UD 05/09/24 05/09/24 nitroglycerin 0.4 mg sublingual 0.4 mg sublingual UD PRN Chest Pain 05/09/24 05/09/24 tablet Previous Rx's Medication Instructions Recorded nystatin 100,000 unit/gram topical 1 applic topical TID #60 grams 12/31/21 powder hydroxyzine pamoate 25 mg capsule 25 mg PO BID #180 caps 12/23/22 lithium carbonate 300 mg 600 mg (2 x 300 mg) PO HS 90 days 12/23/22 tablet,extended release #180 tabs meloxicam 15 mg tablet 15 mg PO DAILY #30 tabs 03/07/23 humidifiers #1 ea 03/20/23 albuterol sulfate 2.5 mg/3 mL 2.5 mg (3 mL) inhalation Q4H PRN 06/01/23 (0.083 %) solution for nebulization shortness of breath or wheezing #180 mL betamethasone valerate 0.1 % 1 applic topical DAILY #45 grams 08/03/23 topical ointment cariprazine 3 mg capsule (Vraylar) 3 mg PO HS #30 caps 08/24/23 acetazolamide 250 mg tablet 1,000 mg (4 x 250 mg) PO BID 30 12/22/23 days #240 tabs atorvastatin 40 mg tablet 40 mg PO QPM #90 tabs 12/22/23 famotidine 10 mg tablet (Acid 10 mg PO BID #180 tabs 12/22/23 Neurodiagnostic Technician (famotidine)) gabapentin 100 mg capsule 100 mg PO TID #270 caps 12/22/23 metoprolol succinate 25 mg 25 mg PO DAILY #90 tabs 12/22/23 tablet,extended release 24 hr omeprazole 20 mg capsule,delayed 20 mg PO QAM #90 caps 12/22/23 release cholecalciferol (vitamin D3) 25 25 mcg PO QAM #30 caps 02/02/24 mcg (1,000 unit) capsule levothyroxine 88 mcg tablet 88 mcg PO DAILY #90 tabs 02/02/24 Oxygen Home #1 ea 02/03/24 albuterol sulfate 90 mcg/actuation 2 puff inhalation QID PRN 02/06/24 aerosol inhaler SHORTNESS OF BREATH/WHEEZING #8.5 grams blood sugar diagnostic (Blood #50 ea 02/06/24 Glucose Test strips) blood-glucose meter #1 ea 02/06/24 cyanocobalamin (vitamin B-12) 1,000 mcg PO DAILY #100 caps 02/06/24 1,000 mcg capsule fluticasone fur. 100 mcg-umeclid 1 inh inhalation DAILY #28 ea 02/06/24 62.5 mcg-vilant 25 mcg inhalat.powder (Trelegy Ellipta) folic acid 800 mcg tablet 800 mcg PO DAILY #100 tabs 02/06/24 amlodipine 5 mg tablet 5 mg PO HS #90 tabs 04/12/24 Hospital Bed Homecare (Hospital #1 ea 05/08/24 Bed) Results & Data (ED) Vital Signs Vital Signs - 24 hr 05/09/24 15:19 05/09/24 15:19 05/09/24 15:30 Temperature 37.2 C Temperature Source Oral Pulse Rate 58 L 56 L Respiratory Rate 16 Respiratory Effort / Characteristics Non-Labored Spontaneous Respiratory Depth Normal Respiratory Pattern Regular Blood Pressure 132/60 Blood Pressure Mean 84 Pulse Oximetry 85 L 85 L Oxygen Delivery Method Room Air Room Air Nasal Cannula Oxygen Flow Rate 0 Fraction of Inspired Oxygen Sepsis Recent Fever Within 48 Hours No Sepsis New/Unexplained Change in Mental Status No Sepsis Action Taken by Nursing No Action Required Oxygen Flow Rate - Titration 3 Pulse Oximetry Post Tiitration 96 05/09/24 15:59 05/09/24 16:03 05/09/24 16:50 Temperature Temperature Source Pulse Rate 57 L 55 L Respiratory Rate 16 18 Respiratory Effort / Characteristics Non-Labored Spontaneous Respiratory Depth Normal Respiratory Pattern Regular Blood Pressure 146/67 H Blood Pressure Mean 93 Pulse Oximetry 96 94 93 Oxygen Delivery Method Nasal Cannula Oxygen Flow Rate 2 Fraction of Inspired Oxygen 30 Sepsis Recent Fever Within 48 Hours Sepsis New/Unexplained Change in Mental Status Sepsis Action Taken by Nursing Oxygen Flow Rate - Titration Pulse Oximetry Post Tiitration Laboratory Data 05/09/24 15:30 05/09/24 15:30 Lab Results 05/09/24 05/09/24 05/09/24 Range/Units 15:30 15:59 Unknown WBC 10.57 (4.8-10.8) K/ul RBC 4.70 (4.20-5.40) M/uL Hgb 14.2 (12.0-16.0) g/dl Hct 47.6 H (37.0-47.0) % MCV 101.3 H (80.0-100.0) fL MCH 30.2 (25.0-34.0) pg MCHC 29.8 L (32.0-36.0) g/dL RDW Std Deviation 52.0 H (36.4-46.3) fL RDW Coeff of Bruno 13.8 (11.5-14.5) % Plt Count 228 (130-400) K/uL MPV 9.9 (9.4-12.4) fL Immature Gran % (Auto) 0.5 % Neut % (Auto) 76.6 % Lymph % (Auto) 13.9 % [place] % (Auto) 6.5 % Eos % (Auto) 2.0 % Baso % (Auto) 0.5 % Neut # (Auto) 8.10 H (1.40-6.50) K/uL Lymph # (Auto) 1.47 (1.20-3.40) K/uL [place] # (Auto) 0.69 H (0.11-0.59) K/uL Eos # (Auto) 0.21 (0.00-0.50) K/uL Baso # (Auto) 0.05 (0.00-0.20) K/uL Immature Gran # (Auto) 0.05 (0.01-0.20) K/uL PT 11.0 (9.0-12.0) Seconds INR 1.0 (0.9-1.1) VBG pH 7.23 L (7.36-7.41) VBG pCO2 76 H (38-50) mmHg VBG pO2 60 mmHg VBG HCO3 32 mmol/L VBG O2 Saturation 90.4 % VBG Base Excess 1.9 mEq/L Sodium 140 (136-145) mmol/L Potassium 3.8 (3.5-5.1) mmol/L Chloride 106 (98-107) mmol/L Carbon Dioxide 32 (21-32) mmol/L Anion Gap 2 L (3-11) BUN 18 (6-23) mg/dl Creatinine 0.74 (0.6-1.2) mg/dl Est Cr Clr Drug Dosing 102.9 ml/min eGFR 93.14 BUN/Creatinine Ratio 24.3 H (10-20) Glucose 113 H (70-99(Fasting)) mg/dl Calcium 9.1 (8.6-10.3) mg/dl Total Bilirubin 0.4 (0.2-1.0) mg/dl AST 12 L (13-39) U/L ALT 6 L (7-52) U/L Alkaline Phosphatase 89 (34-104) U/L Troponin I High Sens 4.0 (0-14) pg/ml B-Natriuretic Peptide 43 (0-100) pg/ml Total Protein 6.7 (6.0-8.3) gm/dl Albumin 3.5 (3.4-5.0) gm/dl Globulin 3.2 (2.5-4.0) gm/dl Albumin/Globulin Ratio 1.1 (0.9-2) Adenovirus (PCR) Not Detected (NotDetected) B. pertussis DNA (PCR) Not Detected (NotDetected) B.parapertussis DNA PCR Not Detected (NotDetected) C. pneumoniae DNA (PCR) Not Detected (NotDetected) Coronavirus OC43 (PCR) DETECTED A (NotDetected) Coronavirus HKU1 (PCR) Not Detected (NotDetected) Coronavirus 229E (PCR) Not Detected (NotDetected) SARS-CoV-2 (PCR) Not Detected (NotDetected) Coronavirus NL63 (PCR) Not Detected (NotDetected) Human Metapneumovir PCR Not Detected (NotDetected) Influenza Type A (PCR) Not Detected (NotDetected) Influenza Type B (PCR) Not Detected (NotDetected) M. pneumoniae (PCR) Not Detected (NotDetected) Parainfluenza 1 (PCR) Not Detected (NotDetected) Parainfluenza 2 (PCR) Not Detected (NotDetected) Parainfluenza 3 (PCR) Not Detected (NotDetected) Parainfluenza 4 (PCR) Not Detected (NotDetected) RSV (PCR) Not Detected (NotDetected) Entero/Rhino (PCR) Not Detected (NotDetected) Administered Medications Discontinued Medications Albuterol (Albut/Ipratrop 3mg/0.5mg Neb 3 Ml Vial) 3 ml NEB NOW STA; Protocol Stop: 05/09/24 15:34 Last Admin: 05/09/24 15:54 Dose: 3 ml Documented By: SUMMER Methylprednisolone (Methylprednisolone 125 Mg/2 Ml Vial) 125 mg IV NOW STA Stop: 05/09/24 15:34 Last Admin: 05/09/24 15:55 Dose: 125 mg Documented By: SUMMER Imaging Data Radiologist's Impression: Chest X-Ray 05/09/24 15:28 XR chest 1V portable CLINICAL HISTORY: Dyspnea TECHNIQUE: Single frontal radiograph of the chest was obtained. Comparison: Comparison is made to chest radiograph 02/01/2024 FINDINGS: Exam is limited by underpenetration. Cardiomegaly is noted. The lungs are clear. No evidence of pleural effusion or pneumothorax. IMPRESSION: Limited exam due to underpenetration but no evidence of pneumonia. Stable cardiomegaly. ACT 112: Negative or not required by law. Electronically signed by: Edgar Thompson M.D. 05/09/2024 4:03 PM Discharge Plan Visit Data Chief Complaint: Shortness of Breath/Dyspnea Stated Complaint: SOB ED Provider: Jasmeet Sweet Discharge Problem: Hypoxia Forms Stand Alone Forms: My [facility] Prescriptions Prescriptions: No Action hydroxyzine pamoate 25 mg capsule 25 mg PO BID Qty: 180 3RF lithium carbonate 300 mg tablet extended release 600 mg PO HS 90 Days Qty: 180 3RF betamethasone valerate 0.1 % ointment 1 applic topical DAILY Qty: 45 0RF Rx Instructions: Apply to right palm once a day at night for 3 to 4 weeks omeprazole 20 mg capsule,delayed release(DR/EC) 20 mg PO QAM Qty: 90 3RF atorvastatin 40 mg tablet 40 mg PO QPM Qty: 90 3RF metoprolol succinate 25 mg tablet extended release 24 hr 25 mg PO DAILY Qty: 90 3RF famotidine [Acid Neurodiagnostic Technician (famotidine)] 10 mg tablet 10 mg PO BID Qty: 180 3RF gabapentin 100 mg capsule 100 mg PO TID Qty: 270 3RF acetazolamide 250 mg tablet 1,000 mg PO BID 30 Days Qty: 240 5RF amlodipine 5 mg tablet 5 mg PO HS Qty: 90 3RF meloxicam 15 mg tablet 15 mg PO DAILY Qty: 30 3RF albuterol sulfate 2.5 mg /3 mL (0.083 %) solution for nebulization 2.5 mg inhalation Q4H PRN (Reason: shortness of breath or wheezing) Qty: 180 11RF clobetasol 0.05 % cream 1 applic TOPICAL BID Rx Instructions: APPLY TO RIGHT HAND TWICE DAILY nystatin 100,000 unit/gram powder 1 applic TOPICAL TID Qty: 60 5RF Rx Instructions: APPLY TO SKIN FOLDS (DME) humidifiers Misc See Rx Instructions .Route Qty: 1 0RF Rx Instructions: humidified oxygen. prn Vraylar 3 mg capsule 3 mg PO HS Qty: 30 0RF Rx Instructions: Filled by psych albuterol sulfate 90 mcg/actuation HFA aerosol inhaler 2 puff INHALATION QID PRN (Reason: SHORTNESS OF BREATH/WHEEZING) Qty: 8.5 5RF Trelegy Ellipta 100-62.5-25 mcg blister with device 1 inh inhalation DAILY Qty: 28 5RF folic acid 800 mcg tablet 800 mcg PO DAILY Qty: 100 3RF cyanocobalamin (vitamin B-12) 1,000 mcg capsule 1,000 mcg PO DAILY Qty: 100 3RF (DME) blood-glucose meter Kit See Rx Instructions .Route Qty: 1 0RF Rx Instructions: AC and HS and prn (DME) Blood Glucose Test Strip See Rx Instructions .Route Qty: 50 3RF Rx Instructions: AC and HS (DME) Hospital Bed [facility] [place] See Rx Instructions .Route Qty: 1 0RF Rx Instructions: Semi-electric hospital bed with mattress and side rails. As directed aspirin 81 mg Tablet,Chewable 81 mg PO QAM ketoconazole 2 % shampoo 1 applic topical UD Rx Instructions: 1 applic topically wash scalp 2-3 times weekly. Let sit for 3-5 minutes prior to rinsing. nitroglycerin 0.4 mg tablet, sublingual 0.4 mg sublingual UD PRN (Reason: Chest Pain) Rx Instructions: NEEDED FOR CHEST PAIN : ONE TABLET UNDER THE TONGUE EVERY 5 MINUTES UP TO THREE DOSES. cholecalciferol (vitamin D3) 25 mcg (1,000 unit) Capsule 25 mcg PO QAM Qty: 30 0RF levothyroxine 88 mcg tablet 88 mcg PO DAILY Qty: 90 3RF (DME) Oxygen Home Liters Per Minute See Rx Instructions .Route Qty: 1 0RF Rx Instructions: As directed Referrals Referrals: Alberto Molina DO [Primary Care Provider] -
[2024-05-09] MEDS: ALBUT/IPRATROP 3MG/0.5MG NEB 3 ML VIAL NEB STA (15:54)
[2024-05-09] MEDS: methylPREDNISolone 125 MG/2 ML VIAL IV STA (15:55)
[2024-05-09 15:59] LABS: Basophils # (auto) 0.05 K/uL (0.00-0.20); Basophils % (auto) 0.5 %; Eosinophils # (auto) 0.21 K/uL (0.00-0.50); Hematocrit (blood only) 47.6 % (37.0-47.0); Hemoglobin 14.2 g/dl (12.0-16.0); Immature Granulocytes # (auto) 0.05 K/uL (0.01-0.20); Immature Granulocytes % (auto) 0.5 %; Lymphocytes # (auto) 1.47 K/uL (1.20-3.40); Lymphocytes % (auto) 13.9 %; Mean Corpuscular Hemoglobin 30.2 pg (25.0-34.0); Mean Corpuscular Hgb Conc 29.8 g/dL (32.0-36.0); Mean Corpuscular Volume 101.3 fL (80.0-100.0); Mean Platelet Volume 9.9 fL (9.4-12.4); Monocytes # (auto) 0.69 K/uL (0.11-0.59); Monocytes % (auto) 6.5 %; Neutrophils % (auto) 76.6 %; Platelet Count 228 K/uL (130-400); RDW Coefficient of Variation 13.8 % (11.5-14.5); White Blood Count 10.57 K/ul (4.8-10.8)
[2024-05-09 16:08] LABS: Base Excess VBG 1.9 mEq/L; HCO3 VBG 32 mmol/L; Oxygen Saturation VBG 90.4 %; PCO2 VBG 76 mmHg (38-50); PO2 VBG 60 mmHg; pH VBG 7.23 (7.36-7.41)
[2024-05-09 16:09] LABS: Albumin Globulin Ratio 1.1 (0.9-2); Albumin Level 3.5 gm/dl (3.4-5.0); BUN Creatinine Ratio 24.3 (10-20); Bilirubin,Total 0.4 mg/dl (0.2-1.0); Calcium 9.1 mg/dl (8.6-10.3); Creatinine Clr Calc Pharmacy 102.9 ml/min; Globulin 3.2 gm/dl (2.5-4.0); Potassium 3.8 mmol/L (3.5-5.1); Total Protein 6.7 gm/dl (6.0-8.3)
--- NOTE | 2024-05-09 16:26 | XRay Report ---
XR chest 1V portable CLINICAL HISTORY: Dyspnea TECHNIQUE: Single frontal radiograph of the chest was obtained. Comparison: Comparison is made to chest radiograph 02/01/2024 FINDINGS: Exam is limited by underpenetration. Cardiomegaly is noted. The lungs are clear. No evidence of pleur al effusion or pneumothorax. IMPRESSION: Limited exam due to underpenetration but no evidence of pneumonia. Stable cardiomegaly. ACT 112: Negative or not required by law. Electronically signed by: Edgar Thompson M.D. 05/09/2024 4:03 PM
--- NOTE | 2024-05-09 16:46 | History & Physical Report ---
Date of Service May 09, 2024 Assessment & Plan (1) Acute exacerbation of chronic obstructive pulmonary disease: Plan: H/o COPD; smoking cigarettes still, ~ 3/day; On 2L O2 via NC HS - CXR- Limited exam due to underpenetration but no evidence of pneumonia. Stable cardiomegaly. - CBC H&H 41/47.6, MCV 101.3, MCHC 29.8, RDW 52, neutrophils 8.10, monocytes 0.69 - CMP-AG 2, BUN/creatinine ratio 24.3, glucose 113, AST 12, ALT 6 - VBG-pH 7.23, pCO2 76, pO2 60, HCO3 32L - BNP 43 - Biofire (+) for Coronavirus Type OC43 - Flutter valve + Incentive spirometer - Home O2 2L at night; hypoxic on arrival and requiring 2L O2 via NC- Continue BiPAP; repeat VBG 1 hour after starting - Solumedrol 40mg IV daily - Duonebs q4hr - Azithro 500mg x 3 days - CBC am (2) Acute hypercapnic respiratory failure: Plan: See above, #1 (3) Tobacco abuse: Plan: Smoking cigarettes - ~ 3 cigarettes/day, per patient - Recommended cessation, patient understood + agrees that she would like to quit - Nicotine patch offered; pt declined HOWEVER order is placed if patient decides she needs it (4) T2DM (type 2 diabetes mellitus): Plan: H/o, per history - No home medications; diet controlled - Most recent A1C 6.2% (01/2024) - No SSI at this time since no at home medications - T2DM diet Plan CAD/HTN - stable, Amlodipine, metoprolol; Stent 2018, ASA + statin, NTG prn Bipolar disorder - Vraylar, [place] Pseudotumor cerebri - Acetazolamide Neuropathy - Gabapentin GERD- Omeprazole BLAINE- CPAP, 2L HS Hypothyroidism- Levothyroxine Dispo: Admit Diet: Heart healthy, T2DM VTE Prophylaxis: Lovenox Code: Full Admission and Anticipated Discharge Date Admission Date: 05/09/2024 History of Present Illness Chief Complaint: SOB Primary Care Provider: Alberto Molina DO 59-year-old female presenting to ED via EMS for ongoing SOB. ED course: CBC H&H 14.2/47.6, MCV 101.3, MCHC 29.8, RDW 52, neutrophils 8.10, monocytes 0.69, without leukocytosis; PT/INR WNLVBGs pH 7.23 pCO2 76, pO2 60, HCO3 32: CMP AG to, BUN/creatinine ratio 24.3, glucose 113, AST 12, ALT 6; troponin 4; pending BNP; pending BioFire; CXR Limited exam due to underpenetration but no evidence of pneumonia. Stable cardiomegaly; Provided with methylprednisolone and via nebulizer in ED. Patient is a 59-year-old female PMHx T2DM, BLAINE, chronic respiratory failure with hypoxia and hypercapnia, and GERD. For the past 3 days patient has noted increased shortness of breath. Notes that these symptoms were a quick onset, and made her feel run-down and not herself. Admits to more fatigue than usual. Only wears O2 at night, none during the day. 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 W/o radidation or diaphoresis. Otherwise denying palpitations, cough, fever/chills, abdominal pain, N/V/D/C, numbness/tingling, headache, or additional URI symptoms. No known sick contacts. Took a.m. medications. Please see Dr. Calzada's attestation for adjustments/additions to treatment plan. Allergies Allergy/AdvReac Type Severity Reaction Status Date / Time ethinyl estradiol Allergy Mild RUNNY Verified 05/09/24 16:40 NOSE, ACHES, CONGESTION levonorgestrel Allergy Mild RUNNY Verified 05/09/24 16:40 NOSE, ACHES, CONGESTION strawberry Allergy Mild RASH Verified 05/09/24 16:40 bupropion Allergy Unknown memory loss Verified 05/09/24 16:40 latex Allergy Unknown rash Verified 05/09/24 16:40 blue dye Allergy runny Verified 05/09/24 16:40 nose, aches, congestion Home Medications Medication Instructions Recorded Confirmed Type aspirin 81 mg chewable tablet 81 mg PO QAM 09/20/21 05/09/24 History nystatin 100,000 unit/gram topical 1 applic topical TID #60 grams 12/31/21 05/09/24 Rx powder hydroxyzine pamoate 25 mg capsule 25 mg PO BID #180 caps 12/23/22 05/09/24 Rx lithium carbonate 300 mg 600 mg (2 x 300 mg) PO HS 90 days 12/23/22 05/09/24 Rx tablet,extended release #180 tabs meloxicam 15 mg tablet 15 mg PO DAILY #30 tabs 03/07/23 05/09/24 Rx humidifiers #1 ea 03/20/23 03/25/24 Rx albuterol sulfate 2.5 mg/3 mL 2.5 mg (3 mL) inhalation Q4H PRN 06/01/23 05/09/24 Rx (0.083 %) solution for nebulization shortness of breath or wheezing #180 mL clobetasol 0.05 % topical cream 1 applic topical BID 07/21/23 05/09/24 History betamethasone valerate 0.1 % 1 applic topical DAILY #45 grams 08/03/23 05/09/24 Rx topical ointment cariprazine 3 mg capsule (Vraylar) 3 mg PO HS #30 caps 08/24/23 05/09/24 Rx acetazolamide 250 mg tablet 1,000 mg (4 x 250 mg) PO BID 30 12/22/23 05/09/24 Rx days #240 tabs atorvastatin 40 mg tablet 40 mg PO QPM #90 tabs 12/22/23 05/09/24 Rx famotidine 10 mg tablet (Acid 10 mg PO BID #180 tabs 12/22/23 05/09/24 Rx Inbound Call Center Representative (famotidine)) gabapentin 100 mg capsule 100 mg PO TID #270 caps 12/22/23 05/09/24 Rx metoprolol succinate 25 mg 25 mg PO DAILY #90 tabs 12/22/23 05/09/24 Rx tablet,extended release 24 hr omeprazole 20 mg capsule,delayed 20 mg PO QAM #90 caps 12/22/23 05/09/24 Rx release cholecalciferol (vitamin D3) 25 25 mcg PO QAM #30 caps 02/02/24 05/09/24 Rx mcg (1,000 unit) capsule levothyroxine 88 mcg tablet 88 mcg PO DAILY #90 tabs 02/02/24 05/09/24 Rx Oxygen Home #1 ea 02/03/24 02/06/24 Rx albuterol sulfate 90 mcg/actuation 2 puff inhalation QID PRN 02/06/24 05/09/24 Rx aerosol inhaler SHORTNESS OF BREATH/WHEEZING #8.5 grams blood sugar diagnostic (Blood #50 ea 02/06/24 03/25/24 Rx Glucose Test strips) blood-glucose meter #1 ea 02/06/24 03/25/24 Rx cyanocobalamin (vitamin B-12) 1,000 mcg PO DAILY #100 caps 02/06/24 05/09/24 Rx 1,000 mcg capsule fluticasone fur. 100 mcg-umeclid 1 inh inhalation DAILY #28 ea 02/06/24 05/09/24 Rx 62.5 mcg-vilant 25 mcg inhalat.powder (Trelegy Ellipta) folic acid 800 mcg tablet 800 mcg PO DAILY #100 tabs 02/06/24 05/09/24 Rx amlodipine 5 mg tablet 5 mg PO HS #90 tabs 04/12/24 05/09/24 Rx Hospital Bed Homecare (Hospital #1 ea 05/08/24 05/08/24 Rx Bed) ketoconazole 2 % shampoo 1 applic topical UD 05/09/24 05/09/24 History nitroglycerin 0.4 mg sublingual 0.4 mg sublingual UD PRN Chest Pain 05/09/24 05/09/24 History tablet Past Med/Surg History Problem List (Updated 05/10/24 @ 11:48 by Colby Calzada MD) Acute hypercapnic respiratory failure Hypoxia (Acute) Incontinence Prediabetes B12 deficiency Folate deficiency Acute exacerbation of chronic obstructive pulmonary disease (Acute) Ambulatory dysfunction Hypertrophic toenail Fall Right knee pain Chest pain (Acute) Hypoxia (Acute) Psoriasis Pseudotumor cerebri BLAINE on CPAP Vitamin D deficiency Bronchitis (Acute) Tobacco abuse (Acute) Hypothyroidism CAD (coronary artery disease) (Acute) HLD (hyperlipidemia) HTN (hypertension) Chronic respiratory failure with hypercapnia COPD (chronic obstructive pulmonary disease) (Acute) Bipolar disorder (Acute) Medical History Acute respiratory acidosis T2DM (type 2 diabetes mellitus) Acute exacerbation of chronic obstructive pulmonary disease BLAINE (obstructive sleep apnea) Influenza Acute on chronic respiratory failure with hypoxia and hypercapnia COVID-19 GERD (gastroesophageal reflux disease) TIA (transient ischemic attack) Surgical History History of lithotripsy History of cholecystectomy History of tubal ligation History of esophagogastroduodenoscopy (EGD) 2018 normal History of colonoscopy 2018 adenomatous polyps removed History of History of coronary artery stent placement Family History Father , 48 Myocardial infarction Mother , 58 Diabetes COPD (chronic obstructive pulmonary disease) Sister Ovarian cancer Denies family history of Prostate cancer Breast cancer Colorectal cancer Social History Smoking Status: Current every day smoker Tobacco Type: Cigarettes Age Started Using Tobacco: 9; packs per day: 0.25; Cigarettes Per Day: 7; Second Hand Exposure: No; Do You Dip or Chew Tobacco: No; Tobacco Cessation Education Requested by Patient: No Hx Alcohol Use: No Hx Substance Use: No Preferred Language: [place]an Communication Ability: Effective Visual Impairment: Limited Hearing Ability: Normal 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 Required: No Beliefs That Will Affect Care: None marital status: Single Current Living Situation: Family current occupational status: disabled How many Children do You have: 2 Other Information That Helps Us Care for You: No Feels Safe at Home: Yes Safety Concerns: Feels Safe At This Time Childhood Exposure to Second-Hand Smoke: Yes Diet: regular caffeine: Yes during the past year weight has: remained stable Dental Care, Regularly: No Physical Activity Frequency: Daily Seatbelt Use: sometimes Sunscreen Use: Yes (sometimes) Do you think of yourself as: straight/heterosexual Sexual Activity: has been sexually active, but not for at least 12 months Gender Identity: Female Assistive Devices: CPAP and Oxygen - at Night Review of Systems Review of Systems: All systems reviewed & are unremarkable except as noted in Subjective Physical Exam Physical Exam: General: No acute distress Skin: Warm and dry Head: Normocephalic, atraumatic Eyes: PERRL, conjunctivae clear, sclera non-icteric ENT: External ear and ear canal without swelling; nose atraumatic; good dentition Neck: Supple, no LAD; no JVD Cardio: RRR, no M/G/R, S1 and S2 normal Resp: No respiratory distress, Expiratory wheezing throughout, no crackles; On BiPAP at time of visit, tolerating well Abdomen: Soft, symmetric, nontender; No masses or hepatosplenomegaly; Bowel sounds normoactive MSK: No deformities, full ROM throughout; pulses palpable and equal; no edema. Neuro: Awake, alert; CN intact Psych: Appropriate mood and affect; good judgement and insight. Results & Data Results & Data Vital Signs (Past 12 Hours) Vital Signs Temp Pulse Resp BP Pulse Ox O2 Del Method O2 Flow Rate 05/09/24 16:03 57 L 16 146/67 H 94 05/09/24 15:59 96 Nasal Cannula 2 05/09/24 15:30 56 L 05/09/24 15:19 85 L Room Air, Nasal Cannula 0 05/09/24 15:19 37.2 C 58 L 16 132/60 85 L Room Air Laboratory Results 05/09/24 05/09/24 15:59 15:30 WBC 10.57 RBC 4.70 Hgb 14.2 Hct 47.6 H MCV 101.3 H MCH 30.2 MCHC 29.8 L RDW Std Deviation 52.0 H RDW Coeff of [place] 13.8 Plt Count 228 MPV 9.9 Immature Gran % (Auto) 0.5 Neut % (Auto) 76.6 Lymph % (Auto) 13.9 [place] % (Auto) 6.5 Eos % (Auto) 2.0 Baso % (Auto) 0.5 Neut # (Auto) 8.10 H Lymph # (Auto) 1.47 [place] # (Auto) 0.69 H Eos # (Auto) 0.21 Baso # (Auto) 0.05 Immature Gran # (Auto) 0.05 PT 11.0 INR 1.0 VBG pH 7.23 L VBG pCO2 76 H VBG pO2 60 VBG HCO3 32 VBG O2 Saturation 90.4 VBG Base Excess 1.9 Sodium 140 Potassium 3.8 Chloride 106 Carbon Dioxide 32 Anion Gap 2 L BUN 18 Creatinine 0.74 Est Cr Clr Drug Dosing 102.9 eGFR 93.14 BUN/Creatinine Ratio 24.3 H Glucose 113 H Calcium 9.1 Total Bilirubin 0.4 AST 12 L ALT 6 L Alkaline Phosphatase 89 Troponin I High Sens 4.0 Total Protein 6.7 Albumin 3.5 Globulin 3.2 Albumin/Globulin Ratio 1.1 Diagnostic Findings Chest X-Ray 05/09/24 15:28 XR chest 1V portable CLINICAL HISTORY: Dyspnea TECHNIQUE: Single frontal radiograph of the chest was obtained. Comparison: Comparison is made to chest radiograph 02/01/2024 FINDINGS: Exam is limited by underpenetration. Cardiomegaly is noted. The lungs are clear. No evidence of pleural effusion or pneumothorax. IMPRESSION: Limited exam due to underpenetration but no evidence of pneumonia. Stable cardiomegaly. ACT 112: Negative or not required by law. Electronically signed by: Edgar Thompson M.D. 05/09/2024 4:03 PM Code Status & VTE Plan Code Status Full VTE Prophylaxis Plan VTE Prophylaxis will be ordered: Yes Supervising Physician Co-Signing Physician Notes I personally saw and examined the patient. I independently reviewed the labs, EKG, imaging, problem list, medication list, past medical history and family history. I verified all corea points and agree with Joya Andrade PA-C with the following exceptions and/or additions: 59 year old female presents to the ER with shortness of breath 2 days of worsening symptoms with productive cough. Continues to smoke. More confused than usual although orientated x3. O/E HS RRR, no murmurs, Chest expiratory wheezing throughout, no rhonchi or crackles, Abdo SNT, trace pedal edema b/l equal A/P COPD exacerbation with hypercapnic respiratory failure - stable hypercapnia, continue BiPAP HS and repeat vbg with AM labs, Solu-medrol, budesonide/formoterol NEBs BID, duonebs PG Care Time/CCT Total # of Minutes Spent Total Time Spent with Patient: Total time spent is greater than 50% in coordination of care (as documented) at patient's floor/unit and/or counseling patient: Coding Level of Care Code 73253 INT INP/OBS CARE 3/75MIN Diagnoses Acute exacerbation of chronic obstructive pulmonary disease J44.1 Acute hypercapnic respiratory failure J96.02 Tobacco abuse Z72.0 T2DM (type 2 diabetes mellitus) E11.9 Time Spent (min) 60
[2024-05-09 17:00] LABS: Adenovirus PCR Not Detected (NotDetected); Bordetella parapertussis PCR Not Detected (NotDetected); Bordetella pertussis PCR Not Detected (NotDetected); Chlamydia pneumoniae PCR Not Detected (NotDetected); Coronavirus 229E PCR Not Detected (NotDetected); Coronavirus CoV-2 (COVID19)PCR Not Detected (NotDetected); Coronavirus HKU1 PCR Not Detected (NotDetected); Coronavirus NL63 PCR Not Detected (NotDetected); Coronavirus OC43PCR DETECTED (NotDetected); Human Metapneumovirus PCR Not Detected (NotDetected); Influenza A PCR Not Detected (NotDetected); Influenza B PCR Not Detected (NotDetected); Mycoplasma pneumoniae PCR Not Detected (NotDetected); Parainfluenza Virus 1 PCR Not Detected (NotDetected); Parainfluenza Virus 2 PCR Not Detected (NotDetected); Parainfluenza Virus 3 PCR Not Detected (NotDetected); Parainfluenza Virus 4 PCR Not Detected (NotDetected); Respiratory Syncytial VirusPCR Not Detected (NotDetected); Rhinovirus/Enterovirus PCR Not Detected (NotDetected)
[2024-05-09 17:36] LABS: Base Excess VBG 1.8 mEq/L; HCO3 VBG 31 mmol/L; Oxygen Saturation VBG 72.9 %; PCO2 VBG 71 mmHg (38-50); PO2 VBG 39 mmHg; pH VBG 7.25 (7.36-7.41)
[2024-05-09 18:29] LABS: Appearance Urine Cloudy (Clear); Bacteria Urine Automated 3+ (None Seen); Bilirubin Urine Negative (Negative); Blood Urine Negative (Negative); Color Urine Yellow; Glucose Urine UA Negative (Negative); Ketones Urine Negative (Negative); Leukocyte Esterase Urine Negative (Negative); Nitrite Urine Negative (Negative); Protein Urine Trace (Negative); RBC Urine Automated 0-2 /hpf (0-2); Specific Gravity Urine 1.028 (1.000-1.030); Urobilinogen Urine Negative (Negative); WBC Urine Automated 0-5 /hpf (0-5); pH Urine 6.5 (4.5-7.5)
[2024-05-09] MEDS ORDERED: NITROGLYCERIN SL 0.4 MG/TAB TAB SL PRN (18:45)
[2024-05-09] MEDS ORDERED: ALBUTEROL HFA 8 GM INHALER INH PRN (18:45)
[2024-05-09] MEDS: BUDESONIDE 0.5 MG/2 ML VIAL (PULMICORT) NEB SCH (20:15)
[2024-05-09] MEDS: ALBUT/IPRATROP 3MG/0.5MG NEB 3 ML VIAL NEB SCH (20:15)
[2024-05-09] MEDS: FORMOTEROL 20 MCG/2 ML VIAL NEB SCH (20:15)
[2024-05-09] MEDS: ATORVASTATIN 40 MG TAB PO SCH (21:33)
[2024-05-09] MEDS: acetaZOLAMIDE 250 MG TAB PO SCH (21:33)
[2024-05-09] MEDS: LITHIUM CARBONATE SLOW REL 300 MG TAB PO SCH (21:33)
[2024-05-09] MEDS: ENOXAPARIN INJ 40 MG/0.4 ML SYR SQ SCH (21:33)
[2024-05-09] MEDS: hydrOXYzine HCl 25 MG TAB PO SCH (21:33)
[2024-05-09] MEDS: GABAPENTIN 100 MG CAP PO SCH (21:34)
[2024-05-09] MEDS: FAMOTIDINE 10 MG TABLET PO SCH (21:34)
[2024-05-09] MEDS: NYSTATIN POWDER 15GM BTL EXT SCH (21:34)
[2024-05-09] MEDS: amLODIPine BESYLATE 5 MG TAB PO SCH (21:34)
[2024-05-09] MEDS: CLOBETASOL PROPIONATE 0.05% CREAM 15 GM TUBE TOP SCH (21:35)
[2024-05-09] MEDS: CARIPRAZINE HCL 3 MG CAP PO SCH (21:35)
[2024-05-10] MEDS: LEVOTHYROXINE SODIUM 88 MCG TABLET PO SCH (06:24)
[2024-05-10] MEDS: UMECLIDINIUM BROMIDE 62.5MCG/BLISTER 7 PUFFS/INHALER INH SCH (08:33)
[2024-05-10 08:34] LABS: Base Excess VBG 1.6 mEq/L; HCO3 VBG 30 mmol/L; Oxygen Saturation VBG 75.6 %; PCO2 VBG 66 mmHg (38-50); PO2 VBG 42 mmHg; pH VBG 7.27 (7.36-7.41)
[2024-05-10] MEDS: MELOXICAM 7.5 MG TAB PO SCH (08:34)
[2024-05-10] MEDS: METOPROLOL SUCC 25MG EXT REL TAB PO SCH (08:34)
[2024-05-10] MEDS: NICOTINE 21 MG/24 HR TDSY TD SCH (08:35)
[2024-05-10] MEDS: methylPREDNISolone 40 MG in SYRINGE 0 ML IV SCH (08:35)
[2024-05-10] MEDS: ASPIRIN 81 MG CHEW PO SCH (08:37)
[2024-05-10] MEDS: AZITHROMYCIN 250 MG TAB PO SCH (08:37)
[2024-05-10] MEDS: MOMETASONE FUROATE 0.1% OINT 15 GM TUBE EXT SCH (08:44)
[2024-05-10] MEDS: PANTOprazole 40 MG TAB PO SCH (08:46)
--- NOTE | 2024-05-10 08:49 | Electrocardiogram Report ---
Test Reason : Blood Pressure : */* mmHG Vent. Rate : 55 BPM Atrial Rate : 55 BPM P-R Int : 192 ms QRS Dur : 98 ms QT Int : 462 ms P-R-T Axes : 50 -37 28 degrees QTcB Int : 441 ms Sinus bradycardia Left axis deviation Left ventricular hypertrophy Poor R wave progression, consider anterior IN vs. lead placement vs. LVH Abnormal ECG When compared with ECG of 01-Feb-2024 11:59, No significant change was found Confirmed by Mike Johnson ([id number]) on 05/10/2024 8:48:38 AM Referred By: REFERRED SELF Confirmed By: Mike Johnson
[2024-05-10 08:51] LABS: Hematocrit (blood only) 45.9 % (37.0-47.0); Hemoglobin 14.2 g/dl (12.0-16.0); Mean Corpuscular Hemoglobin 30.2 pg (25.0-34.0); Mean Corpuscular Hgb Conc 30.9 g/dL (32.0-36.0); Mean Corpuscular Volume 97.7 fL (80.0-100.0); Mean Platelet Volume 9.9 fL (9.4-12.4); Platelet Count 250 K/uL (130-400); RDW Coefficient of Variation 13.6 % (11.5-14.5); RDW Standard Deviation 48.6 fL (36.4-46.3); White Blood Count 9.83 K/ul (4.8-10.8)
[2024-05-10 09:00] LABS: BUN Creatinine Ratio 29.7 (10-20); Calcium 9.4 mg/dl (8.6-10.3)
[2024-05-10] MEDS ORDERED: methylPREDNISolone 125 MG/2 ML VIAL IV SCH (09:00)
[2024-05-10] MEDS ORDERED: FLUTICASONE FUROATE 100MCG 14 PUFFS/INHALER INH SCH (09:00)
[2024-05-10] MEDS ORDERED: UMECLIDINIUM/VILANTEROL 62.5/25MCG 7 PUFFS/INHALER INH SCH (09:00)
[2024-05-10] MEDS ORDERED: NON-FORMULARY MEDICATION (Fluticasone-Umeclidin-Vilanter [Trelegy Ellipta] 100-62.5-25 mcg INH SCH (09:00)
--- NOTE | 2024-05-10 22:12 | Hospitalist Progress Note ---
Date of Service May 10, 2024 Assessment & Plan (1) Acute exacerbation of chronic obstructive pulmonary disease: Plan: H/o COPD; smoking cigarettes still, ~ 3/day; On 2L O2 via NC HS - CXR- Limited exam due to underpenetration but no evidence of pneumonia. Stable cardiomegaly. - CBC H&H 41/47.6, MCV 101.3, MCHC 29.8, RDW 52, neutrophils 8.10, monocytes 0.69 - CMP-AG 2, BUN/creatinine ratio 24.3, glucose 113, AST 12, ALT 6 - VBG-pH 7.23, pCO2 76, pO2 60, HCO3 32L - BNP 43 - Biofire (+) for Coronavirus Type OC43 - Flutter valve + Incentive spirometer - Home O2 2L at night; hypoxic on arrival and requiring 2L O2 via NC- - Continue BiPAP; repeat VBG 1 hour after starting - Solumedrol 40mg IV daily - Duonebs q4hr - Azithro 500mg x 3 days - Patient improving on 05/10 will monitor overnight and discharge in the am (2) Acute hypercapnic respiratory failure: Plan: See above, #1 (3) Tobacco abuse: Plan: Smoking cigarettes - ~ 3 cigarettes/day, per patient - Recommended cessation, patient understood + agrees that she would like to quit - Nicotine patch offered; pt declined HOWEVER order is placed if patient decides she needs it (4) T2DM (type 2 diabetes mellitus): Plan: H/o, per history - No home medications; diet controlled - Most recent A1C 6.2% (01/2024) - No SSI at this time since no at home medications - T2DM diet Plan CAD/HTN - stable, Amlodipine, metoprolol; Stent 2017, ASA + statin, NTG prn Bipolar disorder - Vraylar, [place] Pseudotumor cerebri - Acetazolamide Neuropathy - Gabapentin GERD- Omeprazole BLAINE- CPAP, 2L HS Hypothyroidism- Levothyroxine Dispo: Admit Diet: Heart healthy, T2DM VTE Prophylaxis: Lovenox Code: Full Admission and Anticipated Discharge Date Admission Date: May 09, 2024 Subjective Patient reports breathing better. She is on 2 liters nasal cannula at home at all times. Patient reports being close to her baseline. Physical Exam Physical Exam: General: No acute distress Skin: Warm and dry Head: Normocephalic, atraumatic Neck: Supple, no LAD; no JVD Cardio: RRR, no M/G/R, S1 and S2 normal Resp: No respiratory distress, Abdomen: Soft, symmetric, nontender; No masses or hepatosplenomegaly; Bowel sounds normoactive Neuro: Awake, alert; CN intact Psych: Appropriate mood and affect; good judgement and insight. Results & Data Results & Data Vital Signs (Past 12 Hours) Vital Signs Temp Pulse Pulse Resp BP Pulse Ox O2 Del Method 05/10/24 20:00 36.7 C 53 L 20 113/69 99 Room Air 05/10/24 19:44 51 L 18 95 Nasal Cannula 05/10/24 15:44 36.4 C L 87 20 116/66 96 Nasal Cannula 05/10/24 14:18 55 L 17 96 Nasal Cannula 05/10/24 14:08 60 05/10/24 12:27 36.7 C 58 L 16 120/69 95 Nasal Cannula 05/10/24 10:58 70 18 94 Nasal Cannula O2 Flow Rate 05/10/24 20:00 05/10/24 19:44 3 05/10/24 15:44 2 05/10/24 14:18 2 05/10/24 14:08 05/10/24 12:27 2 05/10/24 10:58 2 PG Care Time/CCT Total # of Minutes Spent Total Time Spent with Patient: Total time spent is greater than 50% in coordination of care (as documented) at patient's floor/unit and/or counseling patient: Coding Level of Care Code 03422 SUB INP/OBS CARE 2/35MIN Diagnoses Acute exacerbation of chronic obstructive pulmonary disease J44.1 Acute hypercapnic respiratory failure J96.02 Tobacco abuse Z72.0 T2DM (type 2 diabetes mellitus) E11.9
[2024-05-11 06:07] LABS: Hematocrit (blood only) 42.3 % (37.0-47.0); Hemoglobin 12.8 g/dl (12.0-16.0); Mean Corpuscular Hemoglobin 30.1 pg (25.0-34.0); Mean Corpuscular Hgb Conc 30.3 g/dL (32.0-36.0); Mean Corpuscular Volume 99.5 fL (80.0-100.0); Mean Platelet Volume 10.3 fL (9.4-12.4); Platelet Count 246 K/uL (130-400); RDW Coefficient of Variation 13.9 % (11.5-14.5); RDW Standard Deviation 50.4 fL (36.4-46.3); Red Blood Count 4.25 M/uL (4.20-5.40); White Blood Count 12.83 K/ul (4.8-10.8)
[2024-05-11 06:21] LABS: BUN Creatinine Ratio 26.7 (10-20); Creatinine Clr Calc Pharmacy 82.5 ml/min; Potassium 3.5 mmol/L (3.5-5.1)
[2024-05-11 07:41] VITALS: BP 115/63; RESP 17; TEMP 98.8; O2SAT 95
--- NOTE | 2024-05-11 09:13 | Discharge Summary ---
Discharge Summary Date of Service May 11, 2024 Principal Dx & Hospital Course #1 = Principal Diagnosis (1) Acute exacerbation of chronic obstructive pulmonary disease: 1.) Acute and chronic respiratory failure with hypoxia H/o COPD; smoking cigarettes still, ~ 3/day; On 2L O2 via NC HS - CXR- Limited exam due to underpenetration but no evidence of pneumonia. Stable cardiomegaly. - CBC H&H 41/47.6, MCV 101.3, MCHC 29.8, RDW 52, neutrophils 8.10, monocytes 0.69 - CMP-AG 2, BUN/creatinine ratio 24.3, glucose 113, AST 12, ALT 6 - VBG-pH 7.23, pCO2 76, pO2 60, HCO3 32L - BNP 43 - Biofire (+) for Coronavirus Type OC43 - Flutter valve + Incentive spirometer - Home O2 2L at night; hypoxic on arrival and requiring 2L O2 via NC- - Continue BiPAP; repeat VBG 1 hour after starting - Solumedrol 40mg IV daily - Duonebs q4hr - Azithro 500mg x 3 days - Patient improving on 05/10; Patient was monitored overnight and discharged. Complete azithromycin and prednisone taper. (2) Acute hypercapnic respiratory failure: See above, #1 (3) Tobacco abuse: Smoking cigarettes - ~ 3 cigarettes/day, per patient - Recommended cessation, patient understood + agrees that she would like to quit - Nicotine patch offered; pt declined HOWEVER order is placed if patient decides she needs it (4) T2DM (type 2 diabetes mellitus): H/o, per history - No home medications; diet controlled - Most recent A1C 6.2% (01/2024) - No SSI at this time since no at home medications - T2DM diet Morbid obesity evidence by a BMI of 44.3 Clinical Indicators: BMI of 44.3, chest x-ray with under penetration. Risk Factor(s): Age, less than active lifestyle, obstructive sleep apnea, Treatment: Heart healthy carb consistent diabetic diet, daily weights, BiPAP therapy Plan CAD/HTN - stable, Amlodipine, metoprolol; Stent 2018, ASA + statin, NTG prn Bipolar disorder - Vraylar, [place] Pseudotumor cerebri - Acetazolamide Neuropathy - Gabapentin GERD- Omeprazole BLAINE- CPAP, 2L HS Hypothyroidism- Levothyroxine Admission HPI Per Admitting Provider 59-year-old female presenting to ED via EMS for ongoing SOB. ED course: CBC H&H 14.2/47.6, MCV 101.3, MCHC 29.8, RDW 52, neutrophils 8.10, monocytes 0.69, without leukocytosis; PT/INR WNLVBGs pH 7.23 pCO2 76, pO2 60, HCO3 32: CMP AG to, BUN/creatinine ratio 24.3, glucose 113, AST 12, ALT 6; troponin 4; pending BNP; pending BioFire; CXR Limited exam due to underpenetration but no evidence of pneumonia. Stable cardiomegaly; Provided with methylprednisolone and via nebulizer in ED. Patient is a 59-year-old female PMHx T2DM, BLAINE, chronic respiratory failure with hypoxia and hypercapnia, and GERD. For the past 3 days patient has noted increased shortness of breath. Notes that these symptoms were a quick onset, and made her feel run-down and not herself. Admits to more fatigue than usual. Only wears O2 at night, none during the day. 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 W/o radidation or diaphoresis. Otherwise denying palpitations, cough, fever/chills, abdominal pain, N/V/D/C, numbness/tingling, headache, or additional URI symptoms. No known sick contacts. Took a.m. medications. Please see Dr. Calzada's attestation for adjustments/additions to treatment plan. Discharge Exam General: No acute distress Skin: Warm and dry Head: Normocephalic, atraumatic Neck: Supple, no LAD; no JVD Cardio: RRR, no M/G/R, S1 and S2 normal Resp: No respiratory distress, Abdomen: Soft, symmetric, nontender; No masses or hepatosplenomegaly; Bowel sounds normoactive Neuro: Awake, alert; CN intact Psych: Appropriate mood and affect; good judgement and insight. Discharge Plan Discharge Items Patient Disposition: Home - Self-Care Reason For Visit: HYPOXIC, COPD EXAC Discharge Diagnosis: COPD exacerbation Activity: Resume your previous activity Non-emergency contact: Primary Care Provider Call non-emergency contact if: you have any medication questions Follow-up/Referrals: Alberto Molina, [Primary Care Provider] - 05/17/24 11:30 am Diet: Regular Addtl Attending Provider Instructions: Recommend one more dose of azithromycin in the morning tomorrow. Start prednisone taper in the AM. Recommend followup with PCP in 1-2 weeks. Pending Studies at Discharge: No Stand-Alone Forms: My [facility], Smoking Cessation Medications and DC Order Prescriptions: New azithromycin 250 mg Tablet 500 mg PO QAM Qty: 1 0RF prednisone 10 mg tablet 10 mg PO DIRECTED Qty: 20 0RF Rx Instructions: see taper instructions: once daily in AM Take 4 tablets for 2 days then 3 tablets for 2 days 2 tabs for 2 days 1 tab for 2 days Continued hydroxyzine pamoate 25 mg capsule 25 mg PO BID Qty: 180 3RF lithium carbonate 300 mg tablet extended release 600 mg PO HS 90 Days Qty: 180 3RF betamethasone valerate 0.1 % ointment 1 applic topical DAILY Qty: 45 0RF Rx Instructions: Apply to right palm once a day at night for 3 to 4 weeks omeprazole 20 mg capsule,delayed release(DR/EC) 20 mg PO QAM Qty: 90 3RF atorvastatin 40 mg tablet 40 mg PO QPM Qty: 90 3RF metoprolol succinate 25 mg tablet extended release 24 hr 25 mg PO DAILY Qty: 90 3RF famotidine [Acid Employee Placement Specialist (famotidine)] 10 mg tablet 10 mg PO BID Qty: 180 3RF gabapentin 100 mg capsule 100 mg PO TID Qty: 270 3RF acetazolamide 250 mg tablet 1,000 mg PO BID 30 Days Qty: 240 5RF amlodipine 5 mg tablet 5 mg PO HS Qty: 90 3RF meloxicam 15 mg tablet 15 mg PO DAILY Qty: 30 3RF albuterol sulfate 2.5 mg /3 mL (0.083 %) solution for nebulization 2.5 mg inhalation Q4H PRN (Reason: shortness of breath or wheezing) Qty: 180 11RF clobetasol 0.05 % cream 1 applic TOPICAL BID Rx Instructions: APPLY TO RIGHT HAND TWICE DAILY nystatin 100,000 unit/gram powder 1 applic TOPICAL TID Qty: 60 5RF Rx Instructions: APPLY TO SKIN FOLDS (DME) humidifiers Misc See Rx Instructions .Route Qty: 1 0RF Rx Instructions: humidified oxygen. prn Vraylar 3 mg capsule 3 mg PO HS Qty: 30 0RF Rx Instructions: Filled by psych albuterol sulfate 90 mcg/actuation HFA aerosol inhaler 2 puff INHALATION QID PRN (Reason: SHORTNESS OF BREATH/WHEEZING) Qty: 8.5 5RF Trelegy Ellipta 100-62.5-25 mcg blister with device 1 inh inhalation DAILY Qty: 28 5RF folic acid 800 mcg tablet 800 mcg PO DAILY Qty: 100 3RF cyanocobalamin (vitamin B-12) 1,000 mcg capsule 1,000 mcg PO DAILY Qty: 100 3RF (DME) blood-glucose meter Kit See Rx Instructions .Route Qty: 1 0RF Rx Instructions: AC and HS and prn (DME) Blood Glucose Test Strip See Rx Instructions .Route Qty: 50 3RF Rx Instructions: AC and HS (DME) Hospital Bed [facility] [place] See Rx Instructions .Route Qty: 1 0RF Rx Instructions: Semi-electric hospital bed with mattress and side rails. As directed aspirin 81 mg Tablet,Chewable 81 mg PO QAM ketoconazole 2 % shampoo 1 applic topical UD Rx Instructions: 1 applic topically wash scalp 2-3 times weekly. Let sit for 3-5 minutes prior to rinsing. nitroglycerin 0.4 mg tablet, sublingual 0.4 mg sublingual UD PRN (Reason: Chest Pain) Rx Instructions: NEEDED FOR CHEST PAIN : ONE TABLET UNDER THE TONGUE EVERY 5 MINUTES UP TO THREE DOSES. cholecalciferol (vitamin D3) 25 mcg (1,000 unit) Capsule 25 mcg PO QAM Qty: 30 0RF levothyroxine 88 mcg tablet 88 mcg PO DAILY Qty: 90 3RF (DME) Oxygen Home Liters Per Minute See Rx Instructions .Route Qty: 1 0RF Rx Instructions: As directed Discharge Orders: Discharge Order (Routine); Ordered 05/11/24 Ordered By: Nash Cadena Admission Data Admit Date/Time: 05/09/24 16:44 Attending Provider: Nash Cadena Admit Provider: Colby Calzada Primary Care Provider: Alberto Molina Other Providers: Colby Calzada Other Interventions: Discharge Summary Assessment (RN) Last Done: 05/11/24 09:21 Hospital Stay Data Consultations 05/09/24 16:37 ED Decision to Admit Stat Pending Results Patient Have Any Pending Studies at Discharge: No Discharge Instructions Given to Patient (Per Discharging Provider) Recommend one more dose of azithromycin in the morning tomorrow. Start prednisone taper in the AM. Recommend followup with PCP in 1-2 weeks. Total Time Total Time Spent Total Time Spent (In Minutes): 32 Coding Level of Care Code 25670 INP/OBS DISCH >30 MIN Diagnoses Acute exacerbation of chronic obstructive pulmonary disease J44.1 Acute hypercapnic respiratory failure J96.02 Tobacco abuse Z72.0 T2DM (type 2 diabetes mellitus) E11.9
[2024-05-11 09:23] VITALS: PULSE 66
== END 2024-05-11 10:30 | disposition home or self-care (01) ==
LOC: ED 15:16 → 2N 16:44 → SUATTDRO 16:44 → INTOOBSV 16:44 → 2N 18:00

== ENCOUNTER 2024-10-14 10:14 | Inpatient (IN) ==
[2024-10-14] MEDS: methylPREDNISolone 125 MG/2 ML VIAL IV STA (10:34)
[2024-10-14] MEDS: ALBUT/IPRATROP 3MG/0.5MG NEB 3 ML VIAL NEB ONE (10:39)
[2024-10-14 10:41] LABS: Base Excess VBG 2.7 mEq/L; HCO3 VBG 33 mmol/L; Oxygen Saturation VBG < 60.0 %; PCO2 VBG 78 mmHg (38-50); PO2 VBG 23 mmHg; pH VBG 7.23 (7.36-7.41)
--- NOTE | 2024-10-14 11:02 | XRay Report ---
XR chest 1V portable CLINICAL HISTORY: sob COMPARISON STUDY: 05/09/2024 FINDINGS: Stable cardiomegaly with mild pulmonary vascular congestion. No effusion, consolidation, or pneumothorax. IMPRESSION: Mild CHF. ACT 112: Negative or not required by law. Electronically signed by: Seamus Olea M.D. 10/14/2024 11:01 AM
[2024-10-14 11:36] LABS: Basophils # (auto) 0.04 K/uL (0.00-0.20); Basophils % (auto) 0.3 %; Eosinophils # (auto) 0.17 K/uL (0.00-0.50); Eosinophils % (auto) 1.3 %; Hematocrit (blood only) 48.3 % (37.0-47.0); Hemoglobin 14.8 g/dl (12.0-16.0); Immature Granulocytes # (auto) 0.08 K/uL (0.01-0.20); Immature Granulocytes % (auto) 0.6 %; Lymphocytes # (auto) 1.37 K/uL (1.20-3.40); Lymphocytes % (auto) 10.7 %; Mean Corpuscular Hemoglobin 30.9 pg (25.0-34.0); Mean Corpuscular Hgb Conc 30.6 g/dL (32.0-36.0); Mean Corpuscular Volume 100.8 fL (80.0-100.0); Monocytes # (auto) 0.43 K/uL (0.11-0.59); Monocytes % (auto) 3.4 %; Neutrophils # (auto) 10.74 K/uL (1.40-6.50); Neutrophils % (auto) 83.7 %; Platelet Count 254 K/uL (130-400); RDW Standard Deviation 48.4 fL (36.4-46.3); Red Blood Count 4.79 M/uL (4.20-5.40); White Blood Count 12.83 K/ul (4.8-10.8)
--- NOTE | 2024-10-14 11:43 | Electrocardiogram Report ---
Test Reason : Blood Pressure : */* mmHG Vent. Rate : 61 BPM Atrial Rate : 61 BPM P-R Int : 186 ms QRS Dur : 96 ms QT Int : 428 ms P-R-T Axes : 58 -36 56 degrees QTcB Int : 430 ms Normal sinus rhythm Left axis deviation Moderate voltage criteria for LVH, may be normal variant ( R in aVL ) U-waves present; r/o electrolyte imbalance Abnormal ECG When compared with ECG of 09-May-2024 15:26, Nonspecific T wave abnormality no longer evident in Inferior leads Confirmed by Roge Bhatt ([id number]) on 10/14/2024 11:43:30 AM Referred By: REFERRED SELF Confirmed By: Roge Bhatt
[2024-10-14 11:45] LABS: Anion Gap 4 (3-11); BUN Creatinine Ratio 21.8 (10-20); Blood Urea Nitrogen 17 mg/dl (6-23); Calcium 9.6 mg/dl (8.6-10.3); Carbon Dioxide 33 mmol/L (21-32); Chloride 104 mmol/L (98-107); Glucose 239 mg/dl (70-99(Fasting)); Lipase 26 U/L (11-82); Potassium 3.7 mmol/L (3.5-5.1); Sodium 141 mmol/L (136-145)
[2024-10-14 12:42] LABS: Influenza A virus by PCR Negative (Neg); Influenza B virus by PCR Negative (Neg); RSV by PCR Negative (Neg); SARS CoV2 RNA(COVID-19) Ceph NEGATIVE (Negative)
--- NOTE | 2024-10-14 13:19 | History & Physical Report ---
Date of Service October 14, 2024 Assessment & Plan (1) Acute exacerbation of chronic obstructive airways disease: (2) Acute and chronic respiratory failure: (3) CAD (coronary artery disease): (4) HTN (hypertension): Plan This patient is a 59-year-old female with a history of COPD, chronic hypoxic respiratory failure with 2 LNC O2 with exertion and at bedtime with CPAP, current smoker, BLAINE, CAD s/p stent 2018, HTN, pseudotumor cerebri, bipolar disorder, neuropathy, GERD, hypothyroidism, DM2, vitamin B12, folate, and vitamin D deficiencies, who presents to the ER with worsening cough, wheezing, chest congestion, sputum production and shortness of breath over the last week. Denies fevers or chills. She has been having to use 3 to 4 L of O2 continuously throughout the day and normally is on room air at rest. She does have a history of ICU admission and intubation secondary to COPD and COVID infection. In the ER, she was given IV steroids and an hour-long nebulizer treatment. Her VBG showed evidence of acute respiratory acidosis and she was placed on BiPAP. She will be admitted for acute exacerbation of COPD and acute on chronic respiratory failure with hypoxia and hypercarbia. #COPD exacerbation/acute on chronic respiratory failure with hypoxia and hypercarbia/BLAINE on CPAP-requiring continuous oxygen here as well as BiPAP for acute on chronic respiratory acidosis. CXR negative for pneumonia. COVID/flu/RSV negative. - Admit to PCU - Wean off BiPAP, repeat VBG now - Continues on acetazolamide twice daily for pseudotumor cerebri - Continue Solu-Medrol 60 Mg IV twice daily - Continue DuoNebs every 6 hours, home maintenance inhalers daily - Start azithromycin 500 Mg x 1 now then 250 Mg p.o. once daily x 4 more days for COPD exacerbation - Encouraged smoking cessation-declines nicotine patch at this time and is committed to quitting smoking #CAD/HTN-no acute issues, troponin negative, ECG without ischemic changes, no chest pain. Blood pressures are controlled - Continue home amlodipine, aspirin, atorvastatin, metoprolol - Monitoring on telemetry #DM2 with neuropathy-with hyperglycemia here at 250 due to acute stress of exacerbation. Typically is not on medication at home. HgbA1c only 5.4% on last check recently - BSG's ACHS, diabetic diet, supplemental NovoLog - Add Lantus if needed with being on IV steroids - Check A1c in the morning -Continue home gabapentin #Pseudotumor cerebri-no acute issues - Continue home acetazolamide 1000 Mg p.o. twice daily #Bipolar disorder-no acute issues - Continue home Vraylar which will need to be brought in from home - Continue home lithium, hydroxyzine #Vitamin B12/folate/vitamin D deficiency-no acute issues - Continue home folic acid, vitamin D, and B12 supplements #GERD-no acute issues - Continue home famotidine, PPI #Hypothyroidism-recent TSH normal in 08/2024 - Continue home levothyroxine #Ree intertrigo-rash under pannus consistent with fungal infection - Add miconazole powder daily DVT prophylaxis-SQ Lovenox, SCDs Disposition-admit to PCU History of Present Illness Chief Complaint: Shortness of breath Primary Care Provider: Alberto Molina, This patient is a 59-year-old female with a history of COPD, chronic hypoxic respiratory failure with 2 LNC O2 with exertion and at bedtime with CPAP, current smoker, BLAINE, CAD s/p stent 2017, HTN, pseudotumor cerebri, bipolar disorder, neuropathy, GERD, hypothyroidism, DM2, vitamin B12, folate, and vitamin D deficiencies, who presents to the ER with worsening cough, wheezing, chest congestion, sputum production and shortness of breath over the last week. Denies fevers or chills. She has been having nasal congestion but frequently does in the springtime with allergies. She has been having to use 3 to 4 L of O2 continuously throughout the day and normally is on room air at rest. She does have a history of ICU admission and intubation secondary to COPD and COVID infection. In the ER, she was given IV steroids and an hour-long nebulizer treatment. Her VBG showed evidence of acute respiratory acidosis and she was placed on BiPAP. She will be admitted for acute exacerbation of COPD and acute on chronic respiratory failure with hypoxia and hypercarbia. Allergies Allergy/AdvReac Type Severity Reaction Status Date / Time ethinyl estradiol Allergy Mild RUNNY Verified 09/26/24 09:26 NOSE, ACHES, CONGESTION levonorgestrel Allergy Mild RUNNY Verified 09/26/24 09:26 NOSE, ACHES, CONGESTION strawberry Allergy Mild RASH Verified 09/26/24 09:26 bupropion Allergy Unknown memory loss Verified 09/26/24 09:26 latex Allergy Unknown rash Verified 09/26/24 09:26 blue dye Allergy runny Verified 09/26/24 09:26 nose, aches, congestion Home Medications Medication Instructions Recorded Confirmed Type aspirin 81 mg chewable tablet 81 mg PO QAM 09/20/21 10/14/24 History nystatin 100,000 unit/gram topical 1 applic topical TID #60 grams 12/31/21 10/14/24 Rx powder hydroxyzine pamoate 25 mg capsule 25 mg PO BID #180 caps 12/23/22 10/14/24 Rx lithium carbonate 300 mg 600 mg (2 x 300 mg) PO HS 90 days 12/23/22 10/14/24 Rx tablet,extended release #180 tabs meloxicam 15 mg tablet 15 mg PO DAILY #30 tabs 03/07/23 10/14/24 Rx humidifiers #1 ea 03/20/23 09/26/24 Rx albuterol sulfate 2.5 mg/3 mL 2.5 mg (3 mL) inhalation Q4H PRN 06/01/23 10/14/24 Rx (0.083 %) solution for nebulization shortness of breath or wheezing #180 mL clobetasol 0.05 % topical cream 1 applic topical BID 07/21/23 10/14/24 History betamethasone valerate 0.1 % 1 applic topical DAILY #45 grams 08/03/23 10/14/24 Rx topical ointment cariprazine 3 mg capsule (Vraylar) 3 mg PO HS #30 caps 08/24/23 10/14/24 Rx atorvastatin 40 mg tablet 40 mg PO QPM #90 tabs 12/22/23 10/14/24 Rx famotidine 10 mg tablet (Acid 10 mg PO BID #180 tabs 12/22/23 10/14/24 Rx Disability Advocate (famotidine)) gabapentin 100 mg capsule 100 mg PO TID #270 caps 12/22/23 10/14/24 Rx metoprolol succinate 25 mg 25 mg PO DAILY #90 tabs 12/22/23 10/14/24 Rx tablet,extended release 24 hr omeprazole 20 mg capsule,delayed 20 mg PO QAM #90 caps 12/22/23 10/14/24 Rx release levothyroxine 88 mcg tablet 88 mcg PO DAILY #90 tabs 02/02/24 10/14/24 Rx Oxygen Home #1 ea 02/03/24 09/26/24 Rx albuterol sulfate 90 mcg/actuation 2 puff inhalation QID PRN 02/06/24 10/14/24 Rx aerosol inhaler SHORTNESS OF BREATH/WHEEZING #8.5 grams blood sugar diagnostic (Blood #50 ea 02/06/24 09/26/24 Rx Glucose Test strips) blood-glucose meter #1 ea 02/06/24 09/26/24 Rx fluticasone fur. 100 mcg-umeclid 1 inh inhalation DAILY #28 ea 02/06/24 10/14/24 Rx 62.5 mcg-vilant 25 mcg inhalat.powder (Trelegy Ellipta) amlodipine 5 mg tablet 5 mg PO HS #90 tabs 04/12/24 10/14/24 Rx Hospital Bed Homecare (Hospital #1 ea 05/08/24 09/26/24 Rx Bed) ketoconazole 2 % shampoo 1 applic topical UD 05/09/24 10/14/24 History nitroglycerin 0.4 mg sublingual 0.4 mg sublingual UD PRN Chest Pain 05/09/24 10/14/24 History tablet acetazolamide 250 mg tablet 1,000 mg (4 x 250 mg) PO BID 30 06/11/24 10/14/24 Rx days #240 tabs cyanocobalamin (vitamin B-12) 1,000 mcg PO DAILY #100 caps 09/23/24 10/14/24 Rx 1,000 mcg capsule folic acid 800 mcg tablet 800 mcg PO DAILY #100 tabs 09/23/24 10/14/24 Rx miscellaneous medical supply 1 ea miscellaneous DAILY #6 ea 09/23/24 10/14/24 Rx cholecalciferol (vitamin D3) 125 125 mcg PO DAILY #30 caps 09/24/24 10/14/24 Rx mcg (5,000 unit) capsule Past Med/Surg History Problem List (Updated 10/14/24 @ 13:40 by Vicki Allen MD) Acute and chronic respiratory failure Acute exacerbation of chronic obstructive airways disease (Acute) Hypoxia (Acute) Incontinence Prediabetes B12 deficiency Folate deficiency Ambulatory dysfunction Hypertrophic toenail Fall Right knee pain Chest pain (Acute) Psoriasis Pseudotumor cerebri BLAINE on CPAP Vitamin D deficiency Bronchitis (Acute) Tobacco abuse (Acute) Hypothyroidism CAD (coronary artery disease) (Acute) HLD (hyperlipidemia) HTN (hypertension) Chronic respiratory failure with hypercapnia COPD (chronic obstructive pulmonary disease) (Acute) Bipolar disorder (Acute) Medical History Acute hypercapnic respiratory failure Acute exacerbation of chronic obstructive pulmonary disease Acute respiratory acidosis T2DM (type 2 diabetes mellitus) Acute exacerbation of chronic obstructive pulmonary disease BLAINE (obstructive sleep apnea) Influenza Acute on chronic respiratory failure with hypoxia and hypercapnia COVID-19 GERD (gastroesophageal reflux disease) TIA (transient ischemic attack) Surgical History History of lithotripsy History of cholecystectomy History of tubal ligation History of esophagogastroduodenoscopy (EGD) 2018 normal History of colonoscopy 2018 adenomatous polyps removed History of History of coronary artery stent placement Family History Father , 48 Myocardial infarction Mother , 58 Diabetes COPD (chronic obstructive pulmonary disease) Sister Ovarian cancer Denies family history of Prostate cancer Breast cancer Colorectal cancer Social History Smoking Status: Current every day smoker Tobacco Type: Cigarettes Age Started Using Tobacco: 9; packs per day: 0.25; Cigarettes Per Day: 7; Second Hand Exposure: No; Do You Dip or Chew Tobacco: No; Hx Alcohol Use: No Hx Substance Use: No Preferred Language: Kinyarwanda Communication Ability: Effective Visual Impairment: Limited Hearing Ability: Normal Direct Support Staff Required: No Beliefs That Will Affect Care: None marital status: Single Current Living Situation: Family current occupational status: disabled How many Children do You have: 2 Feels Safe at Home: Yes Childhood Exposure to Second-Hand Smoke: Yes Diet: regular caffeine: Yes during the past year weight has: remained stable Dental Care, Regularly: No Physical Activity Frequency: Daily Seatbelt Use: sometimes Sunscreen Use: Yes (sometimes) Do you think of yourself as: straight/heterosexual Sexual Activity: has been sexually active, but not for at least 12 months Gender Identity: Female Assistive Devices: Cane, CPAP, Hospital Bed (to be delivered 05/16/24), Oxygen - at Night, Oxygen - Continuous, Walker and Wheelchair Review of Systems Review of Systems: All systems reviewed & are unremarkable except as noted in HPI & below Physical Exam Constitutional: WD/WN, vitals as above + morbidly obese Neck: trachea midline, no thyromegaly Respiratory: normal respiratory effort; no cough Auscultation: + wheezes (Diffuse bilateral expiratory wheezes); no crackles and no rhonchi Cardiovascular: RRR, no murmur, no edema Chest (Breasts): Chest: normal inspection of chest Gastrointestinal (Abdomen): normal bowel sounds, soft, nontender, no hepatosplenomegaly Musculoskeletal: Extremities: extremities normal to inspection; no cyanosis and no clubbing Skin: + rash (Erythematous well-demarcated telma h under pannus of the abdomen) Neurologic: moves all extremities and awake; no focal motor deficits Psychiatric: A+Ox3, euthymic affect Lymphatic: no lymphedema Results & Data Results & Data Vital Signs (Past 12 Hours) Vital Signs Temp Pulse Pulse Resp BP BP Pulse Ox 10/14/24 12:30 55 L 18 157/78 H 96 10/14/24 11:13 58 L 18 98 10/14/24 10:58 55 L 19 94 10/14/24 10:42 18 95 10/14/24 10:40 86 L 10/14/24 10:40 10/14/24 10:39 56 L 10/14/24 10:18 36.5 C 58 L 22 130/70 87 L O2 Del Method O2 Flow Rate FiO2 10/14/24 12:30 BiPAP 10/14/24 11:13 BiPAP 10/14/24 10:58 40 10/14/24 10:42 Nasal Cannula 3 10/14/24 10:40 Room Air 10/14/24 10:40 Room Air 10/14/24 10:39 10/14/24 10:18 Room Air Laboratory Results CBC, VBG, BMP, troponin, BNP, lipase, COVID/flu/RSV all reviewed Diagnostic Findings Chest x-ray image personally reviewed: Chest X-Ray 10/14/24 10:46 XR chest 1V portable CLINICAL HISTORY: sob COMPARISON STUDY: 05/09/2024 FINDINGS: Stable cardiomegaly with mild pulmonary vascular congestion. No effusion, consolidation, or pneumothorax. IMPRESSION: Mild CHF. ECG Additional Comments: ECG on 10/14/2024 at 10:27 AM with normal sinus rhythm, rate 61, left axis deviation, moderate voltage criteria for LVH Code Status & VTE Plan Code Status Full code VTE Prophylaxis Plan VTE Prophylaxis will be ordered: Yes PG Care Time/CCT Total # of Minutes Spent Total Time Spent with Patient: Total time spent is greater than 50% in coordination of care (as documented) at patient's floor/unit and/or counseling patient: Coding Level of Care Code 44151 INT INP/OBS CARE 3/75MIN Diagnoses Acute exacerbation of chronic obstructive airways disease J44.1 Acute and chronic respiratory failure J96.20 CAD (coronary artery disease) I25.10 HTN (hypertension) I10
--- NOTE | 2024-10-14 13:28 | Emergency Department Note ---
History of Present Illness General Chief Complaint: Shortness of Breath/Dyspnea Stated Complaint: LOW OX, CONGESTION Time Seen by Provider: 10/14/24 10:21 History of Present Illness Provider Complaint: shortness of breath and cough Onset (ago): week(s) (1) Consistency/Duration: + progressively worsening Relieved By: + oxygen Exacerbated By: + coughing Known history of: COPD Associated symptoms: + cough, + wheezing, + sputum production and + chest congestion; no chest pain, no fever or no hemoptysis Treatment prior to arrival: oxygen (Needing more oxygen during the daytime as opposed to usually only at night) HPI Narrative: Patient reports history of ICU admission and intubation secondary to COVID and obstructive lung disease. Patient still actively smokes. Related Data Home oxygen amount: as needed at night Home Medications Medication Instructions Recorded Confirmed Type aspirin 81 mg chewable tablet 81 mg PO QAM 09/20/21 10/14/24 History nystatin 100,000 unit/gram topical 1 applic topical TID #60 grams 12/31/21 10/14/24 Rx powder hydroxyzine pamoate 25 mg capsule 25 mg PO BID #180 caps 12/23/22 10/14/24 Rx lithium carbonate 300 mg 600 mg (2 x 300 mg) PO HS 90 days 12/23/22 10/14/24 Rx tablet,extended release #180 tabs meloxicam 15 mg tablet 15 mg PO DAILY #30 tabs 03/07/23 10/14/24 Rx humidifiers #1 ea 03/20/23 09/26/24 Rx albuterol sulfate 2.5 mg/3 mL 2.5 mg (3 mL) inhalation Q4H PRN 06/01/23 10/14/24 Rx (0.083 %) solution for nebulization shortness of breath or wheezing #180 mL clobetasol 0.05 % topical cream 1 applic topical BID 07/21/23 10/14/24 History betamethasone valerate 0.1 % 1 applic topical DAILY #45 grams 08/03/23 10/14/24 Rx topical ointment cariprazine 3 mg capsule (Vraylar) 3 mg PO HS #30 caps 08/24/23 10/14/24 Rx atorvastatin 40 mg tablet 40 mg PO QPM #90 tabs 12/22/23 10/14/24 Rx famotidine 10 mg tablet (Acid 10 mg PO BID #180 tabs 12/22/23 10/14/24 Rx Application Security Consultant (famotidine)) gabapentin 100 mg capsule 100 mg PO TID #270 caps 12/22/23 10/14/24 Rx metoprolol succinate 25 mg 25 mg PO DAILY #90 tabs 12/22/23 10/14/24 Rx tablet,extended release 24 hr omeprazole 20 mg capsule,delayed 20 mg PO QAM #90 caps 12/22/23 10/14/24 Rx release levothyroxine 88 mcg tablet 88 mcg PO DAILY #90 tabs 02/02/24 10/14/24 Rx Oxygen Home #1 ea 02/03/24 09/26/24 Rx albuterol sulfate 90 mcg/actuation 2 puff inhalation QID PRN 02/06/24 10/14/24 Rx aerosol inhaler SHORTNESS OF BREATH/WHEEZING #8.5 grams blood sugar diagnostic (Blood #50 ea 02/06/24 09/26/24 Rx Glucose Test strips) blood-glucose meter #1 ea 02/06/24 09/26/24 Rx fluticasone fur. 100 mcg-umeclid 1 inh inhalation DAILY #28 ea 02/06/24 10/14/24 Rx 62.5 mcg-vilant 25 mcg inhalat.powder (Trelegy Ellipta) amlodipine 5 mg tablet 5 mg PO HS #90 tabs 04/12/24 10/14/24 Rx Hospital Bed [facility] (Hospital #1 ea 05/08/24 09/26/24 Rx Bed) ketoconazole 2 % shampoo 1 applic topical UD 05/09/24 10/14/24 History nitroglycerin 0.4 mg sublingual 0.4 mg sublingual UD PRN Chest Pain 05/09/24 10/14/24 History tablet acetazolamide 250 mg tablet 1,000 mg (4 x 250 mg) PO BID 30 06/11/24 10/14/24 Rx days #240 tabs cyanocobalamin (vitamin B-12) 1,000 mcg PO DAILY #100 caps 09/23/24 10/14/24 Rx 1,000 mcg capsule folic acid 800 mcg tablet 800 mcg PO DAILY #100 tabs 09/23/24 10/14/24 Rx miscellaneous medical supply 1 ea miscellaneous DAILY #6 ea 09/23/24 10/14/24 Rx cholecalciferol (vitamin D3) 125 125 mcg PO DAILY #30 caps 09/24/24 10/14/24 Rx mcg (5,000 unit) capsule Allergies Allergy/AdvReac Type Severity Reaction Status Date / Time ethinyl estradiol Allergy Mild RUNNY Verified 09/26/24 09:26 NOSE, ACHES, CONGESTION levonorgestrel Allergy Mild RUNNY Verified 09/26/24 09:26 NOSE, ACHES, CONGESTION strawberry Allergy Mild RASH Verified 09/26/24 09:26 bupropion Allergy Unknown memory loss Verified 09/26/24 09:26 latex Allergy Unknown rash Verified 09/26/24 09:26 blue dye Allergy runny Verified 09/26/24 09:26 nose, aches, congestion Past Med/Surg History Problem List (Updated 10/14/24 @ 13:32 by Rebel Castrejon MD) Acute exacerbation of chronic obstructive airways disease (Acute) Hypoxia (Acute) Incontinence Prediabetes B12 deficiency Folate deficiency Ambulatory dysfunction Hypertrophic toenail Fall Right knee pain Chest pain (Acute) Psoriasis Pseudotumor cerebri BLAINE on CPAP Vitamin D deficiency Bronchitis (Acute) Tobacco abuse (Acute) Hypothyroidism CAD (coronary artery disease) (Acute) HLD (hyperlipidemia) HTN (hypertension) Chronic respiratory failure with hypercapnia COPD (chronic obstructive pulmonary disease) (Acute) Bipolar disorder (Acute) Medical History Acute hypercapnic respiratory failure Acute exacerbation of chronic obstructive pulmonary disease Acute respiratory acidosis T2DM (type 2 diabetes mellitus) Acute exacerbation of chronic obstructive pulmonary disease BLAINE (obstructive sleep apnea) Influenza Acute on chronic respiratory failure with hypoxia and hypercapnia COVID-19 GERD (gastroesophageal reflux disease) TIA (transient ischemic attack) Surgical History History of lithotripsy History of cholecystectomy History of tubal ligation History of esophagogastroduodenoscopy (EGD) 2018 normal History of colonoscopy 2018 adenomatous polyps removed History of History of coronary artery stent placement Family History Father , 48 Myocardial infarction Mother , 58 Diabetes COPD (chronic obstructive pulmonary disease) Sister Ovarian cancer Denies family history of Prostate cancer Breast cancer Colorectal cancer Social History Smoking Status: Current every day smoker Tobacco Type: Cigarettes Age Started Using Tobacco: 9; packs per day: 0.25; Cigarettes Per Day: 7; Second Hand Exposure: No; Do You Dip or Chew Tobacco: No; Hx Alcohol Use: No Hx Substance Use: No Preferred Language: Persian Communication Ability: Effective Visual Impairment: Limited Hearing Ability: Normal Mixing Tank Operator Required: No Beliefs That Will Affect Care: None marital status: Single Current Living Situation: Family current occupational status: disabled How many Children do You have: 2 Feels Safe at Home: Yes Childhood Exposure to Second-Hand Smoke: Yes Diet: regular caffeine: Yes during the past year weight has: remained stable Dental Care, Regularly: No Physical Activity Frequency: Daily Seatbelt Use: sometimes Sunscreen Use: Yes (sometimes) Do you think of yourself as: straight/heterosexual Sexual Activity: has been sexually active, but not for at least 12 months Gender Identity: Female Assistive Devices: Cane, CPAP, Hospital Bed (to be delivered 05/16/24), Oxygen - at Night, Oxygen - Continuous, Walker and Wheelchair Physical Exam 2 Vital Signs: Vital Signs - 24 hr 10/14/24 10:18 10/14/24 10:39 10/14/24 10:40 Temperature 36.5 C Temperature Source Temporal Artery Sc an Pulse Rate 58 L 56 L Pulse Rate [Apical ] Pulse Rhythm Respiratory Rate 22 Respiratory Effort / Characteristics Spontaneous Labore d Respiratory Depth Respiratory Patter n Blood Pressure 130/70 Blood Pressure [Le ft Arm] Blood Pressure Arcelia n 90 Blood Pressure Arcelia n [Left Arm] Blood Pressure Pos ition Sitting Pulse Oximetry 87 L Oxygen Delivery Me thod Room Air Room Air Oxygen Flow Rate Fraction of Inspir ed Oxygen Sepsis Recent Feve r Within 48 Hours No Sepsis New/Unexpla ined Change in Men jamee Status No Sepsis Action Take n by Nursing No Action Required Oxygen Flow Rate - Titration Pulse Oximetry Pos t Tiitration 10/14/24 10:40 10/14/24 10:42 10/14/24 10:58 Temperature Temperature Source Pulse Rate 55 L Pulse Rate [Apical ] Pulse Rhythm Respiratory Rate 18 19 Respiratory Effort / Characteristics Non-Labored Sponta neous Non-Labored Sponta neous Respiratory Depth Normal Respiratory Patter n Regular Blood Pressure Blood Pressure [Le ft Arm] Blood Pressure Arcelia n Blood Pressure Arcelia n [Left Arm] Blood Pressure Pos ition Pulse Oximetry 86 L 95 94 Oxygen Delivery Me thod Room Air Nasal Cannula Oxygen Flow Rate 3 Fraction of Inspir ed Oxygen 40 Sepsis Recent Feve r Within 48 Hours Sepsis New/Unexpla ined Change in Men jamee Status Sepsis Action Take n by Nursing Oxygen Flow Rate - Titration 2 Pulse Oximetry Pos t Tiitration 94 10/14/24 11:13 10/14/24 12:30 Temperature Temperature Source Pulse Rate 58 L Pulse Rate [Apical ] 55 L Pulse Rhythm Regular Respiratory Rate 18 18 Respiratory Effort / Characteristics Non-Labored Sponta neous Respiratory Depth Normal Respiratory Patter n Blood Pressure Blood Pressure [Le ft Arm] 157/78 H Blood Pressure Arcelia n Blood Pressure Arcelia n [Left Arm] 104 Blood Pressure Pos ition Pulse Oximetry 98 96 Oxygen Delivery Me thod BiPAP BiPAP Oxygen Flow Rate Fraction of Inspir ed Oxygen Sepsis Recent Feve r Within 48 Hours Sepsis New/Unexpla ined Change in Men jamee Status Sepsis Action Take n by Nursing Oxygen Flow Rate - Titration Pulse Oximetry Pos t Tiitration Physical Exam: Physical Exam GENERAL: oriented to person, place, and time. appears well-developed and well- nourished. HENT: Exam performed. - Head: Normocephalic and atraumatic. EYES: Conjunctivae and EOM are normal. Right eye exhibits no discharge. Left eye exhibits no discharge. No scleral icterus. NECK: Normal range of motion. Neck supple. No JVD present. CV: Normal rate, regular rhythm, normal heart sounds and intact distal pulses. There is no peripheral edema. Palpable radial pulses bue. PULM/CHEST: Expiratory wheezes bilaterally. ABD: The abdomen is soft and morbidly obese. There is no tenderness. NEURO: Motor and sensation grossly intact. SKIN: Skin is warm and dry. He is not diaphoretic. PSYCH: normal mood and affect. Behavior is normal. Judgment and thought content normal. Course Course 1021: The patient was evaluated in room A9. A complete history and physical exam was performed Cardiac monitoring: An order was placed for continuous cardiac monitoring. The monitor shows a rate of 80 with sinus rhythm interpreted by me 1110: Vital signs stable. Patient's VBG shows venous pH of 7.23 pCO2 78. Patient be switched to BiPAP. 1200: Vital signs stable on BiPAP. Patient states she feels better with the BiPAP. Labs and imaging are unremarkable with the exception of the blood gas. Patient will be admitted to the [facility] team. Administered Medications Discontinued Medications Albuterol (Albut/Ipratrop 3mg/0.5mg Neb 3 Ml Vial) 12 ml NEB ONE ONE; Protocol Stop: 10/14/24 10:28 Last Admin: 10/14/24 10:39 Dose: 12 ml Documented By: YUNIEL Methylprednisolone (Methylprednisolone 125 Mg/2 Ml Vial) 125 mg IV NOW STA Stop: 10/14/24 10:28 Last Admin: 10/14/24 10:34 Dose: 125 mg Documented By: ELIZABET Medical Decision Making Laboratory Data Attestation: I reviewed the patient's lab results. 10/14/24 10:30 10/14/24 10:30 Lab Results 10/14/24 10/14/24 Range/Units 10:25 10:30 WBC 12.83 H (4.8-10.8) K/ul RBC 4.79 (4.20-5.40) M/uL Hgb 14.8 (12.0-16.0) g/dl Hct 48.3 H (37.0-47.0) % MCV 100.8 H (80.0-100.0) fL MCH 30.9 (25.0-34.0) pg MCHC 30.6 L (32.0-36.0) g/dL RDW Std Deviation 48.4 H (36.4-46.3) fL RDW Coeff of Bruno 13.0 (11.5-14.5) % Plt Count 254 (130-400) K/uL MPV 10.0 (9.4-12.4) fL Immature Gran % (Auto) 0.6 % Neut % (Auto) 83.7 % Lymph % (Auto) 10.7 % Newberry % (Auto) 3.4 % Eos % (Auto) 1.3 % Baso % (Auto) 0.3 % Neut # (Auto) 10.74 H (1.40-6.50) K/uL Lymph # (Auto) 1.37 (1.20-3.40) K/uL Newberry # (Auto) 0.43 (0.11-0.59) K/uL Eos # (Auto) 0.17 (0.00-0.50) K/uL Baso # (Auto) 0.04 (0.00-0.20) K/uL Immature Gran # (Auto) 0.08 (0.01-0.20) K/uL VBG pH 7.23 L (7.36-7.41) VBG pCO2 78 H (38-50) mmHg VBG pO2 23 mmHg VBG HCO3 33 mmol/L VBG O2 Saturation < 60.0 % VBG Base Excess 2.7 mEq/L Sodium 141 (136-145) mmol/L Potassium 3.7 (3.5-5.1) mmol/L Chloride 104 (98-107) mmol/L Carbon Dioxide 33 H (21-32) mmol/L Anion Gap 4 (3-11) BUN 17 (6-23) mg/dl Creatinine 0.78 (0.6-1.2) mg/dl Est Cr Clr Drug Dosing Not Reportable eGFR 87.44 BUN/Creatinine Ratio 21.8 H (10-20) Glucose 239 H (70-99(Fasting)) mg/dl Calcium 9.6 (8.6-10.3) mg/dl Troponin I High Sens 4.0 (0-14) pg/ml B-Natriuretic Peptide 58 (0-100) pg/ml Lipase 26 (11-82) U/L SARS-CoV-2 (PCR) NEGATIVE (Negative) Influenza Type A (PCR) Negative (Neg) Influenza Type B (PCR) Negative (Neg) RSV (RT-PCR) Negative (Neg) Imaging Data Attestation: I personally reviewed and interpreted this imaging study as follows: My Impression: Chest x-ray negative. Airway clear. No pneumothorax. No consolidation. No cardiomegaly or cephalization.. No free air under the diaphragm. No fractures of the skeletal structures. Radiologist's Impression: Chest X-Ray 10/14/24 10:46 XR chest 1V portable CLINICAL HISTORY: sob COMPARISON STUDY: 05/09/2024 FINDINGS: Stable cardiomegaly with mild pulmonary vascular congestion. No effusion, consolidation, or pneumothorax. IMPRESSION: Mild CHF. ACT 112: Negative or not required by law. Electronically signed by: Seamus Olea M.D. 10/14/2024 11:01 AM ECG Data Attestation: I personally reviewed and interpreted this ECG as follows: Interpretation: Sinus rhythm with a rate of 61. WA QRS and QTc intervals within normal limits. No ST elevation or ST depression. Baseline wander and artifact secondary to patient's respiratory distress. [facility] Narrative 1021: The patient was evaluated in room A9. A complete history and physical exam was performed Cardiac monitoring: An order was placed for continuous cardiac monitoring. The monitor shows a rate of 80 with sinus rhythm interpreted by me 1110: Vital signs stable. Patient's VBG shows venous pH of 7.23 pCO2 78. Patient be switched to BiPAP. 1200: Vital signs stable on BiPAP. Patient states she feels better with the BiPAP. Labs and imaging are unremarkable with the exception of the blood gas. Patient will be admitted to the [facility] team. Impression & Plan Acute exacerbation of chronic obstructive airways disease Critical Care Time Critical Care Time: Yes Total Critical Care Time: 53 I have personally spent greater than 53 minutes of critical care time in the direct management of this patient. This includes bedside care, interpretation of diagnostic studies, and testing, discussion with consultants, patient, and family members, and other required patient management activities. This 53 minutes is in excess of all separately billable procedures. Discharge Plan Visit Data Chief Complaint: Shortness of Breath/Dyspnea Stated Complaint: LOW OX, CONGESTION ED Provider: Rebel Castrejon Discharge Problem: Acute exacerbation of chronic obstructive airways disease Patient Disposition: Admitted As Inpatient Condition: Serious Forms Stand Alone Forms: My [facility] Prescriptions Prescriptions: No Action hydroxyzine pamoate 25 mg capsule 25 mg PO BID Qty: 180 3RF lithium carbonate 300 mg tablet extended release 600 mg PO HS 90 Days Qty: 180 3RF betamethasone valerate 0.1 % ointment 1 applic topical DAILY Qty: 45 0RF Rx Instructions: Apply to right palm once a day at night for 3 to 4 weeks omeprazole 20 mg capsule,delayed release(DR/EC) 20 mg PO QAM Qty: 90 3RF atorvastatin 40 mg tablet 40 mg PO QPM Qty: 90 3RF metoprolol succinate 25 mg tablet extended release 24 hr 25 mg PO DAILY Qty: 90 3RF famotidine [Acid Application Security Consultant (famotidine)] 10 mg tablet 10 mg PO BID Qty: 180 3RF gabapentin 100 mg capsule 100 mg PO TID Qty: 270 3RF amlodipine 5 mg tablet 5 mg PO HS Qty: 90 3RF acetazolamide 250 mg tablet 1,000 mg PO BID 30 Days Qty: 240 5RF cholecalciferol (vitamin D3) 125 mcg (5,000 unit) capsule 125 mcg PO DAILY Qty: 30 5RF meloxicam 15 mg tablet 15 mg PO DAILY Qty: 30 3RF albuterol sulfate 2.5 mg /3 mL (0.083 %) solution for nebulization 2.5 mg inhalation Q4H PRN (Reason: shortness of breath or wheezing) Qty: 180 11RF clobetasol 0.05 % cream 1 applic TOPICAL BID Rx Instructions: APPLY TO RIGHT HAND TWICE DAILY nystatin 100,000 unit/gram powder 1 applic TOPICAL TID Qty: 60 5RF Rx Instructions: APPLY TO SKIN FOLDS (DME) humidifiers Mis See Rx Instructions .Route Qty: 1 0RF Rx Instructions: humidified oxygen. prn Vraylar 3 mg capsule 3 mg PO HS Qty: 30 0RF Rx Instructions: Filled by psych albuterol sulfate 90 mcg/actuation HFA aerosol inhaler 2 puff INHALATION QID PRN (Reason: SHORTNESS OF BREATH/WHEEZING) Qty: 8.5 5RF Trelegy Ellipta 100-62.5-25 mcg blister with device 1 inh inhalation DAILY Qty: 28 5RF (DME) blood-glucose meter Kit See Rx Instructions .Route Qty: 1 0RF Rx Instructions: AC and HS and prn (DME) Blood Glucose Test Strip See Rx Instructions .Route Qty: 50 3RF Rx Instructions: AC and HS (DME) Hospital Bed Misc See Rx Instructions .Route Qty: 1 0RF Rx Instructions: Semi-electric hospital bed with mattress and side rails. As directed cyanocobalamin (vitamin B-12) 1,000 mcg capsule 1,000 mcg PO DAILY Qty: 100 3RF folic acid 800 mcg tablet 800 mcg PO DAILY Qty: 100 3RF [facility] miscellaneous DAILY Qty: 6 3RF Rx Instructions: Nasal cannula - use with oxygen therapy. aspirin 81 mg Tablet,Chewable 81 mg PO QAM ketoconazole 2 % shampoo 1 applic topical UD Rx Instructions: 1 applic topically wash scalp 2-3 times weekly. Let sit for 3-5 minutes prior to rinsing. nitroglycerin 0.4 mg tablet, sublingual 0.4 mg sublingual UD PRN (Reason: Chest Pain) Rx Instructions: NEEDED FOR CHEST PAIN : ONE TABLET UNDER THE TONGUE EVERY 5 MINUTES UP TO THREE DOSES. levothyroxine 88 mcg tablet 88 mcg PO DAILY Qty: 90 3RF (DME) Oxygen Home Liters Per Minute See Rx Instructions .Route Qty: 1 0RF Rx Instructions: As directed Referrals Referrals: Alberto Molina DO [Primary Care Provider] -
[2024-10-14] MEDS: AZITHROMYCIN 500 MG/255 ML BAG IV ONE (14:17)
[2024-10-14 14:28] LABS: Base Excess VBG 4.2 mEq/L; HCO3 VBG 34 mmol/L; Oxygen Saturation VBG < 60.0 %; PCO2 VBG 80 mmHg (38-50); PO2 VBG 28 mmHg; pH VBG 7.24 (7.36-7.41)
[2024-10-14] MEDS ORDERED: GLUCAGON FOR INJ 1 MG VIAL SQ PRN (15:32)
[2024-10-14] MEDS ORDERED: ACETAMINOPHEN 325 MG TAB PO PRN (15:32)
[2024-10-14] MEDS ORDERED: GLUCOSE 40% GEL 15 GM TUBE PO PRN (15:32)
[2024-10-14] MEDS ORDERED: POLYETHYLENE (MIRALAX) 17 GM PACK PO PRN (15:32)
[2024-10-14] MEDS ORDERED: ALUMINUM/MAGNESIUM SUSP 30 ML UDC PO PRN (15:32)
[2024-10-14] MEDS ORDERED: DEXTROSE 50% 50 ML SYRINGE IV PRN (15:32)
[2024-10-14] MEDS ORDERED: CARBOHYDRATES FOR HYPOGLYCEMIA PO PRN (15:32)
[2024-10-14] MEDS ORDERED: MAGNESIUM HYDROXIDE SUSP 30 ML UDC PO PRN (15:32)
[2024-10-14] MEDS ORDERED: GLUCOSE 10 TAB/TUBE PO PRN (15:32)
[2024-10-14] MEDS ORDERED: NITROGLYCERIN SL 0.4 MG/TAB TAB SL PRN (15:32)
[2024-10-14] MEDS ORDERED: ONDANSETRON INJ 2 MG/ML 2 ML VIAL IV PRN (15:32)
[2024-10-14] MEDS ORDERED: Patient's HEIGHT &/or WEIGHT Needed SCH (16:15)
[2024-10-14 16:34] LABS: Base Excess VBG 2.8 mEq/L; HCO3 VBG 31 mmol/L; Oxygen Saturation VBG 77.5 %; PCO2 VBG 65 mmHg (38-50); PO2 VBG 42 mmHg; pH VBG 7.29 (7.36-7.41)
[2024-10-14] MEDS: MICONAZOLE NITRATE POWDER 85 GM EXT SCH (16:44)
[2024-10-14] MEDS: GABAPENTIN 100 MG CAP PO SCH (16:44)
[2024-10-14] MEDS: INSULIN ASPART PER UNIT CHARGE SC SCH (16:45)
[2024-10-14] MEDS: ENOXAPARIN INJ 40 MG/0.4 ML SYR SQ SCH (17:51)
[2024-10-14] MEDS: ALBUT/IPRATROP 3MG/0.5MG NEB 3 ML VIAL NEB SCH (19:54)
[2024-10-14] MEDS ORDERED: methylPREDNISolone 125 MG/2 ML VIAL IV SCH (21:00)
[2024-10-14] MEDS: methylPREDNISolone 60 MG in SYRINGE 0 ML IV SCH (21:01)
[2024-10-14] MEDS: LITHIUM CARBONATE SLOW REL 300 MG TAB PO SCH (21:01)
[2024-10-14] MEDS: acetaZOLAMIDE 250 MG TAB PO SCH (21:02)
[2024-10-14] MEDS: ATORVASTATIN 40 MG TAB PO SCH (21:03)
[2024-10-14] MEDS: hydrOXYzine HCl 25 MG TAB PO SCH (21:04)
[2024-10-14] MEDS: FAMOTIDINE 10 MG TABLET PO SCH (21:04)
[2024-10-14] MEDS: CARIPRAZINE HCL 3 MG CAP PO SCH (21:04)
[2024-10-14] MEDS: amLODIPine BESYLATE 5 MG TAB PO SCH (21:05)
[2024-10-15] MEDS: LEVOTHYROXINE SODIUM 88 MCG TABLET PO SCH (06:06)
[2024-10-15] MEDS: UMECLIDINIUM/VILANTEROL 62.5/25MCG 7 PUFFS/INHALER INH SCH (07:56)
[2024-10-15] MEDS: FLUTICASONE FUROATE 100MCG 14 PUFFS/INHALER INH SCH (07:56)
[2024-10-15 07:57] LABS: Basophils # (auto) 0.02 K/uL (0.00-0.20); Basophils % (auto) 0.1 %; Hematocrit (blood only) 50.1 % (37.0-47.0); Hemoglobin 15.7 g/dl (12.0-16.0); Immature Granulocytes # (auto) 0.11 K/uL (0.01-0.20); Immature Granulocytes % (auto) 0.7 %; Lymphocytes # (auto) 1.17 K/uL (1.20-3.40); Lymphocytes % (auto) 7.1 %; Mean Corpuscular Hemoglobin 31.5 pg (25.0-34.0); Mean Corpuscular Hgb Conc 31.3 g/dL (32.0-36.0); Mean Corpuscular Volume 100.6 fL (80.0-100.0); Mean Platelet Volume 9.8 fL (9.4-12.4); Monocytes # (auto) 0.42 K/uL (0.11-0.59); Monocytes % (auto) 2.6 %; Neutrophils # (auto) 14.73 K/uL (1.40-6.50); Neutrophils % (auto) 89.5 %; Platelet Count 291 K/uL (130-400); RDW Coefficient of Variation 12.9 % (11.5-14.5); RDW Standard Deviation 47.5 fL (36.4-46.3); Red Blood Count 4.98 M/uL (4.20-5.40); White Blood Count 16.45 K/ul (4.8-10.8)
[2024-10-15] MEDS: METOPROLOL SUCC 25MG EXT REL TAB PO SCH (07:57)
[2024-10-15] MEDS: CYANOCOBALAMIN (B-12) 500 MCG TABLET PO SCH (07:57)
[2024-10-15] MEDS: CHOLECALCIFEROL 125 MCG (5,000 UNITS) TAB PO SCH (07:57)
[2024-10-15] MEDS: ASPIRIN 81 MG CHEW PO SCH (07:57)
[2024-10-15] MEDS: FOLIC ACID 400 MCG TAB PO SCH (07:58)
[2024-10-15] MEDS: PANTOprazole 40 MG TAB PO SCH (07:58)
[2024-10-15 08:13] LABS: Estimated Average Glucose 114 mg/dl; Hemoglobin A1C 5.6 % (4.5-5.6)
[2024-10-15 08:28] LABS: Calcium 10.2 mg/dl (8.6-10.3); Creatinine Clr Calc Pharmacy 90.4 ml/min; Magnesium 2.3 mg/dl (1.7-2.4)
[2024-10-15] MEDS: AZITHROMYCIN 250 MG TAB PO SCH (08:48)
[2024-10-15] MEDS ORDERED: MELOXICAM 7.5 MG TAB PO SCH (09:00)
[2024-10-15] MEDS ORDERED: NON-FORMULARY MEDICATION (Fluticasone-Umeclidin-Vilanter [Trelegy Ellipta] 100-62.5-25 mcg INH SCH (09:00)
--- NOTE | 2024-10-15 14:13 | Hospitalist Progress Note ---
Date of Service October 15, 2024 Assessment & Plan (1) Acute exacerbation of chronic obstructive airways disease: (2) Acute and chronic respiratory failure: (3) CAD (coronary artery disease): (4) HTN (hypertension): Plan This patient is a 59-year-old female with a history of COPD, chronic hypoxic respiratory failure with 2 LNC O2 with exertion and at bedtime with CPAP, current smoker, BLAINE, CAD s/p stent 2018, HTN, pseudotumor cerebri, bipolar disorder, neuropathy, GERD, hypothyroidism, DM2, vitamin B12, folate, and vitamin D deficiencies, who presents to the ER with worsening cough, wheezing, chest congestion, sputum production and shortness of breath over the last week. Denies fevers or chills. She has been having to use 3 to 4 L of O2 continuously throughout the day and normally is on room air at rest. She does have a history of ICU admission and intubation secondary to COPD and COVID infection. In the ER, she was given IV steroids and an hour-long nebulizer treatment. Her VBG showed evidence of acute respiratory acidosis and she was placed on BiPAP. She will be admitted for acute exacerbation of COPD and acute on chronic respiratory failure with hypoxia and hypercarbia. #COPD exacerbation/acute on chronic respiratory failure with hypoxia and hypercarbia/BLAINE on CPAP-requiring continuous oxygen here as well as BiPAP for acute on chronic respiratory acidosis. CXR negative for pneumonia. COVID/flu/RSV negative. Much improved, weaned off continuous BiPAP to supplemental O2 and weaned down to 3 LNC, wheezing is less, no respiratory distress. VBG repeat after being on BiPAP for multiple hours on the day of admission was improved - Continues on acetazolamide twice daily for pseudotumor cerebri - Continue Solu-Medrol 60 Mg IV twice daily - Continue DuoNebs every 6 hours, home maintenance inhalers daily - Continue azithromycin 250 Mg p.o. once daily for COPD exacerbation-last day of treatment 10/18 - Encouraged smoking cessation-declines nicotine patch at this time and is committed to quitting smoking-she will discuss Chantix with her psychiatrist #CAD/HTN-no acute issues, troponin negative, ECG without ischemic changes, no chest pain. Blood pressures are controlled - Continue home amlodipine, aspirin, atorvastatin, metoprolol - Monitoring on telemetry can be discontinued #DM2 with neuropathy-Typically is not on medication at home. HgbA1c only 5.4% on last check recently and again 5.6% here, well-controlled With some hyperglycemia from steroids - BSG's ACHS, diabetic diet, supplemental NovoLog - Add Lantus if needed with being on IV steroids -Continue home gabapentin #Pseudotumor cerebri-no acute issues - Continue home acetazolamide 1000 Mg p.o. twice daily #Bipolar disorder-no acute issues - Continue home Vraylar which will need to be brought in from home - Continue home lithium, hydroxyzine # Macrocytosis/Vitamin B12/folate/vitamin D deficiency-no acute issues - Continue home folic acid, vitamin D, and B12 supplements #GERD-no acute issues - Continue home famotidine, PPI #Hypothyroidism-recent TSH normal in 08/2024 - Continue home levothyroxine #Ree intertrigo-rash under pannus consistent with fungal infection - Continue miconazole powder daily DVT prophylaxis-SQ Lovenox, SCDs Disposition-downgrade to medical/surgical unit Admission and Anticipated Discharge Date Admission Date: October 14, 2024 Subjective Patient feeling much better, wore the BiPAP all night and is now weaned to 3L NC O2. She reports she is committed to quitting smoking Telemetry with normal sinus rhythm with rates dipping to the 40s briefly overnight but mostly in the 70s Physical Exam Constitutional: WD/WN, vitals as above + morbidly obese Neck: trachea midline, no thyromegaly Respiratory: normal respiratory effort; no cough Auscultation: + wheezes (Occasional and improved from previous); no crackles and no rhonchi Cardiovascular: RRR, no murmur, no edema Chest (Breasts): Chest: normal inspection of chest Gastrointestinal (Abdomen): normal bowel sounds, soft, nontender, no hepatosplenomegaly Musculoskeletal: Extremities: extremities normal to inspection; no cyanosis and no clubbing Skin: + rash (Erythematous well-demarcated telma h under pannus of the abdomen) Neurologic: moves all extremities and awake; no focal motor deficits Psychiatric: A+Ox3, euthymic affect Lymphatic: no lymphedema Results & Data Results & Data Vital Signs (Past 12 Hours) Vital Signs Temp Pulse Pulse Pulse Resp BP Pulse Ox 10/15/24 12:59 65 18 96 10/15/24 11:10 36.4 C L 55 L 18 115/76 93 10/15/24 08:20 57 L 10/15/24 08:20 10/15/24 07:29 36.4 C L 54 L 18 107/68 97 10/15/24 06:54 59 L 16 98 10/15/24 03:37 36.3 C L 58 L 16 121/68 98 O2 Del Method O2 Flow Rate 10/15/24 12:59 Nasal Cannula 3 10/15/24 11:10 Nasal Cannula 3 10/15/24 08:20 10/15/24 08:20 Nasal Cannula 3 10/15/24 07:29 Nasal Cannula 5 10/15/24 06:54 Nasal Cannula 3 10/15/24 03:37 CPAP Laboratory Results CBC, BMP, magnesium, HgbA1c reviewed, lithium level pending PG Care Time/CCT Total # of Minutes Spent Total Time Spent with Patient: Total time spent is greater than 50% in coordination of care (as documented) at patient's floor/unit and/or counseling patient: Coding Level of Care Code 80651 SUB INP/OBS CARE 2/35MIN Diagnoses Acute exacerbation of chronic obstructive airways disease J44.1 Acute and chronic respiratory failure J96.20 CAD (coronary artery disease) I25.10 HTN (hypertension) I10
[2024-10-16 07:33] LABS: BUN Creatinine Ratio 26.2 (10-20); Calcium 9.6 mg/dl (8.6-10.3); Creatinine Clr Calc Pharmacy 87.1 ml/min; Potassium 4.3 mmol/L (3.5-5.1)
[2024-10-16 07:34] VITALS: TEMP 97.9
--- NOTE | 2024-10-16 11:22 | Discharge Summary ---
Discharge Summary Date of Service October 16, 2024 Principal Dx & Hospital Course #1 = Principal Diagnosis (1) Acute exacerbation of chronic obstructive airways disease: (2) Acute and chronic respiratory failure: (3) CAD (coronary artery disease): (4) HTN (hypertension): Plan This patient is a 59-year-old female with a history of COPD, chronic hypoxic respiratory failure with 2 LNC O2 with exertion and at bedtime with CPAP, curr ent smoker, BLAINE, CAD s/p stent 2018, HTN, pseudotumor cerebri, bipolar disorder, neuropathy, GERD, hypothyroidism, DM2, vitamin B12, folate, and vitamin D deficiencies, who presents to the ER with worsening cough, wheezing, chest congestion, sputum production and shortness of breath over the last week. Denies fevers or chills. She has been having to use 3 to 4 L of O2 continuously throughout the day and normally is on room air at rest. She does have a history of ICU admission and intubation secondary to COPD and COVID infection. In the ER, she was given IV steroids and an hour-long nebulizer treatment. Her VBG showed evidence of acute respiratory acidosis and she was placed on BiPAP. She was admitted for acute exacerbation of COPD and acute on chronic respiratory failure with hypoxia and hypercarbia. #COPD exacerbation/acute on chronic respiratory failure with hypoxia and hypercarbia/BLAINE on CPAP-requiring continuous oxygen here as well as BiPAP for acute on chronic respiratory acidosis. CXR negative for pneumonia. COVID/flu/RSV negative. Much improved, weaned off continuous BiPAP to supplemental O2 and weaned down to 2 LNC continuously on 2 step walk test prior to discharge. VBG repeat after being on BiPAP for multiple hours on the day of admission was improved. She has not been able to wear her CPAP at home at night because of poorly fitting mask and no longer follows with sleep medicine. Much improved, wheezing resolved, stable for discharge to home - Continues on acetazolamide twice daily for pseudotumor cerebri - Received Solu-Medrol 60 Mg IV twice daily and convert to prednisone taper on discharge - Received DuoNebs every 6 hours and can continue as needed at home, home maintenance inhalers daily - Continue azithromycin 250 Mg p.o. once daily for COPD exacerbation-last day of treatment 10/18 - Encouraged smoking cessation-declines nicotine patch at this time and is committed to quitting smoking-she will discuss Chantix with her psychiatrist #CAD/HTN-no acute issues, troponin negative, ECG without ischemic changes, no chest pain. Blood pressures are controlled - Continue home amlodipine, aspirin, atorvastatin, metoprolol - No arrhythmias noted on telemetry during admission #DM2 with neuropathy-Typically is not on medication at home. HgbA1c only 5.4% on last check recently and again 5.6% here, well-controlled With some hyperglycemia from steroids -No medications needed on discharge -Continue home gabapentin #Pseudotumor cerebri-no acute issues - Continue home acetazolamide 1000 Mg p.o. twice daily #Bipolar disorder-no acute issues - Continue home Vraylar, lithium, hydroxyzine # Macrocytosis/Vitamin B12/folate/vitamin D deficiency-no acute issues - Continue home folic acid, vitamin D, and B12 supplements #GERD-no acute issues - Continue home famotidine, PPI #Hypothyroidism-recent TSH normal in 08/2024 - Continue home levothyroxine #Ree intertrigo-rash under pannus consistent with fungal infection - Continue miconazole powder daily DVT prophylaxis-SQ Lovenox, SCDs Disposition-stable for discharge to home Notes For Next Care Provider Medication Changes From Visit See list Admission HPI Per Admitting Provider This patient is a 59-year-old female with a history of COPD, chronic hypoxic respiratory failure with 2 LNC O2 with exertion and at bedtime with CPAP, current smoker, BLAINE, CAD s/p stent 2017, HTN, pseudotumor cerebri, bipolar disorder, neuropathy, GERD, hypothyroidism, DM2, vitamin B12, folate, and vitamin D deficiencies, who presents to the ER with worsening cough, wheezing, chest congestion, sputum production and shortness of breath over the last week. Denies fevers or chills. She has been having nasal congestion but frequently does in the springtime with allergies. She has been having to use 3 to 4 L of O2 continuously throughout the day and normally is on room air at rest. She does have a history of ICU admission and intubation secondary to COPD and COVID infection. In the ER, she was given IV steroids and an hour-long nebulizer treatment. Her VBG showed evidence of acute respiratory acidosis and she was placed on BiPAP. She will be admitted for acute exacerbation of COPD and acute on chronic respiratory failure with hypoxia and hypercarbia. Discharge Exam Constitutional WD/WN, vitals as above + morbidly obese Neck trachea midline, no thyromegaly Respiratory normal respiratory effort; no cough Auscultation: lungs clear to auscultation bilaterally Cardiovascular RRR, no murmur, no edema Chest (Breasts) Chest: normal inspection of chest Gastrointestinal (Abdomen) normal bowel sounds, soft, nontender, no hepatosplenomegaly Musculoskeletal Extremities: extremities normal to inspection; no cyanosis and no clubbing Skin + rash (Erythematous well-demarcated rash under pannus of the abdomen) Neurologic moves all extremities and awake; no focal motor deficits Psychiatric A+Ox3, euthymic affect Lymphatic no lymphedema Discharge Plan Discharge Items Patient Disposition: Home - Self-Care Reason For Visit: COPD EXACERBATION, RESIRATORY FAILURE Discharge Diagnosis: COPD exacerbation Acute on chronic respiratory failure with hypoxemia and hypercarbia Condition on Discharge: Fair Activity: As commented below Bathing: No limitations Exercise/Sports: Gradually increase as tolerated Non-emergency contact: Primary Care Provider Call non-emergency contact if: you have any medication questions and your symptoms worsen Follow-up/Referrals: Jeremias Patten MD [Physician] - (A referral will be made for you to be seen by sleep medicine at [facility]) Alberto Molina DO [Primary Care Provider] - (Follow-up within 1 to 2 weeks.) Diet: Heart Healthy Addtl Attending Provider Instructions: You are admitted with a COPD exacerbation and had improvement with steroids. Please continue on the prednisone taper as directed and finish out 2 more days of the antibiotic called azithromycin. You can continue using your nebulizer at home as needed for shortness of breath, cough, or wheezing. You will need to wear oxygen 2 L via the nasal cannula at all times. As we discussed, it is very important that you be seen by the sleep medicine doctor and get started back on your CPAP machine at bedtime as soon as possible. Pending Studies at Discharge: No Stand-Alone Forms: My [facility] [employer], Smoking Cessation Medications and DC Order Prescriptions: New azithromycin 250 mg Tablet 250 mg PO QAM Qty: 2 0RF miconazole nitrate [Desenex] 2 % Powder 1 applic EXT DAILY Qty: 85 0RF prednisone 10 mg tablet 40 mg PO DAILY Qty: 20 0RF Rx Instructions: X 2 days then decrease by 10 mg every 2 days until gone Continued hydroxyzine pamoate 25 mg capsule 25 mg PO BID Qty: 180 3RF lithium carbonate 300 mg tablet extended release 600 mg PO HS 90 Days Qty: 180 3RF betamethasone valerate 0.1 % ointment 1 applic topical DAILY Qty: 45 0RF Rx Instructions: Apply to right palm once a day at night for 3 to 4 weeks omeprazole 20 mg capsule,delayed release(DR/EC) 20 mg PO QAM Qty: 90 3RF atorvastatin 40 mg tablet 40 mg PO QPM Qty: 90 3RF metoprolol succinate 25 mg tablet extended release 24 hr 25 mg PO DAILY Qty: 90 3RF famotidine [Acid Custodial Worker (famotidine)] 10 mg tablet 10 mg PO BID Qty: 180 3RF gabapentin 100 mg capsule 100 mg PO TID Qty: 270 3RF amlodipine 5 mg tablet 5 mg PO HS Qty: 90 3RF acetazolamide 250 mg tablet 1,000 mg PO BID 30 Days Qty: 240 5RF cholecalciferol (vitamin D3) 125 mcg (5,000 unit) capsule 125 mcg PO DAILY Qty: 30 5RF albuterol sulfate 2.5 mg /3 mL (0.083 %) solution for nebulization 2.5 mg inhalation Q4H PRN (Reason: shortness of breath or wheezing) Qty: 180 11RF clobetasol 0.05 % cream 1 applic TOPICAL BID Rx Instructions: APPLY TO RIGHT HAND TWICE DAILY (DME) humidifiers Misc See Rx Instructions .Route Qty: 1 0RF Rx Instructions: humidified oxygen. prn Vraylar 3 mg capsule 3 mg PO HS Qty: 30 0RF Rx Instructions: Filled by psych albuterol sulfate 90 mcg/actuation HFA aerosol inhaler 2 puff INHALATION QID PRN (Reason: SHORTNESS OF BREATH/WHEEZING) Qty: 8.5 5RF Trelegy Ellipta 100-62.5-25 mcg blister with device 1 inh inhalation DAILY Qty: 28 5RF (DME) blood-glucose meter Kit See Rx Instructions .Route Qty: 1 0RF Rx Instructions: AC and HS and prn (DME) Blood Glucose Test Strip See Rx Instructions .Route Qty: 50 3RF Rx Instructions: AC and HS (DME) Hospital Bed Misc See Rx Instructions .Route Qty: 1 0RF Rx Instructions: Semi-electric hospital bed with mattress and side rails. As directed cyanocobalamin (vitamin B-12) 1,000 mcg capsule 1,000 mcg PO DAILY Qty: 100 3RF folic acid 800 mcg tablet 800 mcg PO DAILY Qty: 100 3RF miscellaneous medical supply Misc 1 ea miscellaneous DAILY Qty: 6 3RF Rx Instructions: Nasal cannula - use with oxygen therapy. aspirin 81 mg Tablet,Chewable 81 mg PO QAM ketoconazole 2 % shampoo 1 applic topical UD Rx Instructions: 1 applic topically wash scalp 2-3 times weekly. Let sit for 3-5 minutes prior to rinsing. nitroglycerin 0.4 mg tablet, sublingual 0.4 mg sublingual UD PRN (Reason: Chest Pain) Rx Instructions: NEEDED FOR CHEST PAIN : ONE TABLET UNDER THE TONGUE EVERY 5 MINUTES UP TO THREE DOSES. levothyroxine 88 mcg tablet 88 mcg PO DAILY Qty: 90 3RF (DME) Oxygen Home Liters Per Minute See Rx Instructions .Route Qty: 1 0RF Rx Instructions: As directed Discontinued meloxicam 15 mg tablet 15 mg PO DAILY Qty: 30 3RF nystatin 100,000 unit/gram powder 1 applic TOPICAL TID Qty: 60 5RF Rx Instructions: APPLY TO SKIN FOLDS Discharge Orders: Discharge Order (Routine); Ordered 10/16/24 Ordered By: Vicki Allen Admission Data Admit Date/Time: 10/14/24 15:19 Attending Provider: Vicki Allen Admit Provider: Vicki Allen Primary Care Provider: Alberto Molina Other Providers: Vicki Allen Hospital Stay Data Consultations 10/14/24 12:02 ED Decision to Admit Stat Pending Results Patient Have Any Pending Studies at Discharge: No Discharge Instructions Given to Patient (Per Discharging Provider) You are admitted with a COPD exacerbation and had improvement with steroids. Please continue on the prednisone taper as directed and finish out 2 more days of the antibiotic called azithromycin. You can continue using your nebulizer at home as needed for shortness of breath, cough, or wheezing. You will need to wear oxygen 2 L via the nasal cannula at all times. As we discussed, it is very important that you be seen by the sleep medicine doctor and get started back on your CPAP machine at bedtime as soon as possible. Total Time Total Time Spent Total Time Spent (In Minutes): 35-minute Total Time Includes: Examination of the Patient, Discharge Planning and Medication Reconciliation Coding Level of Care Code 74232 INP/OBS DISCH >30 MIN Diagnoses Acute exacerbation of chronic obstructive airways disease J44.1 Acute and chronic respiratory failure J96.20 CAD (coronary artery disease) I25.10 HTN (hypertension) I10
[2024-10-16 12:06] VITALS: BP 112/71; PULSE 55; RESP 16; O2SAT 95
== END 2024-10-16 13:31 | disposition home or self-care (01) | DRG 189 ==
LOC: ED 10:14 → 2S 15:10 → 3W 10-15 15:49